=== PATIENT | male | born 1980 | race Caucasian/White ===

== ENCOUNTER 2018-01-14 06:39 | Day surgery (SDC) | payer OTHER, SELFPAY ==
[2017-12-27 13:14] VITALS: BMI 27.3
[2018-01-14] VITALS (10 sets, daily range): BP systolic 112–144; BP diastolic 72–99; PULSE 65–88; RESP 9–98; TEMP 36.1–36.6; O2SAT 95–100; BMI 25.9
[2018-01-14] MEDS: LACTATED RINGERS 1,000 ML 42 ML IV ×2 (07:20→09:22)
--- NOTE | 2018-01-14 07:37 | PM.PREOP ---
Pre-operative Note Interval Note Pre-op Check: Yes History & Physical Reviewed by Physician and Yes Exam Performed Changes: No
[2018-01-14] MEDS: CEFAZOLIN 2 GM/100 ML FROZ.PIGGY IV (07:48)
--- NOTE | 2018-01-14 08:15 | SUR.OPER ---
right Lateral on padded OR bed, head on pillow, gel axillary roll in place, bottom leg bent with gel pad under knee to foot, upper leg straight and supported with pillows. Upper arm supported by pillows and secured over bottom arm to padded arm board. Safety belt at hip, tape over blanket lower legs.
[2018-01-14] MEDS: BUPIVACAINE 0.25% (PF) VIAL 30 ML INJ (08:26)
[2018-01-14] MEDS: METOCLOPRAMIDE 10 MG/2 ML INJ IV (09:24)
[2018-01-14] MEDS: ONDANSETRON 4 MG/2 ML INJ IV (09:26)
[2018-01-14] MEDS: fentaNYL 100 MCG/2 ML INJ 50 MCG IV (09:37)
--- NOTE | 2018-01-14 09:39 | SUR.PHASEI ---
awake on admit to phase 1, c/o nausea treated with ondansetron and reglan and cool washcloth, after nausea subsided, pt c/o pain to l ankle treated with fentanyl.
[2018-01-14] MEDS: OXYCODONE/ACETAMINOPHEN 5/325 TABLET 1 TAB PO (09:51)
--- NOTE | 2018-01-14 09:54 | PM.OP.1 ---
Operative Date/Time/Diagnoses Date of procedure: 01/14/18 Time of procedure: 08:00 Pre-op diagnosis: Left peroneal tendon tendinitis Left ankle ganglion excision Post-op diagnosis: same Procedure & Clinicians Procedure: Procedure: Open left peroneal tendon tenosynovectomy Left ankle ganglion cyst excision Left ankle peroneus quartus excision Same procedure as scheduled: Yes Indications: 37-year-old male with many years of left ankle pain located over the peroneal tendons coursing with them. He has failed a long course of physical therapy splinting pain medications and activity modifications. He was indicated for surgery secondary to persistent symptoms. The risks, benefits, alternatives to surgery were discussed the risks include pain, bleeding, infection, damage to nearby structures, lack of symptom relief, sural nerve injury, need for further procedures, implant complications, anesthetic complications, DVT, PE, stroke. He signed a written consent. Surgeon: Nilson Briones Hedis Specialist: Mikey Sam Click Yes if Unassisted: No Anesthesia Type: General and Local Operative Notes Findings: Ganglion cyst in the peroneal tendon sheath at the level of the distal fibula tip. Peroneus quartus was present with many fascial attachments to the longus tendon. Brevis had a low lying muscle belly. There is diffuse tenosynovitis. Closure Type: primary Specimen(s): none sent Estimated Blood Loss (mL): 5 Blood products transfused: none Tourniquet time (min): 51 Procedure in detail: The patient was met in the preop hold area on the day of the procedure. Operative extremity was signed. Consent was verified. He desired to proceed. He was brought to the operating room and surrendered to anesthesia. Once general anesthesia been obtained he was placed in a lateral position with the blas bag. An axillary roll was placed. All bony prominences were well padded. He was then prepped and draped in the standard sterile fashion. A surgical time-out was held where we confirmed the patient procedure, identity, allergies, images, antibiotics. All were in agreement we proceeded. An Esmarch was used to exsanguinate the limb and the tourniquet was elevated to 250 mm of mercury. An 8 cm incision was made directly over the course of the peroneal tendons and centered over the distal fibula tip. Sharp dissection was carried down to the peroneal tendon sheath and full-thickness skin flaps were created. The sural nerve or a branch of the sural nerve was seen distally near the incision site. It was protected during the case. I then made a small window superiorly in the peroneal tendon sheath and slid the scissors under that to free up any attached tendon. I then opened the peroneal tendon sheath completely to include the superior peroneal retinaculum and the inferior peroneal retinaculum. I then used scissor dissection to remove the extensive tenosynovitis and the ganglion cystic material from within the sheath. Peroneus quartus was seen in the typical location and had many attachments to pronators longus tendon. Peroneus Quartus was removed in its entirety. Peroneus brevis had low lying muscle belly and this was removed. The peroneal tendons themselves were healthy appearing without any degenerative tissue appreciated. I opened the distal portion near the peroneal tubercle as the tendon started to diverge and inspected them there as well. There were no bony prominences and the tubercle itself was smooth it was therefore left in place. Satisfied with the debridement I then irrigated the wound copiously. The superior and inferior peroneal retinaculum were repaired with interrupted 0 Vicryl. The peroneal tendon sheath was then repaired with a running 2 0 Vicryl. The subcuticular tissues were closed with a few 2 0 Vicryl and a running Monocryl was placed in the skin. 20 cc of 0.25% Marcaine without epinephrine was placed about the incision. Sterile dressing was then applied and a splint was placed with the ankle in an everted and dorsiflexed position. He was awakened and transition to the recovery room without issue. Complications: none Condition: stable Disposition: same day surgery Plan for aftercare: Nonweightbearing and splint for 2 weeks. Weightbearing as tolerated in cast for 2 weeks. Weightbearing as tolerated in boot for 2 weeks. Transition to a normal shoe with normal activities and then advance activities as tolerated.
== END 2018-01-14 10:29 | disposition home or self-care (01) ==
PROVIDERS: Family Provider Pediatrics; PCP Pediatrics; Visit Provider Orthopaedic Surgery
PROC: (CPT 27626; principal; 2018-01-14 07:45)
DX: M76.72 Peroneal tendinitis, left leg (principal); M67.472 Ganglion, left ankle and foot
CPT/HCPCS: 27626; 27630; J0690; J1100; J2250; J2405; J2704; J2765; J3010

== ENCOUNTER 2019-07-06 11:51 | Emergency (ER) | payer OTHER, SELFPAY ==
[2019-07-06 12:02] VITALS: BP 160/92; PULSE 84; RESP 18; TEMP 36.5; O2SAT 100; BMI 28.0
--- NOTE | 2019-07-06 12:20 | DI.CT.S_ITS ---
PROCEDURE: CT SOFT TISSUE NECK W CON INDICATIONS: Neck pain, choking sensation, TECHNIQUE: After the administration of intravenous contrast, 3.0 mm axial sections acquired from the sella to the aortic arch. Additional oblique axial 3.0 mm sections acquired through the pharynx. 3 mm thick coronal and sagittal reformats were generated. For radiation dose reduction, the following was used: automated exposure control. COMPARISON: None. FINDINGS: Image quality: Excellent. Lymph nodes: No enlarged lymph nodes seen throughout the neck. Prominent, nonspecific bilateral level I, level II and level III lymph nodes are noted which do not meet pathologic size criteria. Vessels: Visualized vasculature appears patent. Neck spaces: The oropharynx, nasopharynx, and pharynx demonstrate no mucosal lesions. The vocal cords, false vocal cords, pyriform sinuses, epiglottis, vallecula, and tongue base all appear normal. Extramucosal spaces appear unremarkable. Glands: The parotid and submandibular glands appear normal. Thyroid gland is normal. Miscellaneous: Visualized brain and orbits appear normal. Lung apices appear clear. Superficial soft tissues appear normal. Bones: No suspicious bony lesions. Spine degenerative disc disease and facet arthropathy. Small air-fluid level noted in the dependent portions of the maxillary sinuses. Mild mucosal thickening in the maxillary sinuses bilaterally. The mastoids appear unremarkable. IMPRESSION: 1. No mucosal-based mass. 2. No lymphadenopathy based on size criteria. 3. No abscess. 4. Mild bilateral maxillary sinus mucosal thickening and small bilateral air-fluid levels suspicious for acute superimposed on chronic sinusitis. Dictated by: Claudia Patten MD, PhD on 07/06/2019 at 12:59 Approved by: Claudia Patten MD, PhD on 07/06/2019 at 13:05
--- NOTE | 2019-07-06 12:22 | ED.GENADULT ---
HPI - General Adult General Chief complaint: Shortness of Breath/Dyspnea Stated complaint: Cant breath Time Seen by Provider: 07/06/19 12:04 Source: family Mode of arrival: Wheelchair Limitations: no limitations History of Present Illness HPI narrative: 38-year-old male here for evaluation neck pain and also chest pain. He states that it feels like there is something stuck in his throat. He is still breathing. No vomiting. Is tolerating secretions. Occurred earlier today. Has not tried anything for symptoms prior to her Related Data Home Medications Medication Instructions Recorded Confirmed atorvastatin 20 mg PO BEDTIME 07/06/19 07/06/19 Allergies Allergy/AdvReac Type Severity Reaction Status Date / Time No Known Drug Allergies Allergy Verified 07/06/19 12:08 Review of Systems Constitutional Constitutional: Denies fever(s) and Denies headache(s) Eyes Eyes: Denies change in vision ENT Ears, Nose, Mouth, and Throat: Denies facial pain, Denies headache(s), Reports hoarseness, Reports neck pain, Denies sore throat and Reports throat swelling Cardiovascular Cardiovascular: Reports chest pain and Denies dyspnea Respiratory Respiratory: Denies dyspnea Gastrointestinal Gastrointestinal: Denies abdominal pain Musculoskeletal Musculoskeletal: Reports neck pain Integumentary/Breasts Skin/Breast: Denies lesions and Denies rash Neurologic Neurologic: Denies headache(s) Hematologic/Lymphatic Hematologic/Lymphatic: Denies easy bleeding and Denies easy bruising Allergic/Immunologic Allergic/Immunologic: Reports throat swelling Patient History Medical History Flat feet, bilateral (Acute) Impaired vision (Acute) Left ankle pain (Acute) Peroneal tendinitis, left leg (Acute) Surgical History (Updated 12/27/17 @ 13:18 by Rachelle Mckeon RN) History of tonsillectomy (Acute) Social History household members: significant other Smoking Status: Former smoker alcohol intake: current Smoking Status: Former smoker alcohol intake frequency: a few times a week Substance Use Type: does not use Exam Initial Vital Signs Initial Vital Signs: Vital Signs Temperature 97.7 F 07/06/19 12:02 Pulse Rate 84 07/06/19 12:02 Respiratory Rate 18 07/06/19 12:02 Blood Pressure 160/92 H 07/06/19 12:02 Pulse Oximetry 100 07/06/19 12:02 Const General: cooperative, comfortable and well developed Limitations: mental status not altered HENMT Head: normal to inspection and normocephalic Ears: TM's normal bilaterally Nose: external nose normal Face and sinus: normal facial exam Throat: posterior oropharynx normal Neck Neck: supple and No tender Thyroid: not firm Lymphatic: No lymphedema Chest Chest: No crepitus and No tenderness Skin Lesions: lesions noted Rashes: rash noted Neuro General: not alert and not awake Psych Appearance: grossly normal and well kempt Mood: anxious mood Course Orders Ordered: ED Orders 07/06/19 12:00 Basic Metabolic Panel Stat Complete Blood Count AUTO DIFF Stat 07/06/19 12:20 CT soft tissue neck w con Stat Discontinued Medications Sodium Chloride (Normal Saline 0.9%) 1,000 mls @ 1,000 mls/hr IV BOLUS ONE Stop: 07/06/19 13:19 Last Infusion: 07/06/19 14:19 Dose: 0 mls/hr Documented by: Admin: 07/06/19 12:57 Dose: 1,000 mls/hr Documented by: MARISA Lidocaine HCl (Viscous Lidocaine 2%) 15 ml PO NOW ONE Stop: 07/06/19 12:24 Last Admin: 07/06/19 12:54 Dose: 15 ml Documented by: MARISA Vital Signs Vital signs: Vital Signs - 8 hr 07/06/19 12:02 07/06/19 13:36 07/06/19 13:38 Temperature 97.7 F Pulse Rate 84 74 Respiratory Rate 18 16 Blood Pressure 160/92 H Blood Pressure [Left Arm] 131/74 Pulse Oximetry 100 99 07/06/19 14:35 Temperature Pulse Rate 72 Respiratory Rate 18 Blood Pressure 130/80 Blood Pressure [Left Arm] Pulse Oximetry 97 Medical Decision Making Lab Data Lab results reviewed: Yes I reviewed the patient's lab results. Result diagrams: 07/06/19 12:00 07/06/19 12:00 Labs: Lab Results 07/06/19 07/06/19 Range/Units 12:00 12:00 WBC 9.7 (4.5-11.0) X10^3/uL RBC 4.78 (4.5-5.9) X10^6/uL Hgb 16.1 (13.5-17.5) g/dL Hct 45.3 (41-53) % MCV 94.8 (80-100) fL MCH 33.6 (26-34) PG MCHC 35.4 (30-36) % RDW 13.4 (11.6-14.8) % Plt Count 297 (150-400) X10^3/uL Neut % (Auto) 67.7 (50-75) % Lymph % (Auto) 22.2 L (25-40) % [place] % (Auto) 7.5 (3-14) % Eos % (Auto) 2.1 (2-4) % Baso % (Auto) 0.5 (0-2) % Neut # (Auto) 6600 (4510-6091) /uL Lymph # (Auto) 2200 (9076-6675) /uL [place] # (Auto) 700 (0-900) /uL Eos # (Auto) 200 (0-450) /uL Baso # (Auto) 0 (0-100) /uL Sodium 143 (137-145) mmol/L Potassium 4.2 (3.4-5.1) mmol/L Chloride 104 (98-107) mmol/L Carbon Dioxide 28 (22-32) mmol/L BUN 13 (9-20) mg/dL Creatinine 1.10 (0.66-1.25) mg/dL Estimated GFR > 60.0 (>60) mL/min BUN/Creatinine Ratio 11.8 (6-22) Glucose 128 H (70-100) mg/dL Calcium 9.7 (8.4-10.2) mg/dL Point of Care Testing Rapid Strep A Negative Point of care testing: Point of Care Testing Rapid Strep A Negative Imaging Data CT neck: Radiologist's Impression: [address] [address] [address] Scan Report Signed Patient: Vahe Nieto EMR#: [id number] : 1980Acct:[id number] Age/Sex: 38 / MDate of Service: 07/06/19 Loc: ED Accession Number: [id number] Procedure: CT soft tissue neck w con Ordering Provider: Nic Candelaria D.O. PROCEDURE: CT SOFT TISSUE NECK W CON INDICATIONS: Neck pain, choking sensation, TECHNIQUE: After the administration of intravenous contrast, 3.0 mm axial sections acquired from the sella to the aortic arch. Additional oblique axial 3.0 mm sections acquired through the pharynx. 3 mm thick coronal and sagittal reformats were generated. For radiation dose reduction, the following was used: automated exposure control. COMPARISON: None. FINDINGS: Image quality: Excellent. Lymph nodes: No enlarged lymph nodes seen throughout the neck. Prominent, nonspecific bilateral level I, level II and level III lymph nodes are noted which do not meet pathologic size criteria. Vessels: Visualized vasculature appears patent. Neck spaces: The oropharynx, nasopharynx, and pharynx demonstrate no mucosal lesions. The vocal cords, false vocal cords, pyriform sinuses, epiglottis, vallecula, and tongue base all appear normal. Extramucosal spaces appear unremarkable. Glands: The parotid and submandibular glands appear normal. Thyroid gland is normal. Miscellaneous: Visualized brain and orbits appear normal. Lung apices appear clear. Superficial soft tissues appear normal. Bones: No suspicious bony lesions. Spine degenerative disc disease and facet arthropathy. Small air-fluid level noted in the dependent portions of the maxillary sinuses. Mild mucosal thickening in the maxillary sinuses bilaterally. The mastoids appear unremarkable. IMPRESSION: 1. No mucosal-based mass. 2. No lymphadenopathy based on size criteria. 3. No abscess. 4. Mild bilateral maxillary sinus mucosal thickening and small bilateral air-fluid levels suspicious for acute superimposed on chronic sinusitis. Dictated by: Claudia Patten MD, PhD on 07/06/2019 at 12:59 Approved by: Claudia Patten MD, PhD on 07/06/2019 at 13:05 [facility] Narrative Medical decision making narrative: CT scan shows no acute pathology. Has a normal exam. No objective findings on the exam. He is tolerating his secretions. Is not hypoxic. Not tachypneic. Was able to tolerate his own secretions. I do suspect that there is an anxiety component to his presentation. He stated that the viscous lidocaine did help his symptoms somewhat. No fevers. I feel we could hold on further workup for now. Patient was given return precautions and follow-up instructions. He expressed understanding and agreement. Discharge Plan Departure Patient Disposition: Home Clinical Impression: Acute neck pain Discharge Date/Time: 07/06/19 14:36 Activity Restrictions/Additional Instructions: The CT scan shows no blockages. There are no enlarged lymph nodes. Your vital signs are normal. I recommend that you use the [id number] medications like we discussed. Contact your primary provider for follow-up. Return to the emergency department for any new or worsening symptoms Prescriptions: No Action atorvastatin 20 mg Tablet 20 mg PO BEDTIME RF: 0 Referrals: Amy Samson MD [Primary Care Provider] -
[2019-07-06 12:28] LABS: Add Manual Diff / Slide Review NO; Basophils Absolute Auto 0 /uL (0-100); Basophils Percent Auto 0.5 % (0-2); Eosinophils Absolute Auto 200 /uL (0-450); Eosinophils Percent Auto 2.1 % (2-4); Hematocrit 45.3 % (41-53); Hemoglobin 16.1 g/dL (13.5-17.5); Lymphocytes Absolute Auto 2200 /uL (1100-4500); Lymphocytes Percent Auto 22.2 % (25-40); Mean Corpuscular HGB Conc 35.4 % (30-36); Mean Corpuscular Hemoglobin 33.6 PG (26-34); Mean Corpuscular Volume 94.8 fL (80-100); Monocytes Absolute Auto 700 /uL (0-900); Monocytes Percent Auto 7.5 % (3-14); Neutrophils Absolute Auto 6600 /uL (1500-7000); Neutrophils Percent Auto 67.7 % (50-75); Platelet Count 297 X10^3/uL (150-400); Red Blood Cell Count 4.78 X10^6/uL (4.5-5.9); Red Cell Distribution Width 13.4 % (11.6-14.8); White Blood Cell Count 9.7 X10^3/uL (4.5-11.0)
[2019-07-06 12:36] LABS: BUN Creatinine Ratio 11.8 (6-22); Blood Urea Nitrogen 13 mg/dL (9-20); Calcium 9.7 mg/dL (8.4-10.2); Carbon Dioxide 28 mmol/L (22-32); Chloride 104 mmol/L (98-107); Estimated Glomerular Filt Rate > 60.0 mL/min (>60); Glucose 128 mg/dL (70-100); HEMOLYSIS 28 (0-50); Potassium 4.2 mmol/L (3.4-5.1); Sodium 143 mmol/L (137-145)
--- NOTE | 2019-07-06 12:50 | PC.NURSE ---
Pt swallowing secretions,no swelling noted of tongue or throat.
[2019-07-06] MEDS: LIDOCAINE VISCOUS 2% 15 ML SOLUTION PO (12:54)
[2019-07-06] MEDS: SODIUM CHLORIDE 0.9% 1,000 ML 1000 ML IV (12:57)
[2019-07-06 13:36] VITALS: BP 131/74; PULSE 74; O2SAT 99
[2019-07-06 13:38] VITALS: RESP 16
[2019-07-06 14:35] VITALS: BP 130/80; PULSE 72; RESP 18; O2SAT 97
== END 2019-07-06 14:36 | disposition home or self-care (01) ==
PROVIDERS: Emergency Provider Emergency Medicine; Family Provider Pediatrics; PCP Pediatrics
DX: M54.2 Cervicalgia (principal); R07.9 Chest pain, unspecified
CPT/HCPCS: 36415; 70491; 80048; 85025; 87880; 96360; 99284

== ENCOUNTER → 2020-05-15 08:39 | Outpatient (CLI) | payer OTHER, SELFPAY ==
[2020-05-15 10:01] LABS: Alanine Aminotransferase 60 IU/L (<50); Albumin 4.9 g/dL (3.5-5.0); Albumin Globulin Ratio 1.6 (1.0-2.8); Alkaline Phosphatase 74 U/L (38-126); Aspartate Aminotransferase 40 IU/L (17-59); Bilirubin Total 0.9 mg/dL (0.2-1.3); Blood Urea Nitrogen 17 mg/dL (9-20); Calcium 9.6 mg/dL (8.4-10.2); Carbon Dioxide 36 mmol/L (22-32); Chloride 97 mmol/L (98-107); Cholesterol 193 mg/dL (140-199); Estimated Glomerular Filt Rate > 60.0 mL/min (>60); Globulin 3.1 g/dL (1.7-4.1); Glucose 101 mg/dL (70-100); HDL Cholesterol 41 mg/dL (40-60); HEMOLYSIS < 15 (0-50); LDL Cholesterol Calculated 112 mg/dL (<100); Potassium 4.1 mmol/L (3.4-5.1); Sodium 138 mmol/L (137-145); Triglycerides 199 mg/dL (35-150)
[2020-05-15 10:25] LABS: Hemoglobin A1C% w Est Avg Glu 5.2 % (4.0-6.0)
== END ==
PROVIDERS: Family Provider Pediatrics; PCP Family Medicine; Referring Provider Family Medicine; Visit Provider Family Medicine
DX: E78.5 Hyperlipidemia, unspecified (principal); R73.9 Hyperglycemia, unspecified
CPT/HCPCS: 36415; 80053; 80061; 83036

== ENCOUNTER → 2021-08-21 08:58 | Outpatient (CLI) | payer OTHER, SELFPAY ==
[2021-08-21 10:36] LABS: Alanine Aminotransferase 37 IU/L (<50); Albumin Globulin Ratio 1.7 (1.0-2.8); Alkaline Phosphatase 65 U/L (38-126); Aspartate Aminotransferase 34 IU/L (17-59); BUN Creatinine Ratio 15.3 (6-22); Bilirubin Total 0.8 mg/dL (0.2-1.3); Blood Urea Nitrogen 18 mg/dL (9-20); Calcium 9.6 mg/dL (8.4-10.2); Carbon Dioxide 33 mmol/L (22-32); Chloride 99 mmol/L (98-107); Cholesterol 196 mg/dL (140-199); Estimated Glomerular Filt Rate > 60 mL/min (>60); Glucose 111 mg/dL (70-100); HDL Cholesterol 38 mg/dL (40-60); HEMOLYSIS < 15 (0-50); LDL Cholesterol Calculated 123 mg/dL (<100); Potassium 4.3 mmol/L (3.4-5.1); Sodium 140 mmol/L (137-145); Triglycerides 173 mg/dL (35-150); Uric Acid 9.4 mg/dL (3.5-8.5)
[2021-08-21 10:56] LABS: Microalbumin Urine Random 3.4 mg/dL (0-1.6)
[2021-08-21 11:14] LABS: Creatinine Urine Random 478.5 mg/dL; Microalbumi Creatinin Ratio Ur 7.1 ug/mg CR (<30)
== END ==
PROVIDERS: Family Provider Pediatrics; PCP Family Medicine; Referring Provider Family Medicine; Visit Provider Family Medicine
DX: E78.2 Mixed hyperlipidemia (principal); R74.8 Abnormal levels of other serum enzymes; F41.9 Anxiety disorder, unspecified; I10 Essential (primary) hypertension; R73.9 Hyperglycemia, unspecified; E78.5 Hyperlipidemia, unspecified; M10.9 Gout, unspecified
CPT/HCPCS: 36415; 80053; 80061; 82043; 82570; 84443; 84550

== ENCOUNTER → 2022-03-17 16:47 | Outpatient (CLI) | payer OTHER, SELFPAY ==
[2022-03-17 17:26] LABS: Add Manual Diff / Slide Review NO; Basophils Absolute Auto 100 /uL (0-100); Basophils Percent Auto 0.6 % (0-2); Eosinophils Absolute Auto 200 /uL (0-450); Eosinophils Percent Auto 2.5 % (2-4); Hematocrit 44.6 % (41-53); Hemoglobin 15.4 g/dL (13.5-17.5); Lymphocytes Absolute Auto 2500 /uL (1100-4500); Lymphocytes Percent Auto 25.8 % (25-40); Mean Corpuscular HGB Conc 34.5 % (30-36); Mean Corpuscular Hemoglobin 31.9 PG (26-34); Mean Corpuscular Volume 92.6 fL (80-100); Monocytes Absolute Auto 700 /uL (0-900); Neutrophils Absolute Auto 6300 /uL (1500-7000); Neutrophils Percent Auto 64.1 % (50-75); Platelet Count 285 X10^3/uL (150-400); Red Blood Cell Count 4.81 X10^6/uL (4.5-5.9); Red Cell Distribution Width 12.7 % (11.6-14.8); White Blood Cell Count 9.8 X10^3/uL (4.5-11.0)
[2022-03-17 17:58] LABS: Alanine Aminotransferase 64 IU/L (<50); Albumin 4.8 g/dL (3.5-5.0); Albumin Globulin Ratio 1.5 (1.0-2.8); Alkaline Phosphatase 82 U/L (38-126); Aspartate Aminotransferase 40 IU/L (17-59); BUN Creatinine Ratio 14.5 (6-22); Blood Urea Nitrogen 17 mg/dL (9-20); Calcium 9.5 mg/dL (8.4-10.2); Carbon Dioxide 33 mmol/L (22-32); Chloride 98 mmol/L (98-107); Cholesterol 173 mg/dL (140-199); Estimated Glomerular Filt Rate > 60 mL/min (>60); Globulin 3.3 g/dL (1.7-4.1); Glucose 91 mg/dL (70-100); HDL Cholesterol 36 mg/dL (40-60); HEMOLYSIS < 15 (0-50); LDL Cholesterol Calculated 91 mg/dL (<100); Sodium 138 mmol/L (137-145); Total Protein 8.1 g/dL (6.3-8.2); Triglycerides 229 mg/dL (35-150); Uric Acid 7.2 mg/dL (3.5-8.5)
== END ==
PROVIDERS: Family Provider Pediatrics; PCP Family Medicine; Referring Provider Family Medicine; Visit Provider Family Medicine
DX: E78.5 Hyperlipidemia, unspecified (principal); I10 Essential (primary) hypertension; R73.9 Hyperglycemia, unspecified; M10.9 Gout, unspecified
CPT/HCPCS: 36415; 80053; 80061; 84550; 85025

== ENCOUNTER → 2022-12-14 12:38 | Outpatient (CLI) | payer OTHER, SELFPAY ==
[2022-12-14 13:28] LABS: Add Manual Diff / Slide Review NO; Basophils Absolute Auto 0 /uL (0-100); Basophils Percent Auto 0.7 % (0-2); Eosinophils Absolute Auto 200 /uL (0-450); Eosinophils Percent Auto 2.8 % (2-4); Hematocrit 41.7 % (41-53); Hemoglobin 14.9 g/dL (13.5-17.5); Lymphocytes Absolute Auto 2000 /uL (1100-4500); Lymphocytes Percent Auto 29.4 % (25-40); Mean Corpuscular HGB Conc 35.6 % (30-36); Mean Corpuscular Hemoglobin 32.9 PG (26-34); Mean Corpuscular Volume 92.4 fL (80-100); Monocytes Absolute Auto 500 /uL (0-900); Neutrophils Absolute Auto 4000 /uL (1500-7000); Neutrophils Percent Auto 59.1 % (50-75); Platelet Count 280 X10^3/uL (150-400); Red Blood Cell Count 4.52 X10^6/uL (4.5-5.9); Red Cell Distribution Width 12.4 % (11.6-14.8); White Blood Cell Count 6.8 X10^3/uL (4.5-11.0)
[2022-12-14 13:36] LABS: Alanine Aminotransferase 41 IU/L (<50); Albumin 4.8 g/dL (3.5-5.0); Albumin Globulin Ratio 1.7 (1.0-2.8); Alkaline Phosphatase 87 U/L (38-126); Aspartate Aminotransferase 34 IU/L (17-59); BUN Creatinine Ratio 16.8 (6-22); Blood Urea Nitrogen 18 mg/dL (9-20); Calcium 9.7 mg/dL (8.4-10.2); Carbon Dioxide 29 mmol/L (22-32); Chloride 99 mmol/L (98-107); Cholesterol 173 mg/dL (140-199); Estimated Glomerular Filt Rate > 60 mL/min (>60); Globulin 2.9 g/dL (1.7-4.1); Glucose 91 mg/dL (70-100); HDL Cholesterol 39 mg/dL (40-60); HEMOLYSIS < 15 (0-50); LDL Cholesterol Calculated 99 mg/dL (<100); Potassium 4.1 mmol/L (3.4-5.1); Sodium 138 mmol/L (137-145); Total Protein 7.7 g/dL (6.3-8.2); Triglycerides 175 mg/dL (35-150); Uric Acid 5.5 mg/dL (3.5-8.5)
[2022-12-14 14:07] LABS: TSH w/ Reflex to FT4 1.75 uIU/mL (0.47-4.68)
== END ==
PROVIDERS: Family Provider Pediatrics; PCP Family Medicine; Referring Provider Family Medicine; Visit Provider Family Medicine
DX: Z00.00 Encounter for general adult medical examination without abnormal findings (principal); Z87.39 Personal history of other diseases of the musculoskeletal system and connective tissue; E78.5 Hyperlipidemia, unspecified; I10 Essential (primary) hypertension; R74.8 Abnormal levels of other serum enzymes
CPT/HCPCS: 36415; 80053; 80061; 84443; 84550; 85025

== ENCOUNTER → 2023-02-15 11:05 | Outpatient (CLI) | payer OTHER, SELFPAY ==
--- NOTE | 2023-02-15 11:07 | DI.RAD.S_ITS ---
PROCEDURE: XR LUMBAR SPINE MIN 4V INDICATIONS: lumbar pain w / right side sciatica x 4 days TECHNIQUE: Three views of the lumbar spine. COMPARISON: [facility], , L-SPINE WITHOUT CONTRAST, 08/23/2017, 7:13. FINDINGS: Bones: 5 nonrib-bearing vertebrae are present. There is normal bony alignment. Mild disc height loss at L4-5 and L5-S1. No vertebral body compression fractures. No suspicious bony lesions. Soft tissues: Overlying bowel gas pattern is normal. No suspicious soft tissue calcifications. IMPRESSION: Mild degenerative disc disease of the lower lumbar spine. Dictated by: Luiz Colby M.D. on 02/15/2023 at 12:16 Approved by: Luiz Colby M.D. on 02/15/2023 at 12:17
[2023-02-15 14:36] LABS: Microalbumin Urine Random 0.6 mg/dL (0-1.6)
[2023-02-15 14:40] LABS: Microalbumi Creatinin Ratio Ur 4.3 ug/mg CR (<30)
== END ==
PROVIDERS: Family Provider Pediatrics; PCP Family Medicine; Referring Provider Physician Assistant; Visit Provider Physician Assistant
DX: Z00.00 Encounter for general adult medical examination without abnormal findings (principal); M54.41 Lumbago with sciatica, right side; R74.8 Abnormal levels of other serum enzymes; I10 Essential (primary) hypertension; E78.5 Hyperlipidemia, unspecified; M51.36 Other intervertebral disc degeneration, lumbar region
CPT/HCPCS: 72110; 82043; 82570

== ENCOUNTER → 2023-03-10 08:59 | Outpatient (CLI) | payer OTHER, SELFPAY ==
[2023-03-10 10:28] LABS: COVID-19 CEPHEID 4-PLEX PCR Negative (Negative); Influenza A - CEPHEID Flu A NEGATIVE (NEGATIVE); Influenza B - CEPHEID Flu B NEGATIVE (NEGATIVE); Respiratory Syncytial Virus Negative (Negative)
== END ==
PROVIDERS: Family Provider Family Medicine; PCP Family Medicine; Visit Provider Nurse Practitioner Family
DX: R05.1 Acute cough (principal); J02.9 Acute pharyngitis, unspecified
CPT/HCPCS: 0241U; 87070

== ENCOUNTER → 2023-03-12 19:20 | Outpatient (CLI) | payer OTHER, SELFPAY ==
--- NOTE | 2023-03-12 19:21 | DI.MRI.S_ITS ---
PROCEDURE: MR LUMBAR SPINE WO CON INDICATIONS: right radiculopathy with pos straight leg raise TECHNIQUE: Noncontrast sagittal T1 spin echo and T2 fast echo, sagittal STIR, and T2 fast spin echo through the lumbar spine. In cases with scoliosis, additional coronal T2 fast spin echo may be performed. COMPARISON: [facility], , L-SPINE WITHOUT CONTRAST, 08/23/2017, 7:13. FINDINGS: Image quality: Excellent. Alignment and Curvature: There is normal bony alignment. Bone Marrow: Marrow is of normal overall signal. No acute vertebral body compression fractures. Spinal Cord: Conus medullaris terminates at the L1 level. Visualized cord demonstrates normal signal and size. Copious dorsal epidural fat noted Paraspinous Soft Tissues: No paravertebral masses. T12-L1: Normal appearance. L1-L2: Mild disc space narrowing and combined with trace disc bulge , facet arthropathy and dorsal epidural fat to result in mild central stenosis. No foraminal stenosis. L2-L3: Disc height is preserved. No disc bulge. Dorsal epidural fat and mild arthropathy results in mild central stenosis. No foraminal stenosis. L3-L4: Disc height maintained. Minimal disc bulge present. Facet hypertrophy and dorsal epidural fat combined result in moderate to severe central stenosis, increased from the prior exam. No foraminal stenosis. L4-L5: Disc height is preserved. Mild disc bulge and hypertrophic facet joints present. No central stenosis. Mild bilateral foraminal stenosis L5-S1: Disc height is preserved. Circumferential disc bulge noted. No central or foraminal stenosis IMPRESSION: Prominent epidural lipomatosis combines with mild degenerative disc disease to result in moderate to severe central stenosis at L3-4, increased from the prior exam 2017 Approved by: Dale Peters M.D. on 03/13/2023 at 9:23
== END ==
PROVIDERS: Family Provider Family Medicine; PCP Family Medicine; Referring Provider Family Medicine; Visit Provider Family Medicine
DX: M51.16 Intervertebral disc disorders with radiculopathy, lumbar region (principal); M48.061 Spinal stenosis, lumbar region without neurogenic claudication; I10 Essential (primary) hypertension
CPT/HCPCS: 72148

== ENCOUNTER 2023-06-09 08:55 | Outpatient (CLI) | payer OTHER, SELFPAY ==
[2023-06-09] VITALS (7 sets, daily range): BP systolic 129–147; BP diastolic 76–90; PULSE 71–90; RESP 12–20; TEMP 36.8; O2SAT 97–100
[2023-06-09] MEDS: MIDAZOLAM 2 MG/2 ML VIAL IV (09:28)
--- NOTE | 2023-06-09 09:30 | DI.RAD.S_ITS ---
PROCEDURE: PAIN L INTERLAMINAR/CAUDAL INJ INDICATIONS: LUMBAR RADICULOPATHY COMPARISON: None. FINDINGS: Fluoroscopic spot filming was performed to verify placement of spinal needles at the L4-5 level(s), as labeled on the films. Appropriate location(s) of the needle tip(s) was confirmed by injection of iodinated contrast. IMPRESSION: Fluoroscopic image demonstrates injection at the L4-5 level. Please see procedural report for details. Dictated by: Maribell Mendenhall M.D. on 06/09/2023 at 12:54 Approved by: Maribell Mendenhall M.D. on 06/09/2023 at 13:48
[2023-06-09] MEDS: DEXAMETHASONE 10 MG/ML VIAL INJ (09:36)
[2023-06-09] MEDS: iopamidoL 15 ML VIAL 3 ML INJ (09:36)
--- NOTE | 2023-06-09 12:15 | P.PCN_ITS ---
Date/Time/Diagnoses Date of procedure: 06/09/23 Time of procedure: 09:30 Procedure Notes Physician: Gold Zheng Total Fluoroscopy time (seconds): 14 Total sedation minutes: 12 Procedure in detail & Post-procedure care: L4-5 Interlaminar Epidural Steroid Injection Indications: Vahe is presenting for treatment of lumbar radiculopathy with low back and leg pain. Preoperative diagnosis: Lumbar radiculopathy Postoperative diagnosis: Same Focused Examination: Ax3 Mood and affect are normal Vital Signs: VSS ASA: 2 Consent: Following review of allergies and potential side effects/complications, including, but not necessarily limited to, infection, allergic reaction, local tissue breakdown, stroke, temporary or permanent nerve injury, paralysis, and possible , the patient indicated that they understood and agreed to proc eed.? An informed consent document was signed by the patient, witnessed by a nurse and placed in the patient's chart.? Additionally, other treatment options including medications and physical therapy were reviewed with the patient. All questions were answered. Site was then marked. Anesthesia: After review of previous anesthetic history and IV conscious sedation, the patient was deemed safe to proceed with today's procedure with IV conscious sedation. IV sedation was accomplished with midazolam 2 mg administered by the RN after order by Dr. Zheng. Sedation was titrated to patient comfort during the course of the procedure. Patient remained responsive to all verbal commands. Position: Prone Monitoring: NIBP, Pulse oximetry, 3 lead EKG Needle used: 18 G 3.5? Tuohy Contrast: Isovue 300M Injectate: Dexamethasone 10 mg with 1% lidocaine 2 mL Technique: The skin was prepped with chloraprep and then draped in a sterile fashion. Time out was performed as per protocol. Oxygen applied via NC. Skin and subcutaneous structures of the needle entry site was then infiltrated with 3 mL of lidocaine 1%. Under AP, lateral and contralateral oblique fluoroscopic control, the Tuohy needle was guided into the L4-5 epidural space. The space was accessed with loss of resistance technique. Isovue 300M was then injected and the spread was consistent with the epidural space. There was no evidence for intravascular or intrathecal uptake. After negative aspiration, the above- mentioned injectate was then slowly administered and the needle withdrawn. The patient expressed no unusual discomfort or paresthesias during the injection. Band-Aids applied to injection sites. EBL: less than 1 ml Complications: None Post Procedure: Patient was taken to the recovery and monitored. The patient was provided a Pain Log to continue to record the patient's response to the target- specific procedure prior to the patient's follow-up visit with the referring physician. Patient was stable upon discharge. Detailed post procedure instructions were provided. Patient was asked to call in the event of worsening pain, fever, weakness, numbness or bladder or bowel incontinence.
== END 2023-06-09 10:07 | disposition home or self-care (01) ==
LOC: RAD 08:56
PROVIDERS: Family Provider Family Medicine; PCP Family Medicine; Referring Provider Anesthesiology; Visit Provider Anesthesiology
DX: M54.16 Radiculopathy, lumbar region (principal)
CPT/HCPCS: 62323; 64494; 99152; J1100; J2250

== ENCOUNTER 2023-07-17 22:32 | Emergency (ER) | payer OTHER, SELFPAY ==
[2023-07-17 22:36] VITALS: PULSE 85; O2SAT 98
[2023-07-17 22:38] VITALS: BP 118/75; PULSE 80; RESP 16; TEMP 37.7; O2SAT 97; BMI 26.7
--- NOTE | 2023-07-17 22:41 | DI.RAD.S_ITS ---
PROCEDURE: XR CHEST 1V INDICATIONS: chest pain TECHNIQUE: One view of the chest was acquired. COMPARISON: None. FINDINGS: Surgical changes and devices: None. Lungs and pleura: Lungs are clear. No pleural effusions or pneumothorax. Mediastinum: Mediastinal contours appear normal. Heart size is normal. Bones and chest wall: No suspicious bony lesions. Overlying soft tissues appear unremarkable. IMPRESSION: No acute cardiopulmonary abnormality is seen. Dictated by: Walker Ross M.D. on 07/17/2023 at 23:11 Approved by: Walker Ross M.D. on 07/17/2023 at 23:11
--- NOTE | 2023-07-17 22:47 | ED_ITS ---
HPI - General Adult General Chief complaint: Syncope Stated complaint: syncope Time Seen by Provider: 07/17/23 22:47 Source: patient and EMS Mode of arrival: EMS History of Present Illness HPI narrative: 42-year-old gentleman with a history of hypertension presents 24-36 hours of fevers, general malaise, decreased appetite, soaking sweats, vomiting today and syncopal episode when he was take shower this afternoon. He complains of headache that is worse when he coughs, cough is nonproductive, very sore throat. Nobody else at home is sick. He has not complaining of abdominal pain. He notes that he had an epidural steroid injection about 5 weeks ago and is not having any problems after that. After laying in bed for the last 24 hours he is having some increased low back pain. No chest pain, shortness of breath. Related Data Previous Rx's Medication Instructions Recorded losartan 100 1 tab PO DAILY #90 tabs 12/14/22 mg-hydrochlorothiazide 25 mg tablet atorvastatin 20 mg tablet 20 mg PO BEDTIME #90 tabs 01/21/23 clonazepam 1 mg tablet See Rx Instructions PO BID PRN 03/30/23 anxiety/muscle spasm #30 tabs allopurinol 100 mg tablet 100 mg PO DAILY #90 tabs 04/06/23 Disabled Parking Permit #1 ea 04/15/23 tizanidine 2 mg tablet 2 mg PO TID PRN muscle spasticity 05/27/23 #60 tabs meloxicam 7.5 mg tablet 7.5 mg PO DAILY PRN Pain #30 tabs 06/28/23 phentermine 30 mg capsule 30 mg PO DAILY #30 caps 07/06/23 Allergies Allergy/AdvReac Type Severity Reaction Status Date / Time ibuprofen AdvReac Unknown fluid Verified 06/28/23 13:22 retention Review of Systems Review of Systems Narrative: Pertinent positive and negative findings as per HPI Patient History Medical History Lumbar radiculopathy Myofascial pain Epidural lipomatosis Foot pain (~2013) Ankle pain (~2013) Chicken pox (~1988) Low back pain with right-sided sciatica Chronic back pain (~2016) PTSD (post-traumatic stress disorder) (~2018) Hypertension (~2018) Hyperglycemia Hyperlipidemia Flat feet, bilateral Left ankle pain Impaired vision Peroneal tendinitis, left leg Surgical History Anesthesia History of ankle surgery (~2000) History of tonsillectomy (~1985) Family History Father Hyperlipidemia Hypertension History of heart disease Mother Mental health problem Sister Hyperlipidemia Hypertension Grandfather COPD (chronic obstructive pulmonary disease) Grandmother Dementia Grandfather History of heart disease Grandmother History of heart disease Social History household members: significant other Smoking Status: Former smoker alcohol intake: current Smoking Status: Former smoker alcohol intake frequency: a few times a week Substance Use Type: does not use Exam Initial Vital Signs Initial Vital Signs: Vital Signs Pulse Rate 85 07/17/23 22:36 Pulse Oximetry 98 07/17/23 22:36 General: Ill-appearing gentleman, flushed, injected sclera, complaining of headache. HEENT: Moist mucous membranes, injected sclera, no pharyngeal exudate no cervical adenopathy. Neck: No nuchal rigidity Respiratory: Lungs are clear to auscultation, no wheezing no rales no rhonchi. Full and symmetrical air movement Cardiac: Regular rate and rhythm no murmurs no bruits Abdomen: Soft, mild diffuse abdominal tenderness without rebound or guarding Skin: Flushed, diaphoretic, no concerns for cellulitis Neurologic: Globally weak but otherwise Grossly neurologically intact with no obvious asymmetries or abnormalities Extremities: No trauma, well perfused Psych: Cooperative, blunted affect due to illness Course Orders Ordered: ED Orders 07/17/23 22:35 Complete Blood Count AUTO DIFF Stat Comprehensive Metabolic Panel Stat Lipase Stat Magnesium Stat PTT Partial Thromboplastin Pedrito Stat Prothrombin Time INR Stat Troponin & CK Cardiac Panel Stat 07/17/23 22:40 Covid-19 + FLU A/B + RSV - PCR Stat 07/17/23 22:41 XR chest 1V Stat EKG-12 Lead Stat 07/18/23 00:21 CT abdomen pelvis w con Stat Blood Culture Stat Lactate (Lactic Acid) Stat 07/18/23 00:30 Respiratory Panel (Film Array) Stat 07/18/23 00:34 Urinalysis and Microscopic Stat Hydromorphone HCl (Hydromorphone 0.5 Mg Inj) 0.5 mg IV Q15MIN PRN PRN Reason: Pain, Last Admin: 07/18/23 00:37 Dose: 0.5 mg Documented By: BILLIE Discontinued Medications Sodium Chloride (Normal Saline 0.9%) 1,000 mls @ 1,000 mls/hr IV BOLUS ONE Stop: 07/18/23 01:19 Last Admin: 07/18/23 01:13 Dose: 1,000 mls/hr Documented By: BILLIE Ceftriaxone Sodium 2,000 mg/ (Sodium Chloride) 100 mls @ 200 mls/hr IV NOW ONE Stop: 07/18/23 00:23 Last Infusion: 07/18/23 01:48 Dose: Infused Documented By: Admin: 07/18/23 01:13 Dose: 200 mls/hr Documented By: BILLIE Ketorolac Tromethamine (Ketorolac 30 Mg/Ml Vial) 15 mg IV NOW ONE Stop: 07/18/23 00:21 Last Admin: 07/18/23 00:46 Dose: 15 mg Documented By: BILLIE Ondansetron HCl (Ondansetron 4 Mg/2 Ml Inj) 4 mg IV NOW ONE Stop: 07/18/23 00:21 Last Admin: 07/18/23 00:45 Dose: 4 mg Documented By: BILLIE Vital Signs Vital signs: Vital Signs - 8 hr 07/17/23 22:36 07/17/23 22:38 07/17/23 23:00 Temperature 99.9 F H Pulse Rate 85 80 Respiratory Rate 16 Blood Pressure 118/75 121/64 Pulse Oximetry 98 97 Oxygen Delivery Method Room Air 07/17/23 23:00 07/17/23 23:30 07/17/23 23:30 Temperature Pulse Rate 84 82 Respiratory Rate 21 17 Blood Pressure 116/62 Pulse Oximetry 98 97 Oxygen Delivery Method 07/18/23 00:00 07/18/23 00:00 07/18/23 00:30 Temperature Pulse Rate 80 Respiratory Rate 18 Blood Pressure 115/64 117/72 Pulse Oximetry 97 Oxygen Delivery Method 07/18/23 00:30 07/18/23 00:52 07/18/23 00:52 Temperature Pulse Rate 85 82 Respiratory Rate 17 17 Blood Pressure 128/75 Pulse Oximetry 97 96 Oxygen Delivery Method 07/18/23 01:00 07/18/23 01:00 07/18/23 01:30 Temperature Pulse Rate 79 Respiratory Rate 18 Blood Pressure 128/68 120/70 Pulse Oximetry Oxygen Delivery Method 07/18/23 01:30 Temperature Pulse Rate 74 Respiratory Rate 17 Blood Pressure Pulse Oximetry 97 Oxygen Delivery Method Medical Decision Making Lab Data 07/17/23 22:35 07/17/23 22:35 Labs: Lab Results 07/17/23 07/17/23 07/17/23 Range/Units 22:35 22:40 22:40 WBC 18.0 H (4.5-11.0) X10^3/uL RBC 4.90 (4.5-5.9) X10^6/uL Hgb 15.9 (13.5-17.5) g/dL Hct 45.7 (41-53) % MCV 93.4 (80-100) fL MCH 32.4 (26-34) PG MCHC 34.7 (30-36) % RDW 12.7 (11.6-14.8) % Plt Count 276 (150-400) X10^3/uL Neut % (Auto) 75.9 H (50-75) % Lymph % (Auto) 13.3 L (25-40) % Clinton % (Auto) 9.7 (3-14) % Eos % (Auto) 0.5 L (2-4) % Baso % (Auto) 0.6 (0-2) % Neut # (Auto) 02121 H (8001-4443) /uL Lymph # (Auto) 2400 (5053-6473) /uL Clinton # (Auto) 1700 H (0-900) /uL Eos # (Auto) 100 (0-450) /uL Baso # (Auto) 100 (0-100) /uL PT 12.6 H (9.4-12.5) SECONDS INR 1.1 (0.9-1.3) APTT 32 (25.1-36.5) SECONDS Sodium 138 (137-145) mmol/L Potassium 3.6 (3.4-5.1) mmol/L Chloride 98 (98-107) mmol/L Carbon Dioxide 31 (22-32) mmol/L BUN 16 (9-20) mg/dL Creatinine 1.29 H (0.66-1.25) mg/dL Estimated GFR > 60 (>60) mL/min BUN/Creatinine Ratio 12.4 (6-22) Glucose 152 H (70-100) mg/dL Lactate 2.2 H (0.7-2.1) mmol/L Calcium 9.8 (8.4-10.2) mg/dL Magnesium 2.1 (1.6-2.3) mg/dL Total Bilirubin 1.1 (0.2-1.3) mg/dL AST 29 (17-59) IU/L ALT 30 (<50) IU/L Alkaline Phosphatase 79 (38-126) U/L Total Creatine Kinase 47 L (55-170) U/L Troponin I < 0.012 (0.01-0.034) ng/mL Total Protein 8.6 H (6.3-8.2) g/dL Albumin 4.7 (3.5-5.0) g/dL Globulin 3.9 (1.7-4.1) g/dL Albumin/Globulin Ratio 1.2 (1.0-2.8) Lipase 77 (23-300) U/L Urine Color Urine Appearance Urine pH (4.5-8.0) Ur Specific [place] (1.000-1.035) Urine Protein (Negative) Urine Glucose (UA) (Negative) g/dL Urine Ketones (NEGATIVE) Urine Occult Blood (Negative) Urine Nitrate (Negative) Urine Bilirubin (NEGATIVE) Urine Urobilinogen (0.2) E.U./dL Ur Leukocyte Esterase (NEGATIVE) Urine RBC (0-5/HPF) Urine WBC (0-5/HPF) Ur Squamous Epith Cells (0-5/HPF) Urine Bacteria (None) Urine Mucus (Negative) Ur Culture Indicated? Vol Urine Centrifuged Chlamy pneumoniae PCR Not detected (Not Detect) Adenovirus (PCR) Not detected (Not Detect) B.parapertussis DNA PCR Not detected (Not Detecte) Coronavirus OC43 (PCR) Not detected (Not Detect) Coronavirus HKU1 (PCR) Detected H (Not Detect) Coronavirus 229E (PCR) Not detected (Not Detect) SARS-CoV-2 (PCR) Negative Not detected (Negative) Coronavirus NL63 (PCR) Not detected (Not Detect) Human Metapneumovir PCR Not detected (Not Detect) Influenza A (RT-PCR) Flu a negative (NEGATIVE) Influenza Type A (PCR) Not detected (Not Detect) Influenza B (RT-PCR) Flu b negative (NEGATIVE) Influenza Type B (PCR) Not detected (Not Detect) M. pneumoniae (PCR) Not detected (Not Detect) Parainfluenza 1 (PCR) Not detected (Not Detect) Parainfluenza 2 (PCR) Not detected (Not Detect) Parainfluenza 3 (PCR) Not detected (Not Detect) Parainfluenza 4 (PCR) Not detected (Not Detect) RSV (PCR) Negative (Negative) Entero/Rhino (PCR) (Not Detect) 07/17/23 07/18/23 Range/Units 22:40 00:34 WBC (4.5-11.0) X10^3/uL RBC (4.5-5.9) X10^6/uL Hgb (13.5-17.5) g/dL Hct (41-53) % MCV (80-100) fL MCH (26-34) PG MCHC (30-36) % RDW (11.6-14.8) % Plt Count (150-400) X10^3/uL Neut % (Auto) (50-75) % Lymph % (Auto) (25-40) % [place] % (Auto) (3-14) % Eos % (Auto) (2-4) % Baso % (Auto) (0-2) % Neut # (Auto) (0305-0927) /uL Lymph # (Auto) (5442-9719) /uL Clinton # (Auto) (0-900) /uL Eos # (Auto) (0-450) /uL Baso # (Auto) (0-100) /uL PT (9.4-12.5) SECONDS INR (0.9-1.3) APTT (25.1-36.5) SECONDS Sodium (137-145) mmol/L Potassium (3.4-5.1) mmol/L Chloride (98-107) mmol/L Carbon Dioxide (22-32) mmol/L BUN (9-20) mg/dL Creatinine (0.66-1.25) mg/dL Estimated GFR (>60) mL/min BUN/Creatinine Ratio (6-22) Glucose (70-100) mg/dL Lactate (0.7-2.1) mmol/L Calcium (8.4-10.2) mg/dL Magnesium (1.6-2.3) mg/dL Total Bilirubin (0.2-1.3) mg/dL AST (17-59) IU/L ALT (<50) IU/L Alkaline Phosphatase (38-126) U/L Total Creatine Kinase (55-170) U/L Troponin I (0.01-0.034) ng/mL Total Protein (6.3-8.2) g/dL Albumin (3.5-5.0) g/dL Globulin (1.7-4.1) g/dL Albumin/Globulin Ratio (1.0-2.8) Lipase (23-300) U/L Urine Color Yellow Urine Appearance Clear Urine pH 6.0 (4.5-8.0) Ur Specific [place] 1.015 (1.000-1.035) Urine Protein Trace H (Negative) Urine Glucose (UA) Negative (Negative) g/dL Urine Ketones Trace H (NEGATIVE) Urine Occult Blood Trace-intact (Negative) Urine Nitrate Negative (Negative) Urine Bilirubin Negative (NEGATIVE) Urine Urobilinogen 0.2 (0.2) E.U./dL Ur Leukocyte Esterase Negative (NEGATIVE) Urine RBC 0-1/hpf (0-5/HPF) Urine WBC 0-1/hpf (0-5/HPF) Ur Squamous Epith Cells None seen (0-5/HPF) Urine Bacteria None seen (None) Urine Mucus 1+ H (Negative) Ur Culture Indicated? Cult not indicated Vol Urine Centrifuged 10ml (spun) Chlamy pneumoniae PCR (Not Detect) Adenovirus (PCR) (Not Detect) B.parapertussis DNA PCR (Not Detecte) Coronavirus OC43 (PCR) (Not Detect) Coronavirus HKU1 (PCR) (Not Detect) Coronavirus 229E (PCR) (Not Detect) SARS-CoV-2 (PCR) (Negative) Coronavirus NL63 (PCR) (Not Detect) Human Metapneumovir PCR (Not Detect) Influenza A (RT-PCR) (NEGATIVE) Influenza Type A (PCR) (Not Detect) Influenza B (RT-PCR) (NEGATIVE) Influenza Type B (PCR) (Not Detect) M. pneumoniae (PCR) (Not Detect) Parainfluenza 1 (PCR) (Not Detect) Parainfluenza 2 (PCR) (Not Detect) Parainfluenza 3 (PCR) (Not Detect) Parainfluenza 4 (PCR) (Not Detect) RSV (PCR) Not detected (Negative) Entero/Rhino (PCR) Not detected (Not Detect) Point of Care Testing Glucose POC 160 Point of care testing: Point of Care Testing Glucose POC 160 MDM Narrative Medical decision making narrative: CC: Fever, malaise, headaches Complicating co-morbidities: Hypertension Data collected from: patient, Differential considered: Viral syndrome, pneumonia, appendicitis, diverticulitis, bladder infection, pyelonephritis, meningitis Exam documented above, pertinent findings include: He appears to feel unwell, lungs are clear and coughing causes a headache but headache at rest is not present. There no nuchal rigidity or other meningitis signs. Abdomen is diffusely tender without rebound or guarding. He is well perfused Lab Test results independently reviewed as above. Pertinent findings: CBC shows a leukocytosis at 18,000 with no significant anemia Chemistries are notable for a slight increase in creatinine from his baseline No evidence of pancreatitis Viral panel shows no COVID influenza or RSV Urine looks like he is dehydrated but there is no evidence of a urinary tract infection Respiratory panel does show coronavirus, non COVID Independently reviewed EKG: Sinus rhythm at a rate of 83. , intervals, normal axis. No acute ischemic changes Imaging studies independently reviewed: Chest x-ray does not show specific pulmonary infiltrates or other concerns CT scan of the abdomen does not show any acute pathology Treatments: Fluids, antibiotics, Toradol Zofran Re-evaluations: Prior to completion of fluids he was significantly orthostatic with heart rate going from a supine to 102 sitting. After fluids and with fever coming down heart he is not orthostatic going from supine to standing. Clearly feeling better Discussion: 42-year-old gentleman with significant viral syndrome and dehydration. Dehydration likely contributed to the syncopal episode in the shower. He is feeling significantly improved with his fever down, cough treated and after a L of fluid. There was no evidence of sepsis or alternative bacterial infection that would require further workup imaging or hospitalization at this time. Reviewed all findings with patient and his . Questions are answered recommended supportive care and I feel he is safe for discharge. Additional Information: [facility] Apprpriate Treatment for Patients with URI [x] The patient was diagnosed with upper respiratory infection and was not prescribed or dispensed an antibiotic. [SATISFIES MIPS PERFORMANCE] Discharge Plan Departure Patient Disposition: Home Clinical Impression: Coronavirus infection, Vasovagal syncope, Acute dehydration Instructions: DI for Viral Upper Respiratory Infection -- Adult Activity Restrictions/Additional Instructions: Thank you for coming in today You have a coronavirus (not COVID) that is causing all of your symptoms. I suspect that the syncopal episode in the shower with simply because you were dehydrated. There is no sign of significant bacterial infection, intra-abdominal abscess or infection, pneumonia or meningitis. You did respond well to fluids and Toradol to help with your headache. Using 400 mg of ibuprofen (2 [id number] pills) and 1 Tylenol every 6 hours can be very helpful in controlling pain and fever. Regarding your blood pressure and dehydration, I would recommend holding your losartan/hydrochlorothiazide until you are clearly back to eating and drinking regular amount. If you find that you are getting worse or develop any new symptoms, please feel free to return to the emergency department for further evaluation. Prescriptions: No Action losartan-hydrochlorothiazide 100-25 mg tablet 1 tab PO DAILY Qty: 90 2RF atorvastatin 20 mg tablet 20 mg PO BEDTIME Qty: 90 3RF allopurinol 100 mg tablet 100 mg PO DAILY Qty: 90 1RF (DME) Disabled Parking Permit See Rx Instructions .ROUTE .MEDSUPPLY Qty: 1 0RF Rx Instructions: I find this patient to be medically disabled and qualified for Disabled Parking as indicated and signed on the accompanying Disabled Parking Application for Individuals. phentermine 30 mg capsule 30 mg PO DAILY Qty: 30 1RF Rx Instructions: must administer 2 hours after breakfast clonazepam 1 mg tablet See Rx Instructions PO BID PRN (Reason: anxiety/muscle spasm) Qty: 30 0RF Rx Instructions: orally twice a day PRN; administer 30 minutes before bedtime tizanidine 2 mg tablet 2 mg PO TID PRN (Reason: muscle spasticity) Qty: 60 1RF meloxicam 7.5 mg tablet 7.5 mg PO DAILY PRN (Reason: Pain) Qty: 30 2RF Referrals: Rick Rausch MD [Primary Care Provider] - Stand Alone Forms: Patient Portal/API
--- NOTE | 2023-07-17 22:48 | PC.NURSE ---
see triage note
[2023-07-17 22:50] LABS: INR 1.1 (0.9-1.3); Prothrombin Time 12.6 SECONDS (9.4-12.5)
[2023-07-17 22:53] LABS: PTT Partial Thromboplastin Tim 32 SECONDS (25.1-36.5)
[2023-07-17 22:54] LABS: Add Manual Diff / Slide Review NO; Basophils Absolute Auto 100 /uL (0-100); Basophils Percent Auto 0.6 % (0-2); Eosinophils Absolute Auto 100 /uL (0-450); Eosinophils Percent Auto 0.5 % (2-4); Hematocrit 45.7 % (41-53); Hemoglobin 15.9 g/dL (13.5-17.5); Lymphocytes Absolute Auto 2400 /uL (1100-4500); Lymphocytes Percent Auto 13.3 % (25-40); Mean Corpuscular HGB Conc 34.7 % (30-36); Mean Corpuscular Hemoglobin 32.4 PG (26-34); Mean Corpuscular Volume 93.4 fL (80-100); Monocytes Absolute Auto 1700 /uL (0-900); Monocytes Percent Auto 9.7 % (3-14); Neutrophils Absolute Auto 13600 /uL (1500-7000); Neutrophils Percent Auto 75.9 % (50-75); Platelet Count 276 X10^3/uL (150-400); Red Cell Distribution Width 12.7 % (11.6-14.8)
[2023-07-17 22:57] LABS: Alanine Aminotransferase 30 IU/L (<50); Albumin 4.7 g/dL (3.5-5.0); Albumin Globulin Ratio 1.2 (1.0-2.8); Alkaline Phosphatase 79 U/L (38-126); Aspartate Aminotransferase 29 IU/L (17-59); BUN Creatinine Ratio 12.4 (6-22); Bilirubin Total 1.1 mg/dL (0.2-1.3); Blood Urea Nitrogen 16 mg/dL (9-20); Calcium 9.8 mg/dL (8.4-10.2); Carbon Dioxide 31 mmol/L (22-32); Chloride 98 mmol/L (98-107); Creatine Kinase 47 U/L (55-170); Estimated Glomerular Filt Rate > 60 mL/min (>60); Globulin 3.9 g/dL (1.7-4.1); Glucose 152 mg/dL (70-100); HEMOLYSIS < 15 (0-50); Lipase 77 U/L (23-300); Magnesium 2.1 mg/dL (1.6-2.3); Potassium 3.6 mmol/L (3.4-5.1); Sodium 138 mmol/L (137-145); Total Protein 8.6 g/dL (6.3-8.2)
[2023-07-17 23:00] VITALS: BP 121/64; PULSE 84; RESP 21; O2SAT 98
[2023-07-17 23:08] LABS: Troponin I < 0.012 ng/mL (0.01-0.034)
[2023-07-17 23:26] LABS: Influenza A - CEPHEID Flu A NEGATIVE (NEGATIVE); Influenza B - CEPHEID Flu B NEGATIVE (NEGATIVE); Respiratory Syncytial Virus Negative (Negative)
[2023-07-17 23:29] LABS: COVID-19 CEPHEID 4-PLEX PCR Negative (Negative)
[2023-07-17 23:30] VITALS: BP 116/62; PULSE 82; RESP 17; O2SAT 97
[2023-07-18] VITALS: BP 115/64; PULSE 80; RESP 18; O2SAT 97
--- NOTE | 2023-07-18 00:21 | DI.CT.S_ITS ---
PROCEDURE: CT ABDOMEN PELVIS W CON INDICATIONS: Diffuse abdominal pain, concern for sepsis TECHNIQUE: After the administration of intravenous contrast, axial sections acquired from the lung bases to the pubic symphysis. Coronal and sagittal reformats were performed. For radiation dose reduction, the following was used: automated exposure control, adjustment of mA and/or kV according to patient size. COMPARISON: None. FINDINGS: Image quality: Diagnostic. Lower Chest: No significant findings. ABDOMEN: Liver: No solid mass. Gallbladder: No radiopaque gallstones or wall thickening. Biliary ducts: No biliary dilation. Pancreas: No ductal dilation. Spleen: Size is within normal limits. Adrenal Glands: No adrenal nodules. Kidneys and Ureters: No hydronephrosis. No solid mass. No complex renal cystic lesion which requires follow up. Stomach and Bowel: Normal colonic caliber, without significant wall thickening. Peritoneum: No abnormal intraperitoneal fluid. No free air. Ventral Wall: No significant ventral hernia. Abdominal Nodes: No retroperitoneal or mesenteric adenopathy by size criteria. Vessels: Aorta and inferior vena cava are normal in size. PELVIS: Pelvic Organs: Unremarkable. Bladder: No bladder wall thickening, accounting for underdistention. Pelvic Nodes: No enlarged lymph nodes. Miscellaneous: No inguinal hernias are seen. Prior right herniorrhaphy. A normal appendix is found at the right lower quadrant. Bones: No aggressive osseous abnormality. IMPRESSION: No acute disease. Prior right herniorrhaphy. Normal appendix found. Dictated by: Walker Ross M.D. on 07/18/2023 at 1:14 Approved by: Walker Ross M.D. on 07/18/2023 at 1:16
[2023-07-18 00:30] VITALS: BP 117/72; PULSE 85; RESP 17; O2SAT 97
[2023-07-18 00:34] LABS: Lactate (Lactic Acid) 2.2 mmol/L (0.7-2.1)
[2023-07-18] MEDS: HYDROMORPHONE 0.5 MG INJ IV (00:37)
[2023-07-18 00:45] LABS: Appearance Urine UA CLEAR; Bilirubin Urine UA NEGATIVE (NEGATIVE); Color Urine UA YELLOW; Glucose Urine UA NEGATIVE (Negative); Ketones Urine UA TRACE (NEGATIVE); Leukocyte Esterase Urine UA NEGATIVE (NEGATIVE); Nitrite Urine UA NEGATIVE (Negative); Occult Blood Urine UA TRACE-INTACT (Negative); Protein Urine UA TRACE (Negative); Specific Gravity Urine UA 1.015 (1.000-1.035); Urobilinogen Urine UA 0.2 E.U./dL (0.2)
[2023-07-18] MEDS: ONDANSETRON 4 MG/2 ML INJ IV (00:45)
[2023-07-18] MEDS: KETOROLAC 30 MG/ML VIAL 15 MG IV (00:46)
[2023-07-18 00:52] VITALS: BP 128/75; PULSE 82; RESP 17; O2SAT 96
[2023-07-18 00:56] LABS: Bacteria Urine None Seen; Culture Indicated Urine Cult Not Indicated; Mucus Urine 1+ (Negative); RBC Urine 0-1/HPF (0-5/HPF); Squamous Epithelial Cell Urine None Seen (0-5/HPF); Urine Volume 10mL (spun); WBC Urine 0-1/HPF (0-5/HPF)
[2023-07-18 01:00] VITALS: BP 128/68; PULSE 79; RESP 18
[2023-07-18] MEDS: SODIUM CHLORIDE 0.9% 1,000 ML 1000 ML IV (01:13)
[2023-07-18] MEDS: cefTRIAXone 2,000 MG in SODIUM CHLORIDE 0.9% 100 ML 200 MG IV (01:13)
[2023-07-18 01:23] LABS: Adenovirus Not Detected (Not Detect); B. parapertussis Not Detected (Not Detecte); Bordetella pertussis Not Detected (Not Detect); Chlamydophila pneumoniae Not Detected (Not Detect); Coronavirus 229E Not Detected (Not Detect); Coronavirus HKU1 Detected (Not Detect); Coronavirus NL 63 Not Detected (Not Detect); Coronavirus OC43 Not Detected (Not Detect); Human Metapneumovirus Not Detected (Not Detect); Human Rhinovirus/Enterovirus Not Detected (Not Detect); Influenza A Not Detected (Not Detect); Influenza B Not Detected (Not Detect); Mycoplasma pneumoniae Not Detected (Not Detect); Parainfluenza Virus 1 Not Detected (Not Detect); Parainfluenza Virus 2 Not Detected (Not Detect); Parainfluenza Virus 3 Not Detected (Not Detect); Parainfluenza Virus 4 Not Detected (Not Detect); Respiratory Syncytial Virus Not Detected (Not Detect); SARS- CoV-2 Not Detected (Not Detecte)
[2023-07-18 01:30] VITALS: BP 120/70; PULSE 74; RESP 17; O2SAT 97
[2023-07-18 02:00] VITALS: BP 123/64; PULSE 71; RESP 16; O2SAT 97
[2023-07-18 02:02] LABS: Reflexed Lactate in 2 Hours Y
== END 2023-07-18 02:22 | disposition home or self-care (01) ==
PROVIDERS: Emergency Provider Emergency Medicine; Family Provider Family Medicine; PCP Family Medicine
DX: J06.9 Acute upper respiratory infection, unspecified (principal); B34.2 Coronavirus infection, unspecified; R55 Syncope and collapse; R07.9 Chest pain, unspecified; E86.0 Dehydration; Z20.822 Contact with and (suspected) exposure to COVID-19
CPT/HCPCS: 0241U; 36415; 71045; 74177; 80053; 81001; 82550; 83605; 83690; 83735; 84484; 85025; 85610; 85730; 87040; 87633; 93005; 93010; 96365; 96375; 99284; J0696; J1170; J1885; J2405; Q9967

== ENCOUNTER → 2023-07-29 10:02 | Outpatient (CLI) | payer OTHER, SELFPAY ==
[2023-07-29 10:35] LABS: Add Manual Diff / Slide Review NO; Basophils Absolute Auto 0 /uL (0-100); Basophils Percent Auto 0.5 % (0-2); Eosinophils Absolute Auto 100 /uL (0-450); Eosinophils Percent Auto 1.3 % (2-4); Hematocrit 43.1 % (41-53); Hemoglobin 15.2 g/dL (13.5-17.5); Lymphocytes Absolute Auto 1800 /uL (1100-4500); Lymphocytes Percent Auto 23.6 % (25-40); Mean Corpuscular HGB Conc 35.2 % (30-36); Mean Corpuscular Hemoglobin 33.3 PG (26-34); Mean Corpuscular Volume 94.5 fL (80-100); Monocytes Absolute Auto 500 /uL (0-900); Monocytes Percent Auto 6.6 % (3-14); Neutrophils Absolute Auto 5200 /uL (1500-7000); Platelet Count 374 X10^3/uL (150-400); Red Blood Cell Count 4.56 X10^6/uL (4.5-5.9); Red Cell Distribution Width 12.6 % (11.6-14.8); White Blood Cell Count 7.7 X10^3/uL (4.5-11.0)
[2023-07-29 11:14] LABS: HEMOLYSIS < 15 (0-50)
[2023-07-29 11:25] LABS: Alanine Aminotransferase 39 IU/L (<50); Albumin 4.7 g/dL (3.5-5.0); Albumin Globulin Ratio 1.4 (1.0-2.8); Alkaline Phosphatase 67 U/L (38-126); Aspartate Aminotransferase 31 IU/L (17-59); BUN Creatinine Ratio 20.2 (6-22); Bilirubin Total 0.8 mg/dL (0.2-1.3); Blood Urea Nitrogen 21 mg/dL (9-20); Calcium 10.3 mg/dL (8.4-10.2); Carbon Dioxide 32 mmol/L (22-32); Chloride 102 mmol/L (98-107); Cholesterol 148 mg/dL (140-199); Estimated Glomerular Filt Rate > 60 mL/min (>60); Globulin 3.3 g/dL (1.7-4.1); Glucose 100 mg/dL (70-100); HDL Cholesterol 35 mg/dL (40-60); LDL Cholesterol Calculated 81 mg/dL (<100); Sodium 139 mmol/L (137-145); Triglycerides 161 mg/dL (35-150)
[2023-07-29 19:00] LABS: Prostate Specific Antigen Scrn 8.68 ng/mL (0.1-4.0)
[2023-07-30 08:50] LABS: Apolipoprotein B 76 mg/dL (<90)
[2023-08-01 22:12] LABS: Lipoprotein (a) 9.2 nmol/L (<75.0)
== END ==
LOC: LAB 10:03
PROVIDERS: Family Provider Family Medicine; PCP Family Medicine; Referring Provider Family Medicine; Visit Provider Family Medicine
DX: Z12.5 Encounter for screening for malignant neoplasm of prostate (principal); R00.2 Palpitations; E78.5 Hyperlipidemia, unspecified; I10 Essential (primary) hypertension; R73.9 Hyperglycemia, unspecified; R55 Syncope and collapse; Z82.49 Family history of ischemic heart disease and other diseases of the circulatory system
CPT/HCPCS: 36415; 80053; 80061; 82172; 83695; 85025; G0103

== ENCOUNTER → 2023-08-11 09:06 | Outpatient (CLI) | payer OTHER, SELFPAY | LOC: CAR 09:06 | PROVIDERS: Family Provider Family Medicine; PCP Family Medicine; Referring Provider Family Medicine; Visit Provider Family Medicine | DX: R00.2 Palpitations (principal); Z82.49 Family history of ischemic heart disease and other diseases of the circulatory system; E78.5 Hyperlipidemia, unspecified; I10 Essential (primary) hypertension | CPT/HCPCS: 93246 ==

== ENCOUNTER → 2023-08-12 08:35 | Outpatient (CLI) | payer OTHER, SELFPAY ==
[2023-08-13 17:17] LABS: Calcium 9.4 mg/dL (8.7-10.2); Parathyroid Hormone, Intact 39 pg/mL (15-65)
== END ==
PROVIDERS: Family Provider Family Medicine; PCP Family Medicine; Referring Provider Family Medicine; Visit Provider Family Medicine
DX: Z12.5 Encounter for screening for malignant neoplasm of prostate (principal); I10 Essential (primary) hypertension; R97.20 Elevated prostate specific antigen [PSA]
CPT/HCPCS: 36415; 82310; 83970; G0103

== ENCOUNTER 2023-11-25 09:00 | Outpatient (RCR) | payer OTHER, SELFPAY ==
--- NOTE | 2023-03-17 18:16 | PT.OIE ---
Addendum entered and electronically signed by Gayle Desai PT 03/18/23 08:04: PT direct supervision and direction to PT student. Original Note: Current Diagnoses Lumbago with sciatica, right side (03/17/23) Past Medical History (Last Updated 05/19/20 @ 21:51 by Tameka Solis) Ankle pain (~2013) Chicken pox (~1988) Chronic back pain (~2016) Flat feet, bilateral Foot pain (~2013) Hyperglycemia Hyperlipidemia Hypertension (~2018) Impaired vision Left ankle pain Low back pain with right-sided sciatica Peroneal tendinitis, left leg PTSD (post-traumatic stress disorder) (~2018) Past Surgical History (Last Updated 05/19/20 @ 21:51 by Tameka Solis) Anesthesia History of ankle surgery (~2000) History of tonsillectomy (~1985) Visit Care Team Role Provider Type Rick Rausch MD Attending Provider Physician Family Provider Primary Care Provider Referring Provider Specialty: [facility] Address: [address] [place] [address] Email: [email or web address] Physical Therapy Initial Evaluation PT-OP-A Visit Information Start: 03/11/23 09:20 Freq: Status: Active Protocol: Document 03/17/23 09:48 BS (Rec: 03/17/23 12:31 BS [id number]) Out-Patient Physical Therapy Visit Information Visit Information Visit Type Initial Evaluation Visit Start Time 09:51 Visit Stop Time 10:36 Total Visit Minutes 45 Visit Number 1 PT-OP-B Current Condition Start: 03/11/23 09:20 Freq: Status: Active Protocol: Document 03/17/23 09:48 BS (Rec: 03/17/23 12:31 BS [id number]) Current Condition History of Current Condition Current Complaints LBP w/ R radiculopathy History of Current Condition Has referral in to see a neurosurgeon and wants to get second opinion on MRI results. 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 Got out of d/t not being able to keep up with physical requirements. Have done PT on and off over the years. Got MRI in 2018 and showed some slight narrowing at L3-L4 and minor muscle strains. Over last 6 months-1 year, has had few occasions where back spasms more than normal where he tried yoga poses, heat/ice, and massage therapist and always seemed to help. This last time ~4 weeks ago it was so bad and nothing seemed to help. Had pain down leg, knee pain, rucker/ankle pain. Bought new bed that folds to try and help with positioning and sleep. Finally went and saw doc and got on gabapentin which seems to help with pain but makes it so he can't function as well. Doesn' t normally like pain killers at all but got to the point where he needed something. Pain has really impacted life, has 2 kids under 2 and cant lift them or get up off floor well. Changing positions often seems to help with keeping the pain at ease and sitting in a more slouched position. About a year ago radiating pain was more localized to buttock but now goes all down to calf. By end of day body seems to be pretty tired and tight. Usually up 6-8 times throughout night because he is uncomfortable, has been getting worse in past 2-3 years. 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 Has lost ~20lbs in past 4 months. Almost had a fall with brain not thinking the foot was on the floor and having to grab on to someone to not go down. Pain is super variable and flare ups last 3-4 days where he cant get out of bed Treatment Goals Patient/Caregiver Goals Pt would like to focus on learning nerve glides and stretching to help with radiculopathy. Gets shoes and socks on without using hands to lift leg up. PT-OP-C Subjective Start: 03/11/23 09:20 Freq: Status: Active Protocol: Document 03/17/23 09:48 BS (Rec: 03/17/23 12:31 BS [id number]) Patient Questionnaires Oswestry Low Back Index Oswestry Score 17 OP-PT Pain Assessment Location Low back Intensity 7 Scale Used Numeric (0 - 10) Description Aching,Dull,Radiating,Sharp, Shooting Description- Other radiating goes through glute & to lateral knee, then tingling through calf Frequency Constant Radiating Location R LE Pain Aggravating Factors Position,ADL's,Activity, Standing,Sitting,Walking, Bending,Lifting Pain Alleviating Factors Cold,Heat,Medication,Position, Massage PT-OP-D Balance Start: 03/11/23 09:20 Freq: Status: Active Protocol: Document 03/17/23 09:48 BS (Rec: 03/17/23 12:31 BS [id number]) Balance Tests Single Limb Standing Single Limb- Right unable Single Limb- Left 12s PT-OP-G Mobility & Gait Start: 03/11/23 09:20 Freq: Status: Active Protocol: Document 03/17/23 09:48 BS (Rec: 03/17/23 15:56 BS [id number]) OP Gait Assessment Comments Gait Comments dec stance time on RLE PT-OP-J Posture/Palpation/Skin Start: 03/11/23 09:20 Freq: Status: Active Protocol: Document 03/17/23 09:48 BS (Rec: 03/17/23 12:31 BS [id number]) Posture Evaluation Comments Posture Comments More WBing through LLE, pelvis sheared R, torso sheared L, R iliac crest higher when B knee ext PT-OP-K Range of Motion Start: 03/11/23 09:20 Freq: Status: Active Protocol: Document 03/17/23 09:48 BS (Rec: 03/17/23 12:31 BS [id number]) Lumbar Spine Range of Motion Lumbar Spine Active Percentage Flexion 20 Extension 10 Lateral Flexion Left 75 Lateral Flexion Right 75 Comments pain coming back up form flex, when hips SB felt tight on contra side, Ext painful, flex painful on way back up PT-OP-M Strength Start: 03/11/23 09:20 Freq: Status: Active Protocol: Document 03/17/23 09:48 BS (Rec: 03/17/23 12:31 BS [id number]) Hip Strength Hip Manual Muscle Testing Right Flexion (L2) 3+ Fair+ Extension (S1) 3+ Fair+ Abduction 3 Fair Adduction 3+ Fair+ External Rotation 4- Good- Internal Rotation 4+ Good+ Left Flexion (L2) 4+ Good+ Extension (S1) 4 Good Abduction 4+ Good+ Adduction 4 Good External Rotation 4+ Good+ Internal Rotation 4+ Good+ Knee Strength Knee Manual Muscle Testing Right Flexion (S2) 3+ Fair+ Extension (L3) 4- Good- Left Flexion (S2) 5 Normal Extension (L3) 5 Normal Ankle/Foot Strength Ankle and Foot Manual Muscle Testing Right Dorsiflexion (L4) 4- Good- Left Dorsiflexion (L4) 5 Normal PT-OP-T Assessment and Plan Start: 03/11/23 09:20 Freq: Status: Active Protocol: Document 03/17/23 09:48 BS (Rec: 03/17/23 12:31 BS [id number]) Physical Therapy Assessment Rehab Potential Rehabilitation Potential Fair Evaluation Complexity Number of Personal Factors/Comorbidities 3 or More Number of Body Systems Impaired 4 or More Clinical Presentation at Evaluation Unstable Impairments Impairments Activity Tolerance,Balance, Coordination,Functional Activities,Functional Mobility ,Gait,Pain,Posture,ROM, Sensation,Soft Tissue Mobility ,Strength,Tone Goals ADLs Short Term Goal (STG) Pt will report dec pain and mobility resitriction with putting on R shoe and sock and be able to complete without using RUE to hold up limb. STG Duration 04/22/23 Correction Goal (LTG) Pt will report waking up no more than 1 time during night d/t pain and discomfort in order to allow for inc quality of life and recovery time for body. LTG Duration 05/26/23 Balance Impairment unable to balance on RLE and 12s on LLE. Short Term Goal (STG) Pt will be able to balance for at least 10s on RLE to show improvement in strength and stability in order to progress toward safe functional mobility. STG Duration 04/22/23 Correction Goal (LTG) Pt will be able to perform SLS on BLE for >30s in order to demonstrate improved strength and stability through hip and LE and allow for safe participation in daily functional mobility. LTG Duration 05/26/23 Strength Impairment Significant strength impairments throughout RLE Short Term Goal (STG) Pt will improve all R hip MMT to at least 4/5 to show improvement in LE strength to allow for dec compensations during functional acitvities. STG Duration 04/22/23 E Learning Coordinator Goal (LTG) Pt will improve all R hip MMT to 5/5 to show improvement in RLE strength and allow for proper mechanics and dec pain during necessary functional mobility and daily tasks. LTG Duration 05/26/23 Assessment Summary Assessment Pt reports to PT evaluation with c/o LBP with radiculopathy through RLE. Pt has sig hx of LBP from time in but instances of spasms have inc in last year, with most severe instance occuring about 4 weeks ago that patient was unable to find anything that relieves the pain. Pt had MRI done that showed fatty deposits in epidural space that are causing spinal stenosis at L3, pt has pending referral to Neurosurgeon for an eval. Pt reported radiculopathy that used to just go to glutes, but now goes through glute, down toward lateral knee, and down back of calf but not into the foot. Pt had slightly elevated R iliac crest, WBing favoring LLE in static stance and with gait, and R sheared pelvis/L sheared torso. Pt had significant strength deficits throughout whole RLE, was unable to perform single-limb balance on R, and had limited lumbar flex/ext ROM. Pt reports significant sleep disturbances d/t pain, waking 6-8x/night consistently these days. Pt presents with some symtpoms that do raise concern , including significant strength deficits at multiple nerve levels, inability to WB fully through RLE, and lack of proprioception throughout testing indicating potential significant neural involvement . Pt will benefit from skilled PT to address strength and balance deficits as well as mechanical imbalances in order to inc ability to participate in necessary daily tasks without limitation d/t pain or weakness. Physical Therapy Plan Frequency and Duration Frequency of Treatment 2x/Week Duration of treatment (weeks) 10 Plan of Care Start Date 03/17/23 Plan of Care End Date 05/26/23 Therapeutic Interventions Therapeutic Interventions Balance Training,Coordination Training,Gait Training,Home Exercise Program,Joint Mobilizations,Manual Therapy, Neuromuscular Re-education, Patient/Caregiver Education, Self-Care/Home Management,Soft Tissue Mobilization,Taping, Therapeutic Activities, Therapeutic Exercises Modalities Cold Pack/Ice Massage,Electric Stimulation,Hot Packs, Infrared Therapy,Traction- Mechanical,Ultrasound Next Visit Focus/Plan Next Note Type Treatment Note Next Visit Plan Assess at next visit: Reflexes , coordination, proprioception , slump, SLR, gait further, clonus/babinski, stairs. Ask about any B&B changes/ incontinence Intro: gentle core, seated/ supine RLE strength- hip abd/ flex/ext, knee flex/ext, weight shifting into RLE to inc WBing, split stance balance Manual: assess hip ROM
--- NOTE | 2023-03-23 18:21 | PT.OTN ---
Addendum entered and electronically signed by Gayle Desai, PT 03/24/23 11:00: PT direct supervision and direction to PT student. Original Note: Current Diagnoses Lumbago with sciatica, right side (03/23/23) Physical Therapy Treatment Note PT-OP-A Visit Information Start: 03/11/23 09:20 Freq: Status: Active Protocol: Document 03/23/23 09:49 BS (Rec: 03/23/23 13:22 BS [id number]) Out-Patient Physical Therapy Visit Information Visit Information Visit Type Treatment Note Visit Start Time 09:50 Visit Stop Time 10:32 Total Visit Minutes 42 Visit Number 2 Number of CANE PILER Visits 0 PT-OP-B Current Condition Start: 03/11/23 09:20 Freq: Status: Active Protocol: Document 03/17/23 09:48 BS (Rec: 03/17/23 12:31 BS [id number]) Current Condition History of Current Condition Current Complaints LBP w/ R radiculopathy History of Current Condition Has referral in to see a neurosurgeon and wants to get second opinion on MRI results. Pt flew for [employer] for 12 years, got out of service in 2019 and had significant back/ leg/arm pain d/t position in [facility]. Got out of d/t not being able to keep up with physical requirements. Have done PT on and off over the years. Got MRI in 2018 and showed some slight narrowing at L3-L4 and minor muscle strains. Over last 6 months-1 year, has had few occasions where back spasms more than normal where he tried yoga poses, heat/ice, and massage therapist and always seemed to help. This last time ~4 weeks ago it was so bad and nothing seemed to help. Had pain down leg, knee pain, rucker/ankle pain. Bought new bed that folds to try and help with positioning and sleep. Finally went and saw doc and got on gabapentin which seems to help with pain but makes it so he can't function as well. Doesn' t normally like pain killers at all but got to the point where he needed something. Pain has really impacted life, has 2 kids under 2 and cant lift them or get up off floor well. Changing positions often seems to help with keeping the pain at ease and sitting in a more slouched position. About a year ago radiating pain was more localized to buttock but now goes all down to calf. By end of day body seems to be pretty tired and tight. Usually up 6-8 times throughout night because he is uncomfortable, has been getting worse in past 2-3 years. 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 Has lost ~20lbs in past 4 months. Almost had a fall with brain not thinking the foot was on the floor and having to grab on to someone to not go down. Pain is super variable and flare ups last 3-4 days where he cant get out of bed Treatment Goals Patient/Caregiver Goals Pt would like to focus on learning nerve glides and stretching to help with radiculopathy. Gets shoes and socks on without using hands to lift leg up. PT-OP-C Subjective Start: 03/11/23 09:20 Freq: Status: Active Protocol: Document 03/23/23 09:49 BS (Rec: 03/23/23 13:22 BS [id number]) OP-PT Subjective Patient Comments Patient Comments Pt reports he has had a weird sensation on his right great toe start up in the time since last visit. Feels like a hair is wrapped around his toe which started about 2 days ago when he walks around barefoot , does not notice with shoes. Still has not heard from neurosurgeon. Started noticing a little pain in L leg. PT-OP-D Balance Start: 03/11/23 09:20 Freq: Status: Active Protocol: Document 03/17/23 09:48 BS (Rec: 03/17/23 12:31 BS [id number]) Balance Tests Single Limb Standing Single Limb- Right unable Single Limb- Left 12s PT-OP-G Mobility & Gait Start: 03/11/23 09:20 Freq: Status: Active Protocol: Document 03/17/23 09:48 BS (Rec: 03/17/23 15:56 BS [id number]) OP Gait Assessment Comments Gait Comments dec stance time on RLE PT-OP-J Posture/Palpation/Skin Start: 03/11/23 09:20 Freq: Status: Active Protocol: Document 03/17/23 09:48 BS (Rec: 03/17/23 12:31 BS [id number]) Posture Evaluation Comments Posture Comments More WBing through LLE, pelvis sheared R, torso sheared L, R iliac crest higher when B knee ext PT-OP-K Range of Motion Start: 03/11/23 09:20 Freq: Status: Active Protocol: Document 03/17/23 09:48 BS (Rec: 03/17/23 12:31 BS [id number]) Lumbar Spine Range of Motion Lumbar Spine Active Percentage Flexion 20 Extension 10 Lateral Flexion Left 75 Lateral Flexion Right 75 Comments pain coming back up form flex, when hips SB felt tight on contra side, Ext painful, flex painful on way back up PT-OP-L Special Tests Start: 03/11/23 09:20 Freq: Status: Active Protocol: Document 03/23/23 09:49 BS (Rec: 03/23/23 13:22 BS [id number]) Special Tests Neural Special Tests- Lower Body Sciatic Nerve Tension Test Results positive B Comments L>R with chin tuck & DF Other Special Tests Special Tests Achilles Reflex: normal B Patellar reflex: normal L, diminished R Babinski: normal L, no response R LE Coordination: normal L, impaired R Clonus: absent PT-OP-M Strength Start: 03/11/23 09:20 Freq: Status: Active Protocol: Document 03/17/23 09:48 BS (Rec: 03/17/23 12:31 BS [id number]) Hip Strength Hip Manual Muscle Testing Right Flexion (L2) 3+ Fair+ Extension (S1) 3+ Fair+ Abduction 3 Fair Adduction 3+ Fair+ External Rotation 4- Good- Internal Rotation 4+ Good+ Left Flexion (L2) 4+ Good+ Extension (S1) 4 Good Abduction 4+ Good+ Adduction 4 Good External Rotation 4+ Good+ Internal Rotation 4+ Good+ Knee Strength Knee Manual Muscle Testing Right Flexion (S2) 3+ Fair+ Extension (L3) 4- Good- Left Flexion (S2) 5 Normal Extension (L3) 5 Normal Ankle/Foot Strength Ankle and Foot Manual Muscle Testing Right Dorsiflexion (L4) 4- Good- Left Dorsiflexion (L4) 5 Normal PT-OP-Q Treatments Start: 03/11/23 09:20 Freq: Status: Active Protocol: Document 03/23/23 09:49 BS (Rec: 03/23/23 13:22 BS [id number]) Therapeutic Exercises Sitting Exercises n glides Sitting Exercise Name seated sciatic n glide Reps/Minutes x10 ea Comments back ext w/ knee flex, slouched w/ knee ext. Cues for painfree range Self-Care/Home Management Treatment Education Other Education 25 min: education on all aspects of sleeping position with demonstration and set up. Discussed pillow height for head, placement for LE and UE comfort, as well as use of towel/blanket under waist to support trunk. Also education on following up w/ primary regarding lack of communication from neurosurgery. PT-OP-T Assessment and Plan Start: 03/11/23 09:20 Freq: Status: Active Protocol: Document 03/23/23 09:49 BS (Rec: 03/23/23 13:22 BS [id number]) Physical Therapy Assessment Goals ADLs Short Term Goal (STG) Pt will report dec pain and mobility resitriction with putting on R shoe and sock and be able to complete without using RUE to hold up limb. STG Duration 04/22/23 Fpc Goal (LTG) Pt will report waking up no more than 1 time during night d/t pain and discomfort in order to allow for inc quality of life and recovery time for body. LTG Duration 05/26/23 Balance Impairment unable to balance on RLE and 12s on LLE. Short Term Goal (STG) Pt will be able to balance for at least 10s on RLE to show improvement in strength and stability in order to progress toward safe functional mobility. STG Duration 04/22/23 Fpc Goal (LTG) Pt will be able to perform SLS on BLE for >30s in order to demonstrate improved strength and stability through hip and LE and allow for safe participation in daily functional mobility. LTG Duration 05/26/23 Strength Impairment Significant strength impairments throughout RLE Short Term Goal (STG) Pt will improve all R hip MMT to at least 4/5 to show improvement in LE strength to allow for dec compensations during functional acitvities. STG Duration 04/22/23 Nurseryperson Goal (LTG) Pt will improve all R hip MMT to 5/5 to show improvement in RLE strength and allow for proper mechanics and dec pain during necessary functional mobility and daily tasks. LTG Duration 1/24/24 Assessment Summary Assessment Session started with continued screening. When asked baout bladder & bowel changed, pt noted that for last few years has noticed little changes in bladder ability to void. Described it as less frequent and more urgency when needing to void and has a hard time feeling when he is done. Pt notes that when he feels an intense urge of restlessness when trying to sleep and will wake up with only his lower body feeling hot. Pt had intact B achilles reflexes, slightly diminished patellar on R and intact on L, and no clonus on R. Pt coordination was abnormal on R w/ drawing circles and 5x heel>rucker. Pt babinski response on L was normal and there was no response on R. These findings and symptoms are concerning for patient and are consistent with MRI findings of central stenosis in L3-L4 region. Pt encouraged to follow up with neurosurgery for appointment to further investigate. PT to focus on inc pt comfort and dec symptoms throughout day in order to dec limitation for participation in daily activities. Pt reported being very uncomfortable in supine and there was no change when knees brought to chest. Pt turn to sidelying on L to review positioning with PT. Pt reported feeling much better in his LEs after set up but reported pain and discomfort in upper back shoulders. Pt sat EOB and educated on seated sciatic n glide with cues to move through painfree range which he reported felt good to move through. Physical Therapy Plan Frequency and Duration Frequency of Treatment 2x/Week Duration of treatment (weeks) 10 Plan of Care Start Date 03/17/23 Plan of Care End Date 05/26/23 Next Visit Focus/Plan Next Note Type Treatment Note Next Visit Plan Intro: gentle core, seated/ supine RLE strength- hip abd/ flex/ext, knee flex/ext, weight shifting into RLE to inc WBing, split stance balance Manual: assess hip ROM
--- NOTE | 2023-03-29 13:43 | PT.OTN ---
Current Diagnoses Lumbago with sciatica, right side (03/29/23) Physical Therapy Treatment Note PT-OP-A Visit Information Start: 03/11/23 09:20 Freq: Status: Active Protocol: Document 03/29/23 09:59 NBM (Rec: 03/29/23 10:42 NBM [id number]) Out-Patient Physical Therapy Visit Information Visit Information Visit Type Treatment Note Visit Start Time 09:50 Visit Stop Time 10:40 Total Visit Minutes 50 Visit Number 3 Number of TIMEKEEPING SUPERVISOR Visits 1 PT-OP-B Current Condition Start: 03/11/23 09:20 Freq: Status: Active Protocol: Document 03/17/23 09:48 BS (Rec: 03/17/23 12:31 BS [id number]) Current Condition History of Current Condition Current Complaints LBP w/ R radiculopathy History of Current Condition Has referral in to see a neurosurgeon and wants to get second opinion on MRI results. 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 Got out of d/t not being able to keep up with physical requirements. Have done PT on and off over the years. Got MRI in 2018 and showed some slight narrowing at L3-L4 and minor muscle strains. Over last 6 months-1 year, has had few occasions where back spasms more than normal where he tried yoga poses, heat/ice, and massage therapist and always seemed to help. This last time ~4 weeks ago it was so bad and nothing seemed to help. Had pain down leg, knee pain, rucker/ankle pain. Bought new bed that folds to try and help with positioning and sleep. Finally went and saw doc and got on gabapentin which seems to help with pain but makes it so he can't function as well. Doesn' t normally like pain killers at all but got to the point where he needed something. Pain has really impacted life, has 2 kids under 2 and cant lift them or get up off floor well. Changing positions often seems to help with keeping the pain at ease and sitting in a more slouched position. About a year ago radiating pain was more localized to buttock but now goes all down to calf. By end of day body seems to be pretty tired and tight. Usually up 6-8 times throughout night because he is uncomfortable, has been getting worse in past 2-3 years. 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 Has lost ~20lbs in past 4 months. Almost had a fall with brain not thinking the foot was on the floor and having to grab on to someone to not go down. Pain is super variable and flare ups last 3-4 days where he cant get out of bed Treatment Goals Patient/Caregiver Goals Pt would like to focus on learning nerve glides and stretching to help with radiculopathy. Gets shoes and socks on without using hands to lift leg up. PT-OP-C Subjective Start: 03/11/23 09:20 Freq: Status: Active Protocol: Document 03/29/23 09:59 NBM (Rec: 03/29/23 10:42 NBM [id number]) OP-PT Subjective Patient Comments Patient Comments Chet meets with PCP tomorrow re : imaging with growth at L4-L5 and spinal stenosis and is waiting for neurosurgery to review his case. Pt reports everything is getting worse over the past few weeks and now he has back pain all over the whole back and feels like a spasm is coming. He's been diligent about sleep positioning and pillow supports and does not think it 's the issue. He tossed and turned a lot last night. He's in a sitting position while working in bed then puts everything away to go to sleep . He's gone back to using just body pillow because by the time he gets other pillow supports aligned his back has started hurting. He's noticed more numbness top of feet usually after sitting at office desk longer than usual. Patient Reported Progress Worse PT-OP-D Balance Start: 03/11/23 09:20 Freq: Status: Active Protocol: Document 03/17/23 09:48 BS (Rec: 03/17/23 12:31 BS [id number]) Balance Tests Single Limb Standing Single Limb- Right unable Single Limb- Left 12s PT-OP-G Mobility & Gait Start: 03/11/23 09:20 Freq: Status: Active Protocol: Document 03/17/23 09:48 BS (Rec: 03/17/23 15:56 BS [id number]) OP Gait Assessment Comments Gait Comments dec stance time on RLE PT-OP-J Posture/Palpation/Skin Start: 03/11/23 09:20 Freq: Status: Active Protocol: Document 03/17/23 09:48 BS (Rec: 03/17/23 12:31 BS [id number]) Posture Evaluation Comments Posture Comments More WBing through LLE, pelvis sheared R, torso sheared L, R iliac crest higher when B knee ext PT-OP-K Range of Motion Start: 03/11/23 09:20 Freq: Status: Active Protocol: Document 03/17/23 09:48 BS (Rec: 03/17/23 12:31 BS [id number]) Lumbar Spine Range of Motion Lumbar Spine Active Percentage Flexion 20 Extension 10 Lateral Flexion Left 75 Lateral Flexion Right 75 Comments pain coming back up form flex, when hips SB felt tight on contra side, Ext painful, flex painful on way back up PT-OP-L Special Tests Start: 03/11/23 09:20 Freq: Status: Active Protocol: Document 03/23/23 09:49 BS (Rec: 03/23/23 13:22 BS [id number]) Special Tests Neural Special Tests- Lower Body Sciatic Nerve Tension Test Results positive B Comments L>R with chin tuck & DF Other Special Tests Special Tests Achilles Reflex: normal B Patellar reflex: normal L, diminished R Babinski: normal L, no response R LE Coordination: normal L, impaired R Clonus: absent PT-OP-M Strength Start: 03/11/23 09:20 Freq: Status: Active Protocol: Document 03/17/23 09:48 BS (Rec: 03/17/23 12:31 BS [id number]) Hip Strength Hip Manual Muscle Testing Right Flexion (L2) 3+ Fair+ Extension (S1) 3+ Fair+ Abduction 3 Fair Adduction 3+ Fair+ External Rotation 4- Good- Internal Rotation 4+ Good+ Left Flexion (L2) 4+ Good+ Extension (S1) 4 Good Abduction 4+ Good+ Adduction 4 Good External Rotation 4+ Good+ Internal Rotation 4+ Good+ Knee Strength Knee Manual Muscle Testing Right Flexion (S2) 3+ Fair+ Extension (L3) 4- Good- Left Flexion (S2) 5 Normal Extension (L3) 5 Normal Ankle/Foot Strength Ankle and Foot Manual Muscle Testing Right Dorsiflexion (L4) 4- Good- Left Dorsiflexion (L4) 5 Normal PT-OP-Q Treatments Start: 03/11/23 09:20 Freq: Status: Active Protocol: Document 03/29/23 09:59 NB (Rec: 03/29/23 10:42 [facility] [id number]) Therapeutic Exercises Supine Exercises diaphragmatic breathing Supine Exercise Name supine, seated to improve guarding d/t pain apprehension and TrA activation Comments w/ neutral sitting posture like blowing the trombone - added to HEP PPT Supine Exercise Name supine and seated - added to HEP Reps/Minutes 2' ea Comments w/ TrA focus and self- monitoring medial to ASIS Sitting Exercises PPT Sitting Exercise Name w/ TrA activation and self- monitoring Comments added to HEP n glides Sitting Exercise Name seated sciatic n glide Reps/Minutes x10 ea Comments back ext w/ knee flex, slouched w/ knee ext. Cues for painfree range Standing Exercises stretch Standing Exercise Name hip flexor stretch 1. 1/2 kneel vc PPT, gentle pain-free range 2.standing Side bilateral Equipment Used hi-lo table for UE support/ balance prn, Reps/Minutes 45s, cues for Comments + feedback;pt 1/2kneel w/ fwd flex>stand pt needs vc for TrA & PPT d/t pain Self-Care/Home Management Treatment Education Patient Education Home Exercise Program,Pain Management Other Education Pt i/s in diaphragmatic breathing for pain dampening/ improving guarding and Transverse abdominus self- monitoring with palpation medial to ASIS. Added to HEP: diaphragmatic breathing in seated/supine, hip flexor stretch standing/ 1/2 kneel, seated PPT. PT-OP-T Assessment and Plan Start: 03/11/23 09:20 Freq: Status: Active Protocol: Document 03/29/23 09:59 [facility] (Rec: 03/29/23 10:42 [facility] [id number]) Physical Therapy Assessment Goals ADLs Short Term Goal (STG) Pt will report dec pain and mobility resitriction with putting on R shoe and sock and be able to complete without using RUE to hold up limb. STG Duration 04/22/23 [employer] Condenser Press Operator Goal (LTG) Pt will report waking up no more than 1 time during night d/t pain and discomfort in order to allow for inc quality of life and recovery time for body. LTG Duration 05/26/23 Balance Impairment unable to balance on RLE and 12s on LLE. Short Term Goal (STG) Pt will be able to balance for at least 10s on RLE to show improvement in strength and stability in order to progress toward safe functional mobility. STG Duration 04/22/23 [employer] Press Operator Goal (LTG) Pt will be able to perform SLS on BLE for >30s in order to demonstrate improved strength and stability through hip and LE and allow for safe participation in daily functional mobility. LTG Duration 05/26/23 Strength Impairment Significant strength impairments throughout RLE Short Term Goal (STG) Pt will improve all R hip MMT to at least 4/5 to show improvement in LE strength to allow for dec compensations during functional acitvities. STG Duration 04/22/23 [facility] Goal (LTG) Pt will improve all R hip MMT to 5/5 to show improvement in RLE strength and allow for proper mechanics and dec pain during necessary functional mobility and daily tasks. LTG Duration 05/26/23 Assessment Summary Assessment Pt presents with increased back pain after a night of poor sleep but indicates increased back pain has been worsening over past few weeks even with PT. He demonstrates weak core and tight hip flexors and is instructed in hip flexor stretch in half- kneel in gentle, pain-free range only with cues for breathwork; he initially has positive feedback response in 1/2 kneeling, then initiates leaning forward with UE support for low back stretch and advises he is unable to get up and is apprehensive of pain. Pt is able to return to standing with cues for Transverse abdominus activation, deep breathing and gluteal activation. Pt i/s in diaphragmatic breathing for pain dampening/improving guarding and Transverse abdominus self-monitoring with palpation medial to ASIS. Pt is encouraged to advise PCP at tomorrow's visit of this incidence, and to trial diaphragmatic breathing with pillow supports to decrease guarding and improve spinal alignment with sleeping. Added to HEP: diaphragmatic breathing in seated/supine, hip flexor stretch standing/ 1 /2 kneel, seated PPT. Physical Therapy Plan Frequency and Duration Frequency of Treatment 2x/Week Duration of treatment (weeks) 10 Plan of Care Start Date 03/17/23 Plan of Care End Date 05/26/23 Therapeutic Interventions Therapeutic Interventions Balance Training,Coordination Training,Gait Training,Home Exercise Program,Joint Mobilizations,Manual Therapy, Neuromuscular Re-education, Patient/Caregiver Education, Self-Care/Home Management,Soft Tissue Mobilization,Taping, Therapeutic Activities, Therapeutic Exercises Modalities Cold Pack/Ice Massage,Electric Stimulation,Hot Packs, Infrared Therapy,Traction- Mechanical,Ultrasound Next Visit Focus/Plan Next Note Type Treatment Note Next Visit Plan Intro: gentle core, seated/ supine RLE strength- hip abd/ flex/ext, knee flex/ext, weight shifting into RLE to inc WBing, split stance balance Manual: assess hip ROM
--- NOTE | 2023-04-01 18:12 | PT.OTN ---
Addendum entered and electronically signed by Gayle Desai, PT 04/05/23 08:09: PT direct supervision and direction to PT student. Original Note: Current Diagnoses Lumbago with sciatica, right side (04/01/23) Physical Therapy Treatment Note PT-OP-A Visit Information Start: 03/11/23 09:20 Freq: Status: Active Protocol: Document 04/01/23 10:34 BS (Rec: 04/01/23 12:23 BS [id number]) Out-Patient Physical Therapy Visit Information Visit Information Visit Type Treatment Note Visit Start Time 10:34 Visit Stop Time 11:20 Total Visit Minutes 46 Visit Number 4 Number of REGIONAL OWNER OPERATOR TRUCK DRIVER Visits 0 PT-OP-B Current Condition Start: 03/11/23 09:20 Freq: Status: Active Protocol: Document 03/17/23 09:48 BS (Rec: 03/17/23 12:31 BS [id number]) Current Condition History of Current Condition Current Complaints LBP w/ R radiculopathy History of Current Condition Has referral in to see a neurosurgeon and wants to get second opinion on MRI results. 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 Got out of d/t not being able to keep up with physical requirements. Have done PT on and off over the years. Got MRI in 2018 and showed some slight narrowing at L3-L4 and minor muscle strains. Over last 6 months-1 year, has had few occasions where back spasms more than normal where he tried yoga poses, heat/ice, and massage therapist and always seemed to help. This last time ~4 weeks ago it was so bad and nothing seemed to help. Had pain down leg, knee pain, rucker/ankle pain. Bought new bed that folds to try and help with positioning and sleep. Finally went and saw doc and got on gabapentin which seems to help with pain but makes it so he can't function as well. Doesn' t normally like pain killers at all but got to the point where he needed something. Pain has really impacted life, has 2 kids under 2 and cant lift them or get up off floor well. Changing positions often seems to help with keeping the pain at ease and sitting in a more slouched position. About a year ago radiating pain was more localized to buttock but now goes all down to calf. By end of day body seems to be pretty tired and tight. Usually up 6-8 times throughout night because he is uncomfortable, has been getting worse in past 2-3 years. 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 Has lost ~20lbs in past 4 months. Almost had a fall with brain not thinking the foot was on the floor and having to grab on to someone to not go down. Pain is super variable and flare ups last 3-4 days where he cant get out of bed Treatment Goals Patient/Caregiver Goals Pt would like to focus on learning nerve glides and stretching to help with radiculopathy. Gets shoes and socks on without using hands to lift leg up. PT-OP-C Subjective Start: 03/11/23 09:20 Freq: Status: Active Protocol: Document 04/01/23 10:34 BS (Rec: 04/01/23 12:23 BS [id number]) OP-PT Subjective Patient Comments Patient Comments Pt saw on wednesday and got taken of cyclobenzepine and was temporarily put on clonopan. Pt reports it worked very well and was able to sleep for 12 hours. Feels like he has a lot more energy than before but still is cautious with what he does. Pain is more on both sides now and still noticing numbness on tops of B big toes R>L. Feels like there is a constant knot in his back now. PT-OP-D Balance Start: 03/11/23 09:20 Freq: Status: Active Protocol: Document 03/17/23 09:48 BS (Rec: 03/17/23 12:31 BS [id number]) Balance Tests Single Limb Standing Single Limb- Right unable Single Limb- Left 12s PT-OP-G Mobility & Gait Start: 03/11/23 09:20 Freq: Status: Active Protocol: Document 03/17/23 09:48 BS (Rec: 03/17/23 15:56 BS [id number]) OP Gait Assessment Comments Gait Comments dec stance time on RLE PT-OP-J Posture/Palpation/Skin Start: 03/11/23 09:20 Freq: Status: Active Protocol: Document 03/17/23 09:48 BS (Rec: 03/17/23 12:31 BS [id number]) Posture Evaluation Comments Posture Comments More WBing through LLE, pelvis sheared R, torso sheared L, R iliac crest higher when B knee ext PT-OP-K Range of Motion Start: 03/11/23 09:20 Freq: Status: Active Protocol: Document 03/17/23 09:48 BS (Rec: 03/17/23 12:31 BS [id number]) Lumbar Spine Range of Motion Lumbar Spine Active Percentage Flexion 20 Extension 10 Lateral Flexion Left 75 Lateral Flexion Right 75 Comments pain coming back up form flex, when hips SB felt tight on contra side, Ext painful, flex painful on way back up PT-OP-L Special Tests Start: 03/11/23 09:20 Freq: Status: Active Protocol: Document 03/23/23 09:49 BS (Rec: 03/23/23 13:22 BS [id number]) Special Tests Neural Special Tests- Lower Body Sciatic Nerve Tension Test Results positive B Comments L>R with chin tuck & DF Other Special Tests Special Tests Achilles Reflex: normal B Patellar reflex: normal L, diminished R Babinski: normal L, no response R LE Coordination: normal L, impaired R Clonus: absent PT-OP-M Strength Start: 03/11/23 09:20 Freq: Status: Active Protocol: Document 03/17/23 09:48 BS (Rec: 03/17/23 12:31 BS [id number]) Hip Strength Hip Manual Muscle Testing Right Flexion (L2) 3+ Fair+ Extension (S1) 3+ Fair+ Abduction 3 Fair Adduction 3+ Fair+ External Rotation 4- Good- Internal Rotation 4+ Good+ Left Flexion (L2) 4+ Good+ Extension (S1) 4 Good Abduction 4+ Good+ Adduction 4 Good External Rotation 4+ Good+ Internal Rotation 4+ Good+ Knee Strength Knee Manual Muscle Testing Right Flexion (S2) 3+ Fair+ Extension (L3) 4- Good- Left Flexion (S2) 5 Normal Extension (L3) 5 Normal Ankle/Foot Strength Ankle and Foot Manual Muscle Testing Right Dorsiflexion (L4) 4- Good- Left Dorsiflexion (L4) 5 Normal PT-OP-Q Treatments Start: 03/11/23 09:20 Freq: Status: Active Protocol: Document 04/01/23 10:34 BS (Rec: 04/01/23 12:23 BS [id number]) Therapeutic Exercises Supine Exercises Stretch Supine Exercise Name Ramón test Side left Comments right KTC, LLE straight. Stopped d/t pt c/o numbness PPT Side bilateral Reps/Minutes x20 Manual Therapy Treatment Soft Tissue Mobilization glutes Comments L lat hip STM Joint Mobilizations hip Comments gentle L inf glide FM Neuro Re-Education Treatment Balance Activities Weight shifts Equipment parallel Reps/Duration 10 min Comments small lateral weight shifts w/ hand rail PRN Self-Care/Home Management Treatment Education Other Education 9 min: education regarding symptom management and benefits vs risks of certian daily activities, pain signals from body and interpretation of them, plan moving forward with physical therapy POC, follow ups with spine clinic and neurosurgury. PT-OP-T Assessment and Plan Start: 03/11/23 09:20 Freq: Status: Active Protocol: Document 04/01/23 10:34 BS (Rec: 04/01/23 12:23 BS [id number]) Physical Therapy Assessment Goals ADLs Short Term Goal (STG) Pt will report dec pain and mobility resitriction with putting on R shoe and sock and be able to complete without using RUE to hold up limb. STG Duration 04/22/23 [facility] Goal (LTG) Pt will report waking up no more than 1 time during night d/t pain and discomfort in order to allow for inc quality of life and recovery time for body. LTG Duration 05/26/23 Balance Impairment unable to balance on RLE and 12s on LLE. Short Term Goal (STG) Pt will be able to balance for at least 10s on RLE to show improvement in strength and stability in order to progress toward safe functional mobility. STG Duration 04/22/23 Caregivers Non Medical Goal (LTG) Pt will be able to perform SLS on BLE for >30s in order to demonstrate improved strength and stability through hip and LE and allow for safe participation in daily functional mobility. LTG Duration 05/26/23 Strength Impairment Significant strength impairments throughout RLE Short Term Goal (STG) Pt will improve all R hip MMT to at least 4/5 to show improvement in LE strength to allow for dec compensations during functional acitvities. STG Duration 04/22/23 Caregivers Non Medical Goal (LTG) Pt will improve all R hip MMT to 5/5 to show improvement in RLE strength and allow for proper mechanics and dec pain during necessary functional mobility and daily tasks. LTG Duration 05/26/23 Assessment Summary Assessment Pt has been doing better last few days following appointment with and medication change . Pt started in // working on small lateral weight shifts. Had difficulty B R>L, and tendency to lift big toe on stance leg when balancing & when correcting made it even harder. Pt then taken to mat table where he performed PPT and reported they felt good, cued for mvmt just through pelvis and not pushing through legs. Pt attempted ramón test for hip flex stretch but c/o numbness around pelvic region so dicontinued. Plan to dicontinue hip flexor stretches at this time as pt does not respond well. Pt R hip mobility improved some w/ manual, although pt reported it feeling sore & a little painful when he stood up to leave. Pt also reported feeling a little bit of his sciatica after manual but was unsure if it was d/t that or being on back for a while. Pt encouraged to call [facility] for appointment barry, as had said. Physical Therapy Plan Frequency and Duration Frequency of Treatment 2x/Week Duration of treatment (weeks) 10 Plan of Care Start Date 03/17/23 Plan of Care End Date 05/26/23 Next Visit Focus/Plan Next Note Type Treatment Note Next Visit Plan D/c any hip flex stretches, pt doesnt respond well. Check in about hip response to last tx . Intro: gentle core, seated/ supine RLE strength- hip abd/ flex/ext, knee flex/ext, weight shifting into RLE to inc WBing, split stance balance. Manual: gentle hip mobs & STM to lat hip
--- NOTE | 2023-04-06 17:36 | PT.OTN ---
Addendum entered and electronically signed by Gayle Desai, PT 04/06/23 17:47: PT direct supervision and direction to PT student. 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 Got out of d/t not being able to keep up with physical requirements. Have done PT on and off over the years. Got MRI in 2018 and showed some slight narrowing at L3-L4 and minor muscle strains. Over last 6 months-1 year, has had few occasions where back spasms more than normal where he tried yoga poses, heat/ice, and massage therapist and always seemed to help. This last time ~4 weeks ago it was so bad and nothing seemed to help. Had pain down leg, knee pain, rucker/ankle pain. Bought new bed that folds to try and help with positioning and sleep. Finally went and saw doc and got on gabapentin which seems to help with pain but makes it so he can't function as well. Doesn' t normally like pain killers at all but got to the point where he needed something. Pain has really impacted life, has 2 kids under 2 and cant lift them or get up off floor well. Changing positions often seems to help with keeping the pain at ease and sitting in a more slouched position. About a year ago radiating pain was more localized to buttock but now goes all down to calf. By end of day body seems to be pretty tired and tight. Usually up 6-8 times throughout night because he is uncomfortable, has been getting worse in past 2-3 years. 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 Has lost ~20lbs in past 4 months. Almost had a fall with brain not thinking the foot was on the floor and having to grab on to someone to not go down. Pain is super variable and flare ups last 3-4 days where he cant get out of bed Treatment Goals Patient/Caregiver Goals Pt would like to focus on learning nerve glides and stretching to help with radiculopathy. Gets shoes and socks on without using hands to lift leg up. PT-OP-C Subjective Start: 03/11/23 09:20 Freq: Status: Active Protocol: Document 04/06/23 09:50 BS (Rec: 04/06/23 10:37 BS [id number]) OP-PT Subjective Patient Comments Patient Comments Pt saw dr and they confirmed he needs to see neurosurgeon but there is no harm to continuing PT in the mean time . Was sore after last visit but not to the point where it is too painful and he wants to keep working on strength with PT. PT-OP-D Balance Start: 03/11/23 09:20 Freq: Status: Active Protocol: Document 03/17/23 09:48 BS (Rec: 03/17/23 12:31 BS [id number]) Balance Tests Single Limb Standing Single Limb- Right unable Single Limb- Left 12s PT-OP-G Mobility & Gait Start: 03/11/23 09:20 Freq: Status: Active Protocol: Document 03/17/23 09:48 BS (Rec: 03/17/23 15:56 BS [id number]) OP Gait Assessment Comments Gait Comments dec stance time on RLE PT-OP-J Posture/Palpation/Skin Start: 03/11/23 09:20 Freq: Status: Active Protocol: Document 03/17/23 09:48 BS (Rec: 03/17/23 12:31 BS [id number]) Posture Evaluation Comments Posture Comments More WBing through LLE, pelvis sheared R, torso sheared L, R iliac crest higher when B knee ext PT-OP-K Range of Motion Start: 03/11/23 09:20 Freq: Status: Active Protocol: Document 03/17/23 09:48 BS (Rec: 03/17/23 12:31 BS [id number]) Lumbar Spine Range of Motion Lumbar Spine Active Percentage Flexion 20 Extension 10 Lateral Flexion Left 75 Lateral Flexion Right 75 Comments pain coming back up form flex, when hips SB felt tight on contra side, Ext painful, flex painful on way back up PT-OP-L Special Tests Start: 03/11/23 09:20 Freq: Status: Active Protocol: Document 03/23/23 09:49 BS (Rec: 03/23/23 13:22 BS [id number]) Special Tests Neural Special Tests- Lower Body Sciatic Nerve Tension Test Results positive B Comments L>R with chin tuck & DF Other Special Tests Special Tests Achilles Reflex: normal B Patellar reflex: normal L, diminished R Babinski: normal L, no response R LE Coordination: normal L, impaired R Clonus: absent PT-OP-M Strength Start: 03/11/23 09:20 Freq: Status: Active Protocol: Document 03/17/23 09:48 BS (Rec: 03/17/23 12:31 BS [id number]) Hip Strength Hip Manual Muscle Testing Right Flexion (L2) 3+ Fair+ Extension (S1) 3+ Fair+ Abduction 3 Fair Adduction 3+ Fair+ External Rotation 4- Good- Internal Rotation 4+ Good+ Left Flexion (L2) 4+ Good+ Extension (S1) 4 Good Abduction 4+ Good+ Adduction 4 Good External Rotation 4+ Good+ Internal Rotation 4+ Good+ Knee Strength Knee Manual Muscle Testing Right Flexion (S2) 3+ Fair+ Extension (L3) 4- Good- Left Flexion (S2) 5 Normal Extension (L3) 5 Normal Ankle/Foot Strength Ankle and Foot Manual Muscle Testing Right Dorsiflexion (L4) 4- Good- Left Dorsiflexion (L4) 5 Normal PT-OP-Q Treatments Start: 03/11/23 09:20 Freq: Status: Active Protocol: Document 04/06/23 09:50 BS (Rec: 04/06/23 10:37 BS [id number]) Therapeutic Exercises Sitting Exercises stretch Sitting Exercise Name seated figure 4 stretch, added to HEP Side right Reps/Minutes 2 min Comments cues for deep breathing and tolerable stretch Standing Exercises sit to stands Standing Exercise Name hinge mechanics, squats in //, sit to stands at chair Side bilateral Reps/Minutes x10 ea Comments cues to breathe out when standing up, sit to stand added to HEP hip abd Standing Exercise Name banded side steps Side bilateral Reps/Minutes 2x2 length of // Comments cues for no trunk lean stretch Standing Exercise Name calf stretch Side bilateral Reps/Minutes 5x5s holds Marching Standing Exercise Name Mini marching in // Side bilateral Resistance latex light blue band Reps/Minutes x20 ea Comments cues for level pelvis throughout. Neuro Re-Education Treatment Balance Activities Weight shifts Equipment parallel bars Reps/Duration 8 min Comments small lateral & AP weight shifts w/ hand rail PRN PT-OP-T Assessment and Plan Start: 03/11/23 09:20 Freq: Status: Active Protocol: Document 04/06/23 09:50 BS (Rec: 04/06/23 10:37 BS [id number]) Physical Therapy Assessment Goals ADLs Short Term Goal (STG) Pt will report dec pain and mobility resitriction with putting on R shoe and sock and be able to complete without using RUE to hold up limb. STG Duration 04/22/23 Shelter Goal (LTG) Pt will report waking up no more than 1 time during night d/t pain and discomfort in order to allow for inc quality of life and recovery time for body. LTG Duration 05/26/23 Balance Impairment unable to balance on RLE and 12s on LLE. Short Term Goal (STG) Pt will be able to balance for at least 10s on RLE to show improvement in strength and stability in order to progress toward safe functional mobility. STG Duration 04/22/23 Switch Maker Goal (LTG) Pt will be able to perform SLS on BLE for >30s in order to demonstrate improved strength and stability through hip and LE and allow for safe participation in daily functional mobility. LTG Duration 05/26/23 Strength Impairment Significant strength impairments throughout RLE Short Term Goal (STG) Pt will improve all R hip MMT to at least 4/5 to show improvement in LE strength to allow for dec compensations during functional acitvities. STG Duration 04/22/23 Shelter Goal (LTG) Pt will improve all R hip MMT to 5/5 to show improvement in RLE strength and allow for proper mechanics and dec pain during necessary functional mobility and daily tasks. LTG Duration 05/26/23 Assessment Summary Assessment Pt did very well with addition of strength training today. Pt had inc balance and motor control during weight shifts, struggled most w/ posterior weight shift onto heels & lifting toes off ground. Pt progressed with mini marches, had tendency after ~25% R hip flex to use pelvis for remainder of motion. W/ firm hand support on // able to get smooth R hip mvmt when cued. Pt did well with hip hinge mechanics and required little cueing, able to carry over well to sit to stands. HEP update to include sit to stande, figure 4 stretch, and marches. Physical Therapy Plan Frequency and Duration Frequency of Treatment 2x/Week Duration of treatment (weeks) 10 Plan of Care Start Date 03/17/23 Plan of Care End Date 05/26/23 Next Visit Focus/Plan Next Note Type Treatment Note Next Visit Plan Work on stair training & ensure level pelvis Strength: gentle core, progress RLE strength- hip abd /flex/ext, knee flex/ext, weight shifting into RLE to inc WBing, split stance balance. Manual: gentle hip mobs & STM to lat hip
--- NOTE | 2023-04-13 12:54 | PT.OTN ---
Addendum entered and electronically signed by Gayle Desai, PT 04/13/23 17:48: PT direct supervision and direction to PT student. Original Note: Current Diagnoses Lumbago with sciatica, right side (04/13/23) Physical Therapy Treatment Note PT-OP-A Visit Information Start: 03/11/23 09:20 Freq: Status: Active Protocol: Document 04/13/23 09:06 BS (Rec: 04/13/23 09:56 BS [id number]) Out-Patient Physical Therapy Visit Information Visit Information Visit Type Treatment Note Visit Start Time 09:06 Visit Stop Time 09:50 Total Visit Minutes 44 Visit Number 6 Number of MOVE COORDINATOR Visits 0 PT-OP-B Current Condition Start: 03/11/23 09:20 Freq: Status: Active Protocol: Document 03/17/23 09:48 BS (Rec: 03/17/23 12:31 BS [id number]) Current Condition History of Current Condition Current Complaints LBP w/ R radiculopathy History of Current Condition Has referral in to see a neurosurgeon and wants to get second opinion on MRI results. 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 Got out of d/t not being able to keep up with physical requirements. Have done PT on and off over the years. Got MRI in 2018 and showed some slight narrowing at L3-L4 and minor muscle strains. Over last 6 months-1 year, has had few occasions where back spasms more than normal where he tried yoga poses, heat/ice, and massage therapist and always seemed to help. This last time ~4 weeks ago it was so bad and nothing seemed to help. Had pain down leg, knee pain, rucker/ankle pain. Bought new bed that folds to try and help with positioning and sleep. Finally went and saw doc and got on gabapentin which seems to help with pain but makes it so he can't function as well. Doesn' t normally like pain killers at all but got to the point where he needed something. Pain has really impacted life, has 2 kids under 2 and cant lift them or get up off floor well. Changing positions often seems to help with keeping the pain at ease and sitting in a more slouched position. About a year ago radiating pain was more localized to buttock but now goes all down to calf. By end of day body seems to be pretty tired and tight. Usually up 6-8 times throughout night because he is uncomfortable, has been getting worse in past 2-3 years. 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 Has lost ~20lbs in past 4 months. Almost had a fall with brain not thinking the foot was on the floor and having to grab on to someone to not go down. Pain is super variable and flare ups last 3-4 days where he cant get out of bed Treatment Goals Patient/Caregiver Goals Pt would like to focus on learning nerve glides and stretching to help with radiculopathy. Gets shoes and socks on without using hands to lift leg up. PT-OP-C Subjective Start: 03/11/23 09:20 Freq: Status: Active Protocol: Document 04/13/23 09:06 BS (Rec: 04/13/23 09:56 BS [id number]) OP-PT Subjective Patient Comments Patient Comments Pt has been feeling good past week up until this morning hurting a lottle more. Pt didnt sleep well last night so think it may be d/t that as well as a big crack in back when showering this morning. Feeling some nerve pain in both glutes and a little in R calf. PT-OP-D Balance Start: 03/11/23 09:20 Freq: Status: Active Protocol: Document 03/17/23 09:48 BS (Rec: 03/17/23 12:31 BS [id number]) Balance Tests Single Limb Standing Single Limb- Right unable Single Limb- Left 12s PT-OP-G Mobility & Gait Start: 03/11/23 09:20 Freq: Status: Active Protocol: Document 03/17/23 09:48 BS (Rec: 03/17/23 15:56 BS [id number]) OP Gait Assessment Comments Gait Comments dec stance time on RLE PT-OP-J Posture/Palpation/Skin Start: 03/11/23 09:20 Freq: Status: Active Protocol: Document 03/17/23 09:48 BS (Rec: 03/17/23 12:31 BS [id number]) Posture Evaluation Comments Posture Comments More WBing through LLE, pelvis sheared R, torso sheared L, R iliac crest higher when B knee ext PT-OP-K Range of Motion Start: 03/11/23 09:20 Freq: Status: Active Protocol: Document 03/17/23 09:48 BS (Rec: 03/17/23 12:31 BS [id number]) Lumbar Spine Range of Motion Lumbar Spine Active Percentage Flexion 20 Extension 10 Lateral Flexion Left 75 Lateral Flexion Right 75 Comments pain coming back up form flex, when hips SB felt tight on contra side, Ext painful, flex painful on way back up PT-OP-L Special Tests Start: 03/11/23 09:20 Freq: Status: Active Protocol: Document 03/23/23 09:49 BS (Rec: 03/23/23 13:22 BS [id number]) Special Tests Neural Special Tests- Lower Body Sciatic Nerve Tension Test Results positive B Comments L>R with chin tuck & DF Other Special Tests Special Tests Achilles Reflex: normal B Patellar reflex: normal L, diminished R Babinski: normal L, no response R LE Coordination: normal L, impaired R Clonus: absent PT-OP-M Strength Start: 03/11/23 09:20 Freq: Status: Active Protocol: Document 03/17/23 09:48 BS (Rec: 03/17/23 12:31 BS [id number]) Hip Strength Hip Manual Muscle Testing Right Flexion (L2) 3+ Fair+ Extension (S1) 3+ Fair+ Abduction 3 Fair Adduction 3+ Fair+ External Rotation 4- Good- Internal Rotation 4+ Good+ Left Flexion (L2) 4+ Good+ Extension (S1) 4 Good Abduction 4+ Good+ Adduction 4 Good External Rotation 4+ Good+ Internal Rotation 4+ Good+ Knee Strength Knee Manual Muscle Testing Right Flexion (S2) 3+ Fair+ Extension (L3) 4- Good- Left Flexion (S2) 5 Normal Extension (L3) 5 Normal Ankle/Foot Strength Ankle and Foot Manual Muscle Testing Right Dorsiflexion (L4) 4- Good- Left Dorsiflexion (L4) 5 Normal PT-OP-Q Treatments Start: 03/11/23 09:20 Freq: Status: Active Protocol: Document 04/13/23 09:06 BS (Rec: 04/13/23 09:56 BS [id number]) Therapeutic Exercises Supine Exercises Stretch Supine Exercise Name KTC crossbody Side right Comments proximal numbness sx, discontinued PPT Side bilateral Reps/Minutes x20 Sitting Exercises n glides Sitting Exercise Name seated sciatic n glide Reps/Minutes x20 ea Comments back ext w/ knee flex, slouched w/ knee ext. Cues for painfree range Standing Exercises hip abd Standing Exercise Name banded side steps Side bilateral Reps/Minutes x4 length of // Comments cues for no trunk lean Marching Standing Exercise Name Mini marching in // Side bilateral Reps/Minutes x15 ea Comments cues for level pelvis throughout. Manual Therapy Treatment Soft Tissue Mobilization Quad Comments R lat quad and IT STM glutes Comments R inf glute STM PT-OP-T Assessment and Plan Start: 03/11/23 09:20 Freq: Status: Active Protocol: Document 04/13/23 09:06 BS (Rec: 04/13/23 09:56 [id number]) Physical Therapy Assessment Goals ADLs Short Term Goal (STG) Pt will report dec pain and mobility resitriction with putting on R shoe and sock and be able to complete without using RUE to hold up limb. STG Duration 04/22/23 Warehouse Production Worker Goal (LTG) Pt will report waking up no more than 1 time during night d/t pain and discomfort in order to allow for inc quality of life and recovery time for body. LTG Duration 05/26/23 Balance Impairment unable to balance on RLE and 12s on LLE. Short Term Goal (STG) Pt will be able to balance for at least 10s on RLE to show improvement in strength and stability in order to progress toward safe functional mobility. STG Duration 04/22/23 Warehouse Production Worker Goal (LTG) Pt will be able to perform SLS on BLE for >30s in order to demonstrate improved strength and stability through hip and LE and allow for safe participation in daily functional mobility. LTG Duration 05/26/23 Strength Impairment Significant strength impairments throughout RLE Short Term Goal (STG) Pt will improve all R hip MMT to at least 4/5 to show improvement in LE strength to allow for dec compensations during functional acitvities. STG Duration 04/22/23 Jail Goal (LTG) Pt will improve all R hip MMT to 5/5 to show improvement in RLE strength and allow for proper mechanics and dec pain during necessary functional mobility and daily tasks. LTG Duration 05/26/23 Assessment Summary Assessment Pt reported to PT today with reports of inc back pain today which he attributed to a poor night of sleep and cracking his back in the shower today. Pt demonstrated inc control through pelvis with marching today, although fatigued quickly. When stretching R knee across chest in supine, pt reported feeling of loss of sensation inbetween LE, which is concerning as reports sound like saddle paresthesia. Pt told to discontinue stretch and pt reported numbess when away. Pt reports this occurs occassionally depending on seated position and sometimes he does not realize until he goes to get up. Pt did say he had mentioned it to spinal dr he saw last week. BKFO on R felt like good stretch to pt, and mobility improved following manual. Physical Therapy Plan Frequency and Duration Frequency of Treatment 2x/Week Duration of treatment (weeks) 10 Plan of Care Start Date 03/17/23 Plan of Care End Date 05/26/23 Next Visit Focus/Plan Next Note Type Treatment Note Next Visit Plan Work on stair training & ensure level pelvis Strength: gentle core, progress RLE strength- hip abd /flex/ext, knee flex/ext, weight shifting into RLE to inc WBing, split stance balance. Manual: gentle hip mobs & STM to lat hip & quad
--- NOTE | 2023-04-16 12:47 | PT.OTN ---
Current Diagnoses Lumbago with sciatica, right side (04/16/23) Physical Therapy Treatment Note PT-OP-A Visit Information Start: 03/11/23 09:20 Freq: Status: Active Protocol: Document 04/16/23 10:25 NBM (Rec: 04/16/23 11:20 NBM [id number]) Out-Patient Physical Therapy Visit Information Visit Information Visit Type Treatment Note Visit Start Time 10:35 Visit Stop Time 11:18 Total Visit Minutes 43 Visit Number 7 Number of RADIOISOTOPE PRODUCTION OPERATOR Visits 1 PT-OP-B Current Condition Start: 03/11/23 09:20 Freq: Status: Active Protocol: Document 03/17/23 09:48 BS (Rec: 03/17/23 12:31 BS [id number]) Current Condition History of Current Condition Current Complaints LBP w/ R radiculopathy History of Current Condition Has referral in to see a neurosurgeon and wants to get second opinion on MRI results. 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 Got out of d/t not being able to keep up with physical requirements. Have done PT on and off over the years. Got MRI in 2018 and showed some slight narrowing at L3-L4 and minor muscle strains. Over last 6 months-1 year, has had few occasions where back spasms more than normal where he tried yoga poses, heat/ice, and massage therapist and always seemed to help. This last time ~4 weeks ago it was so bad and nothing seemed to help. Had pain down leg, knee pain, rucker/ankle pain. Bought new bed that folds to try and help with positioning and sleep. Finally went and saw doc and got on gabapentin which seems to help with pain but makes it so he can't function as well. Doesn' t normally like pain killers at all but got to the point where he needed something. Pain has really impacted life, has 2 kids under 2 and cant lift them or get up off floor well. Changing positions often seems to help with keeping the pain at ease and sitting in a more slouched position. About a year ago radiating pain was more localized to buttock but now goes all down to calf. By end of day body seems to be pretty tired and tight. Usually up 6-8 times throughout night because he is uncomfortable, has been getting worse in past 2-3 years. 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 Has lost ~20lbs in past 4 months. Almost had a fall with brain not thinking the foot was on the floor and having to grab on to someone to not go down. Pain is super variable and flare ups last 3-4 days where he cant get out of bed Treatment Goals Patient/Caregiver Goals Pt would like to focus on learning nerve glides and stretching to help with radiculopathy. Gets shoes and socks on without using hands to lift leg up. PT-OP-C Subjective Start: 03/11/23 09:20 Freq: Status: Active Protocol: Document 04/16/23 10:25 NBM (Rec: 04/16/23 11:20 NBM [id number]) OP-PT Subjective Patient Comments Patient Comments Pt reports the week started off really really good and then has progressively gotten worse. When he was here Wednesday everything was great and working and firing on all cylinders but today it's not. I'm frustrated because some days are really great and some days aren't and there's no rhyme or reason. His appt with neurosurgeon for consult is 05/18. Pt is flying to [facility] for holidays and plans to be up in first class. Diaphragmatic breathing is helping with stress a lot. He thinks medications were contributing to the emotionality and he's been off them a week and feeling better. Figure 4 helps him practice the breathing and he does feel like the stiffness and pain has a lot to do with the tightness in his R hip. Sleep was okay last night. He practices sit to stands daily. PT-OP-D Balance Start: 03/11/23 09:20 Freq: Status: Active Protocol: Document 03/17/23 09:48 BS (Rec: 03/17/23 12:31 BS [id number]) Balance Tests Single Limb Standing Single Limb- Right unable Single Limb- Left 12s PT-OP-G Mobility & Gait Start: 03/11/23 09:20 Freq: Status: Active Protocol: Document 03/17/23 09:48 BS (Rec: 03/17/23 15:56 BS [id number]) OP Gait Assessment Comments Gait Comments dec stance time on RLE PT-OP-J Posture/Palpation/Skin Start: 03/11/23 09:20 Freq: Status: Active Protocol: Document 03/17/23 09:48 BS (Rec: 03/17/23 12:31 BS [id number]) Posture Evaluation Comments Posture Comments More WBing through LLE, pelvis sheared R, torso sheared L, R iliac crest higher when B knee ext PT-OP-K Range of Motion Start: 03/11/23 09:20 Freq: Status: Active Protocol: Document 03/17/23 09:48 BS (Rec: 03/17/23 12:31 BS [id number]) Lumbar Spine Range of Motion Lumbar Spine Active Percentage Flexion 20 Extension 10 Lateral Flexion Left 75 Lateral Flexion Right 75 Comments pain coming back up form flex, when hips SB felt tight on contra side, Ext painful, flex painful on way back up PT-OP-L Special Tests Start: 03/11/23 09:20 Freq: Status: Active Protocol: Document 03/23/23 09:49 BS (Rec: 03/23/23 13:22 BS [id number]) Special Tests Neural Special Tests- Lower Body Sciatic Nerve Tension Test Results positive B Comments L>R with chin tuck & DF Other Special Tests Special Tests Achilles Reflex: normal B Patellar reflex: normal L, diminished R Babinski: normal L, no response R LE Coordination: normal L, impaired R Clonus: absent PT-OP-M Strength Start: 03/11/23 09:20 Freq: Status: Active Protocol: Document 03/17/23 09:48 BS (Rec: 03/17/23 12:31 BS [id number]) Hip Strength Hip Manual Muscle Testing Right Flexion (L2) 3+ Fair+ Extension (S1) 3+ Fair+ Abduction 3 Fair Adduction 3+ Fair+ External Rotation 4- Good- Internal Rotation 4+ Good+ Left Flexion (L2) 4+ Good+ Extension (S1) 4 Good Abduction 4+ Good+ Adduction 4 Good External Rotation 4+ Good+ Internal Rotation 4+ Good+ Knee Strength Knee Manual Muscle Testing Right Flexion (S2) 3+ Fair+ Extension (L3) 4- Good- Left Flexion (S2) 5 Normal Extension (L3) 5 Normal Ankle/Foot Strength Ankle and Foot Manual Muscle Testing Right Dorsiflexion (L4) 4- Good- Left Dorsiflexion (L4) 5 Normal PT-OP-Q Treatments Start: 03/11/23 09:20 Freq: Status: Active Protocol: Document 04/16/23 10:25 NBM (Rec: 04/16/23 11:20 NB [id number]) Therapeutic Exercises Sitting Exercises stretch Sitting Exercise Name seated figure 4 stretch, HEP review Side right Reps/Minutes 2 min Comments cues for deep breathing and tolerable stretch n glides Sitting Exercise Name seated sciatic n glide Reps/Minutes x20 ea Comments back ext w/ knee flex, slouched w/ knee ext. Cues for painfree range Standing Exercises sit to stands Standing Exercise Name hinge mechanics, squats in //, sit to stands at chair Side bilateral Reps/Minutes x10 ea Comments cues to breathe out when standing up, sit to stand added to HEP hip abd Standing Exercise Name banded side steps Side bilateral Reps/Minutes x4 length of // Comments cues for no trunk lean stretch Standing Exercise Name calf stretch Side bilateral Reps/Minutes 5x5s holds Marching Standing Exercise Name Mini marching in // Side bilateral Reps/Minutes x15 ea Comments cues for level pelvis throughout. R flexion more challenged. Gait Training Gait Activity Stairs Description 4 and 6 training stairs multiple trials Treatment Focus foot placement simulating home environment Comments stairs at home have single railing on L ascending, R descending, 8h x 10 depth, with baby gate on second step. PT-OP-T Assessment and Plan Start: 03/11/23 09:20 Freq: Status: Active Protocol: Document 04/16/23 10:25 NBM (Rec: 04/16/23 11:20 NB [id number]) Physical Therapy Assessment Goals ADLs Short Term Goal (STG) Pt will report dec pain and mobility resitriction with putting on R shoe and sock and be able to complete without using RUE to hold up limb. STG Duration 04/22/23 Penitentiary Goal (LTG) Pt will report waking up no more than 1 time during night d/t pain and discomfort in order to allow for inc quality of life and recovery time for body. LTG Duration 05/26/23 Balance Impairment unable to balance on RLE and 12s on LLE. Short Term Goal (STG) Pt will be able to balance for at least 10s on RLE to show improvement in strength and stability in order to progress toward safe functional mobility. STG Duration 04/22/23 Memorial Marker Designer Goal (LTG) Pt will be able to perform SLS on BLE for >30s in order to demonstrate improved strength and stability through hip and LE and allow for safe participation in daily functional mobility. LTG Duration 05/26/23 Strength Impairment Significant strength impairments throughout RLE Short Term Goal (STG) Pt will improve all R hip MMT to at least 4/5 to show improvement in LE strength to allow for dec compensations during functional acitvities. STG Duration 04/22/23 Memorial Marker Designer Goal (LTG) Pt will improve all R hip MMT to 5/5 to show improvement in RLE strength and allow for proper mechanics and dec pain during necessary functional mobility and daily tasks. LTG Duration 05/26/23 Assessment Summary Assessment Vahe is challenged with R>L hip flexion to keep pelvis level during mini marches in / / bars. Pt demonstrates self- awareness for pain-free range of motion with RLE mobility. Pt tolerates stair trianing on 4 and 6 stairs and will bring video of unique floating stairs at home that are 8 h x 10 depth and have babygate with bar requiring stepping over the last step altogether. Pt plans to use thermotherapy to low back and R hip at home for muscle stiffness and pain management. Physical Therapy Plan Frequency and Duration Frequency of Treatment 2x/Week Duration of treatment (weeks) 10 Plan of Care Start Date 03/17/23 Plan of Care End Date 05/26/23 Therapeutic Interventions Therapeutic Interventions Balance Training,Coordination Training,Gait Training,Home Exercise Program,Joint Mobilizations,Manual Therapy, Neuromuscular Re-education, Patient/Caregiver Education, Self-Care/Home Management,Soft Tissue Mobilization,Taping, Therapeutic Activities, Therapeutic Exercises Modalities Cold Pack/Ice Massage,Electric Stimulation,Hot Packs, Infrared Therapy,Traction- Mechanical,Ultrasound Next Visit Focus/Plan Next Note Type Treatment Note Next Visit Plan Work on stair training & ensure level pelvis Strength: gentle core, progress RLE strength- hip abd /flex/ext, knee flex/ext, weight shifting into RLE to inc WBing, split stance balance. Manual: gentle hip mobs & STM to lat hip & quad
--- NOTE | 2023-04-20 11:24 | PT.OTN ---
Current Diagnoses Lumbago with sciatica, right side (04/20/23) Physical Therapy Treatment Note PT-OP-A Visit Information Start: 03/11/23 09:20 Freq: Status: Active Protocol: Document 04/20/23 10:37 SP (Rec: 04/20/23 11:51 SP [id number]) Out-Patient Physical Therapy Visit Information Visit Information Visit Type Treatment Note Visit Start Time 10:37 Visit Stop Time 11:24 Total Visit Minutes 47 Visit Number 8 Number of SOIL ANALYST Visits 2 PT-OP-B Current Condition Start: 03/11/23 09:20 Freq: Status: Active Protocol: Document 03/17/23 09:48 BS (Rec: 03/17/23 12:31 BS [id number]) Current Condition History of Current Condition Current Complaints LBP w/ R radiculopathy History of Current Condition Has referral in to see a neurosurgeon and wants to get second opinion on MRI results. 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 Got out of d/t not being able to keep up with physical requirements. Have done PT on and off over the years. Got MRI in 2018 and showed some slight narrowing at L3-L4 and minor muscle strains. Over last 6 months-1 year, has had few occasions where back spasms more than normal where he tried yoga poses, heat/ice, and massage therapist and always seemed to help. This last time ~4 weeks ago it was so bad and nothing seemed to help. Had pain down leg, knee pain, rucker/ankle pain. Bought new bed that folds to try and help with positioning and sleep. Finally went and saw doc and got on gabapentin which seems to help with pain but makes it so he can't function as well. Doesn' t normally like pain killers at all but got to the point where he needed something. Pain has really impacted life, has 2 kids under 2 and cant lift them or get up off floor well. Changing positions often seems to help with keeping the pain at ease and sitting in a more slouched position. About a year ago radiating pain was more localized to buttock but now goes all down to calf. By end of day body seems to be pretty tired and tight. Usually up 6-8 times throughout night because he is uncomfortable, has been getting worse in past 2-3 years. 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 Has lost ~20lbs in past 4 months. Almost had a fall with brain not thinking the foot was on the floor and having to grab on to someone to not go down. Pain is super variable and flare ups last 3-4 days where he cant get out of bed Treatment Goals Patient/Caregiver Goals Pt would like to focus on learning nerve glides and stretching to help with radiculopathy. Gets shoes and socks on without using hands to lift leg up. PT-OP-C Subjective Start: 03/11/23 09:20 Freq: Status: Active Protocol: Document 04/20/23 10:37 SP (Rec: 04/20/23 11:51 SP [id number]) OP-PT Subjective Patient Comments Patient Comments Pt reports doing well with HEP , feels helping and doing more with less pain. Back having more pain, agnes later day, decreased sensation in back into R LE more superficial but tiring also affecting stabiltiy/strength of RLE ability to mobilize activities needed/ interest. Has a neurology appt coming up in May and hoping will have more answers and if considering surgery. PT-OP-D Balance Start: 03/11/23 09:20 Freq: Status: Active Protocol: Document 03/17/23 09:48 BS (Rec: 03/17/23 12:31 BS [id number]) Balance Tests Single Limb Standing Single Limb- Right unable Single Limb- Left 12s PT-OP-G Mobility & Gait Start: 03/11/23 09:20 Freq: Status: Active Protocol: Document 03/17/23 09:48 BS (Rec: 03/17/23 15:56 BS [id number]) OP Gait Assessment Comments Gait Comments dec stance time on RLE PT-OP-J Posture/Palpation/Skin Start: 03/11/23 09:20 Freq: Status: Active Protocol: Document 03/17/23 09:48 BS (Rec: 03/17/23 12:31 BS [id number]) Posture Evaluation Comments Posture Comments More WBing through LLE, pelvis sheared R, torso sheared L, R iliac crest higher when B knee ext PT-OP-K Range of Motion Start: 03/11/23 09:20 Freq: Status: Active Protocol: Document 03/17/23 09:48 BS (Rec: 03/17/23 12:31 BS [id number]) Lumbar Spine Range of Motion Lumbar Spine Active Percentage Flexion 20 Extension 10 Lateral Flexion Left 75 Lateral Flexion Right 75 Comments pain coming back up form flex, when hips SB felt tight on contra side, Ext painful, flex painful on way back up PT-OP-L Special Tests Start: 03/11/23 09:20 Freq: Status: Active Protocol: Document 03/23/23 09:49 BS (Rec: 03/23/23 13:22 BS [id number]) Special Tests Neural Special Tests- Lower Body Sciatic Nerve Tension Test Results positive B Comments L>R with chin tuck & DF Other Special Tests Special Tests Achilles Reflex: normal B Patellar reflex: normal L, diminished R Babinski: normal L, no response R LE Coordination: normal L, impaired R Clonus: absent PT-OP-M Strength Start: 03/11/23 09:20 Freq: Status: Active Protocol: Document 03/17/23 09:48 BS (Rec: 03/17/23 12:31 BS [id number]) Hip Strength Hip Manual Muscle Testing Right Flexion (L2) 3+ Fair+ Extension (S1) 3+ Fair+ Abduction 3 Fair Adduction 3+ Fair+ External Rotation 4- Good- Internal Rotation 4+ Good+ Left Flexion (L2) 4+ Good+ Extension (S1) 4 Good Abduction 4+ Good+ Adduction 4 Good External Rotation 4+ Good+ Internal Rotation 4+ Good+ Knee Strength Knee Manual Muscle Testing Right Flexion (S2) 3+ Fair+ Extension (L3) 4- Good- Left Flexion (S2) 5 Normal Extension (L3) 5 Normal Ankle/Foot Strength Ankle and Foot Manual Muscle Testing Right Dorsiflexion (L4) 4- Good- Left Dorsiflexion (L4) 5 Normal PT-OP-Q Treatments Start: 03/11/23 09:20 Freq: Status: Active Protocol: Document 04/20/23 10:37 SP (Rec: 04/20/23 11:51 SP [id number]) Therapeutic Exercises Supine Exercises LTR Supine Exercise Name in PT Side bilateral Resistance 65cm tball Reps/Minutes 10 reps Comments reports painfree, little stiff in back going L, improves ROM with reps LE neural glide Supine Exercise Name /c ankle pump Reps/Minutes 30 each LE Comments tolerant range, slow pacing Standing Exercises triangle/reverse triangle Standing Exercise Name trialed in PT Side bilateral Equipment Used cued chest lift back straight, tolerant AROM Reps/Minutes x3-5 reps Comments Front LE contact table lateral knee for stability PRN- tiring BLEs sit to stands Standing Exercise Name hinge mechanics, squats in //, sit to stands at chair Side bilateral Resistance 65cm tball OH Equipment Used black table tap>deeper squat<> stand Reps/Minutes x10 ea Comments cues to breathe out when standing up, sit to stand Other Exercises quadruped Other Exercise Name 1. cat camel 2. tail way (SB) 3. child's pose 4. discussed open book/thread Side bilateral Reps/Minutes 1. 8 reps 2. 5 reps (L hip depresses floor chall level) 3 . Comments good feedback ROM, tires quick Manual Therapy Treatment Soft Tissue Mobilization LS Body Location R>L paraspinal, ES Mobilization Type Strumming,Sustained Pressure, Other Intensity/Depth Moderate Body Position Prone glutes Body Location R Mobilization Type Strumming,Sustained Pressure, Other Intensity/Depth Moderate Body Position Prone Comments R inf glute STM manual and MWM hip IR/ ER tolerant range Joint Mobilizations LS Joint L1-L3 Direction PA Grade II Body Position Prone Reps/Duration 3 reps Comments prone over pillow /c breath exhale Manual Traction LS Details 1. double leg over tball & bent knees 2. single Long axis pull Body Position Hooklying Reps/Duration 20 SH x2 each Comments 1. DL a. BLE over 65cm tball b . knees bent/feet on table- no benefit relief in LS felt so stopped 2. R>L SL long axis pull ( grasp ankle, asked feedback comfort) PT-OP-T Assessment and Plan Start: 03/11/23 09:20 Freq: Status: Active Protocol: Document 04/20/23 10:37 SP (Rec: 04/20/23 11:51 SP [id number]) Physical Therapy Assessment Goals ADLs Short Term Goal (STG) Pt will report dec pain and mobility resitriction with putting on R shoe and sock and be able to complete without using RUE to hold up limb. STG Duration 04/22/23 Engine Mechanic Goal (LTG) Pt will report waking up no more than 1 time during night d/t pain and discomfort in order to allow for inc quality of life and recovery time for body. LTG Duration 05/26/23 Balance Impairment unable to balance on RLE and 12s on LLE. Short Term Goal (STG) Pt will be able to balance for at least 10s on RLE to show improvement in strength and stability in order to progress toward safe functional mobility. STG Duration 04/22/23 Alf Goal (LTG) Pt will be able to perform SLS on BLE for >30s in order to demonstrate improved strength and stability through hip and LE and allow for safe participation in daily functional mobility. LTG Duration 05/26/23 Strength Impairment Significant strength impairments throughout RLE Short Term Goal (STG) Pt will improve all R hip MMT to at least 4/5 to show improvement in LE strength to allow for dec compensations during functional acitvities. STG Duration 04/22/23 Engine Mechanic Goal (LTG) Pt will improve all R hip MMT to 5/5 to show improvement in RLE strength and allow for proper mechanics and dec pain during necessary functional mobility and daily tasks. LTG Duration 05/26/23 Assessment Summary Assessment Cues required for slow pacing during there ex for increased core stability. Pt demonstrates improved lumbar ROM reported with quadruped activities. Trialed standing yoga triangle with need of LE lateral contact table for added support in stability and good feedback lumbar and scapular tiring effort. Physical Therapy Plan Frequency and Duration Frequency of Treatment 2x/Week Duration of treatment (weeks) 10 Plan of Care Start Date 03/17/23 Plan of Care End Date 05/26/23 Therapeutic Interventions Therapeutic Interventions Balance Training,Coordination Training,Gait Training,Home Exercise Program,Joint Mobilizations,Manual Therapy, Neuromuscular Re-education, Patient/Caregiver Education, Self-Care/Home Management,Soft Tissue Mobilization,Taping, Therapeutic Activities, Therapeutic Exercises Modalities Cold Pack/Ice Massage,Electric Stimulation,Hot Packs, Infrared Therapy,Traction- Mechanical,Ultrasound Next Visit Focus/Plan Next Note Type Treatment Note Next Visit Plan Work on stair training & ensure level pelvis Strength: gentle core, progress RLE strength- hip abd /flex/ext, knee flex/ext, weight shifting into RLE to inc WBing, split stance balance. Manual: gentle hip mobs & STM to lat hip & quad
--- NOTE | 2023-04-23 12:35 | PT.OTN ---
Current Diagnoses Lumbago with sciatica, right side (04/23/23) Physical Therapy Treatment Note PT-OP-A Visit Information Start: 03/11/23 09:20 Freq: Status: Active Protocol: Document 04/23/23 11:20 NBM (Rec: 04/23/23 12:35 NBM [id number]) Out-Patient Physical Therapy Visit Information Visit Information Visit Type Treatment Note Visit Start Time 11:20 Visit Stop Time 12:10 Total Visit Minutes 50 Visit Number 9 Number of CLAIM TAKER Visits 3 PT-OP-B Current Condition Start: 03/11/23 09:20 Freq: Status: Active Protocol: Document 03/17/23 09:48 BS (Rec: 03/17/23 12:31 BS [id number]) Current Condition History of Current Condition Current Complaints LBP w/ R radiculopathy History of Current Condition Has referral in to see a neurosurgeon and wants to get second opinion on MRI results. 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 Got out of d/t not being able to keep up with physical requirements. Have done PT on and off over the years. Got MRI in 2018 and showed some slight narrowing at L3-L4 and minor muscle strains. Over last 6 months-1 year, has had few occasions where back spasms more than normal where he tried yoga poses, heat/ice, and massage therapist and always seemed to help. This last time ~4 weeks ago it was so bad and nothing seemed to help. Had pain down leg, knee pain, rucker/ankle pain. Bought new bed that folds to try and help with positioning and sleep. Finally went and saw doc and got on gabapentin which seems to help with pain but makes it so he can't function as well. Doesn' t normally like pain killers at all but got to the point where he needed something. Pain has really impacted life, has 2 kids under 2 and cant lift them or get up off floor well. Changing positions often seems to help with keeping the pain at ease and sitting in a more slouched position. About a year ago radiating pain was more localized to buttock but now goes all down to calf. By end of day body seems to be pretty tired and tight. Usually up 6-8 times throughout night because he is uncomfortable, has been getting worse in past 2-3 years. 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 Has lost ~20lbs in past 4 months. Almost had a fall with brain not thinking the foot was on the floor and having to grab on to someone to not go down. Pain is super variable and flare ups last 3-4 days where he cant get out of bed Treatment Goals Patient/Caregiver Goals Pt would like to focus on learning nerve glides and stretching to help with radiculopathy. Gets shoes and socks on without using hands to lift leg up. PT-OP-C Subjective Start: 03/11/23 09:20 Freq: Status: Active Protocol: Document 04/23/23 11:20 NBM (Rec: 04/23/23 12:35 NBM [id number]) OP-PT Subjective Patient Comments Patient Comments Vahe reports he's been in increased pain since last visit, worse in mornings and evenings. He thinks the hands on pushing on his back muscles may have aggravated it . His was able to record him coming down the stairs. Pt reports he also hasn't been taking as much medication because he's trying to not to take something every time something goes bump. The muscle relaxers do a great job of helping my back but not keeping my mental stability intact. He hasn't slept well the last two nights tossing and turning not able to get comfortable. He's not able to help with the kids during the night if he takes the muscle relaxers. Smoke alarm needed to be changed at 3am last night. Sharpest pains are with L hip hike and R hip drop. Patient Reported Progress Worse PT-OP-D Balance Start: 03/11/23 09:20 Freq: Status: Active Protocol: Document 03/17/23 09:48 BS (Rec: 03/17/23 12:31 BS [id number]) Balance Tests Single Limb Standing Single Limb- Right unable Single Limb- Left 12s PT-OP-G Mobility & Gait Start: 03/11/23 09:20 Freq: Status: Active Protocol: Document 03/17/23 09:48 BS (Rec: 03/17/23 15:56 BS [id number]) OP Gait Assessment Comments Gait Comments dec stance time on RLE PT-OP-J Posture/Palpation/Skin Start: 03/11/23 09:20 Freq: Status: Active Protocol: Document 03/17/23 09:48 BS (Rec: 03/17/23 12:31 BS [id number]) Posture Evaluation Comments Posture Comments More WBing through LLE, pelvis sheared R, torso sheared L, R iliac crest higher when B knee ext PT-OP-K Range of Motion Start: 03/11/23 09:20 Freq: Status: Active Protocol: Document 03/17/23 09:48 BS (Rec: 03/17/23 12:31 BS [id number]) Lumbar Spine Range of Motion Lumbar Spine Active Percentage Flexion 20 Extension 10 Lateral Flexion Left 75 Lateral Flexion Right 75 Comments pain coming back up form flex, when hips SB felt tight on contra side, Ext painful, flex painful on way back up PT-OP-L Special Tests Start: 03/11/23 09:20 Freq: Status: Active Protocol: Document 03/23/23 09:49 BS (Rec: 03/23/23 13:22 BS [id number]) Special Tests Neural Special Tests- Lower Body Sciatic Nerve Tension Test Results positive B Comments L>R with chin tuck & DF Other Special Tests Special Tests Achilles Reflex: normal B Patellar reflex: normal L, diminished R Babinski: normal L, no response R LE Coordination: normal L, impaired R Clonus: absent PT-OP-M Strength Start: 03/11/23 09:20 Freq: Status: Active Protocol: Document 03/17/23 09:48 BS (Rec: 03/17/23 12:31 BS [id number]) Hip Strength Hip Manual Muscle Testing Right Flexion (L2) 3+ Fair+ Extension (S1) 3+ Fair+ Abduction 3 Fair Adduction 3+ Fair+ External Rotation 4- Good- Internal Rotation 4+ Good+ Left Flexion (L2) 4+ Good+ Extension (S1) 4 Good Abduction 4+ Good+ Adduction 4 Good External Rotation 4+ Good+ Internal Rotation 4+ Good+ Knee Strength Knee Manual Muscle Testing Right Flexion (S2) 3+ Fair+ Extension (L3) 4- Good- Left Flexion (S2) 5 Normal Extension (L3) 5 Normal Ankle/Foot Strength Ankle and Foot Manual Muscle Testing Right Dorsiflexion (L4) 4- Good- Left Dorsiflexion (L4) 5 Normal PT-OP-Q Treatments Start: 03/11/23 09:20 Freq: Status: Active Protocol: Document 04/23/23 11:20 NBM (Rec: 04/23/23 12:35 NBM [id number]) Therapeutic Exercises Supine Exercises SAQ Supine Exercise Name w/ LEs in on bolsters Side bilateral Equipment Used two stacked bolsters Reps/Minutes x10 ea Comments pain-free; SLR attempted and pt unable on L d/t LBP Bridge Supine Exercise Name LEs on bolsters Side bilateral Comments slow pacing, increasing pain- free ROM, dark cloud retreating back LTR Supine Exercise Name in PT Side bilateral Resistance 65cm tball Reps/Minutes 10 reps Comments reports pain-free, cues for TrA and breath LE neural glide Supine Exercise Name /c ankle pump, CLAIM TAKER manual support on L d/t LBP/cramping Reps/Minutes 45 each LE Comments tolerant range, slow pacing PPT Supine Exercise Name w/ ice pack and diaphragmatic breathing Side bilateral Reps/Minutes x20 Sitting Exercises stretch Sitting Exercise Name seated figure 4 stretch, added to HEP Side right Reps/Minutes 2 min Comments cues for deep breathing and tolerable stretch n glides Sitting Exercise Name seated sciatic n glide Reps/Minutes x20 ea Comments back ext w/ knee flex, slouched w/ knee ext. Cues for painfree range Therapeutic Activity Therapeutic Activity log roll Name TrA activation and breath with transitions Reps/Minutes 5' Comments reviewed log roll method with UE push-off from side to sitting EOB and back with focus on TrA activation and breath with movement instead of breathholding/guarding. Gait Training Gait Activity Stairs Comments Video of pt descending home floating stairs reviewed demonstrating APT and weak HS and DF, and pt encouraged to use PPT and knee flexion with descent and consider a step stool off side of floating stairs to avoid large drop at bottom of stairs. Manual Therapy Treatment Soft Tissue Mobilization LS Body Location L lumbar Mobilization Type Other Intensity/Depth Moderate Body Position Sitting Comments palpation of large, ball-type knot to L-side lumbar end of session. PT-OP-R Modalities Start: 03/11/23 09:20 Freq: Status: Active Protocol: Document 04/23/23 11:20 NBM (Rec: 04/23/23 12:35 [facility] [id number]) Hot Pack/Cold Pack Treatment Cold Pack Location lumbar Patient Position Hooklying Treatment Duration (minutes) 15 Patient Tolerance Good Comments LE support 90/90 w/ diaphragmatic breathing. PT-OP-T Assessment and Plan Start: 03/11/23 09:20 Freq: Status: Active Protocol: Document 04/23/23 11:20 NBM (Rec: 04/23/23 12:35 [facility] [id number]) Physical Therapy Assessment Goals ADLs Short Term Goal (STG) Pt will report dec pain and mobility resitriction with putting on R shoe and sock and be able to complete without using RUE to hold up limb. STG Duration 04/22/23 Shelter Goal (LTG) Pt will report waking up no more than 1 time during night d/t pain and discomfort in order to allow for inc quality of life and recovery time for body. LTG Duration 05/26/23 Balance Impairment unable to balance on RLE and 12s on LLE. Short Term Goal (STG) Pt will be able to balance for at least 10s on RLE to show improvement in strength and stability in order to progress toward safe functional mobility. STG Duration 04/22/23 Shelter Goal (LTG) Pt will be able to perform SLS on BLE for >30s in order to demonstrate improved strength and stability through hip and LE and allow for safe participation in daily functional mobility. LTG Duration 05/26/23 Strength Impairment Significant strength impairments throughout RLE Short Term Goal (STG) Pt will improve all R hip MMT to at least 4/5 to show improvement in LE strength to allow for dec compensations during functional acitvities. STG Duration 04/22/23 Tapper Operator Goal (LTG) Pt will improve all R hip MMT to 5/5 to show improvement in RLE strength and allow for proper mechanics and dec pain during necessary functional mobility and daily tasks. LTG Duration 05/26/23 Assessment Summary Assessment Vahe presents with increased pain today since last PT visit , reporting 4/10 pain start of session down to 2-3/10 and sharp pains from 7/10 down to 5/10 supine end of session, pain with walking out end of session 3-4/10. Treatment focus on pain management of lowback and guarding with pain apprehension to increase pain -limiting mobility. Start of session with cryotherapy to lumbar in 90/90 with diaphragmatic breathing to reduce guarding; PPT range improves with time and repetitions. SLR attempted but discontinued to L due to low back pain. Pt able to perform SAQs in this position without pain. L hallux cramp w/ LLE nerve glides which resolves with CLAIM TAKER assist for stretching , and CLAIM TAKER assist on LLE for supporting LLE in SLR to perform n.glides without pain. Pt able to perform bridging in 90/90 and LTR on 65cm ball w/ increasing pain-free range of motion and slow pacing with positive feedback response. Pt cued for TrA activation and breath with log roll transition from hooklying to sitting EOB. Emphasis on education for TrA activation and no breathholding for core stability with transitions gentle transitions. Discussion of stretches for airplane flight (seated fig. 4, LE n. glides, low back stretch, seated trunk rotation), diaphragmatic breathing and self-STM w/ raquetball in long sock against wall for palpable knot in low back, and use of cryotherapy and 90/90 positioning with chair for flare-up. Physical Therapy Plan Frequency and Duration Frequency of Treatment 2x/Week Duration of treatment (weeks) 10 Plan of Care Start Date 03/17/23 Plan of Care End Date 05/26/23 Therapeutic Interventions Therapeutic Interventions Balance Training,Coordination Training,Gait Training,Home Exercise Program,Joint Mobilizations,Manual Therapy, Neuromuscular Re-education, Patient/Caregiver Education, Self-Care/Home Management,Soft Tissue Mobilization,Taping, Therapeutic Activities, Therapeutic Exercises Modalities Cold Pack/Ice Massage,Electric Stimulation,Hot Packs, Infrared Therapy,Traction- Mechanical,Ultrasound Next Visit Focus/Plan Next Note Type Treatment Note Next Visit Plan Work on stair training & ensure level pelvis Strength: gentle core, progress RLE strength- hip abd /flex/ext, knee flex/ext, weight shifting into RLE to inc WBing, split stance balance. Manual: gentle hip mobs & STM to lat hip & quad
--- NOTE | 2023-04-23 12:35 | PT.OTN ---
Current Diagnoses Lumbago with sciatica, right side (04/23/23) Physical Therapy Treatment Note PT-OP-A Visit Information Start: 03/11/23 09:20 Freq: Status: Active Protocol: Document 04/23/23 11:20 NBM (Rec: 04/23/23 12:35 NBM [id number]) Out-Patient Physical Therapy Visit Information Visit Information Visit Type Treatment Note Visit Start Time 11:20 Visit Stop Time 12:10 Total Visit Minutes 50 Visit Number 9 Number of CHILDREN'S LUNCHROOM SUPERVISOR Visits 3 PT-OP-B Current Condition Start: 03/11/23 09:20 Freq: Status: Active Protocol: Document 03/17/23 09:48 BS (Rec: 03/17/23 12:31 BS [id number]) Current Condition History of Current Condition Current Complaints LBP w/ R radiculopathy History of Current Condition Has referral in to see a neurosurgeon and wants to get second opinion on MRI results. 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 Got out of d/t not being able to keep up with physical requirements. Have done PT on and off over the years. Got MRI in 2018 and showed some slight narrowing at L3-L4 and minor muscle strains. Over last 6 months-1 year, has had few occasions where back spasms more than normal where he tried yoga poses, heat/ice, and massage therapist and always seemed to help. This last time ~4 weeks ago it was so bad and nothing seemed to help. Had pain down leg, knee pain, rucker/ankle pain. Bought new bed that folds to try and help with positioning and sleep. Finally went and saw doc and got on gabapentin which seems to help with pain but makes it so he can't function as well. Doesn' t normally like pain killers at all but got to the point where he needed something. Pain has really impacted life, has 2 kids under 2 and cant lift them or get up off floor well. Changing positions often seems to help with keeping the pain at ease and sitting in a more slouched position. About a year ago radiating pain was more localized to buttock but now goes all down to calf. By end of day body seems to be pretty tired and tight. Usually up 6-8 times throughout night because he is uncomfortable, has been getting worse in past 2-3 years. 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 Has lost ~20lbs in past 4 months. Almost had a fall with brain not thinking the foot was on the floor and having to grab on to someone to not go down. Pain is super variable and flare ups last 3-4 days where he cant get out of bed Treatment Goals Patient/Caregiver Goals Pt would like to focus on learning nerve glides and stretching to help with radiculopathy. Gets shoes and socks on without using hands to lift leg up. PT-OP-C Subjective Start: 03/11/23 09:20 Freq: Status: Active Protocol: Document 04/23/23 11:20 NBM (Rec: 04/23/23 12:35 NBM [id number]) OP-PT Subjective Patient Comments Patient Comments Vahe reports he's been in increased pain since last visit, worse in mornings and evenings. He thinks the hands on pushing on his back muscles may have aggravated it . His was able to record him coming down the stairs. Pt reports he also hasn't been taking as much medication because he's trying to not to take something every time something goes bump. The muscle relaxers do a great job of helping my back but not keeping my mental stability intact. He hasn't slept well the last two nights tossing and turning not able to get comfortable. He's not able to help with the kids during the night if he takes the muscle relaxers. Smoke alarm needed to be changed at 3am last night. Sharpest pains are with L hip hike and R hip drop. Patient Reported Progress Worse PT-OP-D Balance Start: 03/11/23 09:20 Freq: Status: Active Protocol: Document 03/17/23 09:48 BS (Rec: 03/17/23 12:31 BS [id number]) Balance Tests Single Limb Standing Single Limb- Right unable Single Limb- Left 12s PT-OP-G Mobility & Gait Start: 03/11/23 09:20 Freq: Status: Active Protocol: Document 03/17/23 09:48 BS (Rec: 03/17/23 15:56 BS [id number]) OP Gait Assessment Comments Gait Comments dec stance time on RLE PT-OP-J Posture/Palpation/Skin Start: 03/11/23 09:20 Freq: Status: Active Protocol: Document 03/17/23 09:48 BS (Rec: 03/17/23 12:31 BS [id number]) Posture Evaluation Comments Posture Comments More WBing through LLE, pelvis sheared R, torso sheared L, R iliac crest higher when B knee ext PT-OP-K Range of Motion Start: 03/11/23 09:20 Freq: Status: Active Protocol: Document 03/17/23 09:48 BS (Rec: 03/17/23 12:31 BS [id number]) Lumbar Spine Range of Motion Lumbar Spine Active Percentage Flexion 20 Extension 10 Lateral Flexion Left 75 Lateral Flexion Right 75 Comments pain coming back up form flex, when hips SB felt tight on contra side, Ext painful, flex painful on way back up PT-OP-L Special Tests Start: 03/11/23 09:20 Freq: Status: Active Protocol: Document 03/23/23 09:49 BS (Rec: 03/23/23 13:22 BS [id number]) Special Tests Neural Special Tests- Lower Body Sciatic Nerve Tension Test Results positive B Comments L>R with chin tuck & DF Other Special Tests Special Tests Achilles Reflex: normal B Patellar reflex: normal L, diminished R Babinski: normal L, no response R LE Coordination: normal L, impaired R Clonus: absent PT-OP-M Strength Start: 03/11/23 09:20 Freq: Status: Active Protocol: Document 03/17/23 09:48 BS (Rec: 03/17/23 12:31 BS [id number]) Hip Strength Hip Manual Muscle Testing Right Flexion (L2) 3+ Fair+ Extension (S1) 3+ Fair+ Abduction 3 Fair Adduction 3+ Fair+ External Rotation 4- Good- Internal Rotation 4+ Good+ Left Flexion (L2) 4+ Good+ Extension (S1) 4 Good Abduction 4+ Good+ Adduction 4 Good External Rotation 4+ Good+ Internal Rotation 4+ Good+ Knee Strength Knee Manual Muscle Testing Right Flexion (S2) 3+ Fair+ Extension (L3) 4- Good- Left Flexion (S2) 5 Normal Extension (L3) 5 Normal Ankle/Foot Strength Ankle and Foot Manual Muscle Testing Right Dorsiflexion (L4) 4- Good- Left Dorsiflexion (L4) 5 Normal PT-OP-Q Treatments Start: 03/11/23 09:20 Freq: Status: Active Protocol: Document 04/23/23 11:20 NBM (Rec: 04/23/23 12:35 NBM [id number]) Therapeutic Exercises Supine Exercises SAQ Supine Exercise Name w/ LEs in on bolsters Side bilateral Equipment Used two stacked bolsters Reps/Minutes x10 ea Comments pain-free; SLR attempted and pt unable on L d/t LBP Bridge Supine Exercise Name LEs on bolsters Side bilateral Comments slow pacing, increasing pain- free ROM, dark cloud retreating back LTR Supine Exercise Name in PT Side bilateral Resistance 65cm tball Reps/Minutes 10 reps Comments reports pain-free, cues for TrA and breath LE neural glide Supine Exercise Name /c ankle pump, CHIL[employer] SUPERVISOR manual support on L d/t LBP/cramping Reps/Minutes 45 each LE Comments tolerant range, slow pacing PPT Supine Exercise Name w/ ice pack and diaphragmatic breathing Side bilateral Reps/Minutes x20 Sitting Exercises stretch Sitting Exercise Name seated figure 4 stretch, added to HEP Side right Reps/Minutes 2 min Comments cues for deep breathing and tolerable stretch n glides Sitting Exercise Name seated sciatic n glide Reps/Minutes x20 ea Comments back ext w/ knee flex, slouched w/ knee ext. Cues for painfree range Therapeutic Activity Therapeutic Activity log roll Name TrA activation and breath with transitions Reps/Minutes 5' Comments reviewed log roll method with UE push-off from side to sitting EOB and back with focus on TrA activation and breath with movement instead of breathholding/guarding. Gait Training Gait Activity Stairs Comments Video of pt descending home floating stairs reviewed demonstrating APT and weak HS and DF, and pt encouraged to use PPT and knee flexion with descent and consider a step stool off side of floating stairs to avoid large drop at bottom of stairs. Manual Therapy Treatment Soft Tissue Mobilization LS Body Location L lumbar Mobilization Type Other Intensity/Depth Moderate Body Position Sitting Comments palpation of large, ball-type knot to L-side lumbar end of session. PT-OP-R Modalities Start: 03/11/23 09:20 Freq: Status: Active Protocol: Document 04/23/23 11:20 NBM (Rec: 04/23/23 12:35 [facility] [id number]) Hot Pack/Cold Pack Treatment Cold Pack Location lumbar Patient Position Hooklying Treatment Duration (minutes) 15 Patient Tolerance Good Comments LE support 90/90 w/ diaphragmatic breathing. PT-OP-T Assessment and Plan Start: 03/11/23 09:20 Freq: Status: Active Protocol: Document 04/23/23 11:20 NBM (Rec: 04/23/23 12:35 [facility] [id number]) Physical Therapy Assessment Goals ADLs Short Term Goal (STG) Pt will report dec pain and mobility resitriction with putting on R shoe and sock and be able to complete without using RUE to hold up limb. STG Duration 04/22/23 Skilled Nursing Goal (LTG) Pt will report waking up no more than 1 time during night d/t pain and discomfort in order to allow for inc quality of life and recovery time for body. LTG Duration 05/26/23 Balance Impairment unable to balance on RLE and 12s on LLE. Short Term Goal (STG) Pt will be able to balance for at least 10s on RLE to show improvement in strength and stability in order to progress toward safe functional mobility. STG Duration 04/22/23 Skilled Nursing Goal (LTG) Pt will be able to perform SLS on BLE for >30s in order to demonstrate improved strength and stability through hip and LE and allow for safe participation in daily functional mobility. LTG Duration 05/26/23 Strength Impairment Significant strength impairments throughout RLE Short Term Goal (STG) Pt will improve all R hip MMT to at least 4/5 to show improvement in LE strength to allow for dec compensations during functional acitvities. STG Duration 04/22/23 Food Service Ambassador Goal (LTG) Pt will improve all R hip MMT to 5/5 to show improvement in RLE strength and allow for proper mechanics and dec pain during necessary functional mobility and daily tasks. LTG Duration 05/26/23 Assessment Summary Assessment Vahe presents with increased pain today since last PT visit , reporting 4/10 pain start of session down to 2-3/10 and sharp pains from 7/10 down to 5/10 supine end of session, pain with walking out end of session 3-4/10. Treatment focus on pain management of lowback and guarding with pain apprehension to increase pain -limiting mobility. Start of session with cryotherapy to lumbar in 90/90 with diaphragmatic breathing to reduce guarding; PPT range improves with time and repetitions. SLR attempted but discontinued to L due to low back pain. Pt able to perform SAQs in this position without pain. L hallux cramp w/ LLE nerve glides which resolves with CHILDR[employer]S [employer]CHROOM SUPERVISOR assist for stretching , and CHILDR[employer]S [employer]CHRO[employer] SUPERVISOR assist on LLE for supporting LLE in SLR to perform n.glides without pain. Pt able to perform bridging in 90/90 and LTR on 65cm ball w/ increasing pain-free range of motion and slow pacing with positive feedback response. Pt cued for TrA activation and breath with log roll transition from hooklying to sitting EOB. Emphasis on education for TrA activation and no breathholding for core stability with transitions gentle transitions. Discussion of stretches for airplane flight (seated fig. 4, LE n. glides, low back stretch, seated trunk rotation), diaphragmatic breathing and self-STM w/ raquetball in long sock against wall for palpable knot in low back, and use of cryotherapy and 90/90 positioning with chair for flare-up. Physical Therapy Plan Frequency and Duration Frequency of Treatment 2x/Week Duration of treatment (weeks) 10 Plan of Care Start Date 03/17/23 Plan of Care End Date 05/26/23 Therapeutic Interventions Therapeutic Interventions Balance Training,Coordination Training,Gait Training,Home Exercise Program,Joint Mobilizations,Manual Therapy, Neuromuscular Re-education, Patient/Caregiver Education, Self-Care/Home Management,Soft Tissue Mobilization,Taping, Therapeutic Activities, Therapeutic Exercises Modalities Cold Pack/Ice Massage,Electric Stimulation,Hot Packs, Infrared Therapy,Traction- Mechanical,Ultrasound Next Visit Focus/Plan Next Note Type Treatment Note Next Visit Plan Work on stair training & ensure level pelvis Strength: gentle core, progress RLE strength- hip abd /flex/ext, knee flex/ext, weight shifting into RLE to inc WBing, split stance balance. Manual: gentle hip mobs & STM to lat hip & quad
--- NOTE | 2023-04-26 10:40 | PT.OTN ---
Current Diagnoses Lumbago with sciatica, right side (04/16/23) Physical Therapy Treatment Note PT-OP-A Visit Information Start: 03/11/23 09:20 Freq: Status: Active Protocol: Document 04/16/23 10:25 NBM (Rec: 04/16/23 11:20 NBM [id number]) Out-Patient Physical Therapy Visit Information Visit Information Visit Type Treatment Note Visit Start Time 10:35 Visit Stop Time 11:18 Total Visit Minutes 43 Visit Number 7 Number of COLLAR CLOSER LOCKSTITCH Visits 1 PT-OP-B Current Condition Start: 03/11/23 09:20 Freq: Status: Active Protocol: Document 03/17/23 09:48 BS (Rec: 03/17/23 12:31 BS [id number]) Current Condition History of Current Condition Current Complaints LBP w/ R radiculopathy History of Current Condition Has referral in to see a neurosurgeon and wants to get second opinion on MRI results. 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 Got out of d/t not being able to keep up with physical requirements. Have done PT on and off over the years. Got MRI in 2018 and showed some slight narrowing at L3-L4 and minor muscle strains. Over last 6 months-1 year, has had few occasions where back spasms more than normal where he tried yoga poses, heat/ice, and massage therapist and always seemed to help. This last time ~4 weeks ago it was so bad and nothing seemed to help. Had pain down leg, knee pain, rucker/ankle pain. Bought new bed that folds to try and help with positioning and sleep. Finally went and saw doc and got on gabapentin which seems to help with pain but makes it so he can't function as well. Doesn' t normally like pain killers at all but got to the point where he needed something. Pain has really impacted life, has 2 kids under 2 and cant lift them or get up off floor well. Changing positions often seems to help with keeping the pain at ease and sitting in a more slouched position. About a year ago radiating pain was more localized to buttock but now goes all down to calf. By end of day body seems to be pretty tired and tight. Usually up 6-8 times throughout night because he is uncomfortable, has been getting worse in past 2-3 years. 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 Has lost ~20lbs in past 4 months. Almost had a fall with brain not thinking the foot was on the floor and having to grab on to someone to not go down. Pain is super variable and flare ups last 3-4 days where he cant get out of bed Treatment Goals Patient/Caregiver Goals Pt would like to focus on learning nerve glides and stretching to help with radiculopathy. Gets shoes and socks on without using hands to lift leg up. PT-OP-C Subjective Start: 03/11/23 09:20 Freq: Status: Active Protocol: Document 04/16/23 10:25 NBM (Rec: 04/16/23 11:20 NBM [id number]) OP-PT Subjective Patient Comments Patient Comments Pt reports the week started off really really good and then has progressively gotten worse. When he was here Wednesday everything was great and working and firing on all cylinders but today it's not. I'm frustrated because some days are really great and some days aren't and there's no rhyme or reason. His appt with neurosurgeon for consult is 05/18. Pt is flying to [facility] for holidays and plans to be up in first class. Diaphragmatic breathing is helping with stress a lot. He thinks medications were contributing to the emotionality and he's been off them a week and feeling better. Figure 4 helps him practice the breathing and he does feel like the stiffness and pain has a lot to do with the tightness in his R hip. Sleep was okay last night. He practices sit to stands daily. PT-OP-D Balance Start: 03/11/23 09:20 Freq: Status: Active Protocol: Document 03/17/23 09:48 BS (Rec: 03/17/23 12:31 BS [id number]) Balance Tests Single Limb Standing Single Limb- Right unable Single Limb- Left 12s PT-OP-G Mobility & Gait Start: 03/11/23 09:20 Freq: Status: Active Protocol: Document 03/17/23 09:48 BS (Rec: 03/17/23 15:56 BS [id number]) OP Gait Assessment Comments Gait Comments dec stance time on RLE PT-OP-J Posture/Palpation/Skin Start: 03/11/23 09:20 Freq: Status: Active Protocol: Document 03/17/23 09:48 BS (Rec: 03/17/23 12:31 BS [id number]) Posture Evaluation Comments Posture Comments More WBing through LLE, pelvis sheared R, torso sheared L, R iliac crest higher when B knee ext PT-OP-K Range of Motion Start: 03/11/23 09:20 Freq: Status: Active Protocol: Document 03/17/23 09:48 BS (Rec: 03/17/23 12:31 BS [id number]) Lumbar Spine Range of Motion Lumbar Spine Active Percentage Flexion 20 Extension 10 Lateral Flexion Left 75 Lateral Flexion Right 75 Comments pain coming back up form flex, when hips SB felt tight on contra side, Ext painful, flex painful on way back up PT-OP-L Special Tests Start: 03/11/23 09:20 Freq: Status: Active Protocol: Document 03/23/23 09:49 BS (Rec: 03/23/23 13:22 BS [id number]) Special Tests Neural Special Tests- Lower Body Sciatic Nerve Tension Test Results positive B Comments L>R with chin tuck & DF Other Special Tests Special Tests Achilles Reflex: normal B Patellar reflex: normal L, diminished R Babinski: normal L, no response R LE Coordination: normal L, impaired R Clonus: absent PT-OP-M Strength Start: 03/11/23 09:20 Freq: Status: Active Protocol: Document 03/17/23 09:48 BS (Rec: 03/17/23 12:31 BS [id number]) Hip Strength Hip Manual Muscle Testing Right Flexion (L2) 3+ Fair+ Extension (S1) 3+ Fair+ Abduction 3 Fair Adduction 3+ Fair+ External Rotation 4- Good- Internal Rotation 4+ Good+ Left Flexion (L2) 4+ Good+ Extension (S1) 4 Good Abduction 4+ Good+ Adduction 4 Good External Rotation 4+ Good+ Internal Rotation 4+ Good+ Knee Strength Knee Manual Muscle Testing Right Flexion (S2) 3+ Fair+ Extension (L3) 4- Good- Left Flexion (S2) 5 Normal Extension (L3) 5 Normal Ankle/Foot Strength Ankle and Foot Manual Muscle Testing Right Dorsiflexion (L4) 4- Good- Left Dorsiflexion (L4) 5 Normal PT-OP-Q Treatments Start: 03/11/23 09:20 Freq: Status: Active Protocol: Document 04/16/23 10:25 NBM (Rec: 04/16/23 11:20 NB [id number]) Therapeutic Exercises Sitting Exercises stretch Sitting Exercise Name seated figure 4 stretch, HEP review Side right Reps/Minutes 2 min Comments cues for deep breathing and tolerable stretch n glides Sitting Exercise Name seated sciatic n glide Reps/Minutes x20 ea Comments back ext w/ knee flex, slouched w/ knee ext. Cues for painfree range Standing Exercises sit to stands Standing Exercise Name hinge mechanics, squats in //, sit to stands at chair Side bilateral Reps/Minutes x10 ea Comments cues to breathe out when standing up, sit to stand added to HEP hip abd Standing Exercise Name banded side steps Side bilateral Reps/Minutes x4 length of // Comments cues for no trunk lean stretch Standing Exercise Name calf stretch Side bilateral Reps/Minutes 5x5s holds Marching Standing Exercise Name Mini marching in // Side bilateral Reps/Minutes x15 ea Comments cues for level pelvis throughout. R flexion more challenged. Gait Training Gait Activity Stairs Description 4 and 6 training stairs multiple trials Treatment Focus foot placement simulating home environment Comments stairs at home have single railing on L ascending, R descending, 8h x 10 depth, with baby gate on second step. PT-OP-T Assessment and Plan Start: 03/11/23 09:20 Freq: Status: Active Protocol: Document 04/16/23 10:25 NBM (Rec: 04/16/23 11:20 NB [id number]) Physical Therapy Assessment Goals ADLs Short Term Goal (STG) Pt will report dec pain and mobility resitriction with putting on R shoe and sock and be able to complete without using RUE to hold up limb. STG Duration 04/22/23 Mcc Goal (LTG) Pt will report waking up no more than 1 time during night d/t pain and discomfort in order to allow for inc quality of life and recovery time for body. LTG Duration 05/26/23 Balance Impairment unable to balance on RLE and 12s on LLE. Short Term Goal (STG) Pt will be able to balance for at least 10s on RLE to show improvement in strength and stability in order to progress toward safe functional mobility. STG Duration 04/22/23 Loading Machine Adjuster Goal (LTG) Pt will be able to perform SLS on BLE for >30s in order to demonstrate improved strength and stability through hip and LE and allow for safe participation in daily functional mobility. LTG Duration 05/26/23 Strength Impairment Significant strength impairments throughout RLE Short Term Goal (STG) Pt will improve all R hip MMT to at least 4/5 to show improvement in LE strength to allow for dec compensations during functional acitvities. STG Duration 04/22/23 Loading Machine Adjuster Goal (LTG) Pt will improve all R hip MMT to 5/5 to show improvement in RLE strength and allow for proper mechanics and dec pain during necessary functional mobility and daily tasks. LTG Duration 05/26/23 Assessment Summary Assessment Vahe is challenged with R>L hip flexion to keep pelvis level during mini marches in / / bars. Pt demonstrates self- awareness for pain-free range of motion with RLE mobility. Pt tolerates stair trianing on 4 and 6 stairs and will bring video of unique floating stairs at home that are 8 h x 10 depth and have babygate with bar requiring stepping over the last step altogether. Pt plans to use thermotherapy to low back and R hip at home for muscle stiffness and pain management. Physical Therapy Plan Frequency and Duration Frequency of Treatment 2x/Week Duration of treatment (weeks) 10 Plan of Care Start Date 03/17/23 Plan of Care End Date 05/26/23 Therapeutic Interventions Therapeutic Interventions Balance Training,Coordination Training,Gait Training,Home Exercise Program,Joint Mobilizations,Manual Therapy, Neuromuscular Re-education, Patient/Caregiver Education, Self-Care/Home Management,Soft Tissue Mobilization,Taping, Therapeutic Activities, Therapeutic Exercises Modalities Cold Pack/Ice Massage,Electric Stimulation,Hot Packs, Infrared Therapy,Traction- Mechanical,Ultrasound Next Visit Focus/Plan Next Note Type Treatment Note Next Visit Plan Work on stair training & ensure level pelvis Strength: gentle core, progress RLE strength- hip abd /flex/ext, knee flex/ext, weight shifting into RLE to inc WBing, split stance balance. Manual: gentle hip mobs & STM to lat hip & quad
--- NOTE | 2023-05-12 10:35 | PT.OTN ---
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 Got out of d/t not being able to keep up with physical requirements. Have done PT on and off over the years. Got MRI in 2018 and showed some slight narrowing at L3-L4 and minor muscle strains. Over last 6 months-1 year, has had few occasions where back spasms more than normal where he tried yoga poses, heat/ice, and massage therapist and always seemed to help. This last time ~4 weeks ago it was so bad and nothing seemed to help. Had pain down leg, knee pain, rucker/ankle pain. Bought new bed that folds to try and help with positioning and sleep. Finally went and saw doc and got on gabapentin which seems to help with pain but makes it so he can't function as well. Doesn' t normally like pain killers at all but got to the point where he needed something. Pain has really impacted life, has 2 kids under 2 and cant lift them or get up off floor well. Changing positions often seems to help with keeping the pain at ease and sitting in a more slouched position. About a year ago radiating pain was more localized to buttock but now goes all down to calf. By end of day body seems to be pretty tired and tight. Usually up 6-8 times throughout night because he is uncomfortable, has been getting worse in past 2-3 years. 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 Has lost ~20lbs in past 4 months. Almost had a fall with brain not thinking the foot was on the floor and having to grab on to someone to not go down. Pain is super variable and flare ups last 3-4 days where he cant get out of bed Treatment Goals Patient/Caregiver Goals Pt would like to focus on learning nerve glides and stretching to help with radiculopathy. Gets shoes and socks on without using hands to lift leg up. PT-OP-C Subjective Start: 03/11/23 09:20 Freq: Status: Active Protocol: Document 05/12/23 09:09 [facility] (Rec: 05/12/23 10:35 [facility] [id number]) OP-PT Subjective Patient Comments Patient Comments pain was pretty bad his first week visisitng family on [facility] w/all the walking and carrying. when moved into hotel, did better. flying home w/toddler on him, L leg has been worse than normal. 1 day he had numbness in inner legs and did note some incontinence that day but that is gone. Yesterday felt good wlaking through airport. Has been taking a lot more tylenol though. PT-OP-D Balance Start: 03/11/23 09:20 Freq: Status: Active Protocol: Document 03/17/23 09:48 BS (Rec: 03/17/23 12:31 BS [id number]) Balance Tests Single Limb Standing Single Limb- Right unable Single Limb- Left 12s PT-OP-G Mobility & Gait Start: 03/11/23 09:20 Freq: Status: Active Protocol: Document 03/17/23 09:48 BS (Rec: 03/17/23 15:56 BS [id number]) OP Gait Assessment Comments Gait Comments dec stance time on RLE PT-OP-J Posture/Palpation/Skin Start: 03/11/23 09:20 Freq: Status: Active Protocol: Document 03/17/23 09:48 BS (Rec: 03/17/23 12:31 BS [id number]) Posture Evaluation Comments Posture Comments More WBing through LLE, pelvis sheared R, torso sheared L, R iliac crest higher when B knee ext PT-OP-K Range of Motion Start: 03/11/23 09:20 Freq: Status: Active Protocol: Document 03/17/23 09:48 BS (Rec: 03/17/23 12:31 BS [id number]) Lumbar Spine Range of Motion Lumbar Spine Active Percentage Flexion 20 Extension 10 Lateral Flexion Left 75 Lateral Flexion Right 75 Comments pain coming back up form flex, when hips SB felt tight on contra side, Ext painful, flex painful on way back up PT-OP-L Special Tests Start: 03/11/23 09:20 Freq: Status: Active Protocol: Document 03/23/23 09:49 BS (Rec: 03/23/23 13:22 BS [id number]) Special Tests Neural Special Tests- Lower Body Sciatic Nerve Tension Test Results positive B Comments L>R with chin tuck & DF Other Special Tests Special Tests Achilles Reflex: normal B Patellar reflex: normal L, diminished R Babinski: normal L, no response R LE Coordination: normal L, impaired R Clonus: absent PT-OP-M Strength Start: 03/11/23 09:20 Freq: Status: Active Protocol: Document 03/17/23 09:48 BS (Rec: 03/17/23 12:31 BS [id number]) Hip Strength Hip Manual Muscle Testing Right Flexion (L2) 3+ Fair+ Extension (S1) 3+ Fair+ Abduction 3 Fair Adduction 3+ Fair+ External Rotation 4- Good- Internal Rotation 4+ Good+ Left Flexion (L2) 4+ Good+ Extension (S1) 4 Good Abduction 4+ Good+ Adduction 4 Good External Rotation 4+ Good+ Internal Rotation 4+ Good+ Knee Strength Knee Manual Muscle Testing Right Flexion (S2) 3+ Fair+ Extension (L3) 4- Good- Left Flexion (S2) 5 Normal Extension (L3) 5 Normal Ankle/Foot Strength Ankle and Foot Manual Muscle Testing Right Dorsiflexion (L4) 4- Good- Left Dorsiflexion (L4) 5 Normal PT-OP-Q Treatments Start: 03/11/23 09:20 Freq: Status: Active Protocol: Document 05/12/23 09:09 [facility] (Rec: 05/12/23 10:35 [facility] [id number]) Manual Therapy Treatment Soft Tissue Mobilization HS Body Location L>R w/n glide Mobilization Type Rolling Quad Body Location L>R Mobilization Type Rolling Intensity/Depth Moderate Joint Mobilizations hip Joint B inf FM Self-Care/Home Management Treatment Education Other Education 16min: dsicussed talking to neurosurgeon about numbness and any issues w/incontinence. And discussing the inc in med use. edu to ice daily for 10 min; discuss the extension of back causing inc pain one day; edu importance of telling doc about all the worst aspects. edu to call doctor or go get seen if have long saddle numbness PT-OP-R Modalities Start: 03/11/23 09:20 Freq: Status: Active Protocol: Document 04/23/23 11:20 [facility] (Rec: 04/23/23 12:35 [facility] [id number]) Hot Pack/Cold Pack Treatment Cold Pack Location lumbar Patient Position Hooklying Treatment Duration (minutes) 15 Patient Tolerance Good Comments LE support 90/90 w/ diaphragmatic breathing. PT-OP-T Assessment and Plan Start: 03/11/23 09:20 Freq: Status: Active Protocol: Document 05/12/23 09:09 [facility] (Rec: 05/12/23 10:35 [facility] [id number]) Physical Therapy Assessment Goals ADLs Short Term Goal (STG) Pt will report dec pain and mobility resitriction with putting on R shoe and sock and be able to complete without using RUE to hold up limb. STG Duration 04/22/23 Usp Goal (LTG) Pt will report waking up no more than 1 time during night d/t pain and discomfort in order to allow for inc quality of life and recovery time for body. LTG Duration 05/26/23 Balance Impairment unable to balance on RLE and 12s on LLE. Short Term Goal (STG) Pt will be able to balance for at least 10s on RLE to show improvement in strength and stability in order to progress toward safe functional mobility. STG Duration 04/22/23 Legal Arbitrator Goal (LTG) Pt will be able to perform SLS on BLE for >30s in order to demonstrate improved strength and stability through hip and LE and allow for safe participation in daily functional mobility. LTG Duration 05/26/23 Strength Impairment Significant strength impairments throughout RLE Short Term Goal (STG) Pt will improve all R hip MMT to at least 4/5 to show improvement in LE strength to allow for dec compensations during functional acitvities. STG Duration 04/22/23 Legal Arbitrator Goal (LTG) Pt will improve all R hip MMT to 5/5 to show improvement in RLE strength and allow for proper mechanics and dec pain during necessary functional mobility and daily tasks. LTG Duration 05/26/23 Assessment Summary Assessment Time spent w/edu for neurologist appt and likely recommendation of surgery. Pt had significant tension B that w/mobilizaiton had imrpoved range. Physical Therapy Plan Frequency and Duration Frequency of Treatment 2x/Week Duration of treatment (weeks) 10 Plan of Care Start Date 03/17/23 Plan of Care End Date 05/26/23 Therapeutic Interventions Therapeutic Interventions Balance Training,Coordination Training,Gait Training,Home Exercise Program,Joint Mobilizations,Manual Therapy, Neuromuscular Re-education, Patient/Caregiver Education, Self-Care/Home Management,Soft Tissue Mobilization,Taping, Therapeutic Activities, Therapeutic Exercises Modalities Cold Pack/Ice Massage,Electric Stimulation,Hot Packs, Infrared Therapy,Traction- Mechanical,Ultrasound Next Visit Focus/Plan Next Note Type Treatment Note Next Visit Plan Work on stair training & ensure level pelvis Strength: gentle core, progress RLE strength- hip abd /flex/ext, knee flex/ext, weight shifting into RLE to inc WBing, split stance balance. Manual: gentle hip mobs & STM to lat hip & quad
--- NOTE | 2023-05-20 16:48 | PT.OTN ---
Current Diagnoses Lumbago with sciatica, right side (05/20/23) Physical Therapy Treatment Note PT-OP-A Visit Information Start: 03/11/23 09:20 Freq: Status: Active Protocol: Document 05/20/23 09:09 [facility] (Rec: 05/20/23 12:17 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 Got out of d/t not being able to keep up with physical requirements. Have done PT on and off over the years. Got MRI in 2018 and showed some slight narrowing at L3-L4 and minor muscle strains. Over last 6 months-1 year, has had few occasions where back spasms more than normal where he tried yoga poses, heat/ice, and massage therapist and always seemed to help. This last time ~4 weeks ago it was so bad and nothing seemed to help. Had pain down leg, knee pain, rucker/ankle pain. Bought new bed that folds to try and help with positioning and sleep. Finally went and saw doc and got on gabapentin which seems to help with pain but makes it so he can't function as well. Doesn' t normally like pain killers at all but got to the point where he needed something. Pain has really impacted life, has 2 kids under 2 and cant lift them or get up off floor well. Changing positions often seems to help with keeping the pain at ease and sitting in a more slouched position. About a year ago radiating pain was more localized to buttock but now goes all down to calf. By end of day body seems to be pretty tired and tight. Usually up 6-8 times throughout night because he is uncomfortable, has been getting worse in past 2-3 years. 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 Has lost ~20lbs in past 4 months. Almost had a fall with brain not thinking the foot was on the floor and having to grab on to someone to not go down. Pain is super variable and flare ups last 3-4 days where he cant get out of bed Treatment Goals Patient/Caregiver Goals Pt would like to focus on learning nerve glides and stretching to help with radiculopathy. Gets shoes and socks on without using hands to lift leg up. PT-OP-C Subjective Start: 03/11/23 09:20 Freq: Status: Active Protocol: Document 05/20/23 09:09 [facility] (Rec: 05/20/23 12:17 [facility] [id number]) OP-PT Subjective Patient Comments Patient Comments Pt reports lumbar 5 disc has a tear in the sheath and he thinks it may be something chemical. he thinks the fat build up is normal and it is not severe and it is not succcessful to do surgery. he wants a nerve conduction study and an injection. If things progress and get worse, he would go back. No conern w/ parasthesia in inner thighs. Can't sleep right now d/t pain PT-OP-D Balance Start: 03/11/23 09:20 Freq: Status: Active Protocol: Document 03/17/23 09:48 BS (Rec: 03/17/23 12:31 BS [id number]) Balance Tests Single Limb Standing Single Limb- Right unable Single Limb- Left 12s PT-OP-G Mobility & Gait Start: 03/11/23 09:20 Freq: Status: Active Protocol: Document 03/17/23 09:48 BS (Rec: 03/17/23 15:56 BS [id number]) OP Gait Assessment Comments Gait Comments dec stance time on RLE PT-OP-J Posture/Palpation/Skin Start: 03/11/23 09:20 Freq: Status: Active Protocol: Document 03/17/23 09:48 BS (Rec: 03/17/23 12:31 BS [id number]) Posture Evaluation Comments Posture Comments More WBing through LLE, pelvis sheared R, torso sheared L, R iliac crest higher when B knee ext PT-OP-K Range of Motion Start: 03/11/23 09:20 Freq: Status: Active Protocol: Document 03/17/23 09:48 BS (Rec: 03/17/23 12:31 BS [id number]) Lumbar Spine Range of Motion Lumbar Spine Active Percentage Flexion 20 Extension 10 Lateral Flexion Left 75 Lateral Flexion Right 75 Comments pain coming back up form flex, when hips SB felt tight on contra side, Ext painful, flex painful on way back up PT-OP-L Special Tests Start: 03/11/23 09:20 Freq: Status: Active Protocol: Document 03/23/23 09:49 BS (Rec: 03/23/23 13:22 BS [id number]) Special Tests Neural Special Tests- Lower Body Sciatic Nerve Tension Test Results positive B Comments L>R with chin tuck & DF Other Special Tests Special Tests Achilles Reflex: normal B Patellar reflex: normal L, diminished R Babinski: normal L, no response R LE Coordination: normal L, impaired R Clonus: absent PT-OP-M Strength Start: 03/11/23 09:20 Freq: Status: Active Protocol: Document 03/17/23 09:48 BS (Rec: 03/17/23 12:31 BS [id number]) Hip Strength Hip Manual Muscle Testing Right Flexion (L2) 3+ Fair+ Extension (S1) 3+ Fair+ Abduction 3 Fair Adduction 3+ Fair+ External Rotation 4- Good- Internal Rotation 4+ Good+ Left Flexion (L2) 4+ Good+ Extension (S1) 4 Good Abduction 4+ Good+ Adduction 4 Good External Rotation 4+ Good+ Internal Rotation 4+ Good+ Knee Strength Knee Manual Muscle Testing Right Flexion (S2) 3+ Fair+ Extension (L3) 4- Good- Left Flexion (S2) 5 Normal Extension (L3) 5 Normal Ankle/Foot Strength Ankle and Foot Manual Muscle Testing Right Dorsiflexion (L4) 4- Good- Left Dorsiflexion (L4) 5 Normal PT-OP-Q Treatments Start: 03/11/23 09:20 Freq: Status: Active Protocol: Document 05/20/23 09:09 [facility] (Rec: 05/20/23 12:17 [facility] [id number]) Gait Training Gait Activity wt shifts Comments in mirror to R x4 min w/PT helping to guide pelvis Manual Therapy Treatment Soft Tissue Mobilization add Body Location R Mobilization Type Rolling Intensity/Depth Moderate Body Position Hooklying glutes Body Location R glute and ITB Mobilization Type Strumming,Sustained Pressure, Other Intensity/Depth Moderate Body Position Prone & hooklying Comments w/IR/ER Joint Mobilizations innominate Comments R caudal prone FM ; R supine ER FM sacrum Joint R caudal and R UPA FM Reps/Duration prone hip Comments prone hip on axis ER FM Self-Care/Home Management Treatment Education Other Education 8 min: discuss edu of n likeing more basic environment and inflamation inc and how injection may help; review of sleep positioning PT-OP-R Modalities Start: 03/11/23 09:20 Freq: Status: Active Protocol: Document 04/23/23 11:20 [facility] (Rec: 04/23/23 12:35 [facility] [id number]) Hot Pack/Cold Pack Treatment Cold Pack Location lumbar Patient Position Hooklying Treatment Duration (minutes) 15 Patient Tolerance Good Comments LE support 90/90 w/ diaphragmatic breathing. PT-OP-T Assessment and Plan Start: 03/11/23 09:20 Freq: Status: Active Protocol: Document 05/20/23 09:09 [facility] (Rec: 05/20/23 12:17 [facility] [id number]) Physical Therapy Assessment Goals ADLs Short Term Goal (STG) Pt will report dec pain and mobility resitriction with putting on R shoe and sock and be able to complete without using RUE to hold up limb. 05/20-improvign hip mobility and greater ease w/this STG Duration 06/14 Nursing Home Goal (LTG) Pt will report waking up no more than 1 time during night d/t pain and discomfort in order to allow for inc quality of life and recovery time for body. 05/20-waking d/t pain mult times LTG Duration 07/22 Balance Impairment unable to balance on RLE and 12s on LLE. Short Term Goal (STG) Pt will be able to balance for at least 10s on RLE to show improvement in strength and stability in order to progress toward safe functional mobility. 05/20-now able to for a few sec at a time consistantly STG Duration 06/13 Nursing Home Goal (LTG) Pt will be able to perform SLS on BLE for >30s in order to demonstrate improved strength and stability through hip and LE and allow for safe participation in daily functional mobility. LTG Duration 07/22 Strength Impairment Significant strength impairments throughout RLE Short Term Goal (STG) Pt will improve all R hip MMT to at least 4/5 to show improvement in LE strength to allow for dec compensations during functional acitvities. 05/20-n/t but improving wt acceptance and LE strength STG Duration 06/03/23 Nursing Home Goal (LTG) Pt will improve all R hip MMT to 5/5 to show improvement in RLE strength and allow for proper mechanics and dec pain during necessary functional mobility and daily tasks. 05/20-n/t LTG Duration 07/28 Assessment Summary Assessment Pt has made improvements since starting therapy and is able to stand on RLE w/o LOB now and does have periods w/lower level pain. He is improving w/ functional task and has now been cleared by neurosurgeon that there is no concern for the cord and to work w/PT to focus on improving pain. He would benefit from cont PT with more aggressive care as cleared now by neurosurgeon to improve function, LE strength and core stability and balance and dec pain. Physical Therapy Plan Frequency and Duration Frequency of Treatment 2x/Week Duration of treatment (weeks) 10 Plan of Care Start Date 05/20/23 Plan of Care End Date 07/29/23 Therapeutic Interventions Therapeutic Interventions Balance Training,Coordination Training,Gait Training,Home Exercise Program,Joint Mobilizations,Manual Therapy, Neuromuscular Re-education, Patient/Caregiver Education, Self-Care/Home Management,Soft Tissue Mobilization,Taping, Therapeutic Activities, Therapeutic Exercises Modalities Cold Pack/Ice Massage,Electric Stimulation,Hot Packs, Infrared Therapy,Traction- Mechanical,Ultrasound Next Visit Focus/Plan Next Note Type Treatment Note Next Visit Plan work stair training and wt acceptance into RLE, work on innominate mobility and cont to work R hip mobility, Manual to B hip flexors, viseral work
--- NOTE | 2023-05-20 16:48 | PT.OPPOC ---
Physical, Occupational & Speech Therapy At [facility] Current Diagnoses Lumbago with sciatica, right side (05/20/23) Visit Care Team Role Provider Type Rick Rausch MD Attending Provider Physician Family Provider Primary Care Provider Referring Provider Specialty: Family Practice Address: [address] [place] [address], [facility] Email: [email or web address] Plan Of Care PT-OP-T Assessment and Plan Start: 03/11/23 09:20 Freq: Status: Active Protocol: Document 05/20/23 09:09 [facility] (Rec: 05/20/23 12:17 [facility] [id number]) Physical Therapy Assessment Goals ADLs Short Term Goal (STG) Pt will report dec pain and mobility resitriction with putting on R shoe and sock and be able to complete without using RUE to hold up limb. 05/20-improvign hip mobility and greater ease w/this STG Duration 06/14 Halfway Goal (LTG) Pt will report waking up no more than 1 time during night d/t pain and discomfort in order to allow for inc quality of life and recovery time for body. 05/20-waking d/t pain mult times LTG Duration 07/22 Balance Impairment unable to balance on RLE and 12s on LLE. Short Term Goal (STG) Pt will be able to balance for at least 10s on RLE to show improvement in strength and stability in order to progress toward safe functional mobility. 05/20-now able to for a few sec at a time consistantly STG Duration 06/13 Halfway Goal (LTG) Pt will be able to perform SLS on BLE for >30s in order to demonstrate improved strength and stability through hip and LE and allow for safe participation in daily functional mobility. LTG Duration 07/22 Strength Impairment Significant strength impairments throughout RLE Short Term Goal (STG) Pt will improve all R hip MMT to at least 4/5 to show improvement in LE strength to allow for dec compensations during functional acitvities. 05/20-n/t but improving wt acceptance and LE strength STG Duration 06/03/23 Halfway Goal (LTG) Pt will improve all R hip MMT to 5/5 to show improvement in RLE strength and allow for proper mechanics and dec pain during necessary functional mobility and daily tasks. 05/20-n/t LTG Duration 07/28 Assessment Summary Assessment Pt has made improvements since starting therapy and is able to stand on RLE w/o LOB now and does have periods w/lower level pain. He is improving w/ functional task and has now been cleared by neurosurgeon that there is no concern for the cord and to work w/PT to focus on improving pain. He would benefit from cont PT with more aggressive care as cleared now by neurosurgeon to improve function, LE strength and core stability and balance and dec pain. Physical Therapy Plan Frequency and Duration Frequency of Treatment 2x/Week Duration of treatment (weeks) 10 Plan of Care Start Date 05/20/23 Plan of Care End Date 07/29/23 Therapeutic Interventions Therapeutic Interventions Balance Training,Coordination Training,Gait Training,Home Exercise Program,Joint Mobilizations,Manual Therapy, Neuromuscular Re-education, Patient/Caregiver Education, Self-Care/Home Management,Soft Tissue Mobilization,Taping, Therapeutic Activities, Therapeutic Exercises Modalities Cold Pack/Ice Massage,Electric Stimulation,Hot Packs, Infrared Therapy,Traction- Mechanical,Ultrasound Next Visit Focus/Plan Next Note Type Treatment Note Next Visit Plan work stair training and wt acceptance into RLE, work on innominate mobility and cont to work R hip mobility, Manual to B hip flexors, viseral work Plan of Care Dates Plan of Care Start Date 05/20/23 Plan of Care End Date 07/29/23 Electronically Signed by: Gayle Desai, PT 05/20/23 2692 If you are in agreement with this Plan of Care, please return a signed and dated copy. I have reviewed this Plan of Care and certify that the skilled therapy services above are required to meet the patient?s needs. Physician Signature Date Printed Name and Credentials Clinical Instructor Signature Printed Name and Credentials
--- NOTE | 2023-06-01 10:31 | PT.OTN ---
Current Diagnoses Lumbago with sciatica, right side (06/01/23) Physical Therapy Treatment Note PT-OP-A Visit Information Start: 03/11/23 09:20 Freq: Status: Active Protocol: Document 06/01/23 09:09 [facility] (Rec: 06/01/23 10:31 [facility] [id number]) Out-Patient Physical Therapy Visit Information Visit Information Visit Type Treatment Note Visit Start Time 09:07 Visit Stop Time 09:57 Visit Number 13 Number of CORE RESCUER Visits 0 PT-OP-B Current Condition Start: 03/11/23 09:20 Freq: Status: Active Protocol: Document 03/17/23 09:48 BS (Rec: 03/17/23 12:31 BS [id number]) Current Condition History of Current Condition Current Complaints LBP w/ R radiculopathy History of Current Condition Has referral in to see a neurosurgeon and wants to get second opinion on MRI results. 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 Got out of d/t not being able to keep up with physical requirements. Have done PT on and off over the years. Got MRI in 2018 and showed some slight narrowing at L3-L4 and minor muscle strains. Over last 6 months-1 year, has had few occasions where back spasms more than normal where he tried yoga poses, heat/ice, and massage therapist and always seemed to help. This last time ~4 weeks ago it was so bad and nothing seemed to help. Had pain down leg, knee pain, rucker/ankle pain. Bought new bed that folds to try and help with positioning and sleep. Finally went and saw doc and got on gabapentin which seems to help with pain but makes it so he can't function as well. Doesn' t normally like pain killers at all but got to the point where he needed something. Pain has really impacted life, has 2 kids under 2 and cant lift them or get up off floor well. Changing positions often seems to help with keeping the pain at ease and sitting in a more slouched position. About a year ago radiating pain was more localized to buttock but now goes all down to calf. By end of day body seems to be pretty tired and tight. Usually up 6-8 times throughout night because he is uncomfortable, has been getting worse in past 2-3 years. 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 Has lost ~20lbs in past 4 months. Almost had a fall with brain not thinking the foot was on the floor and having to grab on to someone to not go down. Pain is super variable and flare ups last 3-4 days where he cant get out of bed Treatment Goals Patient/Caregiver Goals Pt would like to focus on learning nerve glides and stretching to help with radiculopathy. Gets shoes and socks on without using hands to lift leg up. PT-OP-C Subjective Start: 03/11/23 09:20 Freq: Status: Active Protocol: Document 06/01/23 09:09 [facility] (Rec: 06/01/23 10:31 [facility] [id number]) OP-PT Subjective Patient Comments Patient Comments Pt reports compliance w/n gldies and yoga and figure 4 stretcehs and doing them twice a day. He is frustrated because today his B buttocks and HS is painful. Back still has knot in the center. PT-OP-D Balance Start: 03/11/23 09:20 Freq: Status: Active Protocol: Document 03/17/23 09:48 BS (Rec: 03/17/23 12:31 BS [id number]) Balance Tests Single Limb Standing Single Limb- Right unable Single Limb- Left 12s PT-OP-G Mobility & Gait Start: 03/11/23 09:20 Freq: Status: Active Protocol: Document 03/17/23 09:48 BS (Rec: 03/17/23 15:56 BS [id number]) OP Gait Assessment Comments Gait Comments dec stance time on RLE PT-OP-J Posture/Palpation/Skin Start: 03/11/23 09:20 Freq: Status: Active Protocol: Document 03/17/23 09:48 BS (Rec: 03/17/23 12:31 BS [id number]) Posture Evaluation Comments Posture Comments More WBing through LLE, pelvis sheared R, torso sheared L, R iliac crest higher when B knee ext PT-OP-K Range of Motion Start: 03/11/23 09:20 Freq: Status: Active Protocol: Document 03/17/23 09:48 BS (Rec: 03/17/23 12:31 BS [id number]) Lumbar Spine Range of Motion Lumbar Spine Active Percentage Flexion 20 Extension 10 Lateral Flexion Left 75 Lateral Flexion Right 75 Comments pain coming back up form flex, when hips SB felt tight on contra side, Ext painful, flex painful on way back up PT-OP-L Special Tests Start: 03/11/23 09:20 Freq: Status: Active Protocol: Document 03/23/23 09:49 BS (Rec: 03/23/23 13:22 BS [id number]) Special Tests Neural Special Tests- Lower Body Sciatic Nerve Tension Test Results positive B Comments L>R with chin tuck & DF Other Special Tests Special Tests Achilles Reflex: normal B Patellar reflex: normal L, diminished R Babinski: normal L, no response R LE Coordination: normal L, impaired R Clonus: absent PT-OP-M Strength Start: 03/11/23 09:20 Freq: Status: Active Protocol: Document 03/17/23 09:48 BS (Rec: 03/17/23 12:31 BS [id number]) Hip Strength Hip Manual Muscle Testing Right Flexion (L2) 3+ Fair+ Extension (S1) 3+ Fair+ Abduction 3 Fair Adduction 3+ Fair+ External Rotation 4- Good- Internal Rotation 4+ Good+ Left Flexion (L2) 4+ Good+ Extension (S1) 4 Good Abduction 4+ Good+ Adduction 4 Good External Rotation 4+ Good+ Internal Rotation 4+ Good+ Knee Strength Knee Manual Muscle Testing Right Flexion (S2) 3+ Fair+ Extension (L3) 4- Good- Left Flexion (S2) 5 Normal Extension (L3) 5 Normal Ankle/Foot Strength Ankle and Foot Manual Muscle Testing Right Dorsiflexion (L4) 4- Good- Left Dorsiflexion (L4) 5 Normal PT-OP-Q Treatments Start: 03/11/23 09:20 Freq: Status: Active Protocol: Document 06/01/23 09:09 [facility] (Rec: 06/01/23 10:31 [facility] [id number]) Therapeutic Exercises Supine Exercises isometric Supine Exercise Name SL flex Side bilateral Reps/Minutes 30 secea core Supine Exercise Name TA: 1. w/july 2. w/heel slides 3. BKFO Side bilateral Reps/Minutes 1. 10 2. stopped d/t pain after 2 3. 10 ea Manual Therapy Treatment Soft Tissue Mobilization hip flexor Body Location R Mobilization Type Sustained Pressure Intensity/Depth Moderate Body Position Hooklying Joint Mobilizations coccyx Joint R caudal and UPA FM Body Position Prone innominate Joint R cadual; L add FM sacrum Joint caudal R and upA R FM Body Position Prone Comments manual and w/percussion hip Joint L hip add FM; inf R hip FM PT-OP-R Modalities Start: 03/11/23 09:20 Freq: Status: Active Protocol: Document 06/01/23 09:09 [facility] (Rec: 06/01/23 10:31 [facility] [id number]) Hot Pack/Cold Pack Treatment Cold Pack Location LB and R hip Patient Position Hooklying PT-OP-T Assessment and Plan Start: 03/11/23 09:20 Freq: Status: Active Protocol: Document 06/01/23 09:09 [facility] (Rec: 06/01/23 10:31 [facility] [id number]) Physical Therapy Assessment Goals ADLs Short Term Goal (STG) Pt will report dec pain and mobility resitriction with putting on R shoe and sock and be able to complete without using RUE to hold up limb. 05/20-improvign hip mobility and greater ease w/this STG Duration 06/14 Jail Goal (LTG) Pt will report waking up no more than 1 time during night d/t pain and discomfort in order to allow for inc quality of life and recovery time for body. 05/20-waking d/t pain mult times LTG Duration 07/22 Balance Impairment unable to balance on RLE and 12s on LLE. Short Term Goal (STG) Pt will be able to balance for at least 10s on RLE to show improvement in strength and stability in order to progress toward safe functional mobility. 05/20-now able to for a few sec at a time consistantly STG Duration 06/13 Mutual Fund Accountant Goal (LTG) Pt will be able to perform SLS on BLE for >30s in order to demonstrate improved strength and stability through hip and LE and allow for safe participation in daily functional mobility. LTG Duration 07/22 Strength Impairment Significant strength impairments throughout RLE Short Term Goal (STG) Pt will improve all R hip MMT to at least 4/5 to show improvement in LE strength to allow for dec compensations during functional acitvities. 05/20-n/t but improving wt acceptance and LE strength STG Duration 06/03/23 Mutual Fund Accountant Goal (LTG) Pt will improve all R hip MMT to 5/ to show improvement in RLE strength and allow for proper mechanics and dec pain during necessary functional mobility and daily tasks. 05/20-n/t LTG Duration 07/28 Assessment Summary Assessment Pt had improved sacrum mobility after coccyx mobs. He has significant tenssion at cocyx and had dec BLE pain after treatment to coccyx. Improved L LB pain and lat hip pain w/working on L innominate and hip. Some pain w/core exercises so had to adjust. Difficult for pt to keep neutral spine. Physical Therapy Plan Frequency and Duration Frequency of Treatment 2x/Week Duration of treatment (weeks) 10 Plan of Care Start Date 05/20/23 Plan of Care End Date 07/29/23 Next Visit Focus/Plan Next Note Type Treatment Note Next Visit Plan work on supine core progression: cont to work on coccyx (SB R) and work on innominate/sacruma nd hip mobility
--- NOTE | 2023-06-07 12:20 | PT.OTN ---
Current Diagnoses Lumbago with sciatica, right side (06/07/23) Physical Therapy Treatment Note PT-OP-A Visit Information Start: 03/11/23 09:20 Freq: Status: Active Protocol: Document 06/07/23 11:17 [facility] (Rec: 06/07/23 12:20 [facility] [id number]) Out-Patient Physical Therapy Visit Information Visit Information Visit Type Treatment Note Visit Start Time 11:18 Visit Stop Time 12:02 Visit Number 15 Number of SELF PROPELLED HOT MIX ROLLER OPERATOR Visits 0 PT-OP-B Current Condition Start: 03/11/23 09:20 Freq: Status: Active Protocol: Document 03/17/23 09:48 BS (Rec: 03/17/23 12:31 BS [id number]) Current Condition History of Current Condition Current Complaints LBP w/ R radiculopathy History of Current Condition Has referral in to see a neurosurgeon and wants to get second opinion on MRI results. 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 Got out of d/t not being able to keep up with physical requirements. Have done PT on and off over the years. Got MRI in 2018 and showed some slight narrowing at L3-L4 and minor muscle strains. Over last 6 months-1 year, has had few occasions where back spasms more than normal where he tried yoga poses, heat/ice, and massage therapist and always seemed to help. This last time ~4 weeks ago it was so bad and nothing seemed to help. Had pain down leg, knee pain, rucker/ankle pain. Bought new bed that folds to try and help with positioning and sleep. Finally went and saw doc and got on gabapentin which seems to help with pain but makes it so he can't function as well. Doesn' t normally like pain killers at all but got to the point where he needed something. Pain has really impacted life, has 2 kids under 2 and cant lift them or get up off floor well. Changing positions often seems to help with keeping the pain at ease and sitting in a more slouched position. About a year ago radiating pain was more localized to buttock but now goes all down to calf. By end of day body seems to be pretty tired and tight. Usually up 6-8 times throughout night because he is uncomfortable, has been getting worse in past 2-3 years. 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 Has lost ~20lbs in past 4 months. Almost had a fall with brain not thinking the foot was on the floor and having to grab on to someone to not go down. Pain is super variable and flare ups last 3-4 days where he cant get out of bed Treatment Goals Patient/Caregiver Goals Pt would like to focus on learning nerve glides and stretching to help with radiculopathy. Gets shoes and socks on without using hands to lift leg up. PT-OP-C Subjective Start: 03/11/23 09:20 Freq: Status: Active Protocol: Document 06/07/23 11:17 [facility] (Rec: 06/07/23 12:20 [facility] [id number]) OP-PT Subjective Patient Comments Patient Comments Pt reports he feels like he is doing better but anytime he is in one position for too long, he is really stiff. It takes a bit of movement to get moving again. he feels like he is just stiff. Patient Reported Progress Improving PT-OP-D Balance Start: 03/11/23 09:20 Freq: Status: Active Protocol: Document 03/17/23 09:48 BS (Rec: 03/17/23 12:31 BS [id number]) Balance Tests Single Limb Standing Single Limb- Right unable Single Limb- Left 12s PT-OP-G Mobility & Gait Start: 03/11/23 09:20 Freq: Status: Active Protocol: Document 03/17/23 09:48 BS (Rec: 03/17/23 15:56 BS [id number]) OP Gait Assessment Comments Gait Comments dec stance time on RLE PT-OP-J Posture/Palpation/Skin Start: 03/11/23 09:20 Freq: Status: Active Protocol: Document 03/17/23 09:48 BS (Rec: 03/17/23 12:31 BS [id number]) Posture Evaluation Comments Posture Comments More WBing through LLE, pelvis sheared R, torso sheared L, R iliac crest higher when B knee ext PT-OP-K Range of Motion Start: 03/11/23 09:20 Freq: Status: Active Protocol: Document 03/17/23 09:48 BS (Rec: 03/17/23 12:31 BS [id number]) Lumbar Spine Range of Motion Lumbar Spine Active Percentage Flexion 20 Extension 10 Lateral Flexion Left 75 Lateral Flexion Right 75 Comments pain coming back up form flex, when hips SB felt tight on contra side, Ext painful, flex painful on way back up PT-OP-L Special Tests Start: 03/11/23 09:20 Freq: Status: Active Protocol: Document 03/23/23 09:49 BS (Rec: 03/23/23 13:22 BS [id number]) Special Tests Neural Special Tests- Lower Body Sciatic Nerve Tension Test Results positive B Comments L>R with chin tuck & DF Other Special Tests Special Tests Achilles Reflex: normal B Patellar reflex: normal L, diminished R Babinski: normal L, no response R LE Coordination: normal L, impaired R Clonus: absent PT-OP-M Strength Start: 03/11/23 09:20 Freq: Status: Active Protocol: Document 03/17/23 09:48 BS (Rec: 03/17/23 12:31 [id number]) Hip Strength Hip Manual Muscle Testing Right Flexion (L2) 3+ Fair+ Extension (S1) 3+ Fair+ Abduction 3 Fair Adduction 3+ Fair+ External Rotation 4- Good- Internal Rotation 4+ Good+ Left Flexion (L2) 4+ Good+ Extension (S1) 4 Good Abduction 4+ Good+ Adduction 4 Good External Rotation 4+ Good+ Internal Rotation 4+ Good+ Knee Strength Knee Manual Muscle Testing Right Flexion (S2) 3+ Fair+ Extension (L3) 4- Good- Left Flexion (S2) 5 Normal Extension (L3) 5 Normal Ankle/Foot Strength Ankle and Foot Manual Muscle Testing Right Dorsiflexion (L4) 4- Good- Left Dorsiflexion (L4) 5 Normal PT-OP-Q Treatments Start: 03/11/23 09:20 Freq: Status: Active Protocol: Document 06/07/23 11:17 [facility] (Rec: 06/07/23 12:20 [facility] [id number]) Therapeutic Exercises Supine Exercises isometric Supine Exercise Name SL flex Side bilateral Reps/Minutes 45 secea core Supine Exercise Name TA: 1. w/. BKFO Side bilateral Reps/Minutes 10 ea Comments cues for set up Bridge Side bilateral Reps/Minutes 5 sec x5 Manual Therapy Treatment Soft Tissue Mobilization LS Body Location R ES & QL & lat obliques Mobilization Type Rolling Intensity/Depth Moderate Body Position Sidelying Comments w/post dep glutes Body Location R glute med and piriformis Mobilization Type Strumming,Sustained Pressure, Other Intensity/Depth Moderate Body Position Sidelying Comments w/active knee ext Joint Mobilizations coccyx Comments L transverse FM (attempted R UPA but pt noted some of the abdominal discomfort he had last week so stopped) innominate Joint L ER in hooklying FM; L flex FM hooklying LS Comments gapping L1-5 FM w/ post dep hip Joint R inf FM Neuro Re-Education Treatment Other Activities PNF Details L pelvis Reps/Duration 8 min Comments 1.sustained holds progressed to COI of ant elevation 2. sustained holds progressed to COI of ant elevation dissociation of w/LLE pattern and pelvis from LLE progressed to full range concentric Self-Care/Home Management Treatment Education Other Education 4 min: discussed cont to monitor abdominal soreness and to let PT know if it happens again. PT-OP-R Modalities Start: 03/11/23 09:20 Freq: Status: Active Protocol: Document 06/04/23 09:44 [facility] (Rec: 06/04/23 10:36 [facility] [id number]) Hot Pack/Cold Pack Treatment Cold Pack Location LB and R hip Patient Position Hooklying Patient Tolerance Good PT-OP-T Assessment and Plan Start: 03/11/23 09:20 Freq: Status: Active Protocol: Document 06/07/23 11:17 [facility] (Rec: 06/07/23 12:20 [facility] [id number]) Physical Therapy Assessment Goals ADLs Short Term Goal (STG) Pt will report dec pain and mobility resitriction with putting on R shoe and sock and be able to complete without using RUE to hold up limb. 05/20-improvign hip mobility and greater ease w/this STG Duration 06/14 Assisted Goal (LTG) Pt will report waking up no more than 1 time during night d/t pain and discomfort in order to allow for inc quality of life and recovery time for body. 05/20-waking d/t pain mult times LTG Duration 07/22 Balance Impairment unable to balance on RLE and 12s on LLE. Short Term Goal (STG) Pt will be able to balance for at least 10s on RLE to show improvement in strength and stability in order to progress toward safe functional mobility. 05/20-now able to for a few sec at a time consistantly STG Duration 06/13 Spanish Translator Goal (LTG) Pt will be able to perform SLS on BLE for >30s in order to demonstrate improved strength and stability through hip and LE and allow for safe participation in daily functional mobility. LTG Duration 07/22 Strength Impairment Significant strength impairments throughout RLE Short Term Goal (STG) Pt will improve all R hip MMT to at least 4/5 to show improvement in LE strength to allow for dec compensations during functional acitvities. 05/20-n/t but improving wt acceptance and LE strength STG Duration 06/03/23 Spanish Translator Goal (LTG) Pt will improve all R hip MMT to 5/5 to show improvement in RLE strength and allow for proper mechanics and dec pain during necessary functional mobility and daily tasks. 05/20-n/t LTG Duration 07/28 Assessment Summary Assessment Pt had improved post dep after manual treatment and had improved hip flex w/less discomfort on R. He did well with abdominal exercsies w/ less ceus needed today and given handout Physical Therapy Plan Frequency and Duration Frequency of Treatment 2x/Week Duration of treatment (weeks) 10 Plan of Care Start Date 05/20/23 Plan of Care End Date 07/29/23 Next Visit Focus/Plan Next Note Type Treatment Note Next Visit Plan Advance supine and standing core progression & hip strength manual: work on lumbar spine mobility and R hip mobility along w/ make sure pelvis remains level and mobilize as needed for next visit w/PT:visceral mobs
--- NOTE | 2023-06-15 16:37 | PT.OTN ---
Current Diagnoses Lumbago with sciatica, right side (06/15/23) Physical Therapy Treatment Note PT-OP-A Visit Information Start: 03/11/23 09:20 Freq: Status: Active Protocol: Document 06/15/23 11:43 AB (Rec: 06/15/23 16:36 AB [id number]) Out-Patient Physical Therapy Visit Information Visit Information Visit Type Treatment Note Visit Note Access Code: [email or web address] Visit Start Time 14:36 Visit Stop Time 15:16 Visit Number 16 Number of PORCELAIN ENAMEL INSTALLER Visits 1 PT-OP-B Current Condition Start: 03/11/23 09:20 Freq: Status: Active Protocol: Document 03/17/23 09:48 BS (Rec: 03/17/23 12:31 BS [id number]) Current Condition History of Current Condition Current Complaints LBP w/ R radiculopathy History of Current Condition Has referral in to see a neurosurgeon and wants to get second opinion on MRI results. 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 Got out of d/t not being able to keep up with physical requirements. Have done PT on and off over the years. Got MRI in 2018 and showed some slight narrowing at L3-L4 and minor muscle strains. Over last 6 months-1 year, has had few occasions where back spasms more than normal where he tried yoga poses, heat/ice, and massage therapist and always seemed to help. This last time ~4 weeks ago it was so bad and nothing seemed to help. Had pain down leg, knee pain, rucker/ankle pain. Bought new bed that folds to try and help with positioning and sleep. Finally went and saw doc and got on gabapentin which seems to help with pain but makes it so he can't function as well. Doesn' t normally like pain killers at all but got to the point where he needed something. Pain has really impacted life, has 2 kids under 2 and cant lift them or get up off floor well. Changing positions often seems to help with keeping the pain at ease and sitting in a more slouched position. About a year ago radiating pain was more localized to buttock but now goes all down to calf. By end of day body seems to be pretty tired and tight. Usually up 6-8 times throughout night because he is uncomfortable, has been getting worse in past 2-3 years. 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 Has lost ~20lbs in past 4 months. Almost had a fall with brain not thinking the foot was on the floor and having to grab on to someone to not go down. Pain is super variable and flare ups last 3-4 days where he cant get out of bed Treatment Goals Patient/Caregiver Goals Pt would like to focus on learning nerve glides and stretching to help with radiculopathy. Gets shoes and socks on without using hands to lift leg up. PT-OP-C Subjective Start: 03/11/23 09:20 Freq: Status: Active Protocol: Document 06/15/23 11:43 AB (Rec: 06/15/23 16:36 AB [id number]) OP-PT Subjective Patient Comments Patient Comments Patient reports that he had a back injection, and he hasn't felt this good in 20 years. Patient reports he had one day when he over did it. Patient reports the pain is focused and he can tell which movements hurt it. PT-OP-D Balance Start: 03/11/23 09:20 Freq: Status: Active Protocol: Document 03/17/23 09:48 BS (Rec: 03/17/23 12:31 BS [id number]) Balance Tests Single Limb Standing Single Limb- Right unable Single Limb- Left 12s PT-OP-G Mobility & Gait Start: 03/11/23 09:20 Freq: Status: Active Protocol: Document 03/17/23 09:48 BS (Rec: 03/17/23 15:56 BS [id number]) OP Gait Assessment Comments Gait Comments dec stance time on RLE PT-OP-J Posture/Palpation/Skin Start: 03/11/23 09:20 Freq: Status: Active Protocol: Document 03/17/23 09:48 BS (Rec: 03/17/23 12:31 BS [id number]) Posture Evaluation Comments Posture Comments More WBing through LLE, pelvis sheared R, torso sheared L, R iliac crest higher when B knee ext PT-OP-K Range of Motion Start: 03/11/23 09:20 Freq: Status: Active Protocol: Document 03/17/23 09:48 BS (Rec: 03/17/23 12:31 BS [id number]) Lumbar Spine Range of Motion Lumbar Spine Active Percentage Flexion 20 Extension 10 Lateral Flexion Left 75 Lateral Flexion Right 75 Comments pain coming back up form flex, when hips SB felt tight on contra side, Ext painful, flex painful on way back up PT-OP-L Special Tests Start: 03/11/23 09:20 Freq: Status: Active Protocol: Document 03/23/23 09:49 BS (Rec: 03/23/23 13:22 BS [id number]) Special Tests Neural Special Tests- Lower Body Sciatic Nerve Tension Test Results positive B Comments L>R with chin tuck & DF Other Special Tests Special Tests Achilles Reflex: normal B Patellar reflex: normal L, diminished R Babinski: normal L, no response R LE Coordination: normal L, impaired R Clonus: absent PT-OP-M Strength Start: 03/11/23 09:20 Freq: Status: Active Protocol: Document 03/17/23 09:48 BS (Rec: 03/17/23 12:31 BS [id number]) Hip Strength Hip Manual Muscle Testing Right Flexion (L2) 3+ Fair+ Extension (S1) 3+ Fair+ Abduction 3 Fair Adduction 3+ Fair+ External Rotation 4- Good- Internal Rotation 4+ Good+ Left Flexion (L2) 4+ Good+ Extension (S1) 4 Good Abduction 4+ Good+ Adduction 4 Good External Rotation 4+ Good+ Internal Rotation 4+ Good+ Knee Strength Knee Manual Muscle Testing Right Flexion (S2) 3+ Fair+ Extension (L3) 4- Good- Left Flexion (S2) 5 Normal Extension (L3) 5 Normal Ankle/Foot Strength Ankle and Foot Manual Muscle Testing Right Dorsiflexion (L4) 4- Good- Left Dorsiflexion (L4) 5 Normal PT-OP-Q Treatments Start: 03/11/23 09:20 Freq: Status: Active Protocol: Document 06/15/23 11:43 AB (Rec: 06/15/23 16:36 AB [id number]) Therapeutic Exercises Supine Exercises Ramón stretch edge of bed Side bilateral Reps/Minutes X1 Comments Verbal cues for LE pos, opposite knee to chest, dec christiano left LE abdominal bracing with heel slide Side bilateral Reps/Minutes X10 Comments VC to brace with abdominals as LE moves away from core diaphragmatic breathing Supine Exercise Name while positioned LE's elevated , hips and knees 90 deg (mod restorative pose Reps/Minutes 2 min Comments prior to hip flexor stretch Sitting Exercises Pallof press Sitting Exercise Name Pallof press hands clasped Side bilateral Resistance level one band Reps/Minutes X 10 Comments improved tolerance compared to standing Pallof Standing Exercises forward T/single leg lift Standing Exercise Name performed to mat height Side bilateral Reps/Minutes X10 Comments verbal and visual cues, performed post hamstring stretch Pallof press Standing Exercise Name Pallof press hands clasped Side bilateral Resistance initiated with level 3 then performed with level 1 Reps/Minutes X5 each side Comments decreased tolerance from left side sit to stands Standing Exercise Name sit to stand from raised seat height Side bilateral Reps/Minutes X3 for hip hinge trainning then X 10 Comments Patient ed self tactile cues for hip hinge Manual Therapy Treatment Soft Tissue Mobilization HS Body Location bilateral hamstrings Mobilization Type Cross-Friction,Rolling Intensity/Depth Moderate Body Position Prone Comments prior to stretch PT-OP-R Modalities Start: 03/11/23 09:20 Freq: Status: Active Protocol: Document 06/04/23 09:44 NBM (Rec: 06/04/23 10:36 NBM [id number]) Hot Pack/Cold Pack Treatment Cold Pack Location LB and R hip Patient Position Hooklying Patient Tolerance Good PT-OP-T Assessment and Plan Start: 03/11/23 09:20 Freq: Status: Active Protocol: Document 06/15/23 11:43 AB (Rec: 06/15/23 16:36 AB [id number]) Physical Therapy Assessment Goals ADLs Short Term Goal (STG) Pt will report dec pain and mobility resitriction with putting on R shoe and sock and be able to complete without using RUE to hold up limb. 05/20-improvign hip mobility and greater ease w/this STG Duration 06/14 Traffic Superintendent Goal (LTG) Pt will report waking up no more than 1 time during night d/t pain and discomfort in order to allow for inc quality of life and recovery time for body. 05/20-waking d/t pain mult times LTG Duration 07/22 Balance Impairment unable to balance on RLE and 12s on LLE. Short Term Goal (STG) Pt will be able to balance for at least 10s on RLE to show improvement in strength and stability in order to progress toward safe functional mobility. 05/20-now able to for a few sec at a time consistantly STG Duration 06/13 Shelter Goal (LTG) Pt will be able to perform SLS on BLE for >30s in order to demonstrate improved strength and stability through hip and LE and allow for safe participation in daily functional mobility. LTG Duration 07/22 Strength Impairment Significant strength impairments throughout RLE Short Term Goal (STG) Pt will improve all R hip MMT to at least 4/5 to show improvement in LE strength to allow for dec compensations during functional acitvities. 05/20-n/t but improving wt acceptance and LE strength STG Duration 06/03/23 Traffic Superintendent Goal (LTG) Pt will improve all R hip MMT to 5/5 to show improvement in RLE strength and allow for proper mechanics and dec pain during necessary functional mobility and daily tasks. 05/20-n/t LTG Duration 07/28 Assessment Summary Assessment Patient reports feeling a little more sore (back) end of session. Hamstring stiffness likely impacting ability to perform stand to sit without pain and ability to squat without impacting the lumbar spine. Physical Therapy Plan Frequency and Duration Frequency of Treatment 2x/Week Duration of treatment (weeks) 10 Plan of Care Start Date 05/20/23 Plan of Care End Date 07/29/23 Next Visit Focus/Plan Next Note Type Treatment Note Next Visit Plan Advance supine and standing core progression & hip strength (revisit Pallof in standing vs add abdominal bracing with LE ext to HEP, trial side stepping in mini squat pos ) manual: work on lumbar spine mobility and R hip mobility along w/ make sure pelvis remains level and mobilize as needed for next visit w/PT:visceral mobs
--- NOTE | 2023-06-18 14:13 | PT.OTN ---
Current Diagnoses Lumbago with sciatica, right side (06/18/23) Physical Therapy Treatment Note PT-OP-A Visit Information Start: 03/11/23 09:20 Freq: Status: Active Protocol: Document 06/18/23 10:19 AB (Rec: 06/18/23 14:13 AB [id number]) Out-Patient Physical Therapy Visit Information Visit Information Visit Type Treatment Note Visit Note Access Code: [email or web address] Visit Start Time 01:01 Visit Stop Time 01:48 Visit Number 17 Number of VIDEO CAMERA OPERATOR Visits 2 PT-OP-B Current Condition Start: 03/11/23 09:20 Freq: Status: Active Protocol: Document 03/17/23 09:48 BS (Rec: 03/17/23 12:31 BS [id number]) Current Condition History of Current Condition Current Complaints LBP w/ R radiculopathy History of Current Condition Has referral in to see a neurosurgeon and wants to get second opinion on MRI results. 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 Got out of d/t not being able to keep up with physical requirements. Have done PT on and off over the years. Got MRI in 2018 and showed some slight narrowing at L3-L4 and minor muscle strains. Over last 6 months-1 year, has had few occasions where back spasms more than normal where he tried yoga poses, heat/ice, and massage therapist and always seemed to help. This last time ~4 weeks ago it was so bad and nothing seemed to help. Had pain down leg, knee pain, rucker/ankle pain. Bought new bed that folds to try and help with positioning and sleep. Finally went and saw doc and got on gabapentin which seems to help with pain but makes it so he can't function as well. Doesn' t normally like pain killers at all but got to the point where he needed something. Pain has really impacted life, has 2 kids under 2 and cant lift them or get up off floor well. Changing positions often seems to help with keeping the pain at ease and sitting in a more slouched position. About a year ago radiating pain was more localized to buttock but now goes all down to calf. By end of day body seems to be pretty tired and tight. Usually up 6-8 times throughout night because he is uncomfortable, has been getting worse in past 2-3 years. 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 Has lost ~20lbs in past 4 months. Almost had a fall with brain not thinking the foot was on the floor and having to grab on to someone to not go down. Pain is super variable and flare ups last 3-4 days where he cant get out of bed Treatment Goals Patient/Caregiver Goals Pt would like to focus on learning nerve glides and stretching to help with radiculopathy. Gets shoes and socks on without using hands to lift leg up. PT-OP-C Subjective Start: 03/11/23 09:20 Freq: Status: Active Protocol: Document 06/18/23 10:19 AB (Rec: 06/18/23 14:13 AB [id number]) OP-PT Subjective Patient Comments Patient Comments Patient reports lower back was muscle tired sore day after previous session, reports upper back pain started yesterday when he woke up. PT-OP-D Balance Start: 03/11/23 09:20 Freq: Status: Active Protocol: Document 03/17/23 09:48 BS (Rec: 03/17/23 12:31 BS [id number]) Balance Tests Single Limb Standing Single Limb- Right unable Single Limb- Left 12s PT-OP-G Mobility & Gait Start: 03/11/23 09:20 Freq: Status: Active Protocol: Document 03/17/23 09:48 BS (Rec: 03/17/23 15:56 BS [id number]) OP Gait Assessment Comments Gait Comments dec stance time on RLE PT-OP-J Posture/Palpation/Skin Start: 03/11/23 09:20 Freq: Status: Active Protocol: Document 03/17/23 09:48 BS (Rec: 03/17/23 12:31 BS [id number]) Posture Evaluation Comments Posture Comments More WBing through LLE, pelvis sheared R, torso sheared L, R iliac crest higher when B knee ext PT-OP-K Range of Motion Start: 03/11/23 09:20 Freq: Status: Active Protocol: Document 03/17/23 09:48 BS (Rec: 03/17/23 12:31 BS [id number]) Lumbar Spine Range of Motion Lumbar Spine Active Percentage Flexion 20 Extension 10 Lateral Flexion Left 75 Lateral Flexion Right 75 Comments pain coming back up form flex, when hips SB felt tight on contra side, Ext painful, flex painful on way back up PT-OP-L Special Tests Start: 03/11/23 09:20 Freq: Status: Active Protocol: Document 03/23/23 09:49 BS (Rec: 03/23/23 13:22 BS [id number]) Special Tests Neural Special Tests- Lower Body Sciatic Nerve Tension Test Results positive B Comments L>R with chin tuck & DF Other Special Tests Special Tests Achilles Reflex: normal B Patellar reflex: normal L, diminished R Babinski: normal L, no response R LE Coordination: normal L, impaired R Clonus: absent PT-OP-M Strength Start: 03/11/23 09:20 Freq: Status: Active Protocol: Document 03/17/23 09:48 BS (Rec: 03/17/23 12:31 BS [id number]) Hip Strength Hip Manual Muscle Testing Right Flexion (L2) 3+ Fair+ Extension (S1) 3+ Fair+ Abduction 3 Fair Adduction 3+ Fair+ External Rotation 4- Good- Internal Rotation 4+ Good+ Left Flexion (L2) 4+ Good+ Extension (S1) 4 Good Abduction 4+ Good+ Adduction 4 Good External Rotation 4+ Good+ Internal Rotation 4+ Good+ Knee Strength Knee Manual Muscle Testing Right Flexion (S2) 3+ Fair+ Extension (L3) 4- Good- Left Flexion (S2) 5 Normal Extension (L3) 5 Normal Ankle/Foot Strength Ankle and Foot Manual Muscle Testing Right Dorsiflexion (L4) 4- Good- Left Dorsiflexion (L4) 5 Normal PT-OP-Q Treatments Start: 03/11/23 09:20 Freq: Status: Active Protocol: Document 06/18/23 10:19 AB (Rec: 06/18/23 14:13 AB [id number]) Therapeutic Exercises Supine Exercises hamstring stretch Supine Exercise Name from 90/90 position Side bilateral Reps/Minutes X2 60 seconds Comments Verbal cues to hold 60 seconds Ramón stretch edge of bed Side bilateral Reps/Minutes X1 Comments Verbal cues for LE pos, opposite knee to chest, dec christiano left LE abdominal bracing with heel slide Side bilateral Reps/Minutes X3 and X 2 left X 3 left Comments Patient reports LS area arches with return motion Sitting Exercises seated rythmic stabilization Sitting Exercise Name fwd, backward, rotation Resistance minimal Reps/Minutes 6 each direction Comments monitored for pain Standing Exercises forward T/single leg lift Standing Exercise Name performed to mat height Side bilateral Reps/Minutes X10 Comments verbal and visual cues, performed post hamstring stretch Pallof press Standing Exercise Name Pallof press hands clasped Side bilateral Resistance level one light blue band Reps/Minutes X1 Comments reports increased shoulder and thoracic pain right sit to stands Standing Exercise Name sit to stand from raised seat height Side bilateral Reps/Minutes X3 then X 2 1/2 to chair seat Comments Verbal cues for hip hinge Other Exercises counter plank Other Exercise Name on hands and on forearms Reps/Minutes 30 sec X 1 each position Comments VC for UE, LE and position of head Manual Therapy Treatment Soft Tissue Mobilization HS Body Location bilateral hamstrings Mobilization Type Cross-Friction,Rolling Intensity/Depth Moderate Body Position Prone Comments prior to stretch glutes Body Location bilateral glutes/piriformis Mobilization Type Cross-Friction,Rolling Intensity/Depth Moderate Body Position Prone Taping Thoracic/LS Body Location Thoracic LS paraspinals for posture and across Lumbar spine for pain Treatment Focus Kinesiotaping for pain and posture Skin Inspection WNL Comments Patient ed to remove in 3-5 days or immediately if skin irritation occurs Manual Techniques PROM hip IR Type PROM hip IR Body Location left and right Hip Body Position Prone Reps/Duration X1 X 60 Comments post manual therapy PT-OP-R Modalities Start: 03/11/23 09:20 Freq: Status: Active Protocol: Document 06/04/23 09:44 NBM (Rec: 06/04/23 10:36 NBM [id number]) Hot Pack/Cold Pack Treatment Cold Pack Location LB and R hip Patient Position Hooklying Patient Tolerance Good PT-OP-T Assessment and Plan Start: 03/11/23 09:20 Freq: Status: Active Protocol: Document 06/18/23 10:19 AB (Rec: 06/18/23 14:13 AB [id number]) Physical Therapy Assessment Goals ADLs Short Term Goal (STG) Pt will report dec pain and mobility resitriction with putting on R shoe and sock and be able to complete without using RUE to hold up limb. 05/20-improvign hip mobility and greater ease w/this STG Duration 06/14 [place] Operator Goal (LTG) Pt will report waking up no more than 1 time during night d/t pain and discomfort in order to allow for inc quality of life and recovery time for body. 05/20-waking d/t pain mult times LTG Duration 07/22 Balance Impairment unable to balance on RLE and 12s on LLE. Short Term Goal (STG) Pt will be able to balance for at least 10s on RLE to show improvement in strength and stability in order to progress toward safe functional mobility. 05/20-now able to for a few sec at a time consistantly STG Duration 06/13 [place] Operator Goal (LTG) Pt will be able to perform SLS on BLE for >30s in order to demonstrate improved strength and stability through hip and LE and allow for safe participation in daily functional mobility. LTG Duration 07/22 Strength Impairment Significant strength impairments throughout RLE Short Term Goal (STG) Pt will improve all R hip MMT to at least 4/5 to show improvement in LE strength to allow for dec compensations during functional acitvities. 05/20-n/t but improving wt acceptance and LE strength STG Duration 06/03/23 Skilled Nursing Goal (LTG) Pt will improve all R hip MMT to 5/5 to show improvement in RLE strength and allow for proper mechanics and dec pain during necessary functional mobility and daily tasks. 05/20-n/t LTG Duration 07/28 Assessment Summary Assessment AI PI WNL start of session, Chet reports increased right UE and upper back ( thoracic soreness ) start of session, and pain with seated Pallof press. End of session reports no increase in low back pain and LE's feel looser. Physical Therapy Plan Frequency and Duration Frequency of Treatment 2x/Week Duration of treatment (weeks) 10 Plan of Care Start Date 05/20/23 Plan of Care End Date 07/29/23 Next Visit Focus/Plan Next Note Type Treatment Note Next Visit Plan Advance supine and standing core progression & hip strength (revisit abdominal bracing with LE ext to HEP, trial side stepping in mini squat pos ) manual: work on lumbar spine mobility and R hip mobility along w/ make sure pelvis remains level and mobilize as needed for next visit w/PT:visceral mobs
--- NOTE | 2023-06-24 14:27 | PT.OTN ---
Current Diagnoses Lumbago with sciatica, right side (06/24/23) Physical Therapy Treatment Note PT-OP-A Visit Information Start: 03/11/23 09:20 Freq: Status: Active Protocol: Document 06/24/23 11:21 [facility] (Rec: 06/24/23 14:27 [facility] [id number]) Out-Patient Physical Therapy Visit Information Visit Information Visit Type Treatment Note Visit Note Access Code: [email or web address] Visit Start Time 11:25 Visit Stop Time 12:05 Visit Number 18 Number of PSYCH SOCIAL WORKER Visits 0 PT-OP-B Current Condition Start: 03/11/23 09:20 Freq: Status: Active Protocol: Document 03/17/23 09:48 BS (Rec: 03/17/23 12:31 BS [id number]) Current Condition History of Current Condition Current Complaints LBP w/ R radiculopathy History of Current Condition Has referral in to see a neurosurgeon and wants to get second opinion on MRI results. 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 Got out of d/t not being able to keep up with physical requirements. Have done PT on and off over the years. Got MRI in 2018 and showed some slight narrowing at L3-L4 and minor muscle strains. Over last 6 months-1 year, has had few occasions where back spasms more than normal where he tried yoga poses, heat/ice, and massage therapist and always seemed to help. This last time ~4 weeks ago it was so bad and nothing seemed to help. Had pain down leg, knee pain, rucker/ankle pain. Bought new bed that folds to try and help with positioning and sleep. Finally went and saw doc and got on gabapentin which seems to help with pain but makes it so he can't function as well. Doesn' t normally like pain killers at all but got to the point where he needed something. Pain has really impacted life, has 2 kids under 2 and cant lift them or get up off floor well. Changing positions often seems to help with keeping the pain at ease and sitting in a more slouched position. About a year ago radiating pain was more localized to buttock but now goes all down to calf. By end of day body seems to be pretty tired and tight. Usually up 6-8 times throughout night because he is uncomfortable, has been getting worse in past 2-3 years. 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 Has lost ~20lbs in past 4 months. Almost had a fall with brain not thinking the foot was on the floor and having to grab on to someone to not go down. Pain is super variable and flare ups last 3-4 days where he cant get out of bed Treatment Goals Patient/Caregiver Goals Pt would like to focus on learning nerve glides and stretching to help with radiculopathy. Gets shoes and socks on without using hands to lift leg up. PT-OP-C Subjective Start: 03/11/23 09:20 Freq: Status: Active Protocol: Document 06/24/23 11:21 [facility] (Rec: 06/24/23 14:27 [facility] [id number]) OP-PT Subjective Patient Comments Patient Comments Pt reports was doign well until last night heh ad back pain and R leg. His kids have been sick so has been lifting more. Core work puts strain on his back. Pain is mostly lumbar, R scap region and occ R hip and leg. referred pain is more rare. Feels like there is a knot in his LB. PT-OP-D Balance Start: 03/11/23 09:20 Freq: Status: Active Protocol: Document 03/17/23 09:48 BS (Rec: 03/17/23 12:31 BS [id number]) Balance Tests Single Limb Standing Single Limb- Right unable Single Limb- Left 12s PT-OP-G Mobility & Gait Start: 03/11/23 09:20 Freq: Status: Active Protocol: Document 03/17/23 09:48 BS (Rec: 03/17/23 15:56 BS [id number]) OP Gait Assessment Comments Gait Comments dec stance time on RLE PT-OP-J Posture/Palpation/Skin Start: 03/11/23 09:20 Freq: Status: Active Protocol: Document 03/17/23 09:48 BS (Rec: 03/17/23 12:31 BS [id number]) Posture Evaluation Comments Posture Comments More WBing through LLE, pelvis sheared R, torso sheared L, R iliac crest higher when B knee ext PT-OP-K Range of Motion Start: 03/11/23 09:20 Freq: Status: Active Protocol: Document 03/17/23 09:48 BS (Rec: 03/17/23 12:31 BS [id number]) Lumbar Spine Range of Motion Lumbar Spine Active Percentage Flexion 20 Extension 10 Lateral Flexion Left 75 Lateral Flexion Right 75 Comments pain coming back up form flex, when hips SB felt tight on contra side, Ext painful, flex painful on way back up PT-OP-L Special Tests Start: 03/11/23 09:20 Freq: Status: Active Protocol: Document 03/23/23 09:49 BS (Rec: 03/23/23 13:22 BS [id number]) Special Tests Neural Special Tests- Lower Body Sciatic Nerve Tension Test Results positive B Comments L>R with chin tuck & DF Other Special Tests Special Tests Achilles Reflex: normal B Patellar reflex: normal L, diminished R Babinski: normal L, no response R LE Coordination: normal L, impaired R Clonus: absent PT-OP-M Strength Start: 03/11/23 09:20 Freq: Status: Active Protocol: Document 03/17/23 09:48 BS (Rec: 03/17/23 12:31 [id number]) Hip Strength Hip Manual Muscle Testing Right Flexion (L2) 3+ Fair+ Extension (S1) 3+ Fair+ Abduction 3 Fair Adduction 3+ Fair+ External Rotation 4- Good- Internal Rotation 4+ Good+ Left Flexion (L2) 4+ Good+ Extension (S1) 4 Good Abduction 4+ Good+ Adduction 4 Good External Rotation 4+ Good+ Internal Rotation 4+ Good+ Knee Strength Knee Manual Muscle Testing Right Flexion (S2) 3+ Fair+ Extension (L3) 4- Good- Left Flexion (S2) 5 Normal Extension (L3) 5 Normal Ankle/Foot Strength Ankle and Foot Manual Muscle Testing Right Dorsiflexion (L4) 4- Good- Left Dorsiflexion (L4) 5 Normal PT-OP-Q Treatments Start: 03/11/23 09:20 Freq: Status: Active Protocol: Document 06/24/23 11:21 [facility] (Rec: 06/24/23 14:27 [facility] [id number]) Manual Therapy Treatment Soft Tissue Mobilization LS Body Location R ES & QL & lat obliques Mobilization Type Rolling Intensity/Depth Moderate Body Position Sidelying Comments w/post dep Joint Mobilizations lumbar Comments L5 L down glide, L5 R upglide FM seated w/rot/ext/flex and R LE neural glide Self-Care/Home Management Treatment Education Other Education 8 min: Educated pt to hold on exercises that inc his pain but importance of core so plan to work on core. discussed avoiding HS stretch that irritates and can cont seated for flexiblity. Edu to focus on posture w/lifting position PT-OP-R Modalities Start: 03/11/23 09:20 Freq: Status: Active Protocol: Document 06/04/23 09:44 [facility] (Rec: 06/04/23 10:36 [facility] [id number]) Hot Pack/Cold Pack Treatment Cold Pack Location LB and R hip Patient Position Hooklying Patient Tolerance Good PT-OP-T Assessment and Plan Start: 03/11/23 09:20 Freq: Status: Active Protocol: Document 06/24/23 11:21 [facility] (Rec: 06/24/23 14:27 [facility] [id number]) Physical Therapy Assessment Goals ADLs Short Term Goal (STG) Pt will report dec pain and mobility resitriction with putting on R shoe and sock and be able to complete without using RUE to hold up limb. 05/20-improvign hip mobility and greater ease w/this STG Duration 06/14 Gps Field Data Collector Goal (LTG) Pt will report waking up no more than 1 time during night d/t pain and discomfort in order to allow for inc quality of life and recovery time for body. 05/20-waking d/t pain mult times LTG Duration 07/22 Balance Impairment unable to balance on RLE and 12s on LLE. Short Term Goal (STG) Pt will be able to balance for at least 10s on RLE to show improvement in strength and stability in order to progress toward safe functional mobility. 05/20-now able to for a few sec at a time consistantly STG Duration 06/13 Mcfp Goal (LTG) Pt will be able to perform SLS on BLE for >30s in order to demonstrate improved strength and stability through hip and LE and allow for safe participation in daily functional mobility. LTG Duration 07/22 Strength Impairment Significant strength impairments throughout RLE Short Term Goal (STG) Pt will improve all R hip MMT to at least 4/5 to show improvement in LE strength to allow for dec compensations during functional acitvities. 05/20-n/t but improving wt acceptance and LE strength STG Duration 06/03/23 Gps Field Data Collector Goal (LTG) Pt will improve all R hip MMT to 5/5 to show improvement in RLE strength and allow for proper mechanics and dec pain during necessary functional mobility and daily tasks. 05/20-n/t LTG Duration 07/28 Assessment Summary Assessment Pt had much dec pain after session and noted relief. Educated pt to hold on exercises that inc his pain but importance of core so plan to work on core. Physical Therapy Plan Frequency and Duration Frequency of Treatment 2x/Week Duration of treatment (weeks) 10 Plan of Care Start Date 05/20/23 Plan of Care End Date 07/29/23 Next Visit Focus/Plan Next Note Type Treatment Note Next Visit Plan check in for appropriate core that doesn't inc back pain.
--- NOTE | 2023-06-28 18:12 | PT.OTN ---
Current Diagnoses Lumbago with sciatica, right side (06/28/23) Physical Therapy Treatment Note PT-OP-A Visit Information Start: 03/11/23 09:20 Freq: Status: Active Protocol: Document 06/28/23 18:04 [facility] (Rec: 06/28/23 18:11 [facility] [id number]) Out-Patient Physical Therapy Visit Information Visit Information Visit Type Treatment Note Visit Start Time 08:20 Visit Stop Time 09:10 Visit Number 19 Number of INSURANCE FOLLOW UP REPRESENTATIVE Visits 0 PT-OP-B Current Condition Start: 03/11/23 09:20 Freq: Status: Active Protocol: Document 03/17/23 09:48 BS (Rec: 03/17/23 12:31 BS [id number]) Current Condition History of Current Condition Current Complaints LBP w/ R radiculopathy History of Current Condition Has referral in to see a neurosurgeon and wants to get second opinion on MRI results. 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 Got out of d/t not being able to keep up with physical requirements. Have done PT on and off over the years. Got MRI in 2018 and showed some slight narrowing at L3-L4 and minor muscle strains. Over last 6 months-1 year, has had few occasions where back spasms more than normal where he tried yoga poses, heat/ice, and massage therapist and always seemed to help. This last time ~4 weeks ago it was so bad and nothing seemed to help. Had pain down leg, knee pain, rucker/ankle pain. Bought new bed that folds to try and help with positioning and sleep. Finally went and saw doc and got on gabapentin which seems to help with pain but makes it so he can't function as well. Doesn' t normally like pain killers at all but got to the point where he needed something. Pain has really impacted life, has 2 kids under 2 and cant lift them or get up off floor well. Changing positions often seems to help with keeping the pain at ease and sitting in a more slouched position. About a year ago radiating pain was more localized to buttock but now goes all down to calf. By end of day body seems to be pretty tired and tight. Usually up 6-8 times throughout night because he is uncomfortable, has been getting worse in past 2-3 years. 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 Has lost ~20lbs in past 4 months. Almost had a fall with brain not thinking the foot was on the floor and having to grab on to someone to not go down. Pain is super variable and flare ups last 3-4 days where he cant get out of bed Treatment Goals Patient/Caregiver Goals Pt would like to focus on learning nerve glides and stretching to help with radiculopathy. Gets shoes and socks on without using hands to lift leg up. PT-OP-C Subjective Start: 03/11/23 09:20 Freq: Status: Active Protocol: Document 06/28/23 18:04 [facility] (Rec: 06/28/23 18:11 [facility] [id number]) OP-PT Subjective Patient Comments Patient Comments pt reports felt good the day of last treatment and into the next day but inc pain starting Wednesday night. Sore wednesday AM and noted bruise in area treating. No leg pain over the weekend just in L5 region. Back pain is subsiding today but still present PT-OP-D Balance Start: 03/11/23 09:20 Freq: Status: Active Protocol: Document 03/17/23 09:48 BS (Rec: 03/17/23 12:31 BS [id number]) Balance Tests Single Limb Standing Single Limb- Right unable Single Limb- Left 12s PT-OP-G Mobility & Gait Start: 03/11/23 09:20 Freq: Status: Active Protocol: Document 03/17/23 09:48 BS (Rec: 03/17/23 15:56 BS [id number]) OP Gait Assessment Comments Gait Comments dec stance time on RLE PT-OP-J Posture/Palpation/Skin Start: 03/11/23 09:20 Freq: Status: Active Protocol: Document 03/17/23 09:48 BS (Rec: 03/17/23 12:31 BS [id number]) Posture Evaluation Comments Posture Comments More WBing through LLE, pelvis sheared R, torso sheared L, R iliac crest higher when B knee ext PT-OP-K Range of Motion Start: 03/11/23 09:20 Freq: Status: Active Protocol: Document 03/17/23 09:48 BS (Rec: 03/17/23 12:31 BS [id number]) Lumbar Spine Range of Motion Lumbar Spine Active Percentage Flexion 20 Extension 10 Lateral Flexion Left 75 Lateral Flexion Right 75 Comments pain coming back up form flex, when hips SB felt tight on contra side, Ext painful, flex painful on way back up PT-OP-L Special Tests Start: 03/11/23 09:20 Freq: Status: Active Protocol: Document 03/23/23 09:49 BS (Rec: 03/23/23 13:22 BS [id number]) Special Tests Neural Special Tests- Lower Body Sciatic Nerve Tension Test Results positive B Comments L>R with chin tuck & DF Other Special Tests Special Tests Achilles Reflex: normal B Patellar reflex: normal L, diminished R Babinski: normal L, no response R LE Coordination: normal L, impaired R Clonus: absent PT-OP-M Strength Start: 03/11/23 09:20 Freq: Status: Active Protocol: Document 03/17/23 09:48 BS (Rec: 03/17/23 12:31 [id number]) Hip Strength Hip Manual Muscle Testing Right Flexion (L2) 3+ Fair+ Extension (S1) 3+ Fair+ Abduction 3 Fair Adduction 3+ Fair+ External Rotation 4- Good- Internal Rotation 4+ Good+ Left Flexion (L2) 4+ Good+ Extension (S1) 4 Good Abduction 4+ Good+ Adduction 4 Good External Rotation 4+ Good+ Internal Rotation 4+ Good+ Knee Strength Knee Manual Muscle Testing Right Flexion (S2) 3+ Fair+ Extension (L3) 4- Good- Left Flexion (S2) 5 Normal Extension (L3) 5 Normal Ankle/Foot Strength Ankle and Foot Manual Muscle Testing Right Dorsiflexion (L4) 4- Good- Left Dorsiflexion (L4) 5 Normal PT-OP-Q Treatments Start: 03/11/23 09:20 Freq: Status: Active Protocol: Document 06/28/23 18:04 [facility] (Rec: 06/28/23 18:11 [facility] [id number]) Therapeutic Exercises Supine Exercises core Supine Exercise Name TA w/alt march Side bilateral Reps/Minutes 10 Comments cues for core engagement & inc knee flex LTR Supine Exercise Name small range and cue for core to pull legs back up Side bilateral Reps/Minutes 10 Prone Exercises plank Prone Exercise Name forearm and knees Reps/Minutes [id number] Comments cues for netural positioning Other Exercises quadruped Other Exercise Name alt hip ext small range Side bilateral Reps/Minutes 10 Comments cues for neutral spine Manual Therapy Treatment Soft Tissue Mobilization abdomen Body Location R lat RA Mobilization Type Sustained Pressure Intensity/Depth Moderate Body Position Supine Comments w/AAROm hip flex R hip flexor Body Location R iliacus and psoas Mobilization Type Sustained Pressure Intensity/Depth Moderate Body Position Hooklying Comments w/AAROm flex and AROM IR/ER PT-OP-R Modalities Start: 03/11/23 09:20 Freq: Status: Active Protocol: Document 06/28/23 18:04 [facility] (Rec: 06/28/23 18:11 [facility] [id number]) Hot Pack/Cold Pack Treatment Cold Pack Location LB and R hip Patient Position Hooklying Patient Tolerance Good PT-OP-T Assessment and Plan Start: 03/11/23 09:20 Freq: Status: Active Protocol: Document 06/28/23 18:04 [facility] (Rec: 06/28/23 18:11 [facility] [id number]) Physical Therapy Assessment Goals ADLs Short Term Goal (STG) Pt will report dec pain and mobility resitriction with putting on R shoe and sock and be able to complete without using RUE to hold up limb. 05/20-improvign hip mobility and greater ease w/this STG Duration 06/14 Analytical Engineer Goal (LTG) Pt will report waking up no more than 1 time during night d/t pain and discomfort in order to allow for inc quality of life and recovery time for body. 05/20-waking d/t pain mult times LTG Duration 07/22 Balance Impairment unable to balance on RLE and 12s on LLE. Short Term Goal (STG) Pt will be able to balance for at least 10s on RLE to show improvement in strength and stability in order to progress toward safe functional mobility. 05/20-now able to for a few sec at a time consistantly STG Duration 06/13 Analytical Engineer Goal (LTG) Pt will be able to perform SLS on BLE for >30s in order to demonstrate improved strength and stability through hip and LE and allow for safe participation in daily functional mobility. LTG Duration 07/22 Strength Impairment Significant strength impairments throughout RLE Short Term Goal (STG) Pt will improve all R hip MMT to at least 4/5 to show improvement in LE strength to allow for dec compensations during functional acitvities. 05/20-n/t but improving wt acceptance and LE strength STG Duration 06/03/23 Custodial Goal (LTG) Pt will improve all R hip MMT to 5/5 to show improvement in RLE strength and allow for proper mechanics and dec pain during necessary functional mobility and daily tasks. 05/20-n/t LTG Duration 07/28 Assessment Summary Assessment No inc pain during exercises except marche sif he keeps his knees at 90 deg angle but if inc bend as lifts and lowers it is not painful. he had pain after in legs reporting themf eeling sore. he was educated to try one core exercise a day to make sure the inc does not make him sore. Hip flexor on R sitll significantly tight but does improve w/manaul. Despite inc pain today, pt presented to clinic w/inc lumbar spine ROM. Physical Therapy Plan Frequency and Duration Frequency of Treatment 2x/Week Duration of treatment (weeks) 10 Plan of Care Start Date 05/20/23 Plan of Care End Date 07/29/23 Next Visit Focus/Plan Next Note Type Treatment Note Next Visit Plan check to see how pt did w/new HEP
--- NOTE | 2023-07-01 13:44 | PT.OTN ---
Current Diagnoses Lumbago with sciatica, right side (07/01/23) Physical Therapy Treatment Note PT-OP-A Visit Information Start: 03/11/23 09:20 Freq: Status: Active Protocol: Document 07/01/23 13:02 SP (Rec: 07/01/23 13:49 SP [id number]) Out-Patient Physical Therapy Visit Information Visit Information Visit Type Treatment Note Visit Start Time 13:02 Visit Stop Time 13:44 Visit Number 20 Number of TELEGRAPHER AGENT Visits 0 PT-OP-B Current Condition Start: 03/11/23 09:20 Freq: Status: Active Protocol: Document 03/17/23 09:48 BS (Rec: 03/17/23 12:31 BS [id number]) Current Condition History of Current Condition Current Complaints LBP w/ R radiculopathy History of Current Condition Has referral in to see a neurosurgeon and wants to get second opinion on MRI results. 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 Got out of d/t not being able to keep up with physical requirements. Have done PT on and off over the years. Got MRI in 2018 and showed some slight narrowing at L3-L4 and minor muscle strains. Over last 6 months-1 year, has had few occasions where back spasms more than normal where he tried yoga poses, heat/ice, and massage therapist and always seemed to help. This last time ~4 weeks ago it was so bad and nothing seemed to help. Had pain down leg, knee pain, rucker/ankle pain. Bought new bed that folds to try and help with positioning and sleep. Finally went and saw doc and got on gabapentin which seems to help with pain but makes it so he can't function as well. Doesn' t normally like pain killers at all but got to the point where he needed something. Pain has really impacted life, has 2 kids under 2 and cant lift them or get up off floor well. Changing positions often seems to help with keeping the pain at ease and sitting in a more slouched position. About a year ago radiating pain was more localized to buttock but now goes all down to calf. By end of day body seems to be pretty tired and tight. Usually up 6-8 times throughout night because he is uncomfortable, has been getting worse in past 2-3 years. 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 Has lost ~20lbs in past 4 months. Almost had a fall with brain not thinking the foot was on the floor and having to grab on to someone to not go down. Pain is super variable and flare ups last 3-4 days where he cant get out of bed Treatment Goals Patient/Caregiver Goals Pt would like to focus on learning nerve glides and stretching to help with radiculopathy. Gets shoes and socks on without using hands to lift leg up. PT-OP-C Subjective Start: 03/11/23 09:20 Freq: Status: Active Protocol: Document 07/01/23 13:02 SP (Rec: 07/01/23 13:49 SP [id number]) OP-PT Subjective Patient Comments Patient Comments Pt started new Mel[place] and minful of good foods, antinflammatory doing better, n. BP 122/82 this am, 2nd time 134/92. He reports the ex where palpate R hip flexor and KFO is inflaming so stopped but core july ok along with all other HEP. PT-OP-D Balance Start: 03/11/23 09:20 Freq: Status: Active Protocol: Document 03/17/23 09:48 BS (Rec: 03/17/23 12:31 BS [id number]) Balance Tests Single Limb Standing Single Limb- Right unable Single Limb- Left 12s PT-OP-G Mobility & Gait Start: 03/11/23 09:20 Freq: Status: Active Protocol: Document 03/17/23 09:48 BS (Rec: 03/17/23 15:56 BS [id number]) OP Gait Assessment Comments Gait Comments dec stance time on RLE PT-OP-J Posture/Palpation/Skin Start: 03/11/23 09:20 Freq: Status: Active Protocol: Document 03/17/23 09:48 BS (Rec: 03/17/23 12:31 BS [id number]) Posture Evaluation Comments Posture Comments More WBing through LLE, pelvis sheared R, torso sheared L, R iliac crest higher when B knee ext PT-OP-K Range of Motion Start: 03/11/23 09:20 Freq: Status: Active Protocol: Document 03/17/23 09:48 BS (Rec: 03/17/23 12:31 BS [id number]) Lumbar Spine Range of Motion Lumbar Spine Active Percentage Flexion 20 Extension 10 Lateral Flexion Left 75 Lateral Flexion Right 75 Comments pain coming back up form flex, when hips SB felt tight on contra side, Ext painful, flex painful on way back up PT-OP-L Special Tests Start: 03/11/23 09:20 Freq: Status: Active Protocol: Document 03/23/23 09:49 BS (Rec: 03/23/23 13:22 BS [id number]) Special Tests Neural Special Tests- Lower Body Sciatic Nerve Tension Test Results positive B Comments L>R with chin tuck & DF Other Special Tests Special Tests Achilles Reflex: normal B Patellar reflex: normal L, diminished R Babinski: normal L, no response R LE Coordination: normal L, impaired R Clonus: absent PT-OP-M Strength Start: 03/11/23 09:20 Freq: Status: Active Protocol: Document 03/17/23 09:48 BS (Rec: 03/17/23 12:31 BS [id number]) Hip Strength Hip Manual Muscle Testing Right Flexion (L2) 3+ Fair+ Extension (S1) 3+ Fair+ Abduction 3 Fair Adduction 3+ Fair+ External Rotation 4- Good- Internal Rotation 4+ Good+ Left Flexion (L2) 4+ Good+ Extension (S1) 4 Good Abduction 4+ Good+ Adduction 4 Good External Rotation 4+ Good+ Internal Rotation 4+ Good+ Knee Strength Knee Manual Muscle Testing Right Flexion (S2) 3+ Fair+ Extension (L3) 4- Good- Left Flexion (S2) 5 Normal Extension (L3) 5 Normal Ankle/Foot Strength Ankle and Foot Manual Muscle Testing Right Dorsiflexion (L4) 4- Good- Left Dorsiflexion (L4) 5 Normal PT-OP-Q Treatments Start: 03/11/23 09:20 Freq: Status: Active Protocol: Document 07/01/23 13:02 SP (Rec: 07/01/23 13:49 SP [id number]) Therapeutic Exercises Supine Exercises Ramón stretch edge of bed Side right Reps/Minutes 60 Comments op LE bent abdominal bracing with heel slide Side bilateral Reps/Minutes 5 reps Comments cued lift toes no foot cramp compensation core Supine Exercise Name TA 1. w/alt SL july 2. DL sequencial july Side bilateral Reps/Minutes 1. 10 2. x5 lead each LE Comments cues for core engagement & inc knee flex Bridge Supine Exercise Name SL bridge, segmental bridge Side bilateral Reps/Minutes x10, x10 (tiring) Comments Cued segmental roll and TA fac needed. LTR Supine Exercise Name small range and cue for core to pull legs back up Side bilateral Reps/Minutes 10 Prone Exercises plank Prone Exercise Name forearm and knees Reps/Minutes [id number] Comments cues for netural TS, glut fac positioning Sidelying Exercises side plank Sidelying Exercise Name trialed off forearm/knees- Hold 3/1 Side bilateral Reps/Minutes R 11 sec (c/o L2 region low pain), L 20 sec, 10 sec (L Side L5 low pain) Comments Cued head/trunk alignment, challenge maintain alignment and stab Standing Exercises step ups Standing Exercise Name glut and core fac Equipment Used 12 step, light contact rail RLE, PRN LUE/c LLE Reps/Minutes R 4 reps x2, L x10 Comments improved core level pelvis Other Exercises quadruped Other Exercise Name alt hip ext small range Side bilateral Reps/Minutes 10 Comments cues for neutral lumbar & T spine Manual Therapy Treatment Soft Tissue Mobilization abdomen Body Location R lat RA Mobilization Type Sustained Pressure Intensity/Depth Moderate Body Position Supine Comments w/AAROm hip flex R hip flexor Body Location R iliacus and psoas Mobilization Type Sustained Pressure Intensity/Depth Moderate Body Position Hooklying Comments w/AAROm flex and AROM IR/ER PT-OP-R Modalities Start: 03/11/23 09:20 Freq: Status: Active Protocol: Document 06/28/23 18:04 [facility] (Rec: 06/28/23 18:11 [facility] [id number]) Hot Pack/Cold Pack Treatment Cold Pack Location LB and R hip Patient Position Hooklying Patient Tolerance Good PT-OP-T Assessment and Plan Start: 03/11/23 09:20 Freq: Status: Active Protocol: Document 07/01/23 13:02 SP (Rec: 07/01/23 13:49 SP [id number]) Physical Therapy Assessment Goals ADLs Short Term Goal (STG) Pt will report dec pain and mobility resitriction with putting on R shoe and sock and be able to complete without using RUE to hold up limb. 05/20-improvign hip mobility and greater ease w/this STG Duration 06/14 Street Light Servicer Helper Goal (LTG) Pt will report waking up no more than 1 time during night d/t pain and discomfort in order to allow for inc quality of life and recovery time for body. 05/20-waking d/t pain mult times LTG Duration 07/22 Balance Impairment unable to balance on RLE and 12s on LLE. Short Term Goal (STG) Pt will be able to balance for at least 10s on RLE to show improvement in strength and stability in order to progress toward safe functional mobility. 05/20-now able to for a few sec at a time consistantly STG Duration 06/13 Street Light Servicer Helper Goal (LTG) Pt will be able to perform SLS on BLE for >30s in order to demonstrate improved strength and stability through hip and LE and allow for safe participation in daily functional mobility. LTG Duration 07/22 Strength Impairment Significant strength impairments throughout RLE Short Term Goal (STG) Pt will improve all R hip MMT to at least 4/5 to show improvement in LE strength to allow for dec compensations during functional acitvities. 05/20-n/t but improving wt acceptance and LE strength STG Duration 06/03/23 [address] Light Servicer Helper Goal (LTG) Pt will improve all R hip MMT to 5/5 to show improvement in RLE strength and allow for proper mechanics and dec pain during necessary functional mobility and daily tasks. 05/20-n/t LTG Duration 07/28 Assessment Summary Assessment Pt only reports of low pain in lumbar region during trial side plank, will hold due to challenge maintaining alignment and core stab. Improved TA engagement with progression into segmental march, segmental bridge and increased time forearm/knee plank this tx, cues as needed for proper form. Physical Therapy Plan Frequency and Duration Frequency of Treatment 2x/Week Duration of treatment (weeks) 10 Plan of Care Start Date 05/20/23 Plan of Care End Date 07/29/23 Therapeutic Interventions Therapeutic Interventions Balance Training,Coordination Training,Gait Training,Home Exercise Program,Joint Mobilizations,Manual Therapy, Neuromuscular Re-education, Patient/Caregiver Education, Self-Care/Home Management,Soft Tissue Mobilization,Taping, Therapeutic Activities, Therapeutic Exercises Modalities Cold Pack/Ice Massage,Electric Stimulation,Hot Packs, Infrared Therapy,Traction- Mechanical,Ultrasound Next Visit Focus/Plan Next Note Type Treatment Note Next Visit Plan Continue plank, TA step ups and progression as tolerated. Manual for R hip flexibility.
--- NOTE | 2023-07-06 16:26 | PT.OTN ---
Current Diagnoses Lumbago with sciatica, right side (07/06/23) Physical Therapy Treatment Note PT-OP-A Visit Information Start: 03/11/23 09:20 Freq: Status: Active Protocol: Document 07/06/23 14:20 AB (Rec: 07/06/23 16:26 AB [id number]) Out-Patient Physical Therapy Visit Information Visit Information Visit Type Treatment Note Visit Start Time 03:15 Visit Stop Time 03:59 Visit Number 21 Number of SURVEILLANCE OFFICER Visits 1 PT-OP-B Current Condition Start: 03/11/23 09:20 Freq: Status: Active Protocol: Document 03/17/23 09:48 BS (Rec: 03/17/23 12:31 BS [id number]) Current Condition History of Current Condition Current Complaints LBP w/ R radiculopathy History of Current Condition Has referral in to see a neurosurgeon and wants to get second opinion on MRI results. 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 Got out of d/t not being able to keep up with physical requirements. Have done PT on and off over the years. Got MRI in 2018 and showed some slight narrowing at L3-L4 and minor muscle strains. Over last 6 months-1 year, has had few occasions where back spasms more than normal where he tried yoga poses, heat/ice, and massage therapist and always seemed to help. This last time ~4 weeks ago it was so bad and nothing seemed to help. Had pain down leg, knee pain, rucker/ankle pain. Bought new bed that folds to try and help with positioning and sleep. Finally went and saw doc and got on gabapentin which seems to help with pain but makes it so he can't function as well. Doesn' t normally like pain killers at all but got to the point where he needed something. Pain has really impacted life, has 2 kids under 2 and cant lift them or get up off floor well. Changing positions often seems to help with keeping the pain at ease and sitting in a more slouched position. About a year ago radiating pain was more localized to buttock but now goes all down to calf. By end of day body seems to be pretty tired and tight. Usually up 6-8 times throughout night because he is uncomfortable, has been getting worse in past 2-3 years. 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 Has lost ~20lbs in past 4 months. Almost had a fall with brain not thinking the foot was on the floor and having to grab on to someone to not go down. Pain is super variable and flare ups last 3-4 days where he cant get out of bed Treatment Goals Patient/Caregiver Goals Pt would like to focus on learning nerve glides and stretching to help with radiculopathy. Gets shoes and socks on without using hands to lift leg up. PT-OP-C Subjective Start: 03/11/23 09:20 Freq: Status: Active Protocol: Document 07/06/23 14:20 AB (Rec: 07/06/23 16:26 AB [id number]) OP-PT Subjective Patient Comments Patient Comments Patient reports he is 85% compliant with HEP. Patient reports he has had a little LE pain down the either LE a night, ~3X a week. (only when lying on back ) Vahe reports noticing that he is favoring the left ankle now that he is more active, reports previous left ankle injury with hx of surgery. PT-OP-D Balance Start: 03/11/23 09:20 Freq: Status: Active Protocol: Document 03/17/23 09:48 BS (Rec: 03/17/23 12:31 BS [id number]) Balance Tests Single Limb Standing Single Limb- Right unable Single Limb- Left 12s PT-OP-G Mobility & Gait Start: 03/11/23 09:20 Freq: Status: Active Protocol: Document 03/17/23 09:48 BS (Rec: 03/17/23 15:56 BS [id number]) OP Gait Assessment Comments Gait Comments dec stance time on RLE PT-OP-J Posture/Palpation/Skin Start: 03/11/23 09:20 Freq: Status: Active Protocol: Document 03/17/23 09:48 BS (Rec: 03/17/23 12:31 BS [id number]) Posture Evaluation Comments Posture Comments More WBing through LLE, pelvis sheared R, torso sheared L, R iliac crest higher when B knee ext PT-OP-K Range of Motion Start: 03/11/23 09:20 Freq: Status: Active Protocol: Document 03/17/23 09:48 BS (Rec: 03/17/23 12:31 BS [id number]) Lumbar Spine Range of Motion Lumbar Spine Active Percentage Flexion 20 Extension 10 Lateral Flexion Left 75 Lateral Flexion Right 75 Comments pain coming back up form flex, when hips SB felt tight on contra side, Ext painful, flex painful on way back up PT-OP-L Special Tests Start: 03/11/23 09:20 Freq: Status: Active Protocol: Document 03/23/23 09:49 BS (Rec: 03/23/23 13:22 BS [id number]) Special Tests Neural Special Tests- Lower Body Sciatic Nerve Tension Test Results positive B Comments L>R with chin tuck & DF Other Special Tests Special Tests Achilles Reflex: normal B Patellar reflex: normal L, diminished R Babinski: normal L, no response R LE Coordination: normal L, impaired R Clonus: absent PT-OP-M Strength Start: 03/11/23 09:20 Freq: Status: Active Protocol: Document 03/17/23 09:48 BS (Rec: 03/17/23 12:31 BS [id number]) Hip Strength Hip Manual Muscle Testing Right Flexion (L2) 3+ Fair+ Extension (S1) 3+ Fair+ Abduction 3 Fair Adduction 3+ Fair+ External Rotation 4- Good- Internal Rotation 4+ Good+ Left Flexion (L2) 4+ Good+ Extension (S1) 4 Good Abduction 4+ Good+ Adduction 4 Good External Rotation 4+ Good+ Internal Rotation 4+ Good+ Knee Strength Knee Manual Muscle Testing Right Flexion (S2) 3+ Fair+ Extension (L3) 4- Good- Left Flexion (S2) 5 Normal Extension (L3) 5 Normal Ankle/Foot Strength Ankle and Foot Manual Muscle Testing Right Dorsiflexion (L4) 4- Good- Left Dorsiflexion (L4) 5 Normal PT-OP-Q Treatments Start: 03/11/23 09:20 Freq: Status: Active Protocol: Document 07/06/23 14:20 AB (Rec: 07/06/23 16:26 AB [id number]) Therapeutic Exercises Supine Exercises Ramón stretch edge of bed Side bilateral Reps/Minutes 60 X2 each LE Comments op LE bent Prone Exercises plank Prone Exercise Name forearm and knees Reps/Minutes [id number] Comments cues for netural TS, glut fac positioning Sidelying Exercises side plank Sidelying Exercise Name trialed off forearm/knees- Hold 3/1 Side bilateral Reps/Minutes 12 seconds each LE Sitting Exercises piriformis stretch Side bilateral Reps/Minutes 60 seconds Comments post manual therapy Standing Exercises step ups Standing Exercise Name hip hinge and trunk control focus Equipment Used 6 inch step without UE use Reps/Minutes X5 X 2 each LE Comments pre and post glute med activation Manual Therapy Treatment Soft Tissue Mobilization hip flexor Body Location at groin bilaterally Mobilization Type Cross-Friction,Rolling Intensity/Depth Moderate Body Position Hooklying Comments prior to MET and stretches glutes Body Location bilateral glutes/piriformis Mobilization Type Cross-Friction,Rolling Intensity/Depth Moderate Body Position Sidelying Comments prior to MET and stretches Manual Techniques MET for right AI left PI and pubic shot gun Body Location SI Body Position Hooklying Reps/Duration 6X6 seconds each Neuro Re-Education Treatment Other Activities seated hip abd with band, glute med activation Reps/Duration one one minute hold Comments light blue level one band, prior to second set of step up step back PT-OP-R Modalities Start: 03/11/23 09:20 Freq: Status: Active Protocol: Document 06/28/23 18:04 [facility] (Rec: 06/28/23 18:11 [facility] [id number]) Hot Pack/Cold Pack Treatment Cold Pack Location LB and R hip Patient Position Hooklying Patient Tolerance Good PT-OP-T Assessment and Plan Start: 03/11/23 09:20 Freq: Status: Active Protocol: Document 07/06/23 14:20 AB (Rec: 07/06/23 16:26 AB [id number]) Physical Therapy Assessment Goals ADLs Short Term Goal (STG) Pt will report dec pain and mobility resitriction with putting on R shoe and sock and be able to complete without using RUE to hold up limb. 05/20-improvign hip mobility and greater ease w/this 07/06/2023 reports donning and doffing socks and shoes are no longer painful since the injection. STG Duration 06/14 Custodial Goal (LTG) Pt will report waking up no more than 1 time during night d/t pain and discomfort in order to allow for inc quality of life and recovery time for body. 05/20-waking d/t pain mult times LTG Duration 07/22 Balance Impairment unable to balance on RLE and 12s on LLE. Short Term Goal (STG) Pt will be able to balance for at least 10s on RLE to show improvement in strength and stability in order to progress toward safe functional mobility. 05/20-now able to for a few sec at a time consistantly STG Duration 06/13 Custodial Goal (LTG) Pt will be able to perform SLS on BLE for >30s in order to demonstrate improved strength and stability through hip and LE and allow for safe participation in daily functional mobility. LTG Duration 07/22 Strength Impairment Significant strength impairments throughout RLE Short Term Goal (STG) Pt will improve all R hip MMT to at least 4/5 to show improvement in LE strength to allow for dec compensations during functional acitvities. 05/20-n/t but improving wt acceptance and LE strength STG Duration 06/03/23 Custodial Goal (LTG) Pt will improve all R hip MMT to 5/5 to show improvement in RLE strength and allow for proper mechanics and dec pain during necessary functional mobility and daily tasks. 05/20-n/t LTG Duration 07/28 Assessment Summary Assessment Vahe reports the back on the left side is more tired, he feels like he did stuff today. Ipsilateral trunk side bend with step up step without UE use back persists. Physical Therapy Plan Frequency and Duration Frequency of Treatment 2x/Week Duration of treatment (weeks) 10 Plan of Care Start Date 05/20/23 Plan of Care End Date 07/29/23 Next Visit Focus/Plan Next Note Type Treatment Note Next Visit Plan Continue plank, TA step ups and progression as tolerated/ glute med activation prior. Manual for R hip flexibility.
--- NOTE | 2023-07-08 13:25 | PT.OTN ---
Current Diagnoses Lumbago with sciatica, right side (07/08/23) Physical Therapy Treatment Note PT-OP-A Visit Information Start: 03/11/23 09:20 Freq: Status: Active Protocol: Document 07/08/23 10:35 [facility] (Rec: 07/08/23 10:56 [facility] [id number]) Out-Patient Physical Therapy Visit Information Visit Information Visit Type Treatment Note Visit Start Time 10:36 Visit Stop Time 11:21 Visit Number 22 Number of UTILITY LINEMAN Visits 0 PT-OP-B Current Condition Start: 03/11/23 09:20 Freq: Status: Active Protocol: Document 03/17/23 09:48 BS (Rec: 03/17/23 12:31 BS [id number]) Current Condition History of Current Condition Current Complaints LBP w/ R radiculopathy History of Current Condition Has referral in to see a neurosurgeon and wants to get second opinion on MRI results. 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 Got out of d/t not being able to keep up with physical requirements. Have done PT on and off over the years. Got MRI in 2018 and showed some slight narrowing at L3-L4 and minor muscle strains. Over last 6 months-1 year, has had few occasions where back spasms more than normal where he tried yoga poses, heat/ice, and massage therapist and always seemed to help. This last time ~4 weeks ago it was so bad and nothing seemed to help. Had pain down leg, knee pain, rucker/ankle pain. Bought new bed that folds to try and help with positioning and sleep. Finally went and saw doc and got on gabapentin which seems to help with pain but makes it so he can't function as well. Doesn' t normally like pain killers at all but got to the point where he needed something. Pain has really impacted life, has 2 kids under 2 and cant lift them or get up off floor well. Changing positions often seems to help with keeping the pain at ease and sitting in a more slouched position. About a year ago radiating pain was more localized to buttock but now goes all down to calf. By end of day body seems to be pretty tired and tight. Usually up 6-8 times throughout night because he is uncomfortable, has been getting worse in past 2-3 years. 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 Has lost ~20lbs in past 4 months. Almost had a fall with brain not thinking the foot was on the floor and having to grab on to someone to not go down. Pain is super variable and flare ups last 3-4 days where he cant get out of bed Treatment Goals Patient/Caregiver Goals Pt would like to focus on learning nerve glides and stretching to help with radiculopathy. Gets shoes and socks on without using hands to lift leg up. PT-OP-C Subjective Start: 03/11/23 09:20 Freq: Status: Active Protocol: Document 07/08/23 10:35 [facility] (Rec: 07/08/23 10:56 [facility] [id number]) OP-PT Subjective Patient Comments Patient Comments Pt reports he feels like he has myesha many exercises right now and feels like . HE feels like R hip and L ankle more of an issue PT-OP-D Balance Start: 03/11/23 09:20 Freq: Status: Active Protocol: Document 07/08/23 10:35 [facility] (Rec: 07/08/23 11:09 [facility] [id number]) Balance Tests Single Limb Standing Single Limb- Right 5 sec w/lat lean Single Limb- Left pain into ankle and calf 23 sec w/sig lat lean PT-OP-G Mobility & Gait Start: 03/11/23 09:20 Freq: Status: Active Protocol: Document 03/17/23 09:48 BS (Rec: 03/17/23 15:56 BS [id number]) OP Gait Assessment Comments Gait Comments dec stance time on RLE PT-OP-J Posture/Palpation/Skin Start: 03/11/23 09:20 Freq: Status: Active Protocol: Document 07/08/23 10:35 [facility] (Rec: 07/08/23 11:07 [facility] [id number]) Posture Evaluation Moses Postural Classification System Lumbar Protective Mechanism Left AP 0 Lumbar Protective Mechanism Right AP 0 Lumbar Protective Mechanism Left PA 5 Lumbar Protective Mechanism Right PA 1 PT-OP-K Range of Motion Start: 03/11/23 09:20 Freq: Status: Active Protocol: Document 03/17/23 09:48 BS (Rec: 03/17/23 12:31 BS [id number]) Lumbar Spine Range of Motion Lumbar Spine Active Percentage Flexion 20 Extension 10 Lateral Flexion Left 75 Lateral Flexion Right 75 Comments pain coming back up form flex, when hips SB felt tight on contra side, Ext painful, flex painful on way back up PT-OP-L Special Tests Start: 03/11/23 09:20 Freq: Status: Active Protocol: Document 03/23/23 09:49 BS (Rec: 03/23/23 13:22 BS [id number]) Special Tests Neural Special Tests- Lower Body Sciatic Nerve Tension Test Results positive B Comments L>R with chin tuck & DF Other Special Tests Special Tests Achilles Reflex: normal B Patellar reflex: normal L, diminished R Babinski: normal L, no response R LE Coordination: normal L, impaired R Clonus: absent PT-OP-M Strength Start: 03/11/23 09:20 Freq: Status: Active Protocol: Document 07/08/23 10:35 [facility] (Rec: 07/08/23 11:07 [facility] [id number]) Hip Strength Hip Manual Muscle Testing Right Flexion (L2) 4+ Good+ Extension (S1) 3+ Fair+ Abduction 4- Good- Adduction 4 Good External Rotation 4 Good Internal Rotation 5 Normal Left Flexion (L2) 4+ Good+ Extension (S1) 3 Fair Abduction 5 Normal Adduction 4 Good External Rotation 5 Normal Internal Rotation 5 Normal Knee Strength Knee Manual Muscle Testing Right Flexion (S2) 5 Normal Extension (L3) 5 Normal Left Flexion (S2) 5 Normal Extension (L3) 5 Normal Ankle/Foot Strength Ankle and Foot Manual Muscle Testing Right Dorsiflexion (L4) 4- Good- Inversion 5 Normal Eversion (S1) 5 Normal Comments knee to wall 4.5 in B ; 3 heel raises Left Dorsiflexion (L4) 5 Normal Inversion 4- Good- Eversion (S1) 5 Normal Comments 10 heel raises -discomfort PT-OP-Q Treatments Start: 03/11/23 09:20 Freq: Status: Active Protocol: Document 07/08/23 10:35 [facility] (Rec: 07/08/23 12:21 [facility] [id number]) Therapeutic Exercises Prone Exercises plank Prone Exercise Name forearm and knees w/ progression to alt hip ext Reps/Minutes 5 min total Comments cues for netural TS, and lumbar position Standing Exercises squat Side bilateral Reps/Minutes 2x10 Comments cues for foot position, neck position, back position and knee position stretch Standing Exercise Name hip flexor Side bilateral Reps/Minutes 1 min ea Other Exercises AROM Other Exercise Name B ankles standinga nd sitting Side bilateral isometrics Other Exercise Name MMT BLEs, LPM all planes Side bilateral Self-Care/Home Management Treatment Education Other Education 15 min: discussion of progress and plan for further therapy. Discussed progression back towards gym and work out program and cont PT to focus on this in order to avoid him injuring himself if he tries to progress himself. Edu to pt re: going slow to build back. PT-OP-R Modalities Start: 03/11/23 09:20 Freq: Status: Active Protocol: Document 06/28/23 18:04 [facility] (Rec: 06/28/23 18:11 [facility] [id number]) Hot Pack/Cold Pack Treatment Cold Pack Location LB and R hip Patient Position Hooklying Patient Tolerance Good PT-OP-T Assessment and Plan Start: 03/11/23 09:20 Freq: Status: Active Protocol: Document 07/08/23 10:35 [facility] (Rec: 07/08/23 10:56 [facility] [id number]) Physical Therapy Assessment Goals mobility Impairment R positive neri test ; lacking 40 deg to knee ext for HS stretch L; R lacking 52 deg to knee ext Prison Goal (LTG) Pt will have WNL neri test on R and B lacking 30 deg knee ext for HS stretch to dec pull on pelvis and allow improved mobility for tasks like kayaking. LTG Duration 09/15 activity Prison Goal (LTG) Pt will be able to return to light running, hiking, hike and carry kids, walk up/down hills and be able to kayak ( sit on top) to fish. LTG Duration 09/15 ADLs Short Term Goal (STG) Pt will report dec pain and mobility resitriction with putting on R shoe and sock and be able to complete without using RUE to hold up limb. 05/20-improvign hip mobility and greater ease w/this 07/06/2023 reports donning and doffing socks and shoes are no longer painful since the injection. STG Duration achieved 3/7 Shoe Worker Goal (LTG) Pt will report waking up no more than 1 time during night d/t pain and discomfort in order to allow for inc quality of life and recovery time for body. 05/20-waking d/t pain mult times 3/7-2x/night LTG Duration 09/15 Balance Impairment unable to balance on RLE and 12s on LLE. Short Term Goal (STG) Pt will be able to balance for at least 10s on RLE to show improvement in strength and stability in order to progress toward safe functional mobility. 05/20-now able to for a few sec at a time consistantly 3/7-5 sec consistently; improved on L STG Duration 08/11 Shoe Worker Goal (LTG) Pt will be able to perform SLS on BLE for >30s in order to demonstrate improved strength and stability through hip and LE and allow for safe participation in daily functional mobility. LTG Duration 09/15 Strength Impairment Significant strength impairments throughout RLE Short Term Goal (STG) Pt will improve all R hip MMT to at least 4/5 to show improvement in LE strength to allow for dec compensations during functional acitvities. 05/20-n/t but improving wt acceptance and LE strength STG Duration 06/03/23 Shoe Worker Goal (LTG) Pt will improve all R hip MMT to 5/5 to show improvement in RLE strength and allow for proper mechanics and dec pain during necessary functional mobility and daily tasks. 05/20-n/t LTG Duration 09/15 Assessment Summary Assessment Pt is making good progress w/ PT at this time and has progressed to further with typical ADLs, and is experiencing less pain. He does still have R hip pain likely associated w/back pain along w/inc in L ankle pain w/ inc in activity which does affect his gait. He does have significant scar tissue from prior surgery that limits his ability to do heel raise needed for push off. Pt will require treatment manual to improve alignment of BLEs from hips to feet along w/lumbar mobility. He still demonstrates dec core stability and will require further work on this and progression more towards active lifestyle. He would benefit from skilled PT to work towards indep w/gym program and return to sports/ active hobbies. HEP today: SLS , squats, planks, hip flexor stretch added to his typical stretches (figure 4, HS shower stretch). Physical Therapy Plan Frequency and Duration Frequency of Treatment 1x/Week Duration of treatment (weeks) 10 Plan of Care Start Date 07/08/23 Plan of Care End Date 09/16/23 Therapeutic Interventions Therapeutic Interventions Balance Training,Coordination Training,Gait Training,Home Exercise Program,Joint Mobilizations,Manual Therapy, Neuromuscular Re-education, Patient/Caregiver Education, Self-Care/Home Management,Soft Tissue Mobilization,Taping, Therapeutic Activities, Therapeutic Exercises Modalities Cold Pack/Ice Massage,Electric Stimulation,Hot Packs, Infrared Therapy,Traction- Mechanical,Ultrasound Next Visit Focus/Plan Next Note Type Treatment Note Next Visit Plan Slowly advance towards hiking, r unning etc and gym progam, limit exercise for pt compliance; work on L ankle mobility to improve gait mechanics
--- NOTE | 2023-07-08 13:25 | PT.OPPOC ---
Physical, Occupational & Speech Therapy At [facility] Current Diagnoses Lumbago with sciatica, right side (07/08/23) Visit Care Team Role Provider Type Rick Rausch MD Attending Provider Physician Family Provider Primary Care Provider Referring Provider Specialty: Family Practice Address: [address] [place] [address], [facility] Email: [email or web address] Plan Of Care PT-OP-T Assessment and Plan Start: 03/11/23 09:20 Freq: Status: Active Protocol: Document 07/08/23 10:35 [facility] (Rec: 07/08/23 10:56 [facility] [id number]) Physical Therapy Assessment Goals mobility Impairment R positive neri test ; lacking 40 deg to knee ext for HS stretch L; R lacking 52 deg to knee ext [employer] Engineer Goal (LTG) Pt will have WNL neri test on R and B lacking 30 deg knee ext for HS stretch to dec pull on pelvis and allow improved mobility for tasks like kayaking. LTG Duration 09/15 activity [employer] Engineer Goal (LTG) Pt will be able to return to light running, hiking, hike and carry kids, walk up/down hills and be able to kayak ( sit on top) to fish. LTG Duration 09/15 ADLs Short Term Goal (STG) Pt will report dec pain and mobility resitriction with putting on R shoe and sock and be able to complete without using RUE to hold up limb. 05/20-improvign hip mobility and greater ease w/this 07/06/2023 reports donning and doffing socks and shoes are no longer painful since the injection. STG Duration achieved 07/07 Detention Goal (LTG) Pt will report waking up no more than 1 time during night d/t pain and discomfort in order to allow for inc quality of life and recovery time for body. 05/20-waking d/t pain mult times 07/07-2x/night LTG Duration 09/15 Balance Impairment unable to balance on RLE and 12s on LLE. Short Term Goal (STG) Pt will be able to balance for at least 10s on RLE to show improvement in strength and stability in order to progress toward safe functional mobility. 05/20-now able to for a few sec at a time consistantly 3/7-5 sec consistently; improved on L STG Duration 08/11 Detention Goal (LTG) Pt will be able to perform SLS on BLE for >30s in order to demonstrate improved strength and stability through hip and LE and allow for safe participation in daily functional mobility. LTG Duration 09/15 Strength Impairment Significant strength impairments throughout RLE Short Term Goal (STG) Pt will improve all R hip MMT to at least 4/5 to show improvement in LE strength to allow for dec compensations during functional acitvities. 05/20-n/t but improving wt acceptance and LE strength STG Duration 06/03/23 Detention Goal (LTG) Pt will improve all R hip MMT to 5/5 to show improvement in RLE strength and allow for proper mechanics and dec pain during necessary functional mobility and daily tasks. 05/20-n/t LTG Duration 09/15 Assessment Summary Assessment Pt is making good progress w/ PT at this time and has progressed to further with typical ADLs, and is experiencing less pain. He does still have R hip pain likely associated w/back pain along w/inc in L ankle pain w/ inc in activity which does affect his gait. He does have significant scar tissue from prior surgery that limits his ability to do heel raise needed for push off. Pt will require treatment manual to improve alignment of BLEs from hips to feet along w/lumbar mobility. He still demonstrates dec core stability and will require further work on this and progression more towards active lifestyle. He would benefit from skilled PT to work towards indep w/gym program and return to sports/ active hobbies. HEP today: SLS , squats, planks, hip flexor stretch added to his typical stretches (figure 4, HS shower stretch). Physical Therapy Plan Frequency and Duration Frequency of Treatment 1x/Week Duration of treatment (weeks) 10 Plan of Care Start Date 07/08/23 Plan of Care End Date 09/16/23 Therapeutic Interventions Therapeutic Interventions Balance Training,Coordination Training,Gait Training,Home Exercise Program,Joint Mobilizations,Manual Therapy, Neuromuscular Re-education, Patient/Caregiver Education, Self-Care/Home Management,Soft Tissue Mobilization,Taping, Therapeutic Activities, Therapeutic Exercises Modalities Cold Pack/Ice Massage,Electric Stimulation,Hot Packs, Infrared Therapy,Traction- Mechanical,Ultrasound Next Visit Focus/Plan Next Note Type Treatment Note Next Visit Plan Slowly advance towards hiking, r unning etc and gym progam, limit exercise for pt compliance; work on L ankle mobility to improve gait mechanics Plan of Care Dates Plan of Care Start Date 07/08/23 Plan of Care End Date 09/16/23 Electronically Signed by: Gayle Desai, PT 07/08/23 [id number] If you are in agreement with this Plan of Care, please return a signed and dated copy. I have reviewed this Plan of Care and certify that the skilled therapy services above are required to meet the patient?s needs. Physician Signature Date Printed Name and Credentials Clinical Instructor Signature Printed Name and Credentials
--- NOTE | 2023-07-13 16:45 | PT.OTN ---
Current Diagnoses Lumbago with sciatica, right side (07/13/23) Physical Therapy Treatment Note PT-OP-A Visit Information Start: 03/11/23 09:20 Freq: Status: Active Protocol: Document 07/13/23 11:11 AB (Rec: 07/13/23 16:45 AB [id number]) Out-Patient Physical Therapy Visit Information Visit Information Visit Type Treatment Note Visit Note Code: [id number] Visit Start Time 14:31 Visit Stop Time 15:15 Visit Number 23 Number of EXTRUSION FORMER Visits 1 PT-OP-B Current Condition Start: 03/11/23 09:20 Freq: Status: Active Protocol: Document 03/17/23 09:48 BS (Rec: 03/17/23 12:31 BS [id number]) Current Condition History of Current Condition Current Complaints LBP w/ R radiculopathy History of Current Condition Has referral in to see a neurosurgeon and wants to get second opinion on MRI results. 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 Got out of d/t not being able to keep up with physical requirements. Have done PT on and off over the years. Got MRI in 2018 and showed some slight narrowing at L3-L4 and minor muscle strains. Over last 6 months-1 year, has had few occasions where back spasms more than normal where he tried yoga poses, heat/ice, and massage therapist and always seemed to help. This last time ~4 weeks ago it was so bad and nothing seemed to help. Had pain down leg, knee pain, rucker/ankle pain. Bought new bed that folds to try and help with positioning and sleep. Finally went and saw doc and got on gabapentin which seems to help with pain but makes it so he can't function as well. Doesn' t normally like pain killers at all but got to the point where he needed something. Pain has really impacted life, has 2 kids under 2 and cant lift them or get up off floor well. Changing positions often seems to help with keeping the pain at ease and sitting in a more slouched position. About a year ago radiating pain was more localized to buttock but now goes all down to calf. By end of day body seems to be pretty tired and tight. Usually up 6-8 times throughout night because he is uncomfortable, has been getting worse in past 2-3 years. 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 Has lost ~20lbs in past 4 months. Almost had a fall with brain not thinking the foot was on the floor and having to grab on to someone to not go down. Pain is super variable and flare ups last 3-4 days where he cant get out of bed Treatment Goals Patient/Caregiver Goals Pt would like to focus on learning nerve glides and stretching to help with radiculopathy. Gets shoes and socks on without using hands to lift leg up. PT-OP-C Subjective Start: 03/11/23 09:20 Freq: Status: Active Protocol: Document 07/13/23 11:11 AB (Rec: 07/13/23 16:45 AB [id number]) OP-PT Subjective Patient Comments Patient Comments Vahe report the back is better, but it feels like he is starting to shift at the pelvis. PT-OP-D Balance Start: 03/11/23 09:20 Freq: Status: Active Protocol: Document 07/08/23 10:35 [facility] (Rec: 07/08/23 11:09 [facility] [id number]) Balance Tests Single Limb Standing Single Limb- Right 5 sec w/lat lean Single Limb- Left pain into ankle and calf 23 sec w/sig lat lean PT-OP-G Mobility & Gait Start: 03/11/23 09:20 Freq: Status: Active Protocol: Document 03/17/23 09:48 BS (Rec: 03/17/23 15:56 BS [id number]) OP Gait Assessment Comments Gait Comments dec stance time on RLE PT-OP-J Posture/Palpation/Skin Start: 03/11/23 09:20 Freq: Status: Active Protocol: Document 07/08/23 10:35 [facility] (Rec: 07/08/23 11:07 [facility] [id number]) Posture Evaluation Moses Postural Classification System Lumbar Protective Mechanism Left AP 0 Lumbar Protective Mechanism Right AP 0 Lumbar Protective Mechanism Left PA 5 Lumbar Protective Mechanism Right PA 1 PT-OP-K Range of Motion Start: 03/11/23 09:20 Freq: Status: Active Protocol: Document 03/17/23 09:48 BS (Rec: 03/17/23 12:31 BS [id number]) Lumbar Spine Range of Motion Lumbar Spine Active Percentage Flexion 20 Extension 10 Lateral Flexion Left 75 Lateral Flexion Right 75 Comments pain coming back up form flex, when hips SB felt tight on contra side, Ext painful, flex painful on way back up PT-OP-L Special Tests Start: 03/11/23 09:20 Freq: Status: Active Protocol: Document 03/23/23 09:49 BS (Rec: 03/23/23 13:22 BS [id number]) Special Tests Neural Special Tests- Lower Body Sciatic Nerve Tension Test Results positive B Comments L>R with chin tuck & DF Other Special Tests Special Tests Achilles Reflex: normal B Patellar reflex: normal L, diminished R Babinski: normal L, no response R LE Coordination: normal L, impaired R Clonus: absent PT-OP-M Strength Start: 03/11/23 09:20 Freq: Status: Active Protocol: Document 07/08/23 10:35 [facility] (Rec: 07/08/23 11:07 [facility] [id number]) Hip Strength Hip Manual Muscle Testing Right Flexion (L2) 4+ Good+ Extension (S1) 3+ Fair+ Abduction 4- Good- Adduction 4 Good External Rotation 4 Good Internal Rotation 5 Normal Left Flexion (L2) 4+ Good+ Extension (S1) 3 Fair Abduction 5 Normal Adduction 4 Good External Rotation 5 Normal Internal Rotation 5 Normal Knee Strength Knee Manual Muscle Testing Right Flexion (S2) 5 Normal Extension (L3) 5 Normal Left Flexion (S2) 5 Normal Extension (L3) 5 Normal Ankle/Foot Strength Ankle and Foot Manual Muscle Testing Right Dorsiflexion (L4) 4- Good- Inversion 5 Normal Eversion (S1) 5 Normal Comments knee to wall 4.5 in B ; 3 heel raises Left Dorsiflexion (L4) 5 Normal Inversion 4- Good- Eversion (S1) 5 Normal Comments 10 heel raises -discomfort PT-OP-Q Treatments Start: 03/11/23 09:20 Freq: Status: Active Protocol: Document 07/13/23 11:11 AB (Rec: 07/13/23 16:45 AB [id number]) Therapeutic Exercises Sitting Exercises AROM DF Reps/Minutes X12X 2 Comments Patient ed to perform post calf stretches Standing Exercises calf stretches on step Side bilateral Reps/Minutes 60 seconds knees bent 60 seconds straight X 2 Comments Verbal cues for LE position and length of hold squat Standing Exercise Name mini squat post calf stretches Side bilateral Reps/Minutes 2X5 Manual Therapy Treatment Soft Tissue Mobilization left ankle Body Location scar tissue, Talocrural area, plantar surface of foot Mobilization Type Cross-Friction,Rolling Intensity/Depth Moderate Body Position Hooklying Comments elmer for pain hip flexor Body Location at groin bilaterally Mobilization Type Cross-Friction,Rolling Intensity/Depth Moderate Body Position Hooklying Comments prior to MET and stretches glutes Body Location right glutes/piriformis Mobilization Type Cross-Friction,Rolling Intensity/Depth Moderate Body Position Sidelying Comments prior to MET and stretches Manual Techniques PROM DF Type left ankle Body Position Hooklying Reps/Duration X5 Comments post STM MET for right AI left PI and pubic shot gun Body Location SI Body Position Hooklying Reps/Duration 6X6 seconds each PT-OP-R Modalities Start: 03/11/23 09:20 Freq: Status: Active Protocol: Document 06/28/23 18:04 [facility] (Rec: 06/28/23 18:11 [facility] [id number]) Hot Pack/Cold Pack Treatment Cold Pack Location LB and R hip Patient Position Hooklying Patient Tolerance Good PT-OP-T Assessment and Plan Start: 03/11/23 09:20 Freq: Status: Active Protocol: Document 07/13/23 11:11 AB (Rec: 07/13/23 16:45 AB [id number]) Physical Therapy Assessment Goals mobility Impairment R positive neri test ; lacking 40 deg to knee ext for HS stretch L; R lacking 52 deg to knee ext [employer] Goal (LTG) Pt will have WNL neri test on R and B lacking 30 deg knee ext for HS stretch to dec pull on pelvis and allow improved mobility for tasks like kayaking. LTG Duration 5/16 activity [employer] Goal (LTG) Pt will be able to return to light running, hiking, hike and carry kids, walk up/down hills and be able to kayak ( sit on top) to fish. LTG Duration 516 ADLs Short Term Goal (STG) Pt will report dec pain and mobility resitriction with putting on R shoe and sock and be able to complete without using RUE to hold up limb. 05/20-improvign hip mobility and greater ease w/this 07/06/2023 reports donning and doffing socks and shoes are no longer painful since the injection. STG Duration achieved 07/07 [employer] Goal (LTG) Pt will report waking up no more than 1 time during night d/t pain and discomfort in order to allow for inc quality of life and recovery time for body. 05/20-waking d/t pain mult times 07/07-2x/night LTG Duration 09/15 Balance Impairment unable to balance on RLE and 12s on LLE. Short Term Goal (STG) Pt will be able to balance for at least 10s on RLE to show improvement in strength and stability in order to progress toward safe functional mobility. 05/20-now able to for a few sec at a time consistantly 07/07-5 sec consistently; improved on L STG Duration 08/11 Retirement Goal (LTG) Pt will be able to perform SLS on BLE for >30s in order to demonstrate improved strength and stability through hip and LE and allow for safe participation in daily functional mobility. LTG Duration 09/15 Strength Impairment Significant strength impairments throughout RLE Short Term Goal (STG) Pt will improve all R hip MMT to at least 4/5 to show improvement in LE strength to allow for dec compensations during functional acitvities. 05/20-n/t but improving wt acceptance and LE strength STG Duration 06/03/23 [employer] Goal (LTG) Pt will improve all R hip MMT to 5/5 to show improvement in RLE strength and allow for proper mechanics and dec pain during necessary functional mobility and daily tasks. 05/20-n/t LTG Duration 09/15 Assessment Summary Assessment Vahe report calf feels looser end of session. Physical Therapy Plan Frequency and Duration Frequency of Treatment 1x/Week Duration of treatment (weeks) 10 Plan of Care Start Date 07/08/23 Plan of Care End Date 09/16/23 Next Visit Focus/Plan Next Note Type Treatment Note Next Visit Plan IASTM to calf during heel raise, add band to mini squat Slowly advance towards hiking, r unning etc and gym progam, limit exercise for pt compliance; work on L ankle mobility to improve gait
--- NOTE | 2023-07-27 12:32 | PT-OP ANOTE ---
Pt was seen in ED 07/17. Left voicemail for pt re: PT appt change from 1300 w/ MERCHAND[facility] to 1430 w/ evaluating PT, and to contact [facility] at [phone] if unable to make this appt.
--- NOTE | 2023-07-27 16:25 | PT.OTRE ---
Current Diagnoses Lumbago with sciatica, right side (07/27/23) Past Medical History (Last Updated 07/22/23 @ 14:08 by Rick Rausch MD) Ankle pain (~2013) Chicken pox (~1988) Chronic back pain (~2016) Epidural lipomatosis Family history of early CAD Flat feet, bilateral Foot pain (~2013) Hyperglycemia Hyperlipidemia Hypertension (~2018) Impaired vision Left ankle pain Low back pain with right-sided sciatica Lumbar radiculopathy Myofascial pain Peroneal tendinitis, left leg PTSD (post-traumatic stress disorder) (~2018) Surgical History (Last Reviewed 07/18/23 @ 00:19 by Na Peck MD) Anesthesia History of ankle surgery (~2000) History of tonsillectomy (~1985) Visit Care Team Role Provider Type Rick Rausch MD Attending Provider Physician Family Provider Primary Care Provider Referring Provider Specialty: [facility] Practice Address: [address] [place] [address] Email: [email or web address] Physical Therapy Re-Evaluation PT-OP-A Visit Information Start: 03/11/23 09:20 Freq: Status: Active Protocol: Document 07/27/23 14:41 [facility] (Rec: 07/27/23 15:24 [facility] [id number]) Out-Patient Physical Therapy Visit Information Visit Information Visit Type Re-Evaluation Visit Note Code: [id number] Visit Start Time 14:36 Visit Stop Time 15:20 Visit Number 24 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 Got out of d/t not being able to keep up with physical requirements. Have done PT on and off over the years. Got MRI in 2018 and showed some slight narrowing at L3-L4 and minor muscle strains. Over last 6 months-1 year, has had few occasions where back spasms more than normal where he tried yoga poses, heat/ice, and massage therapist and always seemed to help. This last time ~4 weeks ago it was so bad and nothing seemed to help. Had pain down leg, knee pain, rucker/ankle pain. Bought new bed that folds to try and help with positioning and sleep. Finally went and saw doc and got on gabapentin which seems to help with pain but makes it so he can't function as well. Doesn' t normally like pain killers at all but got to the point where he needed something. Pain has really impacted life, has 2 kids under 2 and cant lift them or get up off floor well. Changing positions often seems to help with keeping the pain at ease and sitting in a more slouched position. About a year ago radiating pain was more localized to buttock but now goes all down to calf. By end of day body seems to be pretty tired and tight. Usually up 6-8 times throughout night because he is uncomfortable, has been getting worse in past 2-3 years. 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 Has lost ~20lbs in past 4 months. Almost had a fall with brain not thinking the foot was on the floor and having to grab on to someone to not go down. Pain is super variable and flare ups last 3-4 days where he cant get out of bed Treatment Goals Patient/Caregiver Goals Pt would like to focus on learning nerve glides and stretching to help with radiculopathy. Gets shoes and socks on without using hands to lift leg up. PT-OP-C Subjective Start: 03/11/23 09:20 Freq: Status: Active Protocol: Document 07/27/23 14:41 [facility] (Rec: 07/27/23 15:24 [facility] [id number]) OP-PT Subjective Patient Comments Patient Comments Pt got Covid Sars 1 and didn't drink a lot and took diuretic and in shower felt like he was loosing his vision and sat down and found him and had to do CPR (july 16). Pt went to ER and has been resting reports pain is better . He has been climbing scaffolding and ladder at work and picking up kids again. He has not been drinking, taking any meds and is noticing less pain just weaknss in back. He is waking up w/no pain. He has been more active since he has been feeling better and got new shoes which he feels like it is helping. He was able to go to the park with kids and on his feet for 3 hours and did well. he is noticing that he moves his back too much and feels limited in hips. PT-OP-D Balance Start: 03/11/23 09:20 Freq: Status: Active Protocol: Document 07/08/23 10:35 [facility] (Rec: 07/08/23 11:09 [facility] [id number]) Balance Tests Single Limb Standing Single Limb- Right 5 sec w/lat lean Single Limb- Left pain into ankle and calf 23 sec w/sig lat lean PT-OP-G Mobility & Gait Start: 03/11/23 09:20 Freq: Status: Active Protocol: Document 03/17/23 09:48 BS (Rec: 03/17/23 15:56 BS [id number]) OP Gait Assessment Comments Gait Comments dec stance time on RLE PT-OP-J Posture/Palpation/Skin Start: 03/11/23 09:20 Freq: Status: Active Protocol: Document 07/27/23 14:41 [facility] (Rec: 07/27/23 15:24 [facility] [id number]) Posture Evaluation Mosse Postural Classification System Vertebral Compression Test 3 Elbow Flexion Test 4 Lumbar Protective Mechanism Left AP 2 Lumbar Protective Mechanism Right AP 2 Lumbar Protective Mechanism Left PA 4 Lumbar Protective Mechanism Right PA 3 Comments Posture Comments pain w/VCT PT-OP-K Range of Motion Start: 03/11/23 09:20 Freq: Status: Active Protocol: Document 03/17/23 09:48 BS (Rec: 03/17/23 12:31 BS [id number]) Lumbar Spine Range of Motion Lumbar Spine Active Percentage Flexion 20 Extension 10 Lateral Flexion Left 75 Lateral Flexion Right 75 Comments pain coming back up form flex, when hips SB felt tight on contra side, Ext painful, flex painful on way back up PT-OP-L Special Tests Start: 03/11/23 09:20 Freq: Status: Active Protocol: Document 03/23/23 09:49 BS (Rec: 03/23/23 13:22 BS [id number]) Special Tests Neural Special Tests- Lower Body Sciatic Nerve Tension Test Results positive B Comments L>R with chin tuck & DF Other Special Tests Special Tests Achilles Reflex: normal B Patellar reflex: normal L, diminished R Babinski: normal L, no response R LE Coordination: normal L, impaired R Clonus: absent PT-OP-M Strength Start: 03/11/23 09:20 Freq: Status: Active Protocol: Document 07/27/23 14:41 [facility] (Rec: 07/27/23 15:24 [facility] [id number]) Hip Strength Hip Manual Muscle Testing Right Flexion (L2) 4+ Good+ Extension (S1) 4 Good Abduction 4 Good Adduction 5 Normal External Rotation 5 Normal Internal Rotation 5 Normal Left Flexion (L2) 4+ Good+ Extension (S1) 4 Good Abduction 5 Normal Adduction 4 Good External Rotation 5 Normal Internal Rotation 5 Normal Knee Strength Knee Manual Muscle Testing Right Flexion (S2) 5 Normal Extension (L3) 4- Good- Comments knee pain w/ext Left Flexion (S2) 5 Normal Extension (L3) 4- Good- Ankle/Foot Strength Ankle and Foot Manual Muscle Testing Right Dorsiflexion (L4) 5 Normal Plantarflexion (S1) 3+ Fair+ Inversion 5 Normal Eversion (S1) 5 Normal Comments 3 heel raises Left Dorsiflexion (L4) 5 Normal Plantarflexion (S1) 3+ Fair+ Inversion 4- Good- Eversion (S1) 5 Normal Comments 6 heel raises -discomfort PT-OP-Q Treatments Start: 03/11/23 09:20 Freq: Status: Active Protocol: Document 07/27/23 14:41 [facility] (Rec: 07/27/23 15:24 [facility] [id number]) Therapeutic Exercises Sitting Exercises hip hinge Sitting Exercise Name dowel on back Side bilateral Reps/Minutes 15 Comments progressed to 10 reps pt coming up w/o holding dowel Standing Exercises hip hinge Standing Exercise Name dowel on back Side bilateral Reps/Minutes 15 squat Standing Exercise Name wall squat w/ball Side bilateral Reps/Minutes 10 Comments cues for glutes Other Exercises isometrics Other Exercise Name MMT BLEs, LPM all planes Side bilateral Self-Care/Home Management Treatment Education Other Education 12 min: discussion w/pt re: trying biking, deep water running, elliptical at gym, discussed w/pt focus w/PT to work on strength and return to gym PT-OP-R Modalities Start: 03/11/23 09:20 Freq: Status: Active Protocol: Document 06/28/23 18:04 [facility] (Rec: 06/28/23 18:11 [facility] [id number]) Hot Pack/Cold Pack Treatment Cold Pack Location LB and R hip Patient Position Hooklying Patient Tolerance Good PT-OP-T Assessment and Plan Start: 03/11/23 09:20 Freq: Status: Active Protocol: Document 07/27/23 14:41 [facility] (Rec: 07/27/23 15:24 [facility] [id number]) Physical Therapy Assessment Goals mobility Impairment R positive neri test ; lacking 40 deg to knee ext for HS stretch L; R lacking 52 deg to knee ext Asset Protection Manager Goal (LTG) Pt will have WNL neri test on R and B lacking 30 deg knee ext for HS stretch to dec pull on pelvis and allow improved mobility for tasks like kayaking. LTG Duration 6/2 activity Asset Protection Manager Goal (LTG) Pt will be able to return to light running, hiking, hike and carry kids, walk up/down hills and be able to kayak ( sit on top) to fish. LTG Duration 6/4 ADLs Short Term Goal (STG) Pt will report dec pain and mobility resitriction with putting on R shoe and sock and be able to complete without using RUE to hold up limb. 05/20-improvign hip mobility and greater ease w/this 07/06/2023 reports donning and doffing socks and shoes are no longer painful since the injection. STG Duration achieved 07/07 Alf Goal (LTG) Pt will report waking up no more than 1 time during night d/t pain and discomfort in order to allow for inc quality of life and recovery time for body. 05/20-waking d/t pain mult times 07/07-2x/night LTG Duration achieved 07/26 Balance Impairment unable to balance on RLE and 12s on LLE. Short Term Goal (STG) Pt will be able to balance for at least 10s on RLE to show improvement in strength and stability in order to progress toward safe functional mobility. 05/20-now able to for a few sec at a time consistantly 3/7-5 sec consistently; improved on L 07/26-23 sec L; R 19 sec STG Duration achieved 07/26 Asset Protection Manager Goal (LTG) Pt will be able to perform SLS on BLE for >30s in order to demonstrate improved strength and stability through hip and LE and allow for safe participation in daily functional mobility. 07/26-23 sec L; R 19 sec LTG Duration 6 Strength Impairment Significant strength impairments throughout RLE Short Term Goal (STG) Pt will improve all R hip MMT to at least 4/5 to show improvement in LE strength to allow for dec compensations during functional acitvities. 05/20-n/t but improving wt acceptance and LE strength STG Duration achieved 07/26 Asset Protection Manager Goal (LTG) Pt will improve all R hip MMT to 5/5 to show improvement in RLE strength and allow for proper mechanics and dec pain during necessary functional mobility and daily tasks. 05/20-n/t LTG Duration 10/04 Assessment Summary Assessment Pt has improved symptoms since syncope episode about 10 days ago with after rest d/t sickness, inc recent activity w/less pain symptoms in LB and throughout body but has been workign to eat healthier and dec alcohol which is likely helping. With the dec in pain, pt is showing much improved strength and balance and reporting inc functional mobility w/still limit w/ active tasks like gym tasks and heavier activity which he still hasn't returned to d/t tension inc w/lower level tasks. He would benefit from skilled PT to work on progression to full rec actviity. Physical Therapy Plan Frequency and Duration Frequency of Treatment 1x/Week Duration of treatment (weeks) 10 Plan of Care Start Date 07/27/23 Plan of Care End Date 10/05/23 Therapeutic Interventions Therapeutic Interventions Balance Training,Coordination Training,Gait Training,Home Exercise Program,Joint Mobilizations,Manual Therapy, Neuromuscular Re-education, Patient/Caregiver Education, Self-Care/Home Management,Soft Tissue Mobilization,Taping, Therapeutic Activities, Therapeutic Exercises Modalities Cold Pack/Ice Massage,Electric Stimulation,Hot Packs, Infrared Therapy,Traction- Mechanical,Ultrasound Next Visit Focus/Plan Next Note Type Treatment Note Next Visit Plan Slowly advance towards hiking, r unning etc and gym progam, limit exercise for pt compliance; work on L ankle mobility to improve gait
--- NOTE | 2023-07-27 16:25 | PT.OPPOC ---
Physical, Occupational & Speech Therapy At Current Diagnoses Lumbago with sciatica, right side (07/27/23) Visit Care Team Role Provider Type Rick Rausch MD Attending Provider Physician Family Provider Primary Care Provider Referring Provider Specialty: Family Practice Address: [address] [place] [address], [facility] Email: [email or web address] Plan Of Care PT-OP-T Assessment and Plan Start: 03/11/23 09:20 Freq: Status: Active Protocol: Document 07/27/23 14:41 [facility] (Rec: 07/27/23 15:24 [facility] [id number]) Physical Therapy Assessment Goals mobility Impairment R positive neri test ; lacking 40 deg to knee ext for HS stretch L; R lacking 52 deg to knee ext Lens Molder Goal (LTG) Pt will have WNL neri test on R and B lacking 30 deg knee ext for HS stretch to dec pull on pelvis and allow improved mobility for tasks like kayaking. LTG Duration 6/2 activity Lens Molder Goal (LTG) Pt will be able to return to light running, hiking, hike and carry kids, walk up/down hills and be able to kayak ( sit on top) to fish. LTG Duration 6/4 ADLs Short Term Goal (STG) Pt will report dec pain and mobility resitriction with putting on R shoe and sock and be able to complete without using RUE to hold up limb. 05/20-improvign hip mobility and greater ease w/this 07/06/2023 reports donning and doffing socks and shoes are no longer painful since the injection. STG Duration achieved 07/07 Lens Molder Goal (LTG) Pt will report waking up no more than 1 time during night d/t pain and discomfort in order to allow for inc quality of life and recovery time for body. 05/20-waking d/t pain mult times 07/07-2x/night LTG Duration achieved 07/26 Balance Impairment unable to balance on RLE and 12s on LLE. Short Term Goal (STG) Pt will be able to balance for at least 10s on RLE to show improvement in strength and stability in order to progress toward safe functional mobility. 05/20-now able to for a few sec at a time consistantly 3/7-5 sec consistently; improved on L 07/26-23 sec L; R 19 sec STG Duration achieved 07/26 Usp Goal (LTG) Pt will be able to perform SLS on BLE for >30s in order to demonstrate improved strength and stability through hip and LE and allow for safe participation in daily functional mobility. 07/26-23 sec L; R 19 sec LTG Duration 10/04 Strength Impairment Significant strength impairments throughout RLE Short Term Goal (STG) Pt will improve all R hip MMT to at least 4/5 to show improvement in LE strength to allow for dec compensations during functional acitvities. 05/20-n/t but improving wt acceptance and LE strength STG Duration achieved 07/26 Usp Goal (LTG) Pt will improve all R hip MMT to 5/5 to show improvement in RLE strength and allow for proper mechanics and dec pain during necessary functional mobility and daily tasks. 05/20-n/t LTG Duration 10/04 Assessment Summary Assessment Pt has improved symptoms since syncope episode about 10 days ago with after rest d/t sickness, inc recent activity w/less pain symptoms in LB and throughout body but has been workign to eat healthier and dec alcohol which is likely helping. With the dec in pain, pt is showing much improved strength and balance and reporting inc functional mobility w/still limit w/ active tasks like gym tasks and heavier activity which he still hasn't returned to d/t tension inc w/lower level tasks. He would benefit from skilled PT to work on progression to full rec actviity. Physical Therapy Plan Frequency and Duration Frequency of Treatment 1x/Week Duration of treatment (weeks) 10 Plan of Care Start Date 07/27/23 Plan of Care End Date 10/05/23 Therapeutic Interventions Therapeutic Interventions Balance Training,Coordination Training,Gait Training,Home Exercise Program,Joint Mobilizations,Manual Therapy, Neuromuscular Re-education, Patient/Caregiver Education, Self-Care/Home Management,Soft Tissue Mobilization,Taping, Therapeutic Activities, Therapeutic Exercises Modalities Cold Pack/Ice Massage,Electric Stimulation,Hot Packs, Infrared Therapy,Traction- Mechanical,Ultrasound Next Visit Focus/Plan Next Note Type Treatment Note Next Visit Plan Slowly advance towards hiking, r unning etc and gym progam, limit exercise for pt compliance; work on L ankle mobility to improve gait Plan of Care Dates Plan of Care Start Date 07/27/23 Plan of Care End Date 10/05/23 Electronically Signed by: Gayle Desai, PT 07/27/23 3443 If you are in agreement with this Plan of Care, please return a signed and dated copy. I have reviewed this Plan of Care and certify that the skilled therapy services above are required to meet the patient?s needs. Physician Signature Date Printed Name and Credentials Clinical Instructor Signature Printed Name and Credentials
--- NOTE | 2023-08-04 17:10 | PT.OTN ---
Current Diagnoses Lumbago with sciatica, right side (08/04/23) Physical Therapy Treatment Note PT-OP-A Visit Information Start: 03/11/23 09:20 Freq: Status: Active Protocol: Document 08/04/23 10:42 NBM (Rec: 08/04/23 12:18 NBM [id number]) Out-Patient Physical Therapy Visit Information Visit Information Visit Type Treatment Note Visit Start Time 10:40 Visit Stop Time 11:20 Visit Number 25 Number of SAS ANALYST Visits 1 PT-OP-B Current Condition Start: 03/11/23 09:20 Freq: Status: Active Protocol: Document 03/17/23 09:48 BS (Rec: 03/17/23 12:31 BS [id number]) Current Condition History of Current Condition Current Complaints LBP w/ R radiculopathy History of Current Condition Has referral in to see a neurosurgeon and wants to get second opinion on MRI results. 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 Got out of d/t not being able to keep up with physical requirements. Have done PT on and off over the years. Got MRI in 2018 and showed some slight narrowing at L3-L4 and minor muscle strains. Over last 6 months-1 year, has had few occasions where back spasms more than normal where he tried yoga poses, heat/ice, and massage therapist and always seemed to help. This last time ~4 weeks ago it was so bad and nothing seemed to help. Had pain down leg, knee pain, rucker/ankle pain. Bought new bed that folds to try and help with positioning and sleep. Finally went and saw doc and got on gabapentin which seems to help with pain but makes it so he can't function as well. Doesn' t normally like pain killers at all but got to the point where he needed something. Pain has really impacted life, has 2 kids under 2 and cant lift them or get up off floor well. Changing positions often seems to help with keeping the pain at ease and sitting in a more slouched position. About a year ago radiating pain was more localized to buttock but now goes all down to calf. By end of day body seems to be pretty tired and tight. Usually up 6-8 times throughout night because he is uncomfortable, has been getting worse in past 2-3 years. 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 Has lost ~20lbs in past 4 months. Almost had a fall with brain not thinking the foot was on the floor and having to grab on to someone to not go down. Pain is super variable and flare ups last 3-4 days where he cant get out of bed Treatment Goals Patient/Caregiver Goals Pt would like to focus on learning nerve glides and stretching to help with radiculopathy. Gets shoes and socks on without using hands to lift leg up. PT-OP-C Subjective Start: 03/11/23 09:20 Freq: Status: Active Protocol: Document 08/04/23 10:42 NBM (Rec: 08/04/23 12:18 NBM [id number]) OP-PT Subjective Patient Comments Patient Comments Vahe reports he has been focusing on stretches, hip hinges, calf raises, and massage gun on calves. Holding in squats. Sleep hasn't been great and toddler didn't sleep well last night. 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 He went for a 2.5 mi walk yesterday. Pt reports no pain currently. PT-OP-D Balance Start: 03/11/23 09:20 Freq: Status: Active Protocol: Document 07/08/23 10:35 LR (Rec: 07/08/23 11:09 [facility] [id number]) Balance Tests Single Limb Standing Single Limb- Right 5 sec w/lat lean Single Limb- Left pain into ankle and calf 23 sec w/sig lat lean PT-OP-G Mobility & Gait Start: 03/11/23 09:20 Freq: Status: Active Protocol: Document 03/17/23 09:48 BS (Rec: 03/17/23 15:56 BS [id number]) OP Gait Assessment Comments Gait Comments dec stance time on RLE PT-OP-J Posture/Palpation/Skin Start: 03/11/23 09:20 Freq: Status: Active Protocol: Document 07/27/23 14:41 [facility] (Rec: 07/27/23 15:24 [facility] [id number]) Posture Evaluation Moses Postural Classification System Vertebral Compression Test 3 Elbow Flexion Test 4 Lumbar Protective Mechanism Left AP 2 Lumbar Protective Mechanism Right AP 2 Lumbar Protective Mechanism Left PA 4 Lumbar Protective Mechanism Right PA 3 Comments Posture Comments pain w/VCT PT-OP-K Range of Motion Start: 03/11/23 09:20 Freq: Status: Active Protocol: Document 03/17/23 09:48 BS (Rec: 03/17/23 12:31 BS [id number]) Lumbar Spine Range of Motion Lumbar Spine Active Percentage Flexion 20 Extension 10 Lateral Flexion Left 75 Lateral Flexion Right 75 Comments pain coming back up form flex, when hips SB felt tight on contra side, Ext painful, flex painful on way back up PT-OP-L Special Tests Start: 03/11/23 09:20 Freq: Status: Active Protocol: Document 03/23/23 09:49 BS (Rec: 03/23/23 13:22 [id number]) Special Tests Neural Special Tests- Lower Body Sciatic Nerve Tension Test Results positive B Comments L>R with chin tuck & DF Other Special Tests Special Tests Achilles Reflex: normal B Patellar reflex: normal L, diminished R Babinski: normal L, no response R LE Coordination: normal L, impaired R Clonus: absent PT-OP-M Strength Start: 03/11/23 09:20 Freq: Status: Active Protocol: Document 07/27/23 14:41 [facility] (Rec: 07/27/23 15:24 [facility] [id number]) Hip Strength Hip Manual Muscle Testing Right Flexion (L2) 4+ Good+ Extension (S1) 4 Good Abduction 4 Good Adduction 5 Normal External Rotation 5 Normal Internal Rotation 5 Normal Left Flexion (L2) 4+ Good+ Extension (S1) 4 Good Abduction 5 Normal Adduction 4 Good External Rotation 5 Normal Internal Rotation 5 Normal Knee Strength Knee Manual Muscle Testing Right Flexion (S2) 5 Normal Extension (L3) 4- Good- Comments knee pain w/ext Left Flexion (S2) 5 Normal Extension (L3) 4- Good- Ankle/Foot Strength Ankle and Foot Manual Muscle Testing Right Dorsiflexion (L4) 5 Normal Plantarflexion (S1) 3+ Fair+ Inversion 5 Normal Eversion (S1) 5 Normal Comments 3 heel raises Left Dorsiflexion (L4) 5 Normal Plantarflexion (S1) 3+ Fair+ Inversion 4- Good- Eversion (S1) 5 Normal Comments 6 heel raises -discomfort PT-OP-Q Treatments Start: 03/11/23 09:20 Freq: Status: Active Protocol: Document 08/04/23 10:42 NBM (Rec: 08/04/23 12:18 [facility] [id number]) Therapeutic Exercises Supine Exercises diaphragmatic breathing Supine Exercise Name LE's elevated on bolster Equipment Used self monitoring hand on chest and stomach Reps/Minutes 8 min Comments pt has emotional release Sitting Exercises hip hinge Sitting Exercise Name dowel on back Side bilateral Reps/Minutes 15 Comments progressed to 10 reps pt coming up w/o holding dowel Standing Exercises calf raise Standing Exercise Name 1.SL 2.DL Side bilateral Equipment Used 4 step lobby stairs w/ UE support Reps/Minutes SL x10 ea, DL x5 Comments calf stretch before and after hip hinge Standing Exercise Name dowel on back Side bilateral Reps/Minutes 10 calf stretches on step Side bilateral Equipment Used lobby stairs Reps/Minutes 60 seconds knees bent 60 seconds straight X 2 Comments Verbal cues for LE position and length of hold squat Standing Exercise Name wall squat w/ball Side bilateral Reps/Minutes 12 Comments cues for glutes hurts in a good way in quads Self-Care/Home Management Treatment Activities Self-Care/Home Management Activities Reviewed relaxation ex with diaphragmatic breathing ex to manage emotional state. PT-OP-R Modalities Start: 03/11/23 09:20 Freq: Status: Active Protocol: Document 06/28/23 18:04 [facility] (Rec: 06/28/23 18:11 [facility] [id number]) Hot Pack/Cold Pack Treatment Cold Pack Location LB and R hip Patient Position Hooklying Patient Tolerance Good PT-OP-T Assessment and Plan Start: 03/11/23 09:20 Freq: Status: Active Protocol: Document 08/04/23 10:42 BELIA (Rec: 08/04/23 12:18 [facility] [id number]) Physical Therapy Assessment Goals mobility Impairment R positive neri test ; lacking 40 deg to knee ext for HS stretch L; R lacking 52 deg to knee ext Rn Integrity Goal (LTG) Pt will have WNL neri test on R and B lacking 30 deg knee ext for HS stretch to dec pull on pelvis and allow improved mobility for tasks like kayaking. LTG Duration 10/02 activity [facility] Goal (LTG) Pt will be able to return to light running, hiking, hike and carry kids, walk up/down hills and be able to kayak ( sit on top) to fish. LTG Duration 10/04 ADLs Short Term Goal (STG) Pt will report dec pain and mobility resitriction with putting on R shoe and sock and be able to complete without using RUE to hold up limb. 05/20-improvign hip mobility and greater ease w/this 07/06/2023 reports donning and doffing socks and shoes are no longer painful since the injection. STG Duration achieved 07/07 [facility] Goal (LTG) Pt will report waking up no more than 1 time during night d/t pain and discomfort in order to allow for inc quality of life and recovery time for body. 05/20-waking d/t pain mult times 07/07-2x/night LTG Duration achieved 07/26 Balance Impairment unable to balance on RLE and 12s on LLE. Short Term Goal (STG) Pt will be able to balance for at least 10s on RLE to show improvement in strength and stability in order to progress toward safe functional mobility. 05/20-now able to for a few sec at a time consistantly 3/-5 sec consistently; improved on L 07/26-23 sec L; R 19 sec STG Duration achieved 07/26 [facility] Goal (LTG) Pt will be able to perform SLS on BLE for >30s in order to demonstrate improved strength and stability through hip and LE and allow for safe participation in daily functional mobility. 07/26-23 sec L; R 19 sec LTG Duration 10/04 Strength Impairment Significant strength impairments throughout RLE Short Term Goal (STG) Pt will improve all R hip MMT to at least 4/5 to show improvement in LE strength to allow for dec compensations during functional acitvities. 05/20-n/t but improving wt acceptance and LE strength STG Duration achieved 07/26 [facility] Goal (LTG) Pt will improve all R hip MMT to 5/5 to show improvement in RLE strength and allow for proper mechanics and dec pain during necessary functional mobility and daily tasks. 05/20-n/t LTG Duration 10/04 Assessment Summary Assessment Vahe presents today in high emotional state reporting ongoing treatment for health concerns but no pain and able to walk with children without pain yesterday. Treatment focus starts w/ diaphragmatic breathing which improves emotional state and transitions to hip hinge focus for functional movement w/ dowel in sitting which progresses to standing and with wall squats using 55 cm ball; pt is cued for gluteal activation and hip hinge and self-awareness for each improves w/ repetition and resolves low back discomfort with wall squat exericse. Physical Therapy Plan Frequency and Duration Frequency of Treatment 1x/Week Duration of treatment (weeks) 10 Plan of Care Start Date 07/27/23 Plan of Care End Date 10/05/23 Therapeutic Interventions Therapeutic Interventions Balance Training,Coordination Training,Gait Training,Home Exercise Program,Joint Mobilizations,Manual Therapy, Neuromuscular Re-education, Patient/Caregiver Education, Self-Care/Home Management,Soft Tissue Mobilization,Taping, Therapeutic Activities, Therapeutic Exercises Modalities Cold Pack/Ice Massage,Electric Stimulation,Hot Packs, Infrared Therapy,Traction- Mechanical,Ultrasound Next Visit Focus/Plan Next Note Type Treatment Note Next Visit Plan Slowly advance towards hiking, r unning etc and gym progam, limit exercise for pt compliance; work on L ankle mobility to improve gait
--- NOTE | 2023-08-11 09:01 | PT.OTN ---
Current Diagnoses Lumbago with sciatica, right side (08/11/23) Physical Therapy Treatment Note PT-OP-A Visit Information Start: 03/11/23 09:20 Freq: Status: Active Protocol: Document 08/11/23 08:05 AB (Rec: 08/11/23 09:01 AB [id number]) Out-Patient Physical Therapy Visit Information Visit Information Visit Type Treatment Note Visit Note Code: [id number] Visit Start Time 08:14 Visit Stop Time 08:58 Visit Number 26 Number of GIFT BASKET PACKER Visits 2 PT-OP-B Current Condition Start: 03/11/23 09:20 Freq: Status: Active Protocol: Document 03/17/23 09:48 BS (Rec: 03/17/23 12:31 BS [id number]) Current Condition History of Current Condition Current Complaints LBP w/ R radiculopathy History of Current Condition Has referral in to see a neurosurgeon and wants to get second opinion on MRI results. 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 Got out of d/t not being able to keep up with physical requirements. Have done PT on and off over the years. Got MRI in 2018 and showed some slight narrowing at L3-L4 and minor muscle strains. Over last 6 months-1 year, has had few occasions where back spasms more than normal where he tried yoga poses, heat/ice, and massage therapist and always seemed to help. This last time ~4 weeks ago it was so bad and nothing seemed to help. Had pain down leg, knee pain, rucker/ankle pain. Bought new bed that folds to try and help with positioning and sleep. Finally went and saw doc and got on gabapentin which seems to help with pain but makes it so he can't function as well. Doesn' t normally like pain killers at all but got to the point where he needed something. Pain has really impacted life, has 2 kids under 2 and cant lift them or get up off floor well. Changing positions often seems to help with keeping the pain at ease and sitting in a more slouched position. About a year ago radiating pain was more localized to buttock but now goes all down to calf. By end of day body seems to be pretty tired and tight. Usually up 6-8 times throughout night because he is uncomfortable, has been getting worse in past 2-3 years. 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 Has lost ~20lbs in past 4 months. Almost had a fall with brain not thinking the foot was on the floor and having to grab on to someone to not go down. Pain is super variable and flare ups last 3-4 days where he cant get out of bed Treatment Goals Patient/Caregiver Goals Pt would like to focus on learning nerve glides and stretching to help with radiculopathy. Gets shoes and socks on without using hands to lift leg up. PT-OP-C Subjective Start: 03/11/23 09:20 Freq: Status: Active Protocol: Document 08/11/23 08:05 AB (Rec: 08/11/23 09:01 AB [id number]) OP-PT Subjective Patient Comments Patient Comments Vahe report the back is a little sore, took a muscle relaxer last night, comments he may have slept in the most comfortable position. Patient reports he couldn't do calf raises for 4-5 days, couldn't evel tolerate massage, comments they are fine now. PT-OP-D Balance Start: 03/11/23 09:20 Freq: Status: Active Protocol: Document 07/08/23 10:35 [facility] (Rec: 07/08/23 11:09 [facility] [id number]) Balance Tests Single Limb Standing Single Limb- Right 5 sec w/lat lean Single Limb- Left pain into ankle and calf 23 sec w/sig lat lean PT-OP-G Mobility & Gait Start: 03/11/23 09:20 Freq: Status: Active Protocol: Document 03/17/23 09:48 BS (Rec: 03/17/23 15:56 BS [id number]) OP Gait Assessment Comments Gait Comments dec stance time on RLE PT-OP-J Posture/Palpation/Skin Start: 03/11/23 09:20 Freq: Status: Active Protocol: Document 07/27/23 14:41 LR (Rec: 07/27/23 15:24 [facility] [id number]) Posture Evaluation Moses Postural Classification System Vertebral Compression Test 3 Elbow Flexion Test 4 Lumbar Protective Mechanism Left AP 2 Lumbar Protective Mechanism Right AP 2 Lumbar Protective Mechanism Left PA 4 Lumbar Protective Mechanism Right PA 3 Comments Posture Comments pain w/VCT PT-OP-K Range of Motion Start: 03/11/23 09:20 Freq: Status: Active Protocol: Document 03/17/23 09:48 BS (Rec: 03/17/23 12:31 [id number]) Lumbar Spine Range of Motion Lumbar Spine Active Percentage Flexion 20 Extension 10 Lateral Flexion Left 75 Lateral Flexion Right 75 Comments pain coming back up form flex, when hips SB felt tight on contra side, Ext painful, flex painful on way back up PT-OP-L Special Tests Start: 03/11/23 09:20 Freq: Status: Active Protocol: Document 03/23/23 09:49 BS (Rec: 03/23/23 13:22 [id number]) Special Tests Neural Special Tests- Lower Body Sciatic Nerve Tension Test Results positive B Comments L>R with chin tuck & DF Other Special Tests Special Tests Achilles Reflex: normal B Patellar reflex: normal L, diminished R Babinski: normal L, no response R LE Coordination: normal L, impaired R Clonus: absent PT-OP-M Strength Start: 03/11/23 09:20 Freq: Status: Active Protocol: Document 07/27/23 14:41 [facility] (Rec: 07/27/23 15:24 [facility] [id number]) Hip Strength Hip Manual Muscle Testing Right Flexion (L2) 4+ Good+ Extension (S1) 4 Good Abduction 4 Good Adduction 5 Normal External Rotation 5 Normal Internal Rotation 5 Normal Left Flexion (L2) 4+ Good+ Extension (S1) 4 Good Abduction 5 Normal Adduction 4 Good External Rotation 5 Normal Internal Rotation 5 Normal Knee Strength Knee Manual Muscle Testing Right Flexion (S2) 5 Normal Extension (L3) 4- Good- Comments knee pain w/ext Left Flexion (S2) 5 Normal Extension (L3) 4- Good- Ankle/Foot Strength Ankle and Foot Manual Muscle Testing Right Dorsiflexion (L4) 5 Normal Plantarflexion (S1) 3+ Fair+ Inversion 5 Normal Eversion (S1) 5 Normal Comments 3 heel raises Left Dorsiflexion (L4) 5 Normal Plantarflexion (S1) 3+ Fair+ Inversion 4- Good- Eversion (S1) 5 Normal Comments 6 heel raises -discomfort PT-OP-Q Treatments Start: 03/11/23 09:20 Freq: Status: Active Protocol: Document 08/11/23 08:05 AB (Rec: 08/11/23 09:01 AB [id number]) Therapeutic Exercises Sitting Exercises seated hip abduction with band Resistance level one band Reps/Minutes one minute X 1 plantar flexion with band Side bilateral Resistance level 3 band Reps/Minutes X10 each LE Comments monitored for pain calf stretch with strap Side bilateral Reps/Minutes 60 sec knee straight 60 knee bent each LE Comments Patient reports feeling no stretch Standing Exercises eccentric heel raise Reps/Minutes L X6 R X8 calf stretch standing at wall Standing Exercise Name Gastroch and soleus Side bilateral Reps/Minutes 45 secondsX1 each LE then 60 sec each LE post seated calf stretch Comments monitored for pain squat Standing Exercise Name wall squat w/ball Side bilateral Reps/Minutes 2X10 Comments verbal cues for increasing hip hinge on initiation of squats Manual Therapy Treatment Soft Tissue Mobilization left ankle Body Location scar tissue, Talocrural area, calft Mobilization Type Cross-Friction,Rolling Intensity/Depth Moderate Body Position Hooklying Comments elmer for pain Joint Mobilizations Mulligan with movement TC mob left ankle Joint TC Direction AP Grade III Body Position Standing Reps/Duration 2X10 Comments monitored for pain PT-OP-R Modalities Start: 03/11/23 09:20 Freq: Status: Active Protocol: Document 06/28/23 18:04 [facility] (Rec: 06/28/23 18:11 [facility] [id number]) Hot Pack/Cold Pack Treatment Cold Pack Location LB and R hip Patient Position Hooklying Patient Tolerance Good PT-OP-T Assessment and Plan Start: 03/11/23 09:20 Freq: Status: Active Protocol: Document 08/11/23 08:05 AB (Rec: 08/11/23 09:01 AB [id number]) Physical Therapy Assessment Goals mobility Impairment R positive neri test ; lacking 40 deg to knee ext for HS stretch L; R lacking 52 deg to knee ext Mailing Specialist Goal (LTG) Pt will have WNL neri test on R and B lacking 30 deg knee ext for HS stretch to dec pull on pelvis and allow improved mobility for tasks like kayaking. LTG Duration 6/2 activity [employer]ailing [employer] Goal (LTG) Pt will be able to return to light running, hiking, hike and carry kids, walk up/down hills and be able to kayak ( sit on top) to fish. LTG Duration 6/ ADLs Short Term Goal (STG) Pt will report dec pain and mobility resitriction with putting on R shoe and sock and be able to complete without using RUE to hold up limb. 05/20-improvign hip mobility and greater ease w/this 07/06/2023 reports donning and doffing socks and shoes are no longer painful since the injection. STG Duration achieved 07/07 Shelter Goal (LTG) Pt will report waking up no more than 1 time during night d/t pain and discomfort in order to allow for inc quality of life and recovery time for body. 05/20-waking d/t pain mult times 07/07-2x/night LTG Duration achieved 07/26 Balance Impairment unable to balance on RLE and 12s on LLE. Short Term Goal (STG) Pt will be able to balance for at least 10s on RLE to show improvement in strength and stability in order to progress toward safe functional mobility. 05/20-now able to for a few sec at a time consistantly 07/07-5 sec consistently; improved on L 07/26-23 sec L; R 19 sec STG Duration achieved 07/26 Shelter Goal (LTG) Pt will be able to perform SLS on BLE for >30s in order to demonstrate improved strength and stability through hip and LE and allow for safe participation in daily functional mobility. 07/26-23 sec L; R 19 sec LTG Duration 10/04 Strength Impairment Significant strength impairments throughout RLE Short Term Goal (STG) Pt will improve all R hip MMT to at least 4/5 to show improvement in LE strength to allow for dec compensations during functional acitvities. 05/20-n/t but improving wt acceptance and LE strength STG Duration achieved 07/26 Shelter Goal (LTG) Pt will improve all R hip MMT to 5/5 to show improvement in RLE strength and allow for proper mechanics and dec pain during necessary functional mobility and daily tasks. 05/20-n/t LTG Duration 10/04 Assessment Summary Assessment Vahe reports feeling looser end of session. Physical Therapy Plan Frequency and Duration Frequency of Treatment 1x/Week Duration of treatment (weeks) 10 Plan of Care Start Date 07/27/23 Plan of Care End Date 10/05/23 Next Visit Focus/Plan Next Note Type Treatment Note Next Visit Plan Slowly advance towards hiking, r unning etc and gym progam, limit exercise for pt compliance; work on L ankle mobility to improve gait Possibly progress back to calf stretch and single leg HR on step when christiano, add one minute hold seated hip abd to HEP if reports good christiano to previous session
--- NOTE | 2023-08-11 10:57 | PT.OTN ---
Current Diagnoses Lumbago with sciatica, right side (08/11/23) Physical Therapy Treatment Note PT-OP-A Visit Information Start: 03/11/23 09:20 Freq: Status: Active Protocol: Document 08/11/23 08:05 AB (Rec: 08/11/23 09:01 AB [id number]) Out-Patient Physical Therapy Visit Information Visit Information Visit Type Treatment Note Visit Note Code: [id number] Visit Start Time 08:14 Visit Stop Time 08:58 Visit Number 26 Number of LPN RN Visits 2 PT-OP-B Current Condition Start: 03/11/23 09:20 Freq: Status: Active Protocol: Document 03/17/23 09:48 BS (Rec: 03/17/23 12:31 BS [id number]) Current Condition History of Current Condition Current Complaints LBP w/ R radiculopathy History of Current Condition Has referral in to see a neurosurgeon and wants to get second opinion on MRI results. 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 Got out of d/t not being able to keep up with physical requirements. Have done PT on and off over the years. Got MRI in 2018 and showed some slight narrowing at L3-L4 and minor muscle strains. Over last 6 months-1 year, has had few occasions where back spasms more than normal where he tried yoga poses, heat/ice, and massage therapist and always seemed to help. This last time ~4 weeks ago it was so bad and nothing seemed to help. Had pain down leg, knee pain, rucker/ankle pain. Bought new bed that folds to try and help with positioning and sleep. Finally went and saw doc and got on gabapentin which seems to help with pain but makes it so he can't function as well. Doesn' t normally like pain killers at all but got to the point where he needed something. Pain has really impacted life, has 2 kids under 2 and cant lift them or get up off floor well. Changing positions often seems to help with keeping the pain at ease and sitting in a more slouched position. About a year ago radiating pain was more localized to buttock but now goes all down to calf. By end of day body seems to be pretty tired and tight. Usually up 6-8 times throughout night because he is uncomfortable, has been getting worse in past 2-3 years. 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 Has lost ~20lbs in past 4 months. Almost had a fall with brain not thinking the foot was on the floor and having to grab on to someone to not go down. Pain is super variable and flare ups last 3-4 days where he cant get out of bed Treatment Goals Patient/Caregiver Goals Pt would like to focus on learning nerve glides and stretching to help with radiculopathy. Gets shoes and socks on without using hands to lift leg up. PT-OP-C Subjective Start: 03/11/23 09:20 Freq: Status: Active Protocol: Document 08/11/23 08:05 AB (Rec: 08/11/23 09:01 AB [id number]) OP-PT Subjective Patient Comments Patient Comments Vahe report the back is a little sore, took a muscle relaxer last night, comments he may not have slept in the most comfortable position. Patient reports he couldn't do calf raises for 4-5 days, couldn't evel tolerate massage , comments they are fine now. PT-OP-D Balance Start: 03/11/23 09:20 Freq: Status: Active Protocol: Document 07/08/23 10:35 [facility] (Rec: 07/08/23 11:09 [facility] [id number]) Balance Tests Single Limb Standing Single Limb- Right 5 sec w/lat lean Single Limb- Left pain into ankle and calf 23 sec w/sig lat lean PT-OP-G Mobility & Gait Start: 03/11/23 09:20 Freq: Status: Active Protocol: Document 03/17/23 09:48 BS (Rec: 03/17/23 15:56 BS [id number]) OP Gait Assessment Comments Gait Comments dec stance time on RLE PT-OP-J Posture/Palpation/Skin Start: 03/11/23 09:20 Freq: Status: Active Protocol: Document 07/27/23 14:41 [facility] (Rec: 07/27/23 15:24 [facility] [id number]) Posture Evaluation [facility] Postural Classification System Vertebral Compression Test 3 Elbow Flexion Test 4 Lumbar Protective Mechanism Left AP 2 Lumbar Protective Mechanism Right AP 2 Lumbar Protective Mechanism Left PA 4 Lumbar Protective Mechanism Right PA 3 Comments Posture Comments pain w/VCT PT-OP-K Range of Motion Start: 03/11/23 09:20 Freq: Status: Active Protocol: Document 03/17/23 09:48 BS (Rec: 03/17/23 12:31 [id number]) Lumbar Spine Range of Motion Lumbar Spine Active Percentage Flexion 20 Extension 10 Lateral Flexion Left 75 Lateral Flexion Right 75 Comments pain coming back up form flex, when hips SB felt tight on contra side, Ext painful, flex painful on way back up PT-OP-L Special Tests Start: 03/11/23 09:20 Freq: Status: Active Protocol: Document 03/23/23 09:49 BS (Rec: 03/23/23 13:22 [id number]) Special Tests Neural Special Tests- Lower Body Sciatic Nerve Tension Test Results positive B Comments L>R with chin tuck & DF Other Special Tests Special Tests Achilles Reflex: normal B Patellar reflex: normal L, diminished R Babinski: normal L, no response R LE Coordination: normal L, impaired R Clonus: absent PT-OP-M Strength Start: 03/11/23 09:20 Freq: Status: Active Protocol: Document 07/27/23 14:41 [facility] (Rec: 07/27/23 15:24 [facility] [id number]) Hip Strength Hip Manual Muscle Testing Right Flexion (L2) 4+ Good+ Extension (S1) 4 Good Abduction 4 Good Adduction 5 Normal External Rotation 5 Normal Internal Rotation 5 Normal Left Flexion (L2) 4+ Good+ Extension (S1) 4 Good Abduction 5 Normal Adduction 4 Good External Rotation 5 Normal Internal Rotation 5 Normal Knee Strength Knee Manual Muscle Testing Right Flexion (S2) 5 Normal Extension (L3) 4- Good- Comments knee pain w/ext Left Flexion (S2) 5 Normal Extension (L3) 4- Good- Ankle/Foot Strength Ankle and Foot Manual Muscle Testing Right Dorsiflexion (L4) 5 Normal Plantarflexion (S1) 3+ Fair+ Inversion 5 Normal Eversion (S1) 5 Normal Comments 3 heel raises Left Dorsiflexion (L4) 5 Normal Plantarflexion (S1) 3+ Fair+ Inversion 4- Good- Eversion (S1) 5 Normal Comments 6 heel raises -discomfort PT-OP-Q Treatments Start: 03/11/23 09:20 Freq: Status: Active Protocol: Document 08/11/23 08:05 AB (Rec: 08/11/23 09:01 AB [id number]) Therapeutic Exercises Sitting Exercises seated hip abduction with band Resistance level one band Reps/Minutes one minute X 1 plantar flexion with band Side bilateral Resistance level 3 band Reps/Minutes X10 each LE Comments monitored for pain calf stretch with strap Side bilateral Reps/Minutes 60 sec knee straight 60 knee bent each LE Comments Patient reports feeling no stretch Standing Exercises eccentric heel raise Reps/Minutes L X6 R X8 calf stretch standing at wall Standing Exercise Name Gastroch and soleus Side bilateral Reps/Minutes 45 secondsX1 each LE then 60 sec each LE post seated calf stretch Comments monitored for pain squat Standing Exercise Name wall squat w/ball Side bilateral Reps/Minutes 2X10 Comments verbal cues for increasing hip hinge on initiation of squats Manual Therapy Treatment Soft Tissue Mobilization left ankle Body Location scar tissue, calf muscles Mobilization Type Cross-Friction,Rolling Intensity/Depth Moderate Body Position Hooklying Comments elmer for pain AROM DF X15 during STM to calf muscles Joint Mobilizations Mulligan with movement TC mob left ankle Joint TC Direction AP Grade III Body Position Standing Reps/Duration 2X10 Comments monitored for pain PT-OP-R Modalities Start: 03/11/23 09:20 Freq: Status: Active Protocol: Document 06/28/23 18:04 [facility] (Rec: 06/28/23 18:11 [facility] [id number]) Hot Pack/Cold Pack Treatment Cold Pack Location LB and R hip Patient Position Hooklying Patient Tolerance Good PT-OP-T Assessment and Plan Start: 03/11/23 09:20 Freq: Status: Active Protocol: Document 08/11/23 08:05 AB (Rec: 08/11/23 09:01 AB [id number]) Physical Therapy Assessment Goals mobility Impairment R positive neri test ; lacking 40 deg to knee ext for HS stretch L; R lacking 52 deg to knee ext [facility] Goal (LTG) Pt will have WNL neri test on R and B lacking 30 deg knee ext for HS stretch to dec pull on pelvis and allow improved mobility for tasks like kayaking. LTG Duration 6/2 activity Eye Specialist Goal (LTG) Pt will be able to return to light running, hiking, hike and carry kids, walk up/down hills and be able to kayak ( sit on top) to fish. LTG Duration 6/ ADLs Short Term Goal (STG) Pt will report dec pain and mobility resitriction with putting on R shoe and sock and be able to complete without using RUE to hold up limb. 05/20-improvign hip mobility and greater ease w/this 07/06/2023 reports donning and doffing socks and shoes are no longer painful since the injection. STG Duration achieved 07/07 [facility] Goal (LTG) Pt will report waking up no more than 1 time during night d/t pain and discomfort in order to allow for inc quality of life and recovery time for body. 05/20-waking d/t pain mult times 07/07-2x/night LTG Duration achieved 07/26 Balance Impairment unable to balance on RLE and 12s on LLE. Short Term Goal (STG) Pt will be able to balance for at least 10s on RLE to show improvement in strength and stability in order to progress toward safe functional mobility. 05/20-now able to for a few sec at a time consistantly 07/07-5 sec consistently; improved on L 07/26-23 sec L; R 19 sec STG Duration achieved 07/26 [facility] Goal (LTG) Pt will be able to perform SLS on BLE for >30s in order to demonstrate improved strength and stability through hip and LE and allow for safe participation in daily functional mobility. 07/26-23 sec L; R 19 sec LTG Duration 10/04 Strength Impairment Significant strength impairments throughout RLE Short Term Goal (STG) Pt will improve all R hip MMT to at least 4/5 to show improvement in LE strength to allow for dec compensations during functional acitvities. 05/20-n/t but improving wt acceptance and LE strength STG Duration achieved 07/26 [facility] Goal (LTG) Pt will improve all R hip MMT to 5/5 to show improvement in RLE strength and allow for proper mechanics and dec pain during necessary functional mobility and daily tasks. 05/20-n/t LTG Duration 10/04 Assessment Summary Assessment Vahe reports feeling looser end of session. Physical Therapy Plan Frequency and Duration Frequency of Treatment 1x/Week Duration of treatment (weeks) 10 Plan of Care Start Date 07/27/23 Plan of Care End Date 10/05/23 Next Visit Focus/Plan Next Note Type Treatment Note Next Visit Plan Slowly advance towards hiking, r unning etc and gym progam, limit exercise for pt compliance; work on L ankle mobility to improve gait Possibly progress back to calf stretch and single leg HR on step when christiano, add one minute hold seated hip abd to HEP if reports good christiano to previous session
--- NOTE | 2023-09-01 12:14 | PT.OTN ---
Current Diagnoses Lumbago with sciatica, right side (09/01/23) Physical Therapy Treatment Note PT-OP-A Visit Information Start: 03/11/23 09:20 Freq: Status: Active Protocol: Document 09/01/23 09:09 [facility] (Rec: 09/01/23 12:13 [facility] [id number]) Out-Patient Physical Therapy Visit Information Visit Information Visit Type Treatment Note Visit Start Time 09:08 Visit Stop Time 09:46 Visit Number 29 Number of CONSTRUCTION FLAGGER Visits 0 PT-OP-B Current Condition Start: 03/11/23 09:20 Freq: Status: Active Protocol: Document 03/17/23 09:48 BS (Rec: 03/17/23 12:31 BS [id number]) Current Condition History of Current Condition Current Complaints LBP w/ R radiculopathy History of Current Condition Has referral in to see a neurosurgeon and wants to get second opinion on MRI results. 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 Got out of d/t not being able to keep up with physical requirements. Have done PT on and off over the years. Got MRI in 2018 and showed some slight narrowing at L3-L4 and minor muscle strains. Over last 6 months-1 year, has had few occasions where back spasms more than normal where he tried yoga poses, heat/ice, and massage therapist and always seemed to help. This last time ~4 weeks ago it was so bad and nothing seemed to help. Had pain down leg, knee pain, rucker/ankle pain. Bought new bed that folds to try and help with positioning and sleep. Finally went and saw doc and got on gabapentin which seems to help with pain but makes it so he can't function as well. Doesn' t normally like pain killers at all but got to the point where he needed something. Pain has really impacted life, has 2 kids under 2 and cant lift them or get up off floor well. Changing positions often seems to help with keeping the pain at ease and sitting in a more slouched position. About a year ago radiating pain was more localized to buttock but now goes all down to calf. By end of day body seems to be pretty tired and tight. Usually up 6-8 times throughout night because he is uncomfortable, has been getting worse in past 2-3 years. 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 Has lost ~20lbs in past 4 months. Almost had a fall with brain not thinking the foot was on the floor and having to grab on to someone to not go down. Pain is super variable and flare ups last 3-4 days where he cant get out of bed Treatment Goals Patient/Caregiver Goals Pt would like to focus on learning nerve glides and stretching to help with radiculopathy. Gets shoes and socks on without using hands to lift leg up. PT-OP-C Subjective Start: 03/11/23 09:20 Freq: Status: Active Protocol: Document 09/01/23 09:09 [facility] (Rec: 09/01/23 12:13 [facility] [id number]) OP-PT Subjective Patient Comments Patient Comments Pt reports dr. Zheng wants to do trigger point injection to hip and SIJ. He is worried there is no movement in SIJ. He has inc pain. He has more L SI pain. He was doing his ball exercises and his dgt jumped off couched and into his back and he heard a crunch . Leg pain has been good since last week. PT-OP-D Balance Start: 03/11/23 09:20 Freq: Status: Active Protocol: Document 07/08/23 10:35 [facility] (Rec: 07/08/23 11:09 [facility] [id number]) Balance Tests Single Limb Standing Single Limb- Right 5 sec w/lat lean Single Limb- Left pain into ankle and calf 23 sec w/sig lat lean PT-OP-G Mobility & Gait Start: 03/11/23 09:20 Freq: Status: Active Protocol: Document 03/17/23 09:48 BS (Rec: 03/17/23 15:56 BS [id number]) OP Gait Assessment Comments Gait Comments dec stance time on RLE PT-OP-J Posture/Palpation/Skin Start: 03/11/23 09:20 Freq: Status: Active Protocol: Document 07/27/23 14:41 [facility] (Rec: 07/27/23 15:24 [facility] [id number]) Posture Evaluation [facility] Postural Classification System Vertebral Compression Test 3 Elbow Flexion Test 4 Lumbar Protective Mechanism Left AP 2 Lumbar Protective Mechanism Right AP 2 Lumbar Protective Mechanism Left PA 4 Lumbar Protective Mechanism Right PA 3 Comments Posture Comments pain w/VCT PT-OP-K Range of Motion Start: 03/11/23 09:20 Freq: Status: Active Protocol: Document 03/17/23 09:48 BS (Rec: 03/17/23 12:31 BS [id number]) Lumbar Spine Range of Motion Lumbar Spine Active Percentage Flexion 20 Extension 10 Lateral Flexion Left 75 Lateral Flexion Right 75 Comments pain coming back up form flex, when hips SB felt tight on contra side, Ext painful, flex painful on way back up PT-OP-L Special Tests Start: 03/11/23 09:20 Freq: Status: Active Protocol: Document 03/23/23 09:49 BS (Rec: 03/23/23 13:22 BS [id number]) Special Tests Neural Special Tests- Lower Body Sciatic Nerve Tension Test Results positive B Comments L>R with chin tuck & DF Other Special Tests Special Tests Achilles Reflex: normal B Patellar reflex: normal L, diminished R Babinski: normal L, no response R LE Coordination: normal L, impaired R Clonus: absent PT-OP-M Strength Start: 03/11/23 09:20 Freq: Status: Active Protocol: Document 07/27/23 14:41 [facility] (Rec: 07/27/23 15:24 [facility] [id number]) Hip Strength Hip Manual Muscle Testing Right Flexion (L2) 4+ Good+ Extension (S1) 4 Good Abduction 4 Good Adduction 5 Normal External Rotation 5 Normal Internal Rotation 5 Normal Left Flexion (L2) 4+ Good+ Extension (S1) 4 Good Abduction 5 Normal Adduction 4 Good External Rotation 5 Normal Internal Rotation 5 Normal Knee Strength Knee Manual Muscle Testing Right Flexion (S2) 5 Normal Extension (L3) 4- Good- Comments knee pain w/ext Left Flexion (S2) 5 Normal Extension (L3) 4- Good- Ankle/Foot Strength Ankle and Foot Manual Muscle Testing Right Dorsiflexion (L4) 5 Normal Plantarflexion (S1) 3+ Fair+ Inversion 5 Normal Eversion (S1) 5 Normal Comments 3 heel raises Left Dorsiflexion (L4) 5 Normal Plantarflexion (S1) 3+ Fair+ Inversion 4- Good- Eversion (S1) 5 Normal Comments 6 heel raises -discomfort PT-OP-Q Treatments Start: 03/11/23 09:20 Freq: Status: Active Protocol: Document 09/01/23 09:09 [facility] (Rec: 09/01/23 12:13 [facility] [id number]) Manual Therapy Treatment Soft Tissue Mobilization hip flexor Body Location R iliacus in staggered stance Mobilization Type Sustained Pressure Comments w/hip in ext stretch standing glutes Body Location right glutes/piriformis Mobilization Type Cross-Friction,Rolling Intensity/Depth Moderate Body Position Prone Comments down along sacral and coccyx border w/hip rot Joint Mobilizations innominate Comments B caudal, R ER FM sacrum Comments R caudal & UPA at sup aspect w /percussion & FM hip Comments r prone hip on axis FM PT-OP-R Modalities Start: 03/11/23 09:20 Freq: Status: Active Protocol: Document 08/25/23 09:43 [facility] (Rec: 08/25/23 13:05 [facility] [id number]) Hot Pack/Cold Pack Treatment Cold Pack Location LB and R hip Patient Position Hooklying Patient Tolerance Good PT-OP-T Assessment and Plan Start: 03/11/23 09:20 Freq: Status: Active Protocol: Document 09/01/23 09:09 [facility] (Rec: 09/01/23 12:13 [facility] [id number]) Physical Therapy Assessment Goals mobility Impairment R positive neri test ; lacking 40 deg to knee ext for HS stretch L; R lacking 52 deg to knee ext Skilled Nursing Goal (LTG) Pt will have WNL neir test on R and B lacking 30 deg knee ext for HS stretch to dec pull on pelvis and allow improved mobility for tasks like kayaking. LTG Duration 6/2 activity Bonus Clerk Goal (LTG) Pt will be able to return to light running, hiking, hike and carry kids, walk up/down hills and be able to kayak ( sit on top) to fish. LTG Duration 6/4 ADLs Short Term Goal (STG) Pt will report dec pain and mobility resitriction with putting on R shoe and sock and be able to complete without using RUE to hold up limb. 05/20-improvign hip mobility and greater ease w/this 07/06/2023 reports donning and doffing socks and shoes are no longer painful since the injection. STG Duration achieved 07/07 Bonus Clerk Goal (LTG) Pt will report waking up no more than 1 time during night d/t pain and discomfort in order to allow for inc quality of life and recovery time for body. 05/20-waking d/t pain mult times 07/07-2x/night LTG Duration achieved 07/26 Balance Impairment unable to balance on RLE and 12s on LLE. Short Term Goal (STG) Pt will be able to balance for at least 10s on RLE to show improvement in strength and stability in order to progress toward safe functional mobility. 05/20-now able to for a few sec at a time consistantly 3/-5 sec consistently; improved on L 07/26-23 sec L; R 19 sec STG Duration achieved 07/26 Bonus Clerk Goal (LTG) Pt will be able to perform SLS on BLE for >30s in order to demonstrate improved strength and stability through hip and LE and allow for safe participation in daily functional mobility. 07/26-23 sec L; R 19 sec LTG Duration 6 Strength Impairment Significant strength impairments throughout RLE Short Term Goal (STG) Pt will improve all R hip MMT to at least 4/5 to show improvement in LE strength to allow for dec compensations during functional acitvities. 05/20-n/t but improving wt acceptance and LE strength STG Duration achieved 07/26 Skilled Nursing Goal (LTG) Pt will improve all R hip MMT to 5/5 to show improvement in RLE strength and allow for proper mechanics and dec pain during necessary functional mobility and daily tasks. 05/20-n/t LTG Duration 6 Assessment Summary Assessment Pt had improved pain after manual therapy and had level pelvis after treatment with much further ext of hip. Physical Therapy Plan Frequency and Duration Frequency of Treatment 1x/Week Duration of treatment (weeks) 10 Plan of Care Start Date 07/27/23 Plan of Care End Date 10/05/23 Next Visit Focus/Plan Next Note Type Treatment Note Next Visit Plan Focus on core and SIJ mobility and stability Slowly advance towards hiking, r unning etc and gym progam, limit exercise for pt compliance; work on L ankle mobility to improve gait Possibly progress back to calf stretch and single leg HR on step when christiano, add one minute hold seated hip abd to HEP if reports good christiano to previous session
--- NOTE | 2023-10-05 15:47 | PT.OPPOC ---
Physical, Occupational & Speech Therapy At [facility] Current Diagnoses Lumbago with sciatica, right side (10/05/23) Visit Care Team Role Provider Type Rick Rausch MD Attending Provider Physician Family Provider Primary Care Provider Referring Provider Specialty: Family Practice Address: [address] [place] [address], [employer] Email: [email or web address] Plan Of Care PT-OP-T Assessment and Plan Start: 03/11/23 09:20 Freq: Status: Active Protocol: Document 10/05/23 09:47 [facility] (Rec: 10/05/23 18:48 [facility] [id number]) Physical Therapy Assessment Goals mobility Impairment R positive neri test ; lacking 40 deg to knee ext for HS stretch L; R lacking 52 deg to knee ext Book Agent Goal (LTG) Pt will have WNL neri test on R and B lacking 30 deg knee ext for HS stretch to dec pull on pelvis and allow improved mobility for tasks like kayaking. 10/09-n/t d/t fflare and positve for nerve tension today LTG Duration 8 activity Alf Goal (LTG) Pt will be able to return to light running, hiking, hike and carry kids, walk up/down hills and be able to kayak ( sit on top) to fish. 10/09-pt has been walking, and carrying kids more recently but has not progressed to other activities LTG Duration 8 ADLs Short Term Goal (STG) Pt will report dec pain and mobility resitriction with putting on R shoe and sock and be able to complete without using RUE to hold up limb. 05/20-improvign hip mobility and greater ease w/this 07/06/2023 reports donning and doffing socks and shoes are no longer painful since the injection. STG Duration achieved 07/07 Alf Goal (LTG) Pt will report waking up no more than 1 time during night d/t pain and discomfort in order to allow for inc quality of life and recovery time for body. 05/20-waking d/t pain mult times 07/07-2x/night LTG Duration achieved 07/26 Balance Impairment unable to balance on RLE and 12s on LLE. Short Term Goal (STG) Pt will be able to balance for at least 10s on RLE to show improvement in strength and stability in order to progress toward safe functional mobility. 05/20-now able to for a few sec at a time consistantly 3/7-5 sec consistently; improved on L 07/26-23 sec L; R 19 sec STG Duration achieved 07/26 Alf Goal (LTG) Pt will be able to perform SLS on BLE for >30s in order to demonstrate improved strength and stability through hip and LE and allow for safe participation in daily functional mobility. 07/26-23 sec L; R 19 sec 10/09-n/t d/t flare up LTG Duration 12/01 Strength Impairment Significant strength impairments throughout RLE Short Term Goal (STG) Pt will improve all R hip MMT to at least 4/5 to show improvement in LE strength to allow for dec compensations during functional acitvities. 05/20-n/t but improving wt acceptance and LE strength STG Duration achieved 07/26 Book Agent Goal (LTG) Pt will improve all R hip MMT to 5/5 to show improvement in RLE strength and allow for proper mechanics and dec pain during necessary functional mobility and daily tasks. 05/20-n/t 10/09-n/t d/t flare up today but pt has been doing higher level strength activities in PT LTG Duration 10/04 Assessment Summary Assessment Pt responded well with manual to abdomen and had significant tension along fascia, tendons and mm of abdomen and pt would feel pull to back w/this . Improved slump after manual. MM testing and balance not tested today as pt was very flared up but pt had been making progress w/PT until recent backslide. With improvement from this session, pt to benefit from PT to work on abdomen and switch towards focus w/this manually and work on neuro re-edu after for improved facilitation of core and hip mm. Physical Therapy Plan Frequency and Duration Frequency of Treatment 1x/Week Duration of treatment (weeks) 8 Plan of Care Start Date 10/05/23 Plan of Care End Date 12/02/23 Therapeutic Interventions Therapeutic Interventions Balance Training,Coordination Training,Gait Training,Home Exercise Program,Joint Mobilizations,Manual Therapy, Neuromuscular Re-education, Patient/Caregiver Education, Self-Care/Home Management,Soft Tissue Mobilization,Taping, Therapeutic Activities, Therapeutic Exercises Modalities Cold Pack/Ice Massage,Electric Stimulation,Hot Packs, Infrared Therapy,Traction- Mechanical,Ultrasound Next Visit Focus/Plan Next Note Type Treatment Note Next Visit Plan cont to look at visceral ligamentous/fascial restrictions along w/abdominal mm tensions Plan of Care Dates Plan of Care Start Date 10/05/23 Plan of Care End Date 12/02/23 Electronically Signed by: Gayle Desai, PT 10/10/23 [id number] If you are in agreement with this Plan of Care, please return a signed and dated copy. I have reviewed this Plan of Care and certify that the skilled therapy services above are required to meet the patient?s needs. Physician Signature Date Printed Name and Credentials Clinical Instructor Signature Printed Name and Credentials
--- NOTE | 2023-10-05 15:48 | PT.OTN ---
Current Diagnoses Lumbago with sciatica, right side (10/05/23) Physical Therapy Treatment Note PT-OP-A Visit Information Start: 03/11/23 09:20 Freq: Status: Active Protocol: Document 10/05/23 09:47 [facility] (Rec: 10/05/23 18:48 [facility] [id number]) Out-Patient Physical Therapy Visit Information Visit Information Visit Type Progress Note Visit Start Time 11:22 Visit Stop Time 12:05 Visit Number 34 Number of E LEARNING DEVELOPER Visits 0 PT-OP-B Current Condition Start: 03/11/23 09:20 Freq: Status: Active Protocol: Document 03/17/23 09:48 [facility] (Rec: 03/17/23 12:31 [facility] [id number]) Current Condition History of Current Condition Current Complaints LBP w/ R radiculopathy History of Current Condition Has referral in to see a neurosurgeon and wants to get second opinion on MRI results. 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 Got out of d/t not being able to keep up with physical requirements. Have done PT on and off over the years. Got MRI in 2018 and showed some slight narrowing at L3-L4 and minor muscle strains. Over last 6 months-1 year, has had few occasions where back spasms more than normal where he tried yoga poses, heat/ice, and massage therapist and always seemed to help. This last time ~4 weeks ago it was so bad and nothing seemed to help. Had pain down leg, knee pain, rucker/ankle pain. Bought new bed that folds to try and help with positioning and sleep. Finally went and saw doc and got on gabapentin which seems to help with pain but makes it so he can't function as well. Doesn' t normally like pain killers at all but got to the point where he needed something. Pain has really impacted life, has 2 kids under 2 and cant lift them or get up off floor well. Changing positions often seems to help with keeping the pain at ease and sitting in a more slouched position. About a year ago radiating pain was more localized to buttock but now goes all down to calf. By end of day body seems to be pretty tired and tight. Usually up 6-8 times throughout night because he is uncomfortable, has been getting worse in past 2-3 years. 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 Has lost ~20lbs in past 4 months. Almost had a fall with brain not thinking the foot was on the floor and having to grab on to someone to not go down. Pain is super variable and flare ups last 3-4 days where he cant get out of bed Treatment Goals Patient/Caregiver Goals Pt would like to focus on learning nerve glides and stretching to help with radiculopathy. Gets shoes and socks on without using hands to lift leg up. PT-OP-C Subjective Start: 03/11/23 09:20 Freq: Status: Active Protocol: Document 10/05/23 09:47 [facility] (Rec: 10/05/23 18:48 [facility] [id number]) OP-PT Subjective Patient Comments Patient Comments pt reports is frustrated d/t inc pain recently and feeling like going backwards. He does have another shot scheduled at end of month. PT-OP-D Balance Start: 03/11/23 09:20 Freq: Status: Active Protocol: Document 07/08/23 10:35 [facility] (Rec: 07/08/23 11:09 [facility] [id number]) Balance Tests Single Limb Standing Single Limb- Right 5 sec w/lat lean Single Limb- Left pain into ankle and calf 23 sec w/sig lat lean PT-OP-G Mobility & Gait Start: 03/11/23 09:20 Freq: Status: Active Protocol: Document 03/17/23 09:48 [facility] (Rec: 03/17/23 15:56 [facility] [id number]) OP Gait Assessment Comments Gait Comments dec stance time on RLE PT-OP-J Posture/Palpation/Skin Start: 03/11/23 09:20 Freq: Status: Active Protocol: Document 07/27/23 14:41 [facility] (Rec: 07/27/23 15:24 [facility] [id number]) Posture Evaluation Moses Postural Classification System Vertebral Compression Test 3 Elbow Flexion Test 4 Lumbar Protective Mechanism Left AP 2 Lumbar Protective Mechanism Right AP 2 Lumbar Protective Mechanism Left PA 4 Lumbar Protective Mechanism Right PA 3 Comments Posture Comments pain w/VCT PT-OP-K Range of Motion Start: 03/11/23 09:20 Freq: Status: Active Protocol: Document 03/17/23 09:48 [facility] (Rec: 03/17/23 12:31 [facility] [id number]) Lumbar Spine Range of Motion Lumbar Spine Active Percentage Flexion 20 Extension 10 Lateral Flexion Left 75 Lateral Flexion Right 75 Comments pain coming back up form flex, when hips SB felt tight on contra side, Ext painful, flex painful on way back up PT-OP-L Special Tests Start: 03/11/23 09:20 Freq: Status: Active Protocol: Document 03/23/23 09:49 [facility] (Rec: 03/23/23 13:22 [id number]) Special Tests Neural Special Tests- Lower Body Sciatic Nerve Tension Test Results positive B Comments L>R with chin tuck & DF Other Special Tests Special Tests Achilles Reflex: normal B Patellar reflex: normal L, diminished R Babinski: normal L, no response R LE Coordination: normal L, impaired R Clonus: absent PT-OP-M Strength Start: 03/11/23 09:20 Freq: Status: Active Protocol: Document 07/27/23 14:41 [facility] (Rec: 07/27/23 15:24 [facility] [id number]) Hip Strength Hip Manual Muscle Testing Right Flexion (L2) 4+ Good+ Extension (S1) 4 Good Abduction 4 Good Adduction 5 Normal External Rotation 5 Normal Internal Rotation 5 Normal Left Flexion (L2) 4+ Good+ Extension (S1) 4 Good Abduction 5 Normal Adduction 4 Good External Rotation 5 Normal Internal Rotation 5 Normal Knee Strength Knee Manual Muscle Testing Right Flexion (S2) 5 Normal Extension (L3) 4- Good- Comments knee pain w/ext Left Flexion (S2) 5 Normal Extension (L3) 4- Good- Ankle/Foot Strength Ankle and Foot Manual Muscle Testing Right Dorsiflexion (L4) 5 Normal Plantarflexion (S1) 3+ Fair+ Inversion 5 Normal Eversion (S1) 5 Normal Comments 3 heel raises Left Dorsiflexion (L4) 5 Normal Plantarflexion (S1) 3+ Fair+ Inversion 4- Good- Eversion (S1) 5 Normal Comments 6 heel raises -discomfort PT-OP-Q Treatments Start: 03/11/23 09:20 Freq: Status: Active Protocol: Document 10/05/23 09:47 [facility] (Rec: 10/10/23 15:46 [facility] [id number]) Manual Therapy Treatment Soft Tissue Mobilization abdomen Comments 1. scar tissue w/self release demonstrated to ant abdomen scar tissues 2. post pariatal peretoneum/ fascia of TA/Psoas/QL quadruped mod w/hands on table, feet on floor, angry cat and lat shifts 3. ant pariatel peritoneum/TA fasica and fascia along small intensine w/LTR 4. mesenteric root/fascia along ant spine w/LTR PT-OP-R Modalities Start: 03/11/23 09:20 Freq: Status: Active Protocol: Document 09/24/23 10:31 [facility] (Rec: 09/24/23 11:23 [facility] [id number]) Hot Pack/Cold Pack Treatment Cold Pack Location LB and R hip Patient Position Hooklying Patient Tolerance Good Comments 10 min PT-OP-T Assessment and Plan Start: 03/11/23 09:20 Freq: Status: Active Protocol: Document 10/05/23 09:47 [facility] (Rec: 10/05/23 18:48 [facility] [id number]) Physical Therapy Assessment Goals mobility Impairment R positive neri test ; lacking 40 deg to knee ext for HS stretch L; R lacking 52 deg to knee ext Bonding Supervisor Goal (LTG) Pt will have WNL neri test on R and B lacking 30 deg knee ext for HS stretch to dec pull on pelvis and allow improved mobility for tasks like kayaking. 10/09-n/t d/t fflare and positve for nerve tension today LTG Duration 8 activity Bonding Supervisor Goal (LTG) Pt will be able to return to light running, hiking, hike and carry kids, walk up/down hills and be able to kayak ( sit on top) to fish. 10/09-pt has been walking, and carrying kids more recently but has not progressed to other activities LTG Duration 8 ADLs Short Term Goal (STG) Pt will report dec pain and mobility resitriction with putting on R shoe and sock and be able to complete without using RUE to hold up limb. 05/20-improvign hip mobility and greater ease w/this 07/06/2023 reports donning and doffing socks and shoes are no longer painful since the injection. STG Duration achieved 3 Prison Goal (LTG) Pt will report waking up no more than 1 time during night d/t pain and discomfort in order to allow for inc quality of life and recovery time for body. 05/20-waking d/t pain mult times 07/07-2x/night LTG Duration achieved 07/26 Balance Impairment unable to balance on RLE and 12s on LLE. Short Term Goal (STG) Pt will be able to balance for at least 10s on RLE to show improvement in strength and stability in order to progress toward safe functional mobility. 05/20-now able to for a few sec at a time consistantly 3-5 sec consistently; improved on L 07/26-23 sec L; R 19 sec STG Duration achieved 07/26 Bonding Supervisor Goal (LTG) Pt will be able to perform SLS on BLE for >30s in order to demonstrate improved strength and stability through hip and LE and allow for safe participation in daily functional mobility. 07/26-23 sec L; R 19 sec 10/09-n/t d/t flare up LTG Duration 12/01 Strength Impairment Significant strength impairments throughout RLE Short Term Goal (STG) Pt will improve all R hip MMT to at least 4/5 to show improvement in LE strength to allow for dec compensations during functional acitvities. 05/20-n/t but improving wt acceptance and LE strength STG Duration achieved 07/26 Bonding Supervisor Goal (LTG) Pt will improve all R hip MMT to 5/5 to show improvement in RLE strength and allow for proper mechanics and dec pain during necessary functional mobility and daily tasks. 05/20-n/t 10/09-n/t d/t flare up today but pt has been doing higher level strength activities in PT LTG Duration 10/04 Assessment Summary Assessment Pt responded well with manual to abdomen and had significant tension along fascia, tendons and mm of abdomen and pt would feel pull to back w/this . Improved slump after manual. MM testing and balance not tested today as pt was very flared up but pt had been making progress w/PT until recent backslide. With improvement from this session, pt to benefit from PT to work on abdomen and switch towards focus w/this manually and work on neuro re-edu after for improved facilitation of core and hip mm. Physical Therapy Plan Frequency and Duration Frequency of Treatment 1x/Week Duration of treatment (weeks) 8 Plan of Care Start Date 10/05/23 Plan of Care End Date 12/02/23 Therapeutic Interventions Therapeutic Interventions Balance Training,Coordination Training,Gait Training,Home Exercise Program,Joint Mobilizations,Manual Therapy, Neuromuscular Re-education, Patient/Caregiver Education, Self-Care/Home Management,Soft Tissue Mobilization,Taping, Therapeutic Activities, Therapeutic Exercises Modalities Cold Pack/Ice Massage,Electric Stimulation,Hot Packs, Infrared Therapy,Traction- Mechanical,Ultrasound Next Visit Focus/Plan Next Note Type Treatment Note Next Visit Plan cont to look at visceral ligamentous/fascial restrictions along w/abdominal mm tensions
--- NOTE | 2023-10-10 15:47 | PT.OTN ---
Current Diagnoses Lumbago with sciatica, right side (10/05/23) Physical Therapy Treatment Note PT-OP-A Visit Information Start: 03/11/23 09:20 Freq: Status: Active Protocol: Document 10/05/23 09:47 LR (Rec: 10/05/23 18:48 [facility] [id number]) Out-Patient Physical Therapy Visit Information Visit Information Visit Type Progress Note Visit Start Time 11:22 Visit Stop Time 12:05 Visit Number 34 Number of LABORATORY PHLEBOTOMIST Visits 0 PT-OP-B Current Condition Start: 03/11/23 09:20 Freq: Status: Active Protocol: Document 03/17/23 09:48 BS (Rec: 03/17/23 12:31 BS [id number]) Current Condition History of Current Condition Current Complaints LBP w/ R radiculopathy History of Current Condition Has referral in to see a neurosurgeon and wants to get second opinion on MRI results. 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 Got out of d/t not being able to keep up with physical requirements. Have done PT on and off over the years. Got MRI in 2018 and showed some slight narrowing at L3-L4 and minor muscle strains. Over last 6 months-1 year, has had few occasions where back spasms more than normal where he tried yoga poses, heat/ice, and massage therapist and always seemed to help. This last time ~4 weeks ago it was so bad and nothing seemed to help. Had pain down leg, knee pain, rucker/ankle pain. Bought new bed that folds to try and help with positioning and sleep. Finally went and saw doc and got on gabapentin which seems to help with pain but makes it so he can't function as well. Doesn' t normally like pain killers at all but got to the point where he needed something. Pain has really impacted life, has 2 kids under 2 and cant lift them or get up off floor well. Changing positions often seems to help with keeping the pain at ease and sitting in a more slouched position. About a year ago radiating pain was more localized to buttock but now goes all down to calf. By end of day body seems to be pretty tired and tight. Usually up 6-8 times throughout night because he is uncomfortable, has been getting worse in past 2-3 years. 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 Has lost ~20lbs in past 4 months. Almost had a fall with brain not thinking the foot was on the floor and having to grab on to someone to not go down. Pain is super variable and flare ups last 3-4 days where he cant get out of bed Treatment Goals Patient/Caregiver Goals Pt would like to focus on learning nerve glides and stretching to help with radiculopathy. Gets shoes and socks on without using hands to lift leg up. PT-OP-C Subjective Start: 03/11/23 09:20 Freq: Status: Active Protocol: Document 10/05/23 09:47 [facility] (Rec: 10/05/23 18:48 [facility] [id number]) OP-PT Subjective Patient Comments Patient Comments pt reports is frustrated d/t inc pain recently and feeling like going backwards. He does have another shot scheduled at end of month. PT-OP-D Balance Start: 03/11/23 09:20 Freq: Status: Active Protocol: Document 07/08/23 10:35 [facility] (Rec: 07/08/23 11:09 [facility] [id number]) Balance Tests Single Limb Standing Single Limb- Right 5 sec w/lat lean Single Limb- Left pain into ankle and calf 23 sec w/sig lat lean PT-OP-G Mobility & Gait Start: 03/11/23 09:20 Freq: Status: Active Protocol: Document 03/17/23 09:48 BS (Rec: 03/17/23 15:56 BS [id number]) OP Gait Assessment Comments Gait Comments dec stance time on RLE PT-OP-J Posture/Palpation/Skin Start: 03/11/23 09:20 Freq: Status: Active Protocol: Document 07/27/23 14:41 [facility] (Rec: 07/27/23 15:24 [facility] [id number]) Posture Evaluation Moess Postural Classification System Vertebral Compression Test 3 Elbow Flexion Test 4 Lumbar Protective Mechanism Left AP 2 Lumbar Protective Mechanism Right AP 2 Lumbar Protective Mechanism Left PA 4 Lumbar Protective Mechanism Right PA 3 Comments Posture Comments pain w/VCT PT-OP-K Range of Motion Start: 03/11/23 09:20 Freq: Status: Active Protocol: Document 03/17/23 09:48 BS (Rec: 03/17/23 12:31 BS [id number]) Lumbar Spine Range of Motion Lumbar Spine Active Percentage Flexion 20 Extension 10 Lateral Flexion Left 75 Lateral Flexion Right 75 Comments pain coming back up form flex, when hips SB felt tight on contra side, Ext painful, flex painful on way back up PT-OP-L Special Tests Start: 03/11/23 09:20 Freq: Status: Active Protocol: Document 03/23/23 09:49 BS (Rec: 03/23/23 13:22 [id number]) Special Tests Neural Special Tests- Lower Body Sciatic Nerve Tension Test Results positive B Comments L>R with chin tuck & DF Other Special Tests Special Tests Achilles Reflex: normal B Patellar reflex: normal L, diminished R Babinski: normal L, no response R LE Coordination: normal L, impaired R Clonus: absent PT-OP-M Strength Start: 03/11/23 09:20 Freq: Status: Active Protocol: Document 07/27/23 14:41 LR (Rec: 07/27/23 15:24 [facility] [id number]) Hip Strength Hip Manual Muscle Testing Right Flexion (L2) 4+ Good+ Extension (S1) 4 Good Abduction 4 Good Adduction 5 Normal External Rotation 5 Normal Internal Rotation 5 Normal Left Flexion (L2) 4+ Good+ Extension (S1) 4 Good Abduction 5 Normal Adduction 4 Good External Rotation 5 Normal Internal Rotation 5 Normal Knee Strength Knee Manual Muscle Testing Right Flexion (S2) 5 Normal Extension (L3) 4- Good- Comments knee pain w/ext Left Flexion (S2) 5 Normal Extension (L3) 4- Good- Ankle/Foot Strength Ankle and Foot Manual Muscle Testing Right Dorsiflexion (L4) 5 Normal Plantarflexion (S1) 3+ Fair+ Inversion 5 Normal Eversion (S1) 5 Normal Comments 3 heel raises Left Dorsiflexion (L4) 5 Normal Plantarflexion (S1) 3+ Fair+ Inversion 4- Good- Eversion (S1) 5 Normal Comments 6 heel raises -discomfort PT-OP-Q Treatments Start: 03/11/23 09:20 Freq: Status: Active Protocol: Document 10/05/23 09:47 [facility] (Rec: 10/10/23 15:46 [facility] [id number]) Manual Therapy Treatment Soft Tissue Mobilization abdomen Comments 1. scar tissue w/self release demonstrated to ant abdomen scar tissues 2. post pariatal peretoneum/ fascia of TA/Psoas/QL quadruped mod w/hands on table, feet on floor, angry cat and lat shifts 3. ant pariatel peritoneum/TA fasica and fascia along small intensine w/LTR 4. mesenteric root/fascia along ant spine w/LTR PT-OP-R Modalities Start: 03/11/23 09:20 Freq: Status: Active Protocol: Document 09/24/23 10:31 [facility] (Rec: 09/24/23 11:23 [facility] [id number]) Hot Pack/Cold Pack Treatment Cold Pack Location LB and R hip Patient Position Hooklying Patient Tolerance Good Comments 10 min PT-OP-T Assessment and Plan Start: 03/11/23 09:20 Freq: Status: Active Protocol: Document 10/05/23 09:47 [facility] (Rec: 10/05/23 18:48 [facility] [id number]) Physical Therapy Assessment Goals mobility Impairment R positive neri test ; lacking 40 deg to knee ext for HS stretch L; R lacking 52 deg to knee ext Assistant Project Manager Goal (LTG) Pt will have WNL neri test on R and B lacking 30 deg knee ext for HS stretch to dec pull on pelvis and allow improved mobility for tasks like kayaking. 10/09-n/t d/t fflare and positve for nerve tension today LTG Duration 8 activity Assistant Project Manager Goal (LTG) Pt will be able to return to light running, hiking, hike and carry kids, walk up/down hills and be able to kayak ( sit on top) to fish. 10/09-pt has been walking, and carrying kids more recently but has not progressed to other activities LTG Duration 8 ADLs Short Term Goal (STG) Pt will report dec pain and mobility resitriction with putting on R shoe and sock and be able to complete without using RUE to hold up limb. 05/20-improvign hip mobility and greater ease w/this 07/06/2023 reports donning and doffing socks and shoes are no longer painful since the injection. STG Duration achieved 3 [facility] Goal (LTG) Pt will report waking up no more than 1 time during night d/t pain and discomfort in order to allow for inc quality of life and recovery time for body. 05/20-waking d/t pain mult times 07/07-2x/night LTG Duration achieved 07/26 Balance Impairment unable to balance on RLE and 12s on LLE. Short Term Goal (STG) Pt will be able to balance for at least 10s on RLE to show improvement in strength and stability in order to progress toward safe functional mobility. 05/20-now able to for a few sec at a time consistantly 3-5 sec consistently; improved on L 07/26-23 sec L; R 19 sec STG Duration achieved 07/26 Assistant Project Manager Goal (LTG) Pt will be able to perform SLS on BLE for >30s in order to demonstrate improved strength and stability through hip and LE and allow for safe participation in daily functional mobility. 07/26-23 sec L; R 19 sec 10/09-n/t d/t flare up LTG Duration 12/01 Strength Impairment Significant strength impairments throughout RLE Short Term Goal (STG) Pt will improve all R hip MMT to at least 4/5 to show improvement in LE strength to allow for dec compensations during functional acitvities. 05/20-n/t but improving wt acceptance and LE strength STG Duration achieved 07/26 Assistant Project Manager Goal (LTG) Pt will improve all R hip MMT to 5/5 to show improvement in RLE strength and allow for proper mechanics and dec pain during necessary functional mobility and daily tasks. 05/20-n/t 10/09-n/t d/t flare up today but pt has been doing higher level strength activities in PT LTG Duration 10/04 Assessment Summary Assessment Pt responded well with manual to abdomen and had significant tension along fascia, tendons and mm of abdomen and pt would feel pull to back w/this . Improved slump after manual. MM testing and balance not tested today as pt was very flared up but pt had been making progress w/PT until recent backslide. With improvement from this session, pt to benefit from PT to work on abdomen and switch towards focus w/this manually and work on neuro re-edu after for improved facilitation of core and hip mm. Physical Therapy Plan Frequency and Duration Frequency of Treatment 1x/Week Duration of treatment (weeks) 8 Plan of Care Start Date 10/05/23 Plan of Care End Date 12/02/23 Therapeutic Interventions Therapeutic Interventions Balance Training,Coordination Training,Gait Training,Home Exercise Program,Joint Mobilizations,Manual Therapy, Neuromuscular Re-education, Patient/Caregiver Education, Self-Care/Home Management,Soft Tissue Mobilization,Taping, Therapeutic Activities, Therapeutic Exercises Modalities Cold Pack/Ice Massage,Electric Stimulation,Hot Packs, Infrared Therapy,Traction- Mechanical,Ultrasound Next Visit Focus/Plan Next Note Type Treatment Note Next Visit Plan cont to look at visceral ligamentous/fascial restrictions along w/abdominal mm tensions
--- NOTE | 2023-10-11 18:13 | PT.OTN ---
Current Diagnoses Lumbago with sciatica, right side (10/11/23) Physical Therapy Treatment Note PT-OP-A Visit Information Start: 03/11/23 09:20 Freq: Status: Active Protocol: Document 10/11/23 18:08 [facility] (Rec: 10/11/23 18:13 [facility] [id number]) Out-Patient Physical Therapy Visit Information Visit Information Visit Type Treatment Note Visit Start Time 16:50 Visit Stop Time 17:35 Visit Number 35 Number of COMPUTER SUPPORT ANALYST Visits 0 PT-OP-B Current Condition Start: 03/11/23 09:20 Freq: Status: Active Protocol: Document 03/17/23 09:48 BS (Rec: 03/17/23 12:31 BS [id number]) Current Condition History of Current Condition Current Complaints LBP w/ R radiculopathy History of Current Condition Has referral in to see a neurosurgeon and wants to get second opinion on MRI results. 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 Got out of d/t not being able to keep up with physical requirements. Have done PT on and off over the years. Got MRI in 2018 and showed some slight narrowing at L3-L4 and minor muscle strains. Over last 6 months-1 year, has had few occasions where back spasms more than normal where he tried yoga poses, heat/ice, and massage therapist and always seemed to help. This last time ~4 weeks ago it was so bad and nothing seemed to help. Had pain down leg, knee pain, rucker/ankle pain. Bought new bed that folds to try and help with positioning and sleep. Finally went and saw doc and got on gabapentin which seems to help with pain but makes it so he can't function as well. Doesn' t normally like pain killers at all but got to the point where he needed something. Pain has really impacted life, has 2 kids under 2 and cant lift them or get up off floor well. Changing positions often seems to help with keeping the pain at ease and sitting in a more slouched position. About a year ago radiating pain was more localized to buttock but now goes all down to calf. By end of day body seems to be pretty tired and tight. Usually up 6-8 times throughout night because he is uncomfortable, has been getting worse in past 2-3 years. 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 Has lost ~20lbs in past 4 months. Almost had a fall with brain not thinking the foot was on the floor and having to grab on to someone to not go down. Pain is super variable and flare ups last 3-4 days where he cant get out of bed Treatment Goals Patient/Caregiver Goals Pt would like to focus on learning nerve glides and stretching to help with radiculopathy. Gets shoes and socks on without using hands to lift leg up. PT-OP-C Subjective Start: 03/11/23 09:20 Freq: Status: Active Protocol: Document 10/11/23 18:08 [facility] (Rec: 10/11/23 18:13 [facility] [id number]) OP-PT Subjective Patient Comments Patient Comments Pt reports initially more sore after last session especially that night. Nights have been the hardest to get comfortable . Pt notes he PT-OP-D Balance Start: 03/11/23 09:20 Freq: Status: Active Protocol: Document 07/08/23 10:35 [facility] (Rec: 07/08/23 11:09 [facility] [id number]) Balance Tests Single Limb Standing Single Limb- Right 5 sec w/lat lean Single Limb- Left pain into ankle and calf 23 sec w/sig lat lean PT-OP-G Mobility & Gait Start: 03/11/23 09:20 Freq: Status: Active Protocol: Document 03/17/23 09:48 BS (Rec: 03/17/23 15:56 BS [id number]) OP Gait Assessment Comments Gait Comments dec stance time on RLE PT-OP-J Posture/Palpation/Skin Start: 03/11/23 09:20 Freq: Status: Active Protocol: Document 07/27/23 14:41 [facility] (Rec: 07/27/23 15:24 [facility] [id number]) Posture Evaluation Moses Postural Classification System Vertebral Compression Test 3 Elbow Flexion Test 4 Lumbar Protective Mechanism Left AP 2 Lumbar Protective Mechanism Right AP 2 Lumbar Protective Mechanism Left PA 4 Lumbar Protective Mechanism Right PA 3 Comments Posture Comments pain w/VCT PT-OP-K Range of Motion Start: 03/11/23 09:20 Freq: Status: Active Protocol: Document 03/17/23 09:48 BS (Rec: 03/17/23 12:31 BS [id number]) Lumbar Spine Range of Motion Lumbar Spine Active Percentage Flexion 20 Extension 10 Lateral Flexion Left 75 Lateral Flexion Right 75 Comments pain coming back up form flex, when hips SB felt tight on contra side, Ext painful, flex painful on way back up PT-OP-L Special Tests Start: 03/11/23 09:20 Freq: Status: Active Protocol: Document 03/23/23 09:49 BS (Rec: 03/23/23 13:22 BS [id number]) Special Tests Neural Special Tests- Lower Body Sciatic Nerve Tension Test Results positive B Comments L>R with chin tuck & DF Other Special Tests Special Tests Achilles Reflex: normal B Patellar reflex: normal L, diminished R Babinski: normal L, no response R LE Coordination: normal L, impaired R Clonus: absent PT-OP-M Strength Start: 03/11/23 09:20 Freq: Status: Active Protocol: Document 07/27/23 14:41 [facility] (Rec: 07/27/23 15:24 [facility] [id number]) Hip Strength Hip Manual Muscle Testing Right Flexion (L2) 4+ Good+ Extension (S1) 4 Good Abduction 4 Good Adduction 5 Normal External Rotation 5 Normal Internal Rotation 5 Normal Left Flexion (L2) 4+ Good+ Extension (S1) 4 Good Abduction 5 Normal Adduction 4 Good External Rotation 5 Normal Internal Rotation 5 Normal Knee Strength Knee Manual Muscle Testing Right Flexion (S2) 5 Normal Extension (L3) 4- Good- Comments knee pain w/ext Left Flexion (S2) 5 Normal Extension (L3) 4- Good- Ankle/Foot Strength Ankle and Foot Manual Muscle Testing Right Dorsiflexion (L4) 5 Normal Plantarflexion (S1) 3+ Fair+ Inversion 5 Normal Eversion (S1) 5 Normal Comments 3 heel raises Left Dorsiflexion (L4) 5 Normal Plantarflexion (S1) 3+ Fair+ Inversion 4- Good- Eversion (S1) 5 Normal Comments 6 heel raises -discomfort PT-OP-Q Treatments Start: 03/11/23 09:20 Freq: Status: Active Protocol: Document 10/11/23 18:08 [facility] (Rec: 10/11/23 18:13 [facility] [id number]) Manual Therapy Treatment Soft Tissue Mobilization abdomen Body Position supine/s/l Comments 1. ant pariatel peritoneum/ TAbd/Rectus abdominus fasica and fascia along small intestine R sided 2.MFR of fascia around transverse and ascending colon and lower R border of ant ribcage HS Body Location R med & lat along borders btwn mm Mobilization Type Rolling,Sustained Pressure Comments w/AAROm hip flex and active HS stretch glutes Body Location right glutes/piriformis Mobilization Type Rolling,Sustained Pressure Intensity/Depth Moderate Body Position Sidelying Comments w/n glide and deep breathing Joint Mobilizations coccyx Comments R UPA and R transverse glide FM w/LE rotations PT-OP-R Modalities Start: 03/11/23 09:20 Freq: Status: Active Protocol: Document 09/24/23 10:31 [facility] (Rec: 09/24/23 11:23 [facility] [id number]) Hot Pack/Cold Pack Treatment Cold Pack Location LB and R hip Patient Position Hooklying Patient Tolerance Good Comments 10 min PT-OP-T Assessment and Plan Start: 03/11/23 09:20 Freq: Status: Active Protocol: Document 10/11/23 18:08 [facility] (Rec: 10/11/23 18:13 [facility] [id number]) Physical Therapy Assessment Goals mobility Impairment R positive neri test ; lacking 40 deg to knee ext for HS stretch L; R lacking 52 deg to knee ext Big Data Lead Goal (LTG) Pt will have WNL neri test on R and B lacking 30 deg knee ext for HS stretch to dec pull on pelvis and allow improved mobility for tasks like kayaking. 10/09-n/t d/t fflare and positve for nerve tension today LTG Duration 8/ activity Senior Care Goal (LTG) Pt will be able to return to light running, hiking, hike and carry kids, walk up/down hills and be able to kayak ( sit on top) to fish. 10/09-pt has been walking, and carrying kids more recently but has not progressed to other activities LTG Duration 8 Balance Impairment unable to balance on RLE and 12s on LLE. Short Term Goal (STG) Pt will be able to balance for at least 10s on RLE to show improvement in strength and stability in order to progress toward safe functional mobility. 05/20-now able to for a few sec at a time consistantly 3/7-5 sec consistently; improved on L 07/26-23 sec L; R 19 sec STG Duration achieved 07/26 [employer] Data Lead Goal (LTG) Pt will be able to perform SLS on BLE for >30s in order to demonstrate improved strength and stability through hip and LE and allow for safe participation in daily functional mobility. 07/26-23 sec L; R 19 sec 10/09-n/t d/t flare up LTG Duration 12/01 Strength Impairment Significant strength impairments throughout RLE Short Term Goal (STG) Pt will improve all R hip MMT to at least 4/5 to show improvement in LE strength to allow for dec compensations during functional acitvities. 05/20-n/t but improving wt acceptance and LE strength STG Duration achieved 07/26 Big Data Lead Goal (LTG) Pt will improve all R hip MMT to 5/5 to show improvement in RLE strength and allow for proper mechanics and dec pain during necessary functional mobility and daily tasks. 05/20-n/t 10/09-n/t d/t flare up today but pt has been doing higher level strength activities in PT LTG Duration 10/04 Assessment Summary Assessment Pt had buzzing in RLE that improved to gone after manual and had positive ext sit neural tension and slump sit which improved ROM and no pain in back after treatment today . Pt encouraged to try hot pack to abdomen Physical Therapy Plan Frequency and Duration Frequency of Treatment 1x/Week Duration of treatment (weeks) 8 Plan of Care Start Date 10/05/23 Plan of Care End Date 12/02/23 Next Visit Focus/Plan Next Note Type Treatment Note Next Visit Plan work on ligaments around cecum and liver region, cont to improve neural tension
--- NOTE | 2023-10-19 18:44 | PT.OTN ---
Current Diagnoses Lumbago with sciatica, right side (10/19/23) Physical Therapy Treatment Note PT-OP-A Visit Information Start: 03/11/23 09:20 Freq: Status: Active Protocol: Document 10/19/23 14:33 [facility] (Rec: 10/19/23 18:43 [facility] [id number]) Out-Patient Physical Therapy Visit Information Visit Information Visit Type Treatment Note Visit Start Time 14:30 Visit Stop Time 15:15 Visit Number 36 Number of SECURITY SYSTEMS ENGINEER Visits 0 PT-OP-B Current Condition Start: 03/11/23 09:20 Freq: Status: Active Protocol: Document 03/17/23 09:48 BS (Rec: 03/17/23 12:31 BS [id number]) Current Condition History of Current Condition Current Complaints LBP w/ R radiculopathy History of Current Condition Has referral in to see a neurosurgeon and wants to get second opinion on MRI results. 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 Got out of d/t not being able to keep up with physical requirements. Have done PT on and off over the years. Got MRI in 2018 and showed some slight narrowing at L3-L4 and minor muscle strains. Over last 6 months-1 year, has had few occasions where back spasms more than normal where he tried yoga poses, heat/ice, and massage therapist and always seemed to help. This last time ~4 weeks ago it was so bad and nothing seemed to help. Had pain down leg, knee pain, rucker/ankle pain. Bought new bed that folds to try and help with positioning and sleep. Finally went and saw doc and got on gabapentin which seems to help with pain but makes it so he can't function as well. Doesn' t normally like pain killers at all but got to the point where he needed something. Pain has really impacted life, has 2 kids under 2 and cant lift them or get up off floor well. Changing positions often seems to help with keeping the pain at ease and sitting in a more slouched position. About a year ago radiating pain was more localized to buttock but now goes all down to calf. By end of day body seems to be pretty tired and tight. Usually up 6-8 times throughout night because he is uncomfortable, has been getting worse in past 2-3 years. 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 Has lost ~20lbs in past 4 months. Almost had a fall with brain not thinking the foot was on the floor and having to grab on to someone to not go down. Pain is super variable and flare ups last 3-4 days where he cant get out of bed Treatment Goals Patient/Caregiver Goals Pt would like to focus on learning nerve glides and stretching to help with radiculopathy. Gets shoes and socks on without using hands to lift leg up. PT-OP-C Subjective Start: 03/11/23 09:20 Freq: Status: Active Protocol: Document 10/19/23 14:33 [facility] (Rec: 10/19/23 18:43 [facility] [id number]) OP-PT Subjective Patient Comments Patient Comments Pt felt good after last session. Heating pad in abdomen helpful. had 2 days ( fri and sat where pain down leg) and did ice pack, tylenol and hot pack for 2 days and feels a lot better. Pain is restricted up back. Pt reports pain was going down legs less after last session and felt more symmetrical at hips PT-OP-D Balance Start: 03/11/23 09:20 Freq: Status: Active Protocol: Document 07/08/23 10:35 [facility] (Rec: 07/08/23 11:09 [facility] [id number]) Balance Tests Single Limb Standing Single Limb- Right 5 sec w/lat lean Single Limb- Left pain into ankle and calf 23 sec w/sig lat lean PT-OP-G Mobility & Gait Start: 03/11/23 09:20 Freq: Status: Active Protocol: Document 03/17/23 09:48 BS (Rec: 03/17/23 15:56 BS [id number]) OP Gait Assessment Comments Gait Comments dec stance time on RLE PT-OP-J Posture/Palpation/Skin Start: 03/11/23 09:20 Freq: Status: Active Protocol: Document 07/27/23 14:41 [facility] (Rec: 07/27/23 15:24 [facility] [id number]) Posture Evaluation [facility] Postural Classification System Vertebral Compression Test 3 Elbow Flexion Test 4 Lumbar Protective Mechanism Left AP 2 Lumbar Protective Mechanism Right AP 2 Lumbar Protective Mechanism Left PA 4 Lumbar Protective Mechanism Right PA 3 Comments Posture Comments pain w/VCT PT-OP-K Range of Motion Start: 03/11/23 09:20 Freq: Status: Active Protocol: Document 03/17/23 09:48 BS (Rec: 03/17/23 12:31 [id number]) Lumbar Spine Range of Motion Lumbar Spine Active Percentage Flexion 20 Extension 10 Lateral Flexion Left 75 Lateral Flexion Right 75 Comments pain coming back up form flex, when hips SB felt tight on contra side, Ext painful, flex painful on way back up PT-OP-L Special Tests Start: 03/11/23 09:20 Freq: Status: Active Protocol: Document 03/23/23 09:49 BS (Rec: 03/23/23 13:22 [id number]) Special Tests Neural Special Tests- Lower Body Sciatic Nerve Tension Test Results positive B Comments L>R with chin tuck & DF Other Special Tests Special Tests Achilles Reflex: normal B Patellar reflex: normal L, diminished R Babinski: normal L, no response R LE Coordination: normal L, impaired R Clonus: absent PT-OP-M Strength Start: 03/11/23 09:20 Freq: Status: Active Protocol: Document 07/27/23 14:41 [facility] (Rec: 07/27/23 15:24 [facility] [id number]) Hip Strength Hip Manual Muscle Testing Right Flexion (L2) 4+ Good+ Extension (S1) 4 Good Abduction 4 Good Adduction 5 Normal External Rotation 5 Normal Internal Rotation 5 Normal Left Flexion (L2) 4+ Good+ Extension (S1) 4 Good Abduction 5 Normal Adduction 4 Good External Rotation 5 Normal Internal Rotation 5 Normal Knee Strength Knee Manual Muscle Testing Right Flexion (S2) 5 Normal Extension (L3) 4- Good- Comments knee pain w/ext Left Flexion (S2) 5 Normal Extension (L3) 4- Good- Ankle/Foot Strength Ankle and Foot Manual Muscle Testing Right Dorsiflexion (L4) 5 Normal Plantarflexion (S1) 3+ Fair+ Inversion 5 Normal Eversion (S1) 5 Normal Comments 3 heel raises Left Dorsiflexion (L4) 5 Normal Plantarflexion (S1) 3+ Fair+ Inversion 4- Good- Eversion (S1) 5 Normal Comments 6 heel raises -discomfort PT-OP-Q Treatments Start: 03/11/23 09:20 Freq: Status: Active Protocol: Document 10/19/23 14:33 [facility] (Rec: 10/19/23 18:43 [facility] [id number]) Manual Therapy Treatment Soft Tissue Mobilization abdomen Comments 1. fascia along transverse and descending colon 2. fascia along stomach, inf ribcage 3. L lat border of rectus abdominus 4. MFR to ant abdomen w/gentle movement & shoudler ROM LS Body Location L QL Mobilization Type Rolling,Sustained Pressure, Other Body Position Sidelying Joint Mobilizations ribs Comments internal torsion L rib 6 FM and L ribs SB L FM rib 7 PT-OP-R Modalities Start: 03/11/23 09:20 Freq: Status: Active Protocol: Document 09/24/23 10:31 NB (Rec: 09/24/23 11:23 NB [id number]) Hot Pack/Cold Pack Treatment Cold Pack Location LB and R hip Patient Position Hooklying Patient Tolerance Good Comments 10 min PT-OP-T Assessment and Plan Start: 03/11/23 09:20 Freq: Status: Active Protocol: Document 10/19/23 14:33 [facility] (Rec: 10/19/23 18:43 [facility] [id number]) Physical Therapy Assessment Goals mobility Impairment R positive neri test ; lacking 40 deg to knee ext for HS stretch L; R lacking 52 deg to knee ext Diamond Selector Goal (LTG) Pt will have WNL neri test on R and B lacking 30 deg knee ext for HS stretch to dec pull on pelvis and allow improved mobility for tasks like kayaking. 10/09-n/t d/t fflare and positve for nerve tension today LTG Duration 8/ activity Diamond Selector Goal (LTG) Pt will be able to return to light running, hiking, hike and carry kids, walk up/down hills and be able to kayak ( sit on top) to fish. 10/09-pt has been walking, and carrying kids more recently but has not progressed to other activities LTG Duration 8 Balance Impairment unable to balance on RLE and 12s on LLE. Short Term Goal (STG) Pt will be able to balance for at least 10s on RLE to show improvement in strength and stability in order to progress toward safe functional mobility. 1/18-now able to for a few sec at a time consistantly 3/7-5 sec consistently; improved on L 07/26-23 sec L; R 19 sec STG Duration achieved 07/26 Residential Goal (LTG) Pt will be able to perform SLS on BLE for >30s in order to demonstrate improved strength and stability through hip and LE and allow for safe participation in daily functional mobility. 07/26-23 sec L; R 19 sec 10/09-n/t d/t flare up LTG Duration 12/01 Strength Impairment Significant strength impairments throughout RLE Short Term Goal (STG) Pt will improve all R hip MMT to at least 4/5 to show improvement in LE strength to allow for dec compensations during functional acitvities. 05/20-n/t but improving wt acceptance and LE strength STG Duration achieved 07/26 Residential Goal (LTG) Pt will improve all R hip MMT to 5/5 to show improvement in RLE strength and allow for proper mechanics and dec pain during necessary functional mobility and daily tasks. 05/20-n/t 10/09-n/t d/t flare up today but pt has been doing higher level strength activities in PT LTG Duration 10/04 Assessment Summary Assessment Pt had signficant L abdominal and ribcage tension likely related to restricted SB. pt has a lot of pull from abdominal mobilization and fascia that goes to back. No R back pain or leg pain but idd note some L sided back/leg pain after manual taht did subside when sitting. Physical Therapy Plan Frequency and Duration Frequency of Treatment 1x/Week Duration of treatment (weeks) 8 Plan of Care Start Date 10/05/23 Plan of Care End Date 12/02/23 Next Visit Focus/Plan Next Note Type Treatment Note Next Visit Plan cont to work on ant structures to work on improved mobility; assess pt ability to SB in ext vs flex
--- NOTE | 2023-10-25 15:57 | PT.OTN ---
Current Diagnoses Lumbago with sciatica, right side (10/25/23) Physical Therapy Treatment Note PT-OP-A Visit Information Start: 03/11/23 09:20 Freq: Status: Active Protocol: Document 10/25/23 13:35 [facility] (Rec: 10/25/23 15:57 [facility] [id number]) Out-Patient Physical Therapy Visit Information Visit Information Visit Type Treatment Note Visit Start Time 14:04 Visit Stop Time 14:36 Visit Number 37 Number of FIRE ALARM DISPATCHER Visits 0 PT-OP-B Current Condition Start: 03/11/23 09:20 Freq: Status: Active Protocol: Document 03/17/23 09:48 BS (Rec: 03/17/23 12:31 BS [id number]) Current Condition History of Current Condition Current Complaints LBP w/ R radiculopathy History of Current Condition Has referral in to see a neurosurgeon and wants to get second opinion on MRI results. 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 Got out of d/t not being able to keep up with physical requirements. Have done PT on and off over the years. Got MRI in 2018 and showed some slight narrowing at L3-L4 and minor muscle strains. Over last 6 months-1 year, has had few occasions where back spasms more than normal where he tried yoga poses, heat/ice, and massage therapist and always seemed to help. This last time ~4 weeks ago it was so bad and nothing seemed to help. Had pain down leg, knee pain, rucker/ankle pain. Bought new bed that folds to try and help with positioning and sleep. Finally went and saw doc and got on gabapentin which seems to help with pain but makes it so he can't function as well. Doesn' t normally like pain killers at all but got to the point where he needed something. Pain has really impacted life, has 2 kids under 2 and cant lift them or get up off floor well. Changing positions often seems to help with keeping the pain at ease and sitting in a more slouched position. About a year ago radiating pain was more localized to buttock but now goes all down to calf. By end of day body seems to be pretty tired and tight. Usually up 6-8 times throughout night because he is uncomfortable, has been getting worse in past 2-3 years. 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 Has lost ~20lbs in past 4 months. Almost had a fall with brain not thinking the foot was on the floor and having to grab on to someone to not go down. Pain is super variable and flare ups last 3-4 days where he cant get out of bed Treatment Goals Patient/Caregiver Goals Pt would like to focus on learning nerve glides and stretching to help with radiculopathy. Gets shoes and socks on without using hands to lift leg up. PT-OP-C Subjective Start: 03/11/23 09:20 Freq: Status: Active Protocol: Document 10/25/23 13:35 [facility] (Rec: 10/25/23 15:57 [facility] [id number]) OP-PT Subjective Patient Comments Patient Comments pt reports injection was cancelled and won't be rescheduled until Dec. He has clonopam to help w/sleep at night. This is not helping but ice on back and heat on stomach helps. Still wakes at night and will take half a pill. He is on prednisone (5 days) and tomorrow his last day and pain is better. [place] good after wednesday last week. PT-OP-D Balance Start: 03/11/23 09:20 Freq: Status: Active Protocol: Document 07/08/23 10:35 [facility] (Rec: 07/08/23 11:09 [facility] [id number]) Balance Tests Single Limb Standing Single Limb- Right 5 sec w/lat lean Single Limb- Left pain into ankle and calf 23 sec w/sig lat lean PT-OP-G Mobility & Gait Start: 03/11/23 09:20 Freq: Status: Active Protocol: Document 03/17/23 09:48 BS (Rec: 03/17/23 15:56 BS [id number]) OP Gait Assessment Comments Gait Comments dec stance time on RLE PT-OP-J Posture/Palpation/Skin Start: 03/11/23 09:20 Freq: Status: Active Protocol: Document 07/27/23 14:41 [facility] (Rec: 07/27/23 15:24 [facility] [id number]) Posture Evaluation [facility] Postural Classification System Vertebral Compression Test 3 Elbow Flexion Test 4 Lumbar Protective Mechanism Left AP 2 Lumbar Protective Mechanism Right AP 2 Lumbar Protective Mechanism Left PA 4 Lumbar Protective Mechanism Right PA 3 Comments Posture Comments pain w/VCT PT-OP-K Range of Motion Start: 03/11/23 09:20 Freq: Status: Active Protocol: Document 03/17/23 09:48 BS (Rec: 03/17/23 12:31 BS [id number]) Lumbar Spine Range of Motion Lumbar Spine Active Percentage Flexion 20 Extension 10 Lateral Flexion Left 75 Lateral Flexion Right 75 Comments pain coming back up form flex, when hips SB felt tight on contra side, Ext painful, flex painful on way back up PT-OP-L Special Tests Start: 03/11/23 09:20 Freq: Status: Active Protocol: Document 03/23/23 09:49 BS (Rec: 03/23/23 13:22 BS [id number]) Special Tests Neural Special Tests- Lower Body Sciatic Nerve Tension Test Results positive B Comments L>R with chin tuck & DF Other Special Tests Special Tests Achilles Reflex: normal B Patellar reflex: normal L, diminished R Babinski: normal L, no response R LE Coordination: normal L, impaired R Clonus: absent PT-OP-M Strength Start: 03/11/23 09:20 Freq: Status: Active Protocol: Document 07/27/23 14:41 [facility] (Rec: 07/27/23 15:24 [facility] [id number]) Hip Strength Hip Manual Muscle Testing Right Flexion (L2) 4+ Good+ Extension (S1) 4 Good Abduction 4 Good Adduction 5 Normal External Rotation 5 Normal Internal Rotation 5 Normal Left Flexion (L2) 4+ Good+ Extension (S1) 4 Good Abduction 5 Normal Adduction 4 Good External Rotation 5 Normal Internal Rotation 5 Normal Knee Strength Knee Manual Muscle Testing Right Flexion (S2) 5 Normal Extension (L3) 4- Good- Comments knee pain w/ext Left Flexion (S2) 5 Normal Extension (L3) 4- Good- Ankle/Foot Strength Ankle and Foot Manual Muscle Testing Right Dorsiflexion (L4) 5 Normal Plantarflexion (S1) 3+ Fair+ Inversion 5 Normal Eversion (S1) 5 Normal Comments 3 heel raises Left Dorsiflexion (L4) 5 Normal Plantarflexion (S1) 3+ Fair+ Inversion 4- Good- Eversion (S1) 5 Normal Comments 6 heel raises -discomfort PT-OP-Q Treatments Start: 03/11/23 09:20 Freq: Status: Active Protocol: Document 10/25/23 13:35 [facility] (Rec: 10/25/23 15:57 [facility] [id number]) Manual Therapy Treatment Soft Tissue Mobilization abdomen Comments 1. R triangular ligament in S/ L OSFM 2. L triangular ligament in S/ L OSFM LS Body Location R along TL junction & ribs Mobilization Type Myofascial Release Intensity/Depth Superficial Body Position Sidelying Comments w/breathing Joint Mobilizations ribs Comments R general exhalation FM lower ribs (8-10) & Rib 7 internal torsion FM PT-OP-R Modalities Start: 03/11/23 09:20 Freq: Status: Active Protocol: Document 09/24/23 10:31 NBM (Rec: 09/24/23 11:23 [facility] [id number]) Hot Pack/Cold Pack Treatment Cold Pack Location LB and R hip Patient Position Hooklying Patient Tolerance Good Comments 10 min PT-OP-T Assessment and Plan Start: 03/11/23 09:20 Freq: Status: Active Protocol: Document 10/25/23 13:35 [facility] (Rec: 10/25/23 15:57 [facility] [id number]) Physical Therapy Assessment Goals mobility Impairment R positive neri test ; lacking 40 deg to knee ext for HS stretch L; R lacking 52 deg to knee ext Mica Plate Layer Goal (LTG) Pt will have WNL neri test on R and B lacking 30 deg knee ext for HS stretch to dec pull on pelvis and allow improved mobility for tasks like kayaking. 10/09-n/t d/t fflare and positve for nerve tension today LTG Duration 8/ activity Mica Plate Layer Goal (LTG) Pt will be able to return to light running, hiking, hike and carry kids, walk up/down hills and be able to kayak ( sit on top) to fish. 10/09-pt has been walking, and carrying kids more recently but has not progressed to other activities LTG Duration 8 Balance Impairment unable to balance on RLE and 12s on LLE. Short Term Goal (STG) Pt will be able to balance for at least 10s on RLE to show improvement in strength and stability in order to progress toward safe functional mobility. 05/20-now able to for a few sec at a time consistantly 3/7-5 sec consistently; improved on L 07/26-23 sec L; R 19 sec STG Duration achieved 07/26 Shelter Goal (LTG) Pt will be able to perform SLS on BLE for >30s in order to demonstrate improved strength and stability through hip and LE and allow for safe participation in daily functional mobility. 07/26-23 sec L; R 19 sec 10/09-n/t d/t flare up LTG Duration 12/01 Strength Impairment Significant strength impairments throughout RLE Short Term Goal (STG) Pt will improve all R hip MMT to at least 4/5 to show improvement in LE strength to allow for dec compensations during functional acitvities. 05/20-n/t but improving wt acceptance and LE strength STG Duration achieved 07/26 Shelter Goal (LTG) Pt will improve all R hip MMT to 5/5 to show improvement in RLE strength and allow for proper mechanics and dec pain during necessary functional mobility and daily tasks. 05/20-n/t 10/09-n/t d/t flare up today but pt has been doing higher level strength activities in PT LTG Duration 10/04 Assessment Summary Assessment pt had much imrpoved ROM today as compared w/last session. He still has limited ext of spine and had limited rotation B that improved after manual treatment. Physical Therapy Plan Frequency and Duration Frequency of Treatment 1x/Week Duration of treatment (weeks) 8 Plan of Care Start Date 10/05/23 Plan of Care End Date 12/02/23 Next Visit Focus/Plan Next Note Type Treatment Note Next Visit Plan cont to work on ant structures w/ext; to work on improved mobility; resume PNF & restart core work
--- NOTE | 2023-11-01 17:14 | PT.OTN ---
Current Diagnoses Lumbago with sciatica, right side (11/01/23) Physical Therapy Treatment Note PT-OP-A Visit Information Start: 03/11/23 09:20 Freq: Status: Active Protocol: Document 11/01/23 16:08 [facility] (Rec: 11/01/23 18:13 [facility] [id number]) Out-Patient Physical Therapy Visit Information Visit Information Visit Type Treatment Note Visit Start Time 16:07 Visit Stop Time 16:52 Visit Number 38 Number of FILES SUPERVISOR Visits 0 PT-OP-B Current Condition Start: 03/11/23 09:20 Freq: Status: Active Protocol: Document 03/17/23 09:48 BS (Rec: 03/17/23 12:31 BS [id number]) Current Condition History of Current Condition Current Complaints LBP w/ R radiculopathy History of Current Condition Has referral in to see a neurosurgeon and wants to get second opinion on MRI results. 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 Got out of d/t not being able to keep up with physical requirements. Have done PT on and off over the years. Got MRI in 2018 and showed some slight narrowing at L3-L4 and minor muscle strains. Over last 6 months-1 year, has had few occasions where back spasms more than normal where he tried yoga poses, heat/ice, and massage therapist and always seemed to help. This last time ~4 weeks ago it was so bad and nothing seemed to help. Had pain down leg, knee pain, rucker/ankle pain. Bought new bed that folds to try and help with positioning and sleep. Finally went and saw doc and got on gabapentin which seems to help with pain but makes it so he can't function as well. Doesn' t normally like pain killers at all but got to the point where he needed something. Pain has really impacted life, has 2 kids under 2 and cant lift them or get up off floor well. Changing positions often seems to help with keeping the pain at ease and sitting in a more slouched position. About a year ago radiating pain was more localized to buttock but now goes all down to calf. By end of day body seems to be pretty tired and tight. Usually up 6-8 times throughout night because he is uncomfortable, has been getting worse in past 2-3 years. 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 Has lost ~20lbs in past 4 months. Almost had a fall with brain not thinking the foot was on the floor and having to grab on to someone to not go down. Pain is super variable and flare ups last 3-4 days where he cant get out of bed Treatment Goals Patient/Caregiver Goals Pt would like to focus on learning nerve glides and stretching to help with radiculopathy. Gets shoes and socks on without using hands to lift leg up. PT-OP-C Subjective Start: 03/11/23 09:20 Freq: Status: Active Protocol: Document 11/01/23 16:08 [facility] (Rec: 11/01/23 18:13 [facility] [id number]) OP-PT Subjective Patient Comments Patient Comments Pt reports he is done with prednisone last tues and stopped carbonated water then too. NOtes no pain int he past 4 days. Has not been taking Clonopen and tramadol much then. PT-OP-D Balance Start: 03/11/23 09:20 Freq: Status: Active Protocol: Document 07/08/23 10:35 [facility] (Rec: 07/08/23 11:09 [facility] [id number]) Balance Tests Single Limb Standing Single Limb- Right 5 sec w/lat lean Single Limb- Left pain into ankle and calf 23 sec w/sig lat lean PT-OP-G Mobility & Gait Start: 03/11/23 09:20 Freq: Status: Active Protocol: Document 03/17/23 09:48 BS (Rec: 03/17/23 15:56 BS [id number]) OP Gait Assessment Comments Gait Comments dec stance time on RLE PT-OP-J Posture/Palpation/Skin Start: 03/11/23 09:20 Freq: Status: Active Protocol: Document 07/27/23 14:41 [facility] (Rec: 07/27/23 15:24 [facility] [id number]) Posture Evaluation Moses Postural Classification System Vertical Compression Test 3 Elbow Flexion Test 4 Lumbar Protective Mechanism Left AP 2 Lumbar Protective Mechanism Right AP 2 Lumbar Protective Mechanism Left PA 4 Lumbar Protective Mechanism Right PA 3 Comments Posture Comments pain w/VCT PT-OP-K Range of Motion Start: 03/11/23 09:20 Freq: Status: Active Protocol: Document 03/17/23 09:48 BS (Rec: 03/17/23 12:31 BS [id number]) Lumbar Spine Range of Motion Lumbar Spine Active Percentage Flexion 20 Extension 10 Lateral Flexion Left 75 Lateral Flexion Right 75 Comments pain coming back up form flex, when hips SB felt tight on contra side, Ext painful, flex painful on way back up PT-OP-L Special Tests Start: 03/11/23 09:20 Freq: Status: Active Protocol: Document 03/23/23 09:49 BS (Rec: 03/23/23 13:22 BS [id number]) Special Tests Neural Special Tests- Lower Body Sciatic Nerve Tension Test Results positive B Comments L>R with chin tuck & DF Other Special Tests Special Tests Achilles Reflex: normal B Patellar reflex: normal L, diminished R Babinski: normal L, no response R LE Coordination: normal L, impaired R Clonus: absent PT-OP-M Strength Start: 03/11/23 09:20 Freq: Status: Active Protocol: Document 07/27/23 14:41 [facility] (Rec: 07/27/23 15:24 [facility] [id number]) Hip Strength Hip Manual Muscle Testing Right Flexion (L2) 4+ Good+ Extension (S1) 4 Good Abduction 4 Good Adduction 5 Normal External Rotation 5 Normal Internal Rotation 5 Normal Left Flexion (L2) 4+ Good+ Extension (S1) 4 Good Abduction 5 Normal Adduction 4 Good External Rotation 5 Normal Internal Rotation 5 Normal Knee Strength Knee Manual Muscle Testing Right Flexion (S2) 5 Normal Extension (L3) 4- Good- Comments knee pain w/ext Left Flexion (S2) 5 Normal Extension (L3) 4- Good- Ankle/Foot Strength Ankle and Foot Manual Muscle Testing Right Dorsiflexion (L4) 5 Normal Plantarflexion (S1) 3+ Fair+ Inversion 5 Normal Eversion (S1) 5 Normal Comments 3 heel raises Left Dorsiflexion (L4) 5 Normal Plantarflexion (S1) 3+ Fair+ Inversion 4- Good- Eversion (S1) 5 Normal Comments 6 heel raises -discomfort PT-OP-Q Treatments Start: 03/11/23 09:20 Freq: Status: Active Protocol: Document 11/01/23 16:08 [facility] (Rec: 11/01/23 18:13 [facility] [id number]) Therapeutic Exercises Supine Exercises core Supine Exercise Name flex and diagonal isometric Side right Reps/Minutes 30sec ea Manual Therapy Treatment Consent Patient gave verbal consent for manual Yes treatment Soft Tissue Mobilization abdomen Comments 1. ant leaf coronary ligament 2. MFR lat rectus abdominus LS Body Location B ES Mobilization Type Rolling Intensity/Depth Moderate Body Position Sitting Neuro Re-Education Treatment Other Activities LTR Reps/Duration 5 min Comments w/segmental facilitaiton L3-5 B facilitation Reps/Duration 10 min Comments diagnonal traction tonic spread at B knees for core in hooklying progressed to rhythmic stabilization Self-Care/Home Management Treatment Education Other Education 3 min : edu considering working w/counselor again re: pain and change in his life d/ t this PT-OP-R Modalities Start: 03/11/23 09:20 Freq: Status: Active Protocol: Document 09/24/23 10:31 [facility] (Rec: 09/24/23 11:23 [facility] [id number]) Hot Pack/Cold Pack Treatment Cold Pack Location LB and R hip Patient Position Hooklying Patient Tolerance Good Comments 10 min PT-OP-T Assessment and Plan Start: 03/11/23 09:20 Freq: Status: Active Protocol: Document 11/01/23 16:08 [facility] (Rec: 11/01/23 18:13 [facility] [id number]) Physical Therapy Assessment Goals mobility Impairment R positive neri test ; lacking 40 deg to knee ext for HS stretch L; R lacking 52 deg to knee ext Jail Goal (LTG) Pt will have WNL neri test on R and B lacking 30 deg knee ext for HS stretch to dec pull on pelvis and allow improved mobility for tasks like kayaking. 10/09-n/t d/t fflare and positve for nerve tension today LTG Duration 8/1 activity Developmental Mathematics Professor Goal (LTG) Pt will be able to return to light running, hiking, hike and carry kids, walk up/down hills and be able to kayak ( sit on top) to fish. 10/09-pt has been walking, and carrying kids more recently but has not progressed to other activities LTG Duration 8/ Balance Impairment unable to balance on RLE and 12s on LLE. Short Term Goal (STG) Pt will be able to balance for at least 10s on RLE to show improvement in strength and stability in order to progress toward safe functional mobility. 05/20-now able to for a few sec at a time consistantly 3/7-5 sec consistently; improved on L 07/26-23 sec L; R 19 sec STG Duration achieved 07/26 Developmental Mathematics Professor Goal (LTG) Pt will be able to perform SLS on BLE for >30s in order to demonstrate improved strength and stability through hip and LE and allow for safe participation in daily functional mobility. 07/26-23 sec L; R 19 sec 10/09-n/t d/t flare up LTG Duration 12/01 Strength Impairment Significant strength impairments throughout RLE Short Term Goal (STG) Pt will improve all R hip MMT to at least 4/5 to show improvement in LE strength to allow for dec compensations during functional acitvities. 05/20-n/t but improving wt acceptance and LE strength STG Duration achieved 07/26 Developmental Mathematics Professor Goal (LTG) Pt will improve all R hip MMT to 5/5 to show improvement in RLE strength and allow for proper mechanics and dec pain during necessary functional mobility and daily tasks. 05/20-n/t 10/09-n/t d/t flare up today but pt has been doing higher level strength activities in PT LTG Duration 10/04 Assessment Summary Assessment Improved LEFT from no iniation to 4/5 strength after facilitation techniques. Pt did note some discomfort after but no inc pain. Less tesnsion anteriorly noted today. Physical Therapy Plan Frequency and Duration Frequency of Treatment 1x/Week Duration of treatment (weeks) 8 Plan of Care Start Date 10/05/23 Plan of Care End Date 12/02/23 Next Visit Focus/Plan Next Note Type Treatment Note Next Visit Plan cont to work on ant structures w/ext; to work on improved mobility;PNF & restart core work
--- NOTE | 2023-11-09 16:47 | PT.OTN ---
Current Diagnoses Lumbago with sciatica, right side (11/09/23) Physical Therapy Treatment Note PT-OP-A Visit Information Start: 03/11/23 09:20 Freq: Status: Active Protocol: Document 11/09/23 10:29 [facility] (Rec: 11/09/23 16:47 [facility] [id number]) Out-Patient Physical Therapy Visit Information Visit Information Visit Type Treatment Note Visit Start Time 07:31 Visit Stop Time 08:15 Visit Number 39 Number of GUEST ASSOCIATE Visits 0 PT-OP-B Current Condition Start: 03/11/23 09:20 Freq: Status: Active Protocol: Document 03/17/23 09:48 BS (Rec: 03/17/23 12:31 BS [id number]) Current Condition History of Current Condition Current Complaints LBP w/ R radiculopathy History of Current Condition Has referral in to see a neurosurgeon and wants to get second opinion on MRI results. 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 Got out of d/t not being able to keep up with physical requirements. Have done PT on and off over the years. Got MRI in 2018 and showed some slight narrowing at L3-L4 and minor muscle strains. Over last 6 months-1 year, has had few occasions where back spasms more than normal where he tried yoga poses, heat/ice, and massage therapist and always seemed to help. This last time ~4 weeks ago it was so bad and nothing seemed to help. Had pain down leg, knee pain, rucker/ankle pain. Bought new bed that folds to try and help with positioning and sleep. Finally went and saw doc and got on gabapentin which seems to help with pain but makes it so he can't function as well. Doesn' t normally like pain killers at all but got to the point where he needed something. Pain has really impacted life, has 2 kids under 2 and cant lift them or get up off floor well. Changing positions often seems to help with keeping the pain at ease and sitting in a more slouched position. About a year ago radiating pain was more localized to buttock but now goes all down to calf. By end of day body seems to be pretty tired and tight. Usually up 6-8 times throughout night because he is uncomfortable, has been getting worse in past 2-3 years. 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 Has lost ~20lbs in past 4 months. Almost had a fall with brain not thinking the foot was on the floor and having to grab on to someone to not go down. Pain is super variable and flare ups last 3-4 days where he cant get out of bed Treatment Goals Patient/Caregiver Goals Pt would like to focus on learning nerve glides and stretching to help with radiculopathy. Gets shoes and socks on without using hands to lift leg up. PT-OP-C Subjective Start: 03/11/23 09:20 Freq: Status: Active Protocol: Document 11/09/23 10:29 [facility] (Rec: 11/09/23 16:47 [facility] [id number]) OP-PT Subjective Patient Comments Patient Comments pt reports overall doing well. PT-OP-D Balance Start: 03/11/23 09:20 Freq: Status: Active Protocol: Document 07/08/23 10:35 [facility] (Rec: 07/08/23 11:09 [facility] [id number]) Balance Tests Single Limb Standing Single Limb- Right 5 sec w/lat lean Single Limb- Left pain into ankle and calf 23 sec w/sig lat lean PT-OP-G Mobility & Gait Start: 03/11/23 09:20 Freq: Status: Active Protocol: Document 03/17/23 09:48 BS (Rec: 03/17/23 15:56 BS [id number]) OP Gait Assessment Comments Gait Comments dec stance time on RLE PT-OP-J Posture/Palpation/Skin Start: 03/11/23 09:20 Freq: Status: Active Protocol: Document 07/27/23 14:41 [facility] (Rec: 07/27/23 15:24 [facility] [id number]) Posture Evaluation Moses Postural Classification System Vertical Compression Test 3 Elbow Flexion Test 4 Lumbar Protective Mechanism Left AP 2 Lumbar Protective Mechanism Right AP 2 Lumbar Protective Mechanism Left PA 4 Lumbar Protective Mechanism Right PA 3 Comments Posture Comments pain w/VCT PT-OP-K Range of Motion Start: 03/11/23 09:20 Freq: Status: Active Protocol: Document 03/17/23 09:48 BS (Rec: 03/17/23 12:31 [id number]) Lumbar Spine Range of Motion Lumbar Spine Active Percentage Flexion 20 Extension 10 Lateral Flexion Left 75 Lateral Flexion Right 75 Comments pain coming back up form flex, when hips SB felt tight on contra side, Ext painful, flex painful on way back up PT-OP-L Special Tests Start: 03/11/23 09:20 Freq: Status: Active Protocol: Document 03/23/23 09:49 BS (Rec: 03/23/23 13:22 [id number]) Special Tests Neural Special Tests- Lower Body Sciatic Nerve Tension Test Results positive B Comments L>R with chin tuck & DF Other Special Tests Special Tests Achilles Reflex: normal B Patellar reflex: normal L, diminished R Babinski: normal L, no response R LE Coordination: normal L, impaired R Clonus: absent PT-OP-M Strength Start: 03/11/23 09:20 Freq: Status: Active Protocol: Document 07/27/23 14:41 [facility] (Rec: 07/27/23 15:24 [facility] [id number]) Hip Strength Hip Manual Muscle Testing Right Flexion (L2) 4+ Good+ Extension (S1) 4 Good Abduction 4 Good Adduction 5 Normal External Rotation 5 Normal Internal Rotation 5 Normal Left Flexion (L2) 4+ Good+ Extension (S1) 4 Good Abduction 5 Normal Adduction 4 Good External Rotation 5 Normal Internal Rotation 5 Normal Knee Strength Knee Manual Muscle Testing Right Flexion (S2) 5 Normal Extension (L3) 4- Good- Comments knee pain w/ext Left Flexion (S2) 5 Normal Extension (L3) 4- Good- Ankle/Foot Strength Ankle and Foot Manual Muscle Testing Right Dorsiflexion (L4) 5 Normal Plantarflexion (S1) 3+ Fair+ Inversion 5 Normal Eversion (S1) 5 Normal Comments 3 heel raises Left Dorsiflexion (L4) 5 Normal Plantarflexion (S1) 3+ Fair+ Inversion 4- Good- Eversion (S1) 5 Normal Comments 6 heel raises -discomfort PT-OP-Q Treatments Start: 03/11/23 09:20 Freq: Status: Active Protocol: Document 11/09/23 10:29 [facility] (Rec: 11/09/23 16:47 [facility] [id number]) Therapeutic Exercises Supine Exercises isometric Supine Exercise Name flex isometric SL cues DF Side right Reps/Minutes 30 sec core Supine Exercise Name marches Side bilateral Reps/Minutes 2x10 Comments cues lower lumbar spine no rot Bridge Side bilateral Reps/Minutes 10 Comments cues glute engagement Therapeutic Activity Therapeutic Activity lifting mechanics Name w/dowel at back Reps/Minutes 8 min Comments 1. seated hip hinge x8 2. standing hip hinge x10 3. squat partial range Manual Therapy Treatment Consent Patient gave verbal consent for manual Yes treatment Soft Tissue Mobilization abdomen Comments 1. ant leaf coronary ligament Joint Mobilizations ribs Comments R rib 5 internal torsion and R rib7 external torsion FM seated Neuro Re-Education Treatment Other Activities facilitation Comments at L4 and 5 B w/marching w/ facilitaiton at transverse process Self-Care/Home Management Treatment Education Other Education 5 min: edu re: starting walking program and doing progression of squats, core alos at home. PT-OP-R Modalities Start: 03/11/23 09:20 Freq: Status: Active Protocol: Document 09/24/23 10:31 [facility] (Rec: 09/24/23 11:23 [facility] [id number]) Hot Pack/Cold Pack Treatment Cold Pack Location LB and R hip Patient Position Hooklying Patient Tolerance Good Comments 10 min PT-OP-T Assessment and Plan Start: 03/11/23 09:20 Freq: Status: Active Protocol: Document 11/09/23 10:29 [facility] (Rec: 11/09/23 16:47 [facility] [id number]) Physical Therapy Assessment Goals mobility Impairment R positive neri test ; lacking 40 deg to knee ext for HS stretch L; R lacking 52 deg to knee ext [place] Goal (LTG) Pt will have WNL neri test on R and B lacking 30 deg knee ext for HS stretch to dec pull on pelvis and allow improved mobility for tasks like kayaking. 10/09-n/t d/t fflare and positve for nerve tension today LTG Duration 8/ activity [place] Goal (LTG) Pt will be able to return to light running, hiking, hike and carry kids, walk up/down hills and be able to kayak ( sit on top) to fish. 10/09-pt has been walking, and carrying kids more recently but has not progressed to other activities LTG Duration 8 Balance Impairment unable to balance on RLE and 12s on LLE. Short Term Goal (STG) Pt will be able to balance for at least 10s on RLE to show improvement in strength and stability in order to progress toward safe functional mobility. 05/20-now able to for a few sec at a time consistantly 3/7-5 sec consistently; improved on L 07/26-23 sec L; R 19 sec STG Duration achieved 07/26 [place] Goal (LTG) Pt will be able to perform SLS on BLE for >30s in order to demonstrate improved strength and stability through hip and LE and allow for safe participation in daily functional mobility. 07/26-23 sec L; R 19 sec 10/09-n/t d/t flare up LTG Duration 12/01 Strength Impairment Significant strength impairments throughout RLE Short Term Goal (STG) Pt will improve all R hip MMT to at least 4/5 to show improvement in LE strength to allow for dec compensations during functional acitvities. 05/20-n/t but improving wt acceptance and LE strength STG Duration achieved 07/26 [place] Goal (LTG) Pt will improve all R hip MMT to 5/5 to show improvement in RLE strength and allow for proper mechanics and dec pain during necessary functional mobility and daily tasks. 05/20-n/t 10/09-n/t d/t flare up today but pt has been doing higher level strength activities in PT LTG Duration 10/04 Assessment Summary Assessment Pt had improved form w/squat and hip hinges today and was able to follow cues well. had much inc difficulty w/all tasks of core especially w/low load today. He was able to improve after facilitation at lower lumbar. Physical Therapy Plan Frequency and Duration Frequency of Treatment 1x/Week Duration of treatment (weeks) 8 Plan of Care Start Date 10/05/23 Plan of Care End Date 12/02/23 Next Visit Focus/Plan Next Note Type Treatment Note Next Visit Plan work on full ROM and check in on core exercises
--- NOTE | 2023-11-25 13:04 | PT.OTN ---
Current Diagnoses Lumbago with sciatica, right side (11/25/23) Physical Therapy Treatment Note PT-OP-A Visit Information Start: 03/11/23 09:20 Freq: Status: Active Protocol: Document 11/25/23 09:01 [facility] (Rec: 11/25/23 13:04 [facility] [id number]) Out-Patient Physical Therapy Visit Information Visit Information Visit Type Progress Note Visit Start Time 09:03 Visit Stop Time 09:45 Visit Number 40 Number of CLERK GENERAL OFFICE Visits 0 PT-OP-B Current Condition Start: 03/11/23 09:20 Freq: Status: Active Protocol: Document 03/17/23 09:48 BS (Rec: 03/17/23 12:31 BS [id number]) Current Condition History of Current Condition Current Complaints LBP w/ R radiculopathy History of Current Condition Has referral in to see a neurosurgeon and wants to get second opinion on MRI results. 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 Got out of d/t not being able to keep up with physical requirements. Have done PT on and off over the years. Got MRI in 2018 and showed some slight narrowing at L3-L4 and minor muscle strains. Over last 6 months-1 year, has had few occasions where back spasms more than normal where he tried yoga poses, heat/ice, and massage therapist and always seemed to help. This last time ~4 weeks ago it was so bad and nothing seemed to help. Had pain down leg, knee pain, rucker/ankle pain. Bought new bed that folds to try and help with positioning and sleep. Finally went and saw doc and got on gabapentin which seems to help with pain but makes it so he can't function as well. Doesn' t normally like pain killers at all but got to the point where he needed something. Pain has really impacted life, has 2 kids under 2 and cant lift them or get up off floor well. Changing positions often seems to help with keeping the pain at ease and sitting in a more slouched position. About a year ago radiating pain was more localized to buttock but now goes all down to calf. By end of day body seems to be pretty tired and tight. Usually up 6-8 times throughout night because he is uncomfortable, has been getting worse in past 2-3 years. 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 Has lost ~20lbs in past 4 months. Almost had a fall with brain not thinking the foot was on the floor and having to grab on to someone to not go down. Pain is super variable and flare ups last 3-4 days where he cant get out of bed Treatment Goals Patient/Caregiver Goals Pt would like to focus on learning nerve glides and stretching to help with radiculopathy. Gets shoes and socks on without using hands to lift leg up. PT-OP-C Subjective Start: 03/11/23 09:20 Freq: Status: Active Protocol: Document 11/25/23 09:01 [facility] (Rec: 11/25/23 13:04 [facility] [id number]) OP-PT Subjective Patient Comments Patient Comments Pt reports after last session was really fatigued overall and thinks he was sick with something then last week started checking BP and it was 91/60 sometimes. He has been really lightheaded when stadning up and has to sit back down. He did 10 squats a day and stretching. pain has been hit or miss and some days , he has no pain now then there was pain when driving here then it was gone after. He has been on his feet all day with work and occ pain at night. PT-OP-D Balance Start: 03/11/23 09:20 Freq: Status: Active Protocol: Document 07/08/23 10:35 [facility] (Rec: 07/08/23 11:09 [facility] [id number]) Balance Tests Single Limb Standing Single Limb- Right 5 sec w/lat lean Single Limb- Left pain into ankle and calf 23 sec w/sig lat lean PT-OP-G Mobility & Gait Start: 03/11/23 09:20 Freq: Status: Active Protocol: Document 03/17/23 09:48 BS (Rec: 03/17/23 15:56 BS [id number]) OP Gait Assessment Comments Gait Comments dec stance time on RLE PT-OP-J Posture/Palpation/Skin Start: 03/11/23 09:20 Freq: Status: Active Protocol: Document 11/25/23 09:01 [facility] (Rec: 11/25/23 13:04 [facility] [id number]) Posture Evaluation [facility] Postural Classification System Vertical Compression Test 4 Elbow Flexion Test 5 Lumbar Protective Mechanism Left AP 3 Lumbar Protective Mechanism Right AP 4 Lumbar Protective Mechanism Left PA 5 Lumbar Protective Mechanism Right PA 5 PT-OP-K Range of Motion Start: 03/11/23 09:20 Freq: Status: Active Protocol: Document 03/17/23 09:48 BS (Rec: 03/17/23 12:31 BS [id number]) Lumbar Spine Range of Motion Lumbar Spine Active Percentage Flexion 20 Extension 10 Lateral Flexion Left 75 Lateral Flexion Right 75 Comments pain coming back up form flex, when hips SB felt tight on contra side, Ext painful, flex painful on way back up PT-OP-L Special Tests Start: 03/11/23 09:20 Freq: Status: Active Protocol: Document 03/23/23 09:49 BS (Rec: 03/23/23 13:22 BS [id number]) Special Tests Neural Special Tests- Lower Body Sciatic Nerve Tension Test Results positive B Comments L>R with chin tuck & DF Other Special Tests Special Tests Achilles Reflex: normal B Patellar reflex: normal L, diminished R Babinski: normal L, no response R LE Coordination: normal L, impaired R Clonus: absent PT-OP-M Strength Start: 03/11/23 09:20 Freq: Status: Active Protocol: Document 11/25/23 09:01 [facility] (Rec: 11/25/23 13:04 [facility] [id number]) Hip Strength Hip Manual Muscle Testing Right Flexion (L2) 5 Normal Extension (S1) 5 Normal Abduction 5 Normal Adduction 5 Normal External Rotation 5 Normal Internal Rotation 5 Normal Left Flexion (L2) 5 Normal Extension (S1) 5 Normal Abduction 5 Normal Adduction 5 Normal External Rotation 5 Normal Internal Rotation 5 Normal Knee Strength Knee Manual Muscle Testing Right Flexion (S2) 5 Normal Extension (L3) 5 Normal Left Flexion (S2) 5 Normal Extension (L3) 5 Normal Ankle/Foot Strength Ankle and Foot Manual Muscle Testing Right Dorsiflexion (L4) 5 Normal Plantarflexion (S1) 4+ Good+ Inversion 5 Normal Eversion (S1) 5 Normal Comments 15 heel raises Left Dorsiflexion (L4) 5 Normal Plantarflexion (S1) 4+ Good+ Inversion 4- Good- Eversion (S1) 5 Normal Comments 15 heel raises PT-OP-Q Treatments Start: 03/11/23 09:20 Freq: Status: Active Protocol: Document 11/25/23 09:01 [facility] (Rec: 11/25/23 13:04 [facility] [id number]) Therapeutic Exercises Supine Exercises abdominal bracing with heel slide Supine Exercise Name demo to pt Side bilateral Prone Exercises plank Prone Exercise Name forearm and knees Reps/Minutes [id number] Comments cues for netural TS, and lumbar position Standing Exercises squat Standing Exercise Name squat Side bilateral Reps/Minutes 2X10 Other Exercises isometrics Other Exercise Name MMT BLEs, LPM all planes, EFT, vct Side bilateral Self-Care/Home Management Treatment Education Other Education 23 min: edu to talk to doctor about change of symptoms medically. Edu that may need to see specialists but to follow up w/Primary. edu to cont to monitor BP. Edu on importance of follow up w/ counselor. Discussed imagery to help get back to activities ; review of HEP; discussed how to slow return to gym program PT-OP-R Modalities Start: 03/11/23 09:20 Freq: Status: Active Protocol: Document 09/24/23 10:31 [facility] (Rec: 09/24/23 11:23 [facility] [id number]) Hot Pack/Cold Pack Treatment Cold Pack Location LB and R hip Patient Position Hooklying Patient Tolerance Good Comments 10 min PT-OP-T Assessment and Plan Start: 03/11/23 09:20 Freq: Status: Active Protocol: Document 11/25/23 09:01 [facility] (Rec: 11/25/23 13:04 [facility] [id number]) Physical Therapy Assessment Goals mobility Impairment R positive neri test ; lacking 40 deg to knee ext for HS stretch L; R lacking 52 deg to knee ext Gutter Mouth Cutter Goal (LTG) Pt will have WNL neri test on R and B lacking 30 deg knee ext for HS stretch to dec pull on pelvis and allow improved mobility for tasks like kayaking. 10/09-n/t d/t fflare and positve for nerve tension today LTG Duration n/t but pt indep w/stretching program activity Gutter Mouth Cutter Goal (LTG) Pt will be able to return to light running, hiking, hike and carry kids, walk up/down hills and be able to kayak ( sit on top) to fish. 10/09-pt has been walking, and carrying kids more recently but has not progressed to other activities LTG Duration mostly achieved but hasn't done much hiking or running or kayking Balance Impairment unable to balance on RLE and 12s on LLE. Short Term Goal (STG) Pt will be able to balance for at least 10s on RLE to show improvement in strength and stability in order to progress toward safe functional mobility. 05/20-now able to for a few sec at a time consistantly 3/-5 sec consistently; improved on L 07/26-23 sec L; R 19 sec STG Duration achieved 07/26 Gutter Mouth Cutter Goal (LTG) Pt will be able to perform SLS on BLE for >30s in order to demonstrate improved strength and stability through hip and LE and allow for safe participation in daily functional mobility. 07/26-23 sec L; R 19 sec 10/09-n/t d/t flare up LTG Duration achieved B 11/24 Strength Impairment Significant strength impairments throughout RLE Short Term Goal (STG) Pt will improve all R hip MMT to at least 4/5 to show improvement in LE strength to allow for dec compensations during functional acitvities. 05/20-n/t but improving wt acceptance and LE strength STG Duration achieved 07/26 Gutter Mouth Cutter Goal (LTG) Pt will improve all R hip MMT to 5/5 to show improvement in RLE strength and allow for proper mechanics and dec pain during necessary functional mobility and daily tasks. 05/20-n/t 10/09-n/t d/t flare up today but pt has been doing higher level strength activities in PT LTG Duration achieved 11/24 Assessment Summary Assessment Pt indep w/HEP at this time and has been educated on slow progression towards further activity. Pain level still fluxates but pt does have some self relief strategies and pain is much better than when he started PT. He has much increased function and is doing more band actvitity, work around the house and with the kids w/less pain. He is encouraged to follow up w/ re: medical concerns and psychology re: his noting of inc anxiety. Physical Therapy Plan Discharge Physical Therapy Discharge Reasons Goals Met
== END 2024-01-18 08:42 | disposition home or self-care (01) ==
LOC: PHYS 09:00
PROVIDERS: Family Provider Family Medicine; PCP Family Medicine; Referring Provider Family Medicine; Visit Provider Family Medicine
DX: M54.41 Lumbago with sciatica, right side (principal)
CPT/HCPCS: 97110; 97112; 97116; 97140; 97164; 97530; 97535

== ENCOUNTER 2023-12-01 09:26 | Outpatient (CLI) | payer OTHER, SELFPAY ==
[2023-12-01] VITALS (7 sets, daily range): BP systolic 109–144; BP diastolic 72–89; PULSE 64–83; RESP 12–18; TEMP 36.7; O2SAT 98–100
--- NOTE | 2023-12-01 10:00 | DI.RAD.S_ITS ---
PROCEDURE: PAIN L INTERLAMINAR/CAUDAL INJ INDICATIONS: SPONDYLOSIS COMPARISON: [facility], XA, PAIN L INTERLAMINAR/CAUDAL INJ, 06/09/2023, 10:33. FINDINGS: Fluoroscopic spot filming was performed to verify placement of spinal needles at the L4-5 level(s), as labeled on the films. Appropriate location(s) of the needle tip(s) was confirmed by injection of iodinated contrast. IMPRESSION: Fluoro guidance was provided intraoperatively for L4-5 interlaminar BHARATHI performed by ordering physician. Dictated by: Foreign Cedeño M.D. on 12/01/2023 at 15:46 Approved by: Foreign Cedeño M.D. on 12/01/2023 at 15:47
[2023-12-01] MEDS: MIDAZOLAM 2 MG/2 ML VIAL IV (10:18)
[2023-12-01] MEDS: iopamidoL 15 ML VIAL 3 ML INJ (10:22)
[2023-12-01] MEDS: DEXAMETHASONE 10 MG/ML VIAL INJ (10:22)
[2023-12-01] MEDS: LIDOCAINE 1% (PF) 5 ML INJ (10:23)
--- NOTE | 2023-12-01 12:13 | P.PCN_ITS ---
Date/Time/Diagnoses Date of procedure: 12/01/23 Time of procedure: 10:00 Procedure Notes Physician: Gold Zheng Total Fluoroscopy time (seconds): 9 Total sedation minutes: 7 Procedure in detail & Post-procedure care: L4-5 Interlaminar Epidural Steroid Injection Indications: Vahe is presenting for treatment of lumbar radiculopathy with low back and leg pain. Preoperative diagnosis: Lumbar radiculopathy Postoperative diagnosis: Same Focused Examination: Ax3 Mood and affect are normal Vital Signs: VSS ASA: 2 Consent: Following review of allergies and potential side effects/complications, including, but not necessarily limited to, infection, allergic reaction, local tissue breakdown, stroke, temporary or permanent nerve injury, paralysis, and possible , the patient indicated that they understood and agreed to proce ed.? An informed consent document was signed by the patient, witnessed by a nurse and placed in the patient's chart.? Additionally, other treatment options including medications and physical therapy were reviewed with the patient. All questions were answered. Site was then marked. Anesthesia: After review of previous anesthetic history and IV conscious sedation, the patient was deemed safe to proceed with today's procedure with IV conscious sedation. IV sedation was accomplished with midazolam 2 mg administered by the RN after order by Dr. Zheng. Sedation was titrated to patient comfort during the course of the procedure. Patient remained responsive to all verbal commands. Position: Prone Monitoring: NIBP, Pulse oximetry, 3 lead EKG Needle used: 18 G 3.5? Tuohy Contrast: Isovue 300M Injectate: Dexamethasone 10 mg with 1% lidocaine 2 mL Technique: The skin was prepped with chloraprep and then draped in a sterile fashion. Time out was performed as per protocol. Oxygen applied via NC. Skin and subcutaneous structures of the needle entry site was then infiltrated with 3 mL of lidocaine 1%. Under AP, lateral and contralateral oblique fluoroscopic control, the Tuohy needle was guided into the L4-5 epidural space. The space was accessed with loss of resistance technique. Isovue 300M was then injected and the spread was consistent with the epidural space. There was no evidence for intravascular or intrathecal uptake. After negative aspiration, the above- mentioned injectate was then slowly administered and the needle withdrawn. The patient expressed no unusual discomfort or paresthesias during the injection. Band-Aids applied to injection sites. EBL: less than 1 ml Complications: None Post Procedure: Patient was taken to the recovery and monitored. The patient was provided a Pain Log to continue to record the patient's response to the target- specific procedure prior to the patient's follow-up visit with the referring physician. Patient was stable upon discharge. Detailed post procedure instructions were provided. Patient was asked to call in the event of worsening pain, fever, weakness, numbness or bladder or bowel incontinence.
== END 2023-12-01 10:45 | disposition home or self-care (01) ==
LOC: RAD 09:27
PROVIDERS: Family Provider Family Medicine; PCP Family Medicine; Referring Provider Anesthesiology; Visit Provider Anesthesiology
DX: M54.16 Radiculopathy, lumbar region (principal)
CPT/HCPCS: 62323; 99152; J1100; J2250

== ENCOUNTER → 2023-12-15 09:09 | Outpatient (CLI) | payer OTHER, SELFPAY ==
[2023-12-15 09:57] LABS: Add Manual Diff / Slide Review NO; Basophils Absolute Auto 0 /uL (0-100); Basophils Percent Auto 0.5 % (0-2); Eosinophils Absolute Auto 200 /uL (0-450); Eosinophils Percent Auto 2.5 % (2-4); Hematocrit 40.7 % (41-53); Hemoglobin 14.3 g/dL (13.5-17.5); Lymphocytes Absolute Auto 1900 /uL (1100-4500); Lymphocytes Percent Auto 26.3 % (25-40); Mean Corpuscular HGB Conc 35.2 % (30-36); Mean Corpuscular Hemoglobin 32.8 PG (26-34); Mean Corpuscular Volume 93.3 fL (80-100); Monocytes Absolute Auto 500 /uL (0-900); Monocytes Percent Auto 6.4 % (3-14); Neutrophils Absolute Auto 4700 /uL (1500-7000); Neutrophils Percent Auto 64.3 % (50-75); Platelet Count 276 X10^3/uL (150-400); Red Blood Cell Count 4.37 X10^6/uL (4.5-5.9); Red Cell Distribution Width 12.6 % (11.6-14.8); White Blood Cell Count 7.3 X10^3/uL (4.5-11.0)
[2023-12-15 10:13] LABS: Alanine Aminotransferase 28 IU/L (<50); Albumin 4.5 g/dL (3.5-5.0); Albumin Globulin Ratio 1.9 (1.0-2.8); Alkaline Phosphatase 62 U/L (38-126); Aspartate Aminotransferase 25 IU/L (17-59); BUN Creatinine Ratio 17.5 (6-22); Bilirubin Total 0.7 mg/dL (0.2-1.3); Blood Urea Nitrogen 20 mg/dL (9-20); Calcium 9.3 mg/dL (8.4-10.2); Carbon Dioxide 27 mmol/L (22-32); Chloride 106 mmol/L (98-107); Cholesterol 160 mg/dL (140-199); Estimated Glomerular Filt Rate > 60 mL/min (>60); Globulin 2.4 g/dL (1.7-4.1); Glucose 105 mg/dL (70-100); HDL Cholesterol 43 mg/dL (40-60); HEMOLYSIS < 15 (0-50); LDL Cholesterol Calculated 89 mg/dL (<100); Potassium 4.8 mmol/L (3.4-5.1); Sodium 139 mmol/L (137-145); Total Protein 6.9 g/dL (6.3-8.2); Triglycerides 142 mg/dL (35-150); Uric Acid 6.1 mg/dL (3.5-8.5)
[2023-12-15 10:37] LABS: TSH w/ Reflex to FT4 1.52 uIU/mL (0.47-4.68)
[2023-12-15 11:29] LABS: Microalbumin Urine Random < 0.6 mg/dL (0-1.6)
== END ==
PROVIDERS: Family Provider Family Medicine; PCP Family Medicine; Referring Provider Physician Assistant; Visit Provider Physician Assistant
DX: I10 Essential (primary) hypertension (principal); E78.5 Hyperlipidemia, unspecified; R73.9 Hyperglycemia, unspecified; E79.0 Hyperuricemia without signs of inflammatory arthritis and tophaceous disease
CPT/HCPCS: 36415; 80053; 80061; 82043; 82570; 83036; 84443; 84550; 85025

== ENCOUNTER → 2024-01-17 | Outpatient (CLI) | payer OTHER, SELFPAY ==
--- NOTE | 2024-01-17 13:41 | DI.RAD.S_ITS ---
PROCEDURE: XR HIP W PEL IF DONE RT 2V INDICATIONS: chronic right hip pain TECHNIQUE: 2 views of the hip were acquired. COMPARISON: None. FINDINGS: Bones: CAM configuration right femoral head neck junction predisposing to femoral acetabular impingement and superior lateral labral tears. SI and hip joints: Minimal premature right hip degeneration noted. Soft tissues: No soft tissue swelling, calcification or mass. IMPRESSION: Minimal right hip degeneration with CAM configuration right femoral head neck junction. For persistent symptoms, consider MRI Dictated by: Dallin Burnette M.D. on 01/18/2024 at 8:23 Approved by: Dallin Burnette M.D. on 01/18/2024 at 8:25
== END ==
PROVIDERS: Family Provider Family Medicine; PCP Family Medicine; Referring Provider Family Medicine; Visit Provider Family Medicine
DX: M25.551 Pain in right hip (principal); M79.604 Pain in right leg; G89.29 Other chronic pain
CPT/HCPCS: 73502

== ENCOUNTER → 2024-01-31 10:47 | Outpatient (CLI) | payer OTHER, SELFPAY ==
--- NOTE | 2024-01-31 10:49 | DI.RAD.S_ITS ---
PROCEDURE: [place] HIP INJECTION MR/CT RT INDICATIONS: right hip pain, pain in right leg, lumbago with sciatica TECHNIQUE: The indications, alternatives, benefits, risks, and complications of the procedure were explained to the patient. Written informed consent was obtained and placed in the chart. The hip was examined fluoroscopically with the legs fixed in slight internal rotation, and a site for needle placement chosen for entry into the hip joint from an anterior approach. Care was taken to locate the common femoral artery and vein beforehand. The skin was prepped and draped in a sterile fashion, and 1% Lidocaine infiltrated from skin down to joint capsule. A spinal needle was inserted into the joint, and a small amount of iodinated contrast media injected to confirm intra-articular placement of the needle tip. This was followed by approximately 10 mL dilute solution of a gadolinium containing MR contrast agent. The needle was removed and a dressing was applied. The patient was given postprocedural instructions and sent to the MR suite for imaging. COMPARISON: None. FINDINGS: A single fluoroscopic spot image demonstrates intra-articular location of injected iodinated contrast. IMPRESSION: Successful fluoroscopically guided administration of dilute Gadolinium solution into the hip joint for MR arthrogram. Dictated by: Yann Macdonald M.D. on 01/31/2024 at 12:35 Approved by: Yann Macdonald M.D. on 01/31/2024 at 12:42
--- NOTE | 2024-01-31 10:49 | DI.MRI.S_ITS ---
PROCEDURE: MR HIP RT W CON INDICATIONS: right hip pain, pain in right leg, lumbago with sciatica TECHNIQUE: After the administration of 10 mL of dilute intra-articular Gadolinium contrast, coronal STIR of the bony pelvis; coronal and oblique axial T1 spin echo with fat saturation, axial T2 fast spin echo with fat saturation, sagittal T1 spin echo with and without fat saturation of the involved hip. COMPARISON: [facility], CR, XR HIP W PEL IF DONE RT 2V, 01/17/2024, 13:48. [facility], RF, [place] HIP INJECTION MR/CT RT, 01/31/2024, 10:18. FINDINGS: Image quality: Excellent. Bones and joints: Bone marrow of the pelvic ring and proximal femurs show normal signal throughout. No intraosseous lesions or fractures. No avascular necrosis of the femoral head. mild facet hypertrophy at the lower lumbar spine. Tendons and ligaments: The gluteus medius and minimus tendons appear intact, without associated muscle atrophy. The proximal iliotibial band appears intact. The iliopsoas tendon appears intact, without adjacent bursal fluid collections. The origin of the hamstring tendon is intact at the ischial tuberosity. The tendons for the direct and indirect heads of the rectus femoris muscle appear intact. Labrum and cartilage: There is nondisplaced tearing of the anterior superior to superior labrum. Partial-thickness cartilage irregularity is seen in the superior hip. Asphericity of the femoral head is seen with an osseous protuberance at the anterior superior head/neck junction, which can be seen in the setting of cam-type femoroacetabular impingement. Soft tissues: Visualized muscles demonstrate normal bulk and internal signal. Quadratus femoris muscle demonstrates no internal edema to suggest ischiofemoral impingement. The proximal sciatic neurovascular bundle appears normal adjacent to the hamstring tendons. Pelvic soft tissues demonstrate no acute abnormality. IMPRESSION: 1. Nondisplaced tearing of the anterior superior to superior labrum. 2. 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 3. Asphericity of the femoral head is seen with an osseous protuberance at the anterior superior head/neck junction, which can be seen in the setting of cam-type femoroacetabular impingement. Approved by: Justice Rosales M.D. on 02/01/2024 at 11:56
[2024-01-31] MEDS: LIDOCAINE 1% 20 ML INJ (11:57)
[2024-01-31] MEDS: SODIUM CHLORIDE 0.9 % 20 ML VIAL IV (11:57)
== END ==
PROVIDERS: Family Provider Family Medicine; PCP Family Medicine; Referring Provider Family Medicine; Visit Provider Family Medicine
DX: M79.604 Pain in right leg (principal); M53.3 Sacrococcygeal disorders, not elsewhere classified; M54.41 Lumbago with sciatica, right side; G89.29 Other chronic pain; S73.191A Other sprain of right hip, initial encounter; M94.251 Chondromalacia, right hip
CPT/HCPCS: 27093; 73525; 73722; A9579; Q9967

== ENCOUNTER 2024-04-06 03:14 | Emergency (ER) | payer OTHER, SELFPAY ==
[2024-04-06 03:23] VITALS: TEMP 36.5; BMI 28.7
[2024-04-06 03:35] VITALS: BP 122/81; PULSE 69; RESP 16; O2SAT 98
--- NOTE | 2024-04-06 03:53 | DI.RAD.S_ITS ---
PROCEDURE: XR CHEST 1V INDICATIONS: cough TECHNIQUE: One view of the chest was acquired. COMPARISON: [facility], CR, XR CHEST 1V, 07/17/2023, 22:50. FINDINGS: Surgical changes and devices: None. Lungs and pleura: Lungs are clear. No pleural effusions or pneumothorax. Mediastinum: Mediastinal contours appear normal. Heart size is normal. Bones and chest wall: No suspicious bony lesions. Overlying soft tissues appear unremarkable. IMPRESSION: No acute cardiopulmonary abnormality is seen. Approved by: Justice Rosales M.D. on 04/06/2024 at 8:31
--- NOTE | 2024-04-06 04:02 | ED.DIZZY ---
HPI - Dizziness General Chief Complaint: Syncope Stated Complaint: Syncope Time Seen by Provider: 04/06/24 03:44 Source: patient and EMS Mode of arrival: EMS History of Present Illness HPI Narrative: 43-year-old male with history of hypertension presents by EMS from home for syncopal episode. Patient states that he has a nonspecific viral illness including a cough. In the middle of the night he went to use the restroom and while attempting to urinate had a coughing fit. During this coughing fit he felt himself become lightheaded and called for his . He states that the next thing he knows he was lying on the ground. Out of concerns for his heart here requested 911 be called. Patient has had several vasovagal episodes in the past per his report and he states that this feels similar to the previous vagal episodes. Related Data Previous Rx's Medication Instructions Recorded tizanidine 2 mg tablet 2 mg PO TID PRN muscle spasticity 05/27/23 #60 tabs phentermine 30 mg capsule 30 mg PO DAILY #30 caps 08/31/23 losartan 100 1 tab PO DAILY #90 tabs 09/09/23 mg-hydrochlorothiazide 25 mg tablet allopurinol 100 mg tablet 100 mg PO DAILY #90 tabs 10/18/23 clonazepam 1 mg tablet See Rx Instructions PO BID PRN 10/21/23 anxiety/muscle spasm #30 tabs rosuvastatin 10 mg tablet 10 mg PO DAILY #90 tabs 11/08/23 tramadol 50 mg tablet 50 mg PO BID PRN pain #30 tabs 12/30/23 diazepam 10 mg tablet (Valium) 10 mg PO ONCE #1 tab 01/24/24 losartan 100 mg tablet 100 mg PO DAILY #90 tabs 03/02/24 amlodipine 10 mg tablet 10 mg PO DAILY #90 tabs 03/21/24 duloxetine 30 mg capsule,delayed 30 mg PO DAILY #90 caps 03/24/24 release (Cymbalta) Allergies Allergy/AdvReac Type Severity Reaction Status Date / Time ibuprofen AdvReac Unknown fluid Verified 12/30/23 16:24 retention Patient History Medical History Right leg pain SI (sacroiliac) joint dysfunction Family history of early CAD Lumbar radiculopathy Myofascial pain Epidural lipomatosis Foot pain (~2013) Ankle pain (~2013) Chicken pox (~1988) Low back pain with right-sided sciatica Chronic back pain (~2016) PTSD (post-traumatic stress disorder) (~2018) Hypertension (~2018) Hyperglycemia Hyperlipidemia Flat feet, bilateral Left ankle pain Impaired vision Peroneal tendinitis, left leg Surgical History Anesthesia History of ankle surgery (~2000) History of tonsillectomy (~1985) Family History Father Hyperlipidemia Hypertension History of heart disease Mother Mental health problem Sister Hyperlipidemia Hypertension Grandfather COPD (chronic obstructive pulmonary disease) Grandmother Dementia Grandfather History of heart disease Grandmother History of heart disease Social History household members: significant other Smoking Status: Former smoker alcohol intake: current Smoking Status: Former smoker alcohol intake frequency: a few times a week Exam Initial Vital Signs Initial Vital Signs: Vital Signs Temperature 97.7 F 04/06/24 03:23 Const: Awake, alert, no acute distress, nontoxic appearing Cardiac: regular rate, regular rhythm RESP: unlabored, speaking in complete sentences without dyspnea Skin: Warm, Dry, intact, no rashes Neuro: AO x3, CN II-XII grossly intact, moves all extremities Course Orders Ordered: ED Orders 04/06/24 03:20 Complete Blood Count AUTO DIFF Stat Comprehensive Metabolic Panel Stat Covid-19 + FLU A/B + RSV - PCR Stat Lactate (Lactic Acid) Stat 04/06/24 03:53 XR chest 1V Stat EKG-12 Lead Stat Discontinued Medications Ketorolac Tromethamine (Ketorolac 30 Mg/Ml Vial) 15 mg IV NOW ONE Stop: 04/06/24 04:09 Last Admin: 04/06/24 04:11 Dose: 15 mg Documented By: LS Vital Signs Vital signs: Vital Signs - 8 hr 04/06/24 03:23 04/06/24 03:35 04/06/24 05:20 Temperature 97.7 F Pulse Rate 69 67 Respiratory Rate 16 18 Blood Pressure 122/81 125/87 Pulse Oximetry 98 97 Oxygen Delivery Method Room Air Room Air MDM - Dizziness Differential Diagnosis Differential diagnosis: Likely orthostatic hypotension and other (Vasovagal syncope, syncope) Lab Data 04/06/24 03:20 04/06/24 03:20 Labs: Lab Results 04/06/24 Range/Units 03:20 WBC 10.4 (4.5-11.0) X10^3/uL RBC 4.44 L (4.5-5.9) X10^6/uL Hgb 14.6 (13.5-17.5) g/dL Hct 42.4 (41-53) % MCV 95.5 (80-100) fL MCH 32.9 (26-34) PG MCHC 34.5 (30-36) % RDW 12.4 (11.6-14.8) % Plt Count 302 (150-400) X10^3/uL Neut % (Auto) 58.1 (50-75) % Lymph % (Auto) 29.8 (25-40) % Sharkey % (Auto) 7.7 (3-14) % Eos % (Auto) 4.0 (2-4) % Baso % (Auto) 0.4 (0-2) % Neut # (Auto) 6100 (9162-6359) /uL Lymph # (Auto) 3100 (0666-6243) /uL Sharkey # (Auto) 800 (0-900) /uL Eos # (Auto) 400 (0-450) /uL Baso # (Auto) 0 (0-100) /uL Sodium 137 (137-145) mmol/L Potassium 4.1 (3.4-5.1) mmol/L Chloride 103 (98-107) mmol/L Carbon Dioxide 30 (22-32) mmol/L BUN 16 (9-20) mg/dL Creatinine 1.11 (0.66-1.25) mg/dL Estimated GFR > 60 (>60) mL/min BUN/Creatinine Ratio 14.4 (6-22) Glucose 122 H (70-100) mg/dL Lactate 2.0 (0.7-2.1) mmol/L Calcium 9.2 (8.4-10.2) mg/dL Total Bilirubin 0.7 (0.2-1.3) mg/dL AST 38 (17-59) IU/L ALT 43 (<50) IU/L Alkaline Phosphatase 77 (38-126) U/L Total Protein 7.2 (6.3-8.2) g/dL Albumin 4.3 (3.5-5.0) g/dL Globulin 2.9 (1.7-4.1) g/dL Albumin/Globulin Ratio 1.5 (1.0-2.8) SARS-CoV-2 (PCR) Negative (Negative) Influenza A (RT-PCR) Flu a negative (NEGATIVE) Influenza B (RT-PCR) Flu b negative (NEGATIVE) RSV (PCR) Negative (Negative) Imaging Data Chest x-ray: Radiologist's Impression: Preliminary report: No acute cardiopulmonary abnormality ECG Data Interpretation: Normal sinus rhythm at 76 beats per minute. Normal [place]. No ST T wave changes, QTC 432 MDM Narrative Medical decision making narrative: Likely vasovagal event at home. He states that this is similar to previous vagal events he has experienced in the past. Currently alert, oriented, complaining of low-grade headache and requesting something for headache. He states that he was mostly here out of concern for his heart due to his history of hypertension. Denies chest pain, shortness of breath, other complaints at this time. Labs, imaging unremarkable. Headache improved with Toradol. EKG, chest x-ray normal. Patient informed of lab and imaging findings. Recommended [id number] cough medications to help prevent coughing fit from irritating vagus nerve. ED return precautions discussed. Discharge Plan Departure Patient Disposition: Home Clinical Impression: Vasovagal syncope Instructions: DI for Syncope in Adults (Fainting) Activity Restrictions/Additional Instructions: Your blood work today is reassuring. Your EKG is normal, and your x-ray does not show any concerning findings. Stay hydrated and drink plenty of fluids. Take Tylenol and ibuprofen as needed for pain or discomfort. Sywe-sdk-[id number] cough and cold medications can help suppress cough so that this episode does not occur again Prescriptions: No Action phentermine 30 mg capsule 30 mg PO DAILY Qty: 30 1RF Rx Instructions: must administer 2 hours after breakfast losartan-hydrochlorothiazide 100-25 mg tablet 1 tab PO DAILY Qty: 90 2RF Hold Instructions: Order change allopurinol 100 mg tablet 100 mg PO DAILY Qty: 90 2RF rosuvastatin 10 mg tablet 10 mg PO DAILY Qty: 90 3RF diazepam [Valium] 10 mg tablet 10 mg PO ONCE Qty: 1 0RF Rx Instructions: Use 1 hour prior to MRI losartan 100 mg tablet 100 mg PO DAILY Qty: 90 1RF amlodipine 10 mg tablet 10 mg PO DAILY Qty: 90 3RF duloxetine [Cymbalta] 30 mg capsule,delayed release(DR/EC) 30 mg PO DAILY Qty: 90 1RF clonazepam 1 mg tablet See Rx Instructions PO BID PRN (Reason: anxiety/muscle spasm) Qty: 30 0RF Rx Instructions: orally twice a day PRN; administer 30 minutes before bedtime tramadol 50 mg tablet 50 mg PO BID PRN (Reason: pain) Qty: 30 1RF tizanidine 2 mg tablet 2 mg PO TID PRN (Reason: muscle spasticity) Qty: 60 1RF Referrals: Rick Rausch MD [Primary Care Provider] - Stand Alone Forms: Patient Portal/API/Survey
[2024-04-06 04:05] LABS: Alanine Aminotransferase 43 IU/L (<50); Albumin 4.3 g/dL (3.5-5.0); Albumin Globulin Ratio 1.5 (1.0-2.8); Alkaline Phosphatase 77 U/L (38-126); Aspartate Aminotransferase 38 IU/L (17-59); BUN Creatinine Ratio 14.4 (6-22); Bilirubin Total 0.7 mg/dL (0.2-1.3); Blood Urea Nitrogen 16 mg/dL (9-20); Calcium 9.2 mg/dL (8.4-10.2); Carbon Dioxide 30 mmol/L (22-32); Chloride 103 mmol/L (98-107); Estimated Glomerular Filt Rate > 60 mL/min (>60); Globulin 2.9 g/dL (1.7-4.1); Glucose 122 mg/dL (70-100); HEMOLYSIS < 15 (0-50); Potassium 4.1 mmol/L (3.4-5.1); Sodium 137 mmol/L (137-145); Total Protein 7.2 g/dL (6.3-8.2)
--- NOTE | 2024-04-06 04:06 | EKG_ITS ---
[facility] [address] [address] Test Date: 2024-04-06 Pat Name: Vahe Nieto Department: [facility] Room: Gender: Male Manager Event: : 1980 Requested By: Order Number: [id number] Reading MD: Dallin Rae MD Measurements Intervals [place] Rate: 76 P: 56 AL: 174 QRS: 23 QRSD: 104 T: 22 QT: 384 QTc: 432 Interpretive Statements Normal sinus rhythm Low voltage QRS Electronically Signed On 04-06-2024 6:47:44 PST by Dallin Rae MD
[2024-04-06] MEDS: KETOROLAC 30 MG/ML VIAL 15 MG IV (04:11)
[2024-04-06 04:55] LABS: Add Manual Diff / Slide Review NO; Basophils Absolute Auto 0 /uL (0-100); Basophils Percent Auto 0.4 % (0-2); Eosinophils Absolute Auto 400 /uL (0-450); Hematocrit 42.4 % (41-53); Hemoglobin 14.6 g/dL (13.5-17.5); Lymphocytes Absolute Auto 3100 /uL (1100-4500); Lymphocytes Percent Auto 29.8 % (25-40); Mean Corpuscular HGB Conc 34.5 % (30-36); Mean Corpuscular Hemoglobin 32.9 PG (26-34); Mean Corpuscular Volume 95.5 fL (80-100); Monocytes Absolute Auto 800 /uL (0-900); Monocytes Percent Auto 7.7 % (3-14); Neutrophils Absolute Auto 6100 /uL (1500-7000); Neutrophils Percent Auto 58.1 % (50-75); Platelet Count 302 X10^3/uL (150-400); Red Blood Cell Count 4.44 X10^6/uL (4.5-5.9); Red Cell Distribution Width 12.4 % (11.6-14.8); White Blood Cell Count 10.4 X10^3/uL (4.5-11.0)
[2024-04-06 05:20] VITALS: BP 125/87; PULSE 67; RESP 18; O2SAT 97
[2024-04-06 05:38] LABS: Influenza A - CEPHEID Flu A NEGATIVE (NEGATIVE); Influenza B - CEPHEID Flu B NEGATIVE (NEGATIVE); Respiratory Syncytial Virus Negative (Negative)
[2024-04-06 05:44] LABS: COVID-19 CEPHEID 4-PLEX PCR Negative (Negative)
== END 2024-04-06 05:21 | disposition home or self-care (01) ==
PROVIDERS: Emergency Provider Emergency Medicine; Family Provider Family Medicine; PCP Family Medicine
DX: R55 Syncope and collapse (principal); R05.9 Cough, unspecified
CPT/HCPCS: 0241U; 71045; 80053; 83605; 85025; 93005; 93010; 96374; 99283; 99284; J1885

== ENCOUNTER → 2024-07-17 08:06 | Outpatient (CLI) | payer OTHER, SELFPAY ==
[2024-07-17 09:23] LABS: Influenza A - CEPHEID Flu A POSITIVE (NEGATIVE); Influenza B - CEPHEID Flu B NEGATIVE (NEGATIVE); Respiratory Syncytial Virus Negative (Negative)
[2024-07-17 09:30] LABS: COVID-19 CEPHEID 4-PLEX PCR Negative (Negative)
== END ==
PROVIDERS: Family Provider Family Medicine; PCP Family Medicine; Visit Provider Nurse Practitioner Family
DX: R05.1 Acute cough (principal)
CPT/HCPCS: 0241U

== ENCOUNTER → 2024-07-18 08:53 | Outpatient (CLI) | payer OTHER, SELFPAY ==
--- NOTE | 2024-07-18 08:53 | DI.RAD.S_ITS ---
PROCEDURE: XR CHEST 2V INDICATIONS: Cough TECHNIQUE: 2 views of the chest were acquired. COMPARISON: Merged With [facility], CR, XR CHEST 1V, 04/06/2024, 3:54. FINDINGS: Surgical changes and devices: None. Lungs and pleura: Lungs are clear. No pleural effusions or pneumothorax. Mediastinum: Mediastinal contours are normal. Heart size is normal. Bones and chest wall: No suspicious bony abnormalities. Soft tissues appear unremarkable. IMPRESSION: No acute cardiopulmonary abnormality is seen. Dictated by: Eder Dooley M.D. on 07/19/2024 at 1:49 Approved by: Eder Dooley M.D. on 07/19/2024 at 1:49
== END ==
PROVIDERS: Family Provider Family Medicine; PCP Family Medicine; Referring Provider Nurse Practitioner Family; Visit Provider Nurse Practitioner Family
DX: R05.9 Cough, unspecified (principal)
CPT/HCPCS: 71046

== ENCOUNTER → 2024-07-20 15:09 | Outpatient (CLI) | payer OTHER, SELFPAY ==
--- NOTE | 2024-07-20 15:12 | DI.RAD.S_ITS ---
PROCEDURE: XR CHEST 2V INDICATIONS: severe back pain, active flu TECHNIQUE: 2 views of the chest were acquired. COMPARISON: [facility], CR, XR CHEST 2V, 07/18/2024, 8:56. [facility], CR, XR CHEST 1V, 04/06/2024, 3:54. FINDINGS: Surgical changes and devices: None. Lungs and pleura: Lungs are clear. No pleural effusions or pneumothorax. Mediastinum: Mediastinal contours are normal. Heart size is normal. Bones and chest wall: No suspicious bony abnormalities. Soft tissues appear unremarkable. IMPRESSION: No acute cardiopulmonary abnormality is seen. Dictated by: Luiz Colby M.D. on 07/20/2024 at 16:41 Approved by: Luiz Colby M.D. on 07/20/2024 at 16:41
== END ==
PROVIDERS: Family Provider Family Medicine; PCP Family Medicine; Referring Provider Family Medicine; Visit Provider Physician Assistant
DX: J11.1 Influenza due to unidentified influenza virus with other respiratory manifestations (principal)
CPT/HCPCS: 71046

== ENCOUNTER → 2025-02-08 16:38 | Outpatient (CLI) | payer OTHER, SELFPAY ==
--- NOTE | 2025-02-08 16:41 | DI.RAD.S_ITS ---
PROCEDURE: XR CERVICAL SPINE 2V OR 3V INDICATIONS: Neck pain; possible pinched nerve TECHNIQUE: 3 view(s) of the cervical spine were acquired. COMPARISON: None. FINDINGS: Bones: There is straightening of normal cervical lordosis. No fracture or dislocation. Mild degenerative endplate changes are seen at C5-6 and C6-7 levels.. The lateral masses of C1 appear intact on the odontoid view. No suspicious bony lesions. Soft tissues: No prevertebral soft tissue swelling. IMPRESSION: 1. No displaced fracture or traumatic subluxation. 2. Mild spondylitic changes in lower cervical spine. Dictated by: Foreign Cedeño M.D. on 02/09/2025 at 16:30 Approved by: Foreign Cedeño M.D. on 02/09/2025 at 16:30
== END ==
LOC: RAD 16:40
PROVIDERS: Family Provider Family Medicine; PCP Family Medicine; Referring Provider Physician Assistant; Visit Provider Physician Assistant
DX: M54.2 Cervicalgia (principal); G58.9 Mononeuropathy, unspecified
CPT/HCPCS: 72040

== ENCOUNTER → 2025-02-15 13:13 | Outpatient (CLI) | payer OTHER, SELFPAY ==
--- NOTE | 2025-02-15 13:13 | DI.MRI.S_ITS ---
PROCEDURE: MR CERVICAL SPINE WO CON INDICATIONS: radicular neck pain and left hand weakness TECHNIQUE: Noncontrast sagittal T1 spin echo and T2 fast spin echo, sagittal STIR, foraminal oblique sagittal T2 fast spin echo, and axial gradient echo or T2 fast spin echo through the cervical spine. COMPARISON: None. FINDINGS: Image quality: Excellent. Alignment and Curvature: Straightening of the usual cervical lordosis which may be secondary to positioning. No sagittal listhesis. Bone Marrow: Marrow demonstrates normal overall signal. Spinal Cord: Mild flattening of the cord at C5-6 and C6-7 due to changes described below. No increased cord signal. No atrophy. Normal positioning of the cerebellar tonsils. Paraspinous Soft Tissues: No paravertebral masses. Prevertebral soft tissues are normal in thickness. C2-C3: Normal appearance. C3-C4: Normal appearance. C4-C5: Mild spinal canal stenosis due to degenerate disc osteophyte complex. Mild bilateral neural foraminal stenosis due to uncovertebral greater than facet arthrosis. C5-C6: Moderate to severe spinal canal stenosis due to degenerated disc osteophyte complex and superimposed left central disc protrusion. Moderate bilateral neural foraminal stenosis due to uncovertebral greater than facet arthrosis. C6-C7: Moderate to severe spinal canal stenosis due to degenerate disc osteophyte complex and superimposed central to left subarticular disc extrusion with which is mildly, 5 mm cranially migrated (3/10). Severe left neural foraminal stenosis due to left central to subarticular superiorly migrated disc extrusion and minimal uncovertebral greater than facet arthrosis. C7-T1: Normal appearance. IMPRESSION: 1. Moderate to severe spinal canal stenosis at C6-7 due to degenerate disc osteophyte complex and superimposed central to left subarticular disc extrusion. 2. Multilevel spinal canal stenosis is moderate to severe at C5-6 due to degenerate disc osteophyte complex and superimposed disc protrusion. 3. Multilevel neural foraminal stenosis reaches severe on the left at C6-7 and moderate bilaterally at C5-6. Dictated by: Yamil Fields M.D. on 02/15/2025 at 16:16 Approved by: Yamil Fields M.D. on 02/15/2025 at 16:22
== END ==
LOC: MRI 13:13
PROVIDERS: Family Provider Family Medicine; PCP Family Medicine; Referring Provider Family Medicine; Visit Provider Family Medicine
DX: S16.1XXA Strain of muscle, fascia and tendon at neck level, initial encounter (principal); M50.122 Cervical disc disorder at C5-C6 level with radiculopathy; M48.02 Spinal stenosis, cervical region; M47.22 Other spondylosis with radiculopathy, cervical region; G58.9 Mononeuropathy, unspecified; M62.838 Other muscle spasm; X58.XXXA Exposure to other specified factors, initial encounter
CPT/HCPCS: 72141